=== PATIENT | female | born 1950 | race Caucasian/White ===

== ENCOUNTER 2019-07-02 07:34 | Outpatient (RCR) | payer MEDICARE, SELFPAY | END 2019-09-30 23:59 | disposition home or self-care (01) | LOC: ANHDMC 07:34 | PROVIDERS: PCP Internal Medicine; Visit Provider Internal Medicine Endocrinology, Diabetes & Metabolism | DX: E11.65 Type 2 diabetes mellitus with hyperglycemia (principal); E66.9 Obesity, unspecified | CPT/HCPCS: 99199 ==

== ENCOUNTER 2019-12-16 19:07 | Outpatient (CLI) | payer MEDICARE, SELFPAY ==
[2019-12-16 19:51] LABS: Basophils Absolute Auto 0.04 K/mm3 (0.00-0.10); Basophils Percent Auto 0.5 % (0.0-1.0); Eosinophils Percent Auto 2.5 % (1.0-6.0); Hematocrit 40.9 % (35.0-42.0); Hemoglobin 14.2 g/dL (11.7-13.8); Immature Granulocyte Absolute 0.03 K/mm3 (0.00-0.00); Immature Granulocyte Percent A 0.4 % (0.0-0.0); Lymphocytes Absolute Auto 1.55 K/mm3 (1.10-4.50); Lymphocytes Percent Auto 19.5 % (18.0-42.0); Mean Corpuscular HGB Conc 34.7 g/dL (32.0-36.0); Mean Corpuscular Hemoglobin 31.5 pg (27.0-31.0); Mean Corpuscular Volume 90.7 fL (78.0-102.0); Mean Platelet Volume 10.9 fl (9.2-11.8); Monocytes Absolute Auto 0.48 K/mm3 (0.10-0.90); Neutrophils Absolute Auto 5.6 K/mm3 (1.7-7.2); Neutrophils Percent Auto 71.1 % (50.0-70.0); Platelet Count Result 186 K/mm3 (150-420); Red Blood Count 4.51 M/mm3 (4.20-5.40); Red Cell Distribution Width 13.3 % (11.6-14.4); White Blood Count 7.9 K/mm3 (4.8-10.8)
[2019-12-16 20:15] LABS: Alanine Aminotransferase 22 U/L (14-59); Albumin Level 3.3 g/dL (3.4-5.0); Alkaline Phosphatase 176 U/L (46-116); Anion Gap 10.3 mmol/L (7-16); Aspartate Amino Transferase 15 U/L (15-37); Bilirubin,Total 0.6 mg/dL (0.00-1.00); Blood Urea Nitrogen 20 mg/dL (7-18); Calcium 8.5 mg/dL (8.5-10.1); Carbon Dioxide 30 mmol/L (21-32); Chloride 101 mmol/L (98-108); Estimated Glomerular Filt Rate 49; Glucose 202 mg/dL (70-99); Osmolality Calculated 294 mOsm/kg (285-295); Potassium 3.3 mmol/L (3.5-5.1); Sodium 138 mmol/L (136-145); Total Protein 6.4 g/dL (6.4-8.2)
== END 2019-12-16 19:08 | disposition home or self-care (01) ==
LOC: CHSLAB 19:09
PROVIDERS: PCP Internal Medicine; Visit Provider Internal Medicine
DX: M79.605 Pain in left leg (principal); M79.604 Pain in right leg; E11.9 Type 2 diabetes mellitus without complications
CPT/HCPCS: 36415; 80053; 85025

== ENCOUNTER 2019-12-17 13:00 | Outpatient (RCR) | payer MEDICARE, OTHER, SELFPAY ==
[2019-10-03 09:30] VITALS: BMI 61.9
[2019-12-17 13:14] VITALS: BMI 60.0
[2019-12-17 13:16] VITALS: BMI 60.0
== END 2020-01-01 23:59 | disposition home or self-care (01) ==
LOC: ANHDMC 13:00
PROVIDERS: PCP Internal Medicine; Visit Provider Internal Medicine Endocrinology, Diabetes & Metabolism
DX: E11.65 Type 2 diabetes mellitus with hyperglycemia (principal); Z71.3 Dietary counseling and surveillance; Z79.4 Long term (current) use of insulin
CPT/HCPCS: 97802; 97803

== ENCOUNTER → 2020-05-07 08:12 | Outpatient (CLI) | payer MEDICARE, OTHER, SELFPAY ==
--- NOTE | ~2020-05-07 | MR_ITS ---
. EXAMINATION: MR lumbar spine wo con DATE: 05/07/2020 09:14 INDICATION: Lumbago. TECHNIQUE: Magnetic resonance imaging (MRI) of the lumbar spine was performed without intravenous con trast. Sequences included sagittal T2-weighted FSE, sagittal T2-weighted FS FSE, sagittal T1-weighted FSE, and axial T2-weighted FSE. COMPARISON: Lumbar spine MRI 12/07/2017 FINDINGS: There is 5 degrees levocurvature of lumbar spine. There is 3 mm anterolisthesis of L4 on L5 . There are Schmorl's nodes at most levels. There is mild chronic anterior wedging of T11 and T12 chrissie tebral bodies. There is moderately decreased disc height at L2-L3 and L3-L4, mildly decreased disc he ight at L4-L5, and severely decreased disc height at L5-S1 with endplate remodeling. There is degener ative edema-like marrow signal intensity of L3 inferior endplate. The distal spinal cord signal inten sity is normal. The conus medullaris is at L2. The following disc levels are specifically discussed: L1-L2: The disc does not extend beyond the endplate margin. There is mild bilateral facet joint osteo arthritis. There is no neural foraminal stenosis. There is no central canal stenosis. L2-L3: The disc is bulging and has an annular fissure. There is mild bilateral facet joint osteoarthr itis. There is moderate bilateral neural foraminal stenosis. There is mild central canal stenosis. L3-L4: The disc is bulging and has an annular fissure. There is moderate bilateral facet joint osteoa rthritis. There is hypertrophy of the ligamentum flavum. There is moderate bilateral neural foraminal stenosis. There is mild central canal stenosis. L4-L5: The disc is bulging and has an annular fissure. There is severe bilateral facet joint osteoart hritis. There is hypertrophy of the ligamentum flavum. There is moderate bilateral neural foraminal s tenosis. There is moderate central canal stenosis. L5-S1: The disc is bulging and has an annular fissure. There is severe bilateral facet joint osteoart hritis. There is severe right and moderate left neural foraminal stenosis. There is mild central farida l stenosis. IMPRESSION: 1. Severe lumbar spondylosis, worsened from 12/07/2017. Reviewed, dictated and finalized at location A. ONNEL GENERALIST MANAGER
== END ==
PROVIDERS: Visit Provider Nurse Practitioner Family
DX: M47.896 Other spondylosis, lumbar region (principal)
CPT/HCPCS: 72148

== ENCOUNTER 2020-10-26 22:31 | Emergency (ER) | payer MEDICARE, SELFPAY ==
--- NOTE | ~2020-10-26 | CT_ITS ---
EXAMINATION: CT abdomen pelvis w con EXAM DATE: 10/27/2020 00:44 INDICATION: Abdominal pain all over abd pain with N/V/D/C. TECHNIQUE: Spiral CT of the abdomen and pelvis was performed following intravenous injection of 100 m L Omnipaque 350. Axial, coronal and sagittal images of the abdomen and pelvis were reviewed. The do se-length product (DLP) for this examination was 1469.98 mGy-cm. The exposure was tailored according to patient size (auto mA exposure control), and iterative reconstruction (ASIR) was used as addition al dose reduction technique. Comparison is made to prior examination from 11/16/2015. FINDINGS: There is a left ureteropelvic junction 15 mm stone. There is mild left hydronephrosis and m oderate perinephric fat stranding. Mildly delayed left nephrogram compared to right. There is a simil ar sized nonobstructing right renal pelvic stone. There are 2 left calyceal stones measuring about 2 mm. There is a 10 mm left renal midpole angiomyolipoma. The liver, spleen, adrenal glands and pancreas are unremarkable. Gallbladder is unremarkable. No bi liary obstruction. The uterus is anteverted and morphologically normal. The bladder is unremarka ble. There is no retroperitoneal or pelvic lymphadenopathy. There is mild scattered arteriosclerot ic disease. Small to moderate-sized umbilical fat-containing hernia. The appendix is not positively visualized. There is no pericecal inflammatory change to suggest appe ndicitis. There is moderate descending and sigmoid colonic diverticulosis. There is no adjacent infl ammatory change to suggest diverticulitis. The stomach and small bowel are unremarkable. There is ex pected amount of colonic stool. No free intraperitoneal gas. Basilar subsegmental atelectasis. Th ere are no osteoblastic or osteolytic lesions identified. IMPRESSION: 1. Bilateral renal pelvic 1.5 cm stones, obstructing on the left. 2. Left nephrolithiasis. 3. Left angiomyolipoma. 4. Umbilical fat-containing hernia. 5. Colonic diverticulosis. Reviewed, dictated and finalized at location A.
[2020-10-26 22:35] VITALS: BP 168/92; PULSE 81; RESP 20; TEMP 36.8; O2SAT 98
--- NOTE | 2020-10-26 22:51 | ECG_ITS ---
Measurements Intervals [place] Rate: 73 P: 70 UT: 189 QRS: -4 QRSD: 88 T: 31 QT: 387 QTc: 428 Interpretive Statements SINUS RHYTHM WITH MARKED SINUS ARRHYTHMIA BASELINE ARTIFACT- I, II, III, AVR, AVL, AVF, V1, V4-V6 NORMAL ECG Electronically Signed On 10-27-2020 7:13:06 CDT by Christian Zimmerman D.O.
[2020-10-26] MEDS: SODIUM CHLORIDE 0.9% IV 1,000 ML 999 ML IV CONT (23:12)
[2020-10-26] MEDS: ONDANSETRON INJ 4 MG/2 ML VIAL IV PUSH (23:12)
[2020-10-26 23:44] LABS: Basophils Absolute Auto 0.05 K/mm3 (0.00-0.10); Basophils Percent Auto 0.4 % (0.0-1.0); Eosinophils Absolute Auto 0.12 K/mm3 (0.02-0.50); Eosinophils Percent Auto 1.1 % (1.0-6.0); Hemoglobin 13.5 g/dL (11.7-13.8); Immature Granulocyte Absolute 0.03 K/mm3 (0.00-0.00); Immature Granulocyte Percent A 0.3 % (0.0-0.0); Lymphocytes Absolute Auto 0.91 K/mm3 (1.10-4.50); Lymphocytes Percent Auto 8.1 % (18.0-42.0); Mean Corpuscular HGB Conc 33.8 g/dL (32.0-36.0); Mean Corpuscular Hemoglobin 30.4 pg (27.0-31.0); Mean Corpuscular Volume 90.1 fL (78.0-102.0); Mean Platelet Volume 10.1 fl (9.2-11.8); Monocytes Absolute Auto 0.51 K/mm3 (0.10-0.90); Monocytes Percent Auto 4.5 % (2.0-11.0); Neutrophils Absolute Auto 9.6 K/mm3 (1.7-7.2); Neutrophils Percent Auto 85.6 % (50.0-70.0); Platelet Count Result 182 K/mm3 (150-420); Red Blood Count 4.44 M/mm3 (4.20-5.40); Red Cell Distribution Width 13.3 % (11.6-14.4); White Blood Count 11.3 K/mm3 (4.8-10.8)
[2020-10-27] LABS: Alanine Aminotransferase 26 U/L (14-59); Albumin Level 3.4 g/dL (3.4-5.0); Alkaline Phosphatase 116 U/L (46-116); Anion Gap 11 mmol/L (8-16); Aspartate Amino Transferase 12 U/L (15-37); Bilirubin,Total 0.6 mg/dL (0.00-1.00); Blood Urea Nitrogen 12 mg/dL (7-18); Calcium 8.8 mg/dL (8.5-10.1); Carbon Dioxide 27 mmol/L (21-32); Chloride 99 mmol/L (98-108); Estimated Glomerular Filt Rate 52; Glucose 296 mg/dL (70-99); Lipase 39 U/L (73-393); Osmolality Calculated 294 mOsm/kg (285-295); Potassium 3.7 mmol/L (3.5-5.1); Sodium 137 mmol/L (136-145); Total Protein 6.7 g/dL (6.4-8.2)
[2020-10-27 00:04] LABS: Lactic Acid Reflex 1.6 mmol/L (0.4-2.0)
--- NOTE | 2020-10-27 00:57 | PC.NURSE ---
pt hernan grande, erp notified.
[2020-10-27] MEDS: KETOROLAC 30 MG/ML VIAL (*BKC) IV PUSH (01:56)
--- NOTE | 2020-10-27 02:07 | PC.NURSE ---
0200 call to con[facility] mel[facility] wheel[facility], [facility] for bed availability to transfer pt for urology services. awaiting call back
[2020-10-27 02:09] LABS: Appearance Urine Clear (Clear); Bilirubin Urine 1+ (Negative); Blood Urine 3+ (Negative); Glucose Urine UA 3+ (Negative); Ketones Urine Negative (Negative); Leukocyte Esterase Ur Negative (Negative); Nitrate Urine Negative (Negative); Protein Urine 2+ (Negative); Specific Grav Ur >= 1.030 (1.010-1.020)
--- NOTE | 2020-10-27 02:15 | ED.ABDPAIN ---
HPI - Abdominal Pain General Chief Complaint: Abdominal Pain Stated Complaint: gas pains, dry heaving Source: patient Mode of arrival: ambulatory Limitations: no limitations History of Present Illness HPI narrative: This is a 70-year-old female with a history of kidney stones has seen urology at [facility] in the past, presents this morning with some abdominal pain with nausea and episode of vomiting abdominal fullness gassy feeling that started earlier this this afternoon, has been having some abdominal discomfort for the last few weeks and started earlier this afternoon with left lower quadrant pain and flank pain, currently no fever chills does have some nausea with episodes of vomiting with no chest pain no shortness of breath no dysuria no hematuria. MD elicited complaint: abdominal pain Pertinent past history: constipation and diverticulitis Onset (ago): hour(s) Pain Consistency: intermittent Location: LLQ and L flank Severity: moderate Pain scale (0-10): 6 Quality: aching and fullness Radiation: LLQ Migration to: L flank Exacerbating factors: eating Relieving factors: nothing Related Data Home Medications Medication Instructions Recorded Confirmed acetaminophen 500 mg tablet 500 mg PO Q4H PRN 04/22/19 10/26/20 aspirin 81 mg tablet,delayed 81 mg PO DAILY 04/22/19 10/26/20 release atorvastatin 40 mg tablet 40 mg PO DAILY 04/22/19 10/26/20 bupropion HCl 150 mg 24 hr tablet, 150 mg PO QAM 04/22/19 10/26/20 extended release duloxetine 60 mg capsule,delayed 60 mg PO BID 04/22/19 10/26/20 release furosemide 40 mg tablet 80 mg PO QAM 04/22/19 10/26/20 glipizide 10 mg tablet 10 mg PO BID 04/22/19 10/26/20 levothyroxine 125 mcg tablet 150 mcg PO DAILY tablet 04/22/19 10/26/20 metformin 1,000 mg tablet 1,000 mg PO BID 04/22/19 10/26/20 potassium chloride 20 mEq oral 20 meq PO DAILY 04/22/19 10/26/20 packet propranolol 40 mg tablet 40 mg PO .QD tablet 04/22/19 10/26/20 zonisamide 100 mg capsule 400 mg PO DAILY 04/22/19 10/26/20 Allergies Allergy/AdvReac Type Severity Reaction Status Date / Time cephalexin [From Keflex] Allergy Unknown Rash Verified 04/22/19 08:14 Review of Systems Review of Systems: All systems reviewed & are unremarkable except as noted in HPI and below PMFSH Past Medical History Medical History (Updated 10/27/20 @ 02:31 by Aidan Faulkner MD) Anemia Anxiety Arthritis Asthma Back pain Blood disorder Chest pain Depression Diabetes H/O thyroid disease Migraines Obesity Shortness of breath Tear, knee, medial meniscus Surgical History Surgical History Hx of dilation and curettage Hx of tonsillectomy Family History Family History Other ADD (attention deficit disorder) Alzheimer's dementia Anemia Anxiety Arthritis Asthma Atrial fibrillation Back pain CAD (coronary artery disease) Cataracts, bilateral Chest pain Depression Diabetes mellitus Glaucoma H/O thyroid disease Hearing loss Heart disease Hypertension Migraines Obesity Osteoporosis Ovarian cancer Renal disease Shortness of breath Visual loss Social History Social History Smoking status: Never smoker Alcohol intake: never Spiritual care concerns: No Exam Const: General: no acute distress and alert Orientation/consciousness: patient oriented x3 HENMT: Head: normal to inspection Eyes: Conjunctivae: conjunctivae normal Pupils: Equal, round and reactive pupils present EOM: EOMs intact bilaterally Direct Ophthalmoscopy: no photophobia Neck: Neck: normal visual inspection, no lymphadenopathy and no meningeal signs Chest: Chest palpation & inspection: normal inspection of the chest Resp: Effort & Inspection: normal respiratory effort Auscultation: clear to auscultation bilaterally Cardio:
[2020-10-27 02:16] LABS: Add Urine Microscopic? YES; Amorphous Sediment Urine Heavy; Bacteria Urine None seen /hpf; Color Urine Dark Yellow (Yellow); RBC Urine 51-75 /hpf (0-2); Squamous Epithelial Cell Urine Moderate /hpf (Few); WBC Urine None seen /hpf (0-3)
--- NOTE | 2020-10-27 02:24 | PC.NURSE ---
dr browne spoke with dr campuzano, urology. call to [facility] to speak with hospitalist for admission. awaiting call back from dr charles
[2020-10-27 02:29] VITALS: TEMP 37.1
[2020-10-27] MEDS: MORPHINE SULFATE (*CRX) 2 MG/ML INJ IV PUSH ×2 (02:30→06:23)
--- NOTE | 2020-10-27 03:15 | PC.NURSE ---
call from [facility] at [place], stated dr tomas reviewed chart and accepted transfer of pt. awaiting bed assignment and report to nurse.
[2020-10-27 03:16] VITALS: TEMP 36.9
[2020-10-27 05:17] VITALS: BP 133/58; PULSE 81; RESP 20; O2SAT 95
--- NOTE | 2020-10-27 05:46 | PC.NURSE ---
call to belia for report
[2020-10-27 05:54] VITALS: BP 158/87; PULSE 58; RESP 20; TEMP 36.9; O2SAT 95
--- NOTE | 2020-10-27 06:26 | PC.NURSE ---
pt loaded to [facility] ems cot. alert and stable.
== END 2020-10-27 06:27 | disposition short-term general hospital (02) ==
PROVIDERS: Emergency Provider Emergency Medicine; PCP Internal Medicine
DX: N20.1 Calculus of ureter (principal)
CPT/HCPCS: 36415; 74177; 80053; 81001; 83605; 83690; 85025; 93005; 96361; 96374; 96375; 96376; 99285; J1885; J2270; J2405; J7030; Q9967

== ENCOUNTER 2020-10-27 07:02 | Inpatient (IN) | payer MEDICARE, SELFPAY ==
[2020-10-27] VITALS (10 sets, daily range): BP systolic 122–152; BP diastolic 70–96; PULSE 70–87; RESP 14–22; TEMP 36.1–37; O2SAT 95–100; BMI 60.5
--- NOTE | ~2020-10-27 | XR_ITS ---
XR abdomen/kub 1V 10/27/2020 14:14 Indication: Kidney stone Procedure: KUB Comparison: CT dated 10/27/2020 Findings: There are right renal stones, largest in the right renal pelvis measuring 1.5 x 1.5 cm. The re is contrast with delayed nephrogram of the left kidney. There is a standing column of contrast in the left renal collecting system, consistent with high-grade obstruction in the proximal aspect of th e ureter. There is a small amount of contrast in the bladder, partially visualized. Bowel gas pattern is nonobstructive. Lung bases unremarkable. Impression: 1: Delayed left nephrogram with standing column of contrast in the left renal collecting system, comp atible with high-grade obstruction. 2: Right nephrolithiasis. Reviewed, dictated and finalized at location B. Impression: 1: Delayed left nephrogram with standing column of contrast in the left renal c ollecting system, compatible with high-grade obstruction. 2: Right nephrolithiasis.
--- NOTE | ~2020-10-27 | XR_ITS ---
EXAMINATION: XR retrograde pyelo w/stent BI DATE: 10/27/2020 17:09 INDICATION: Nephrolithiasis for bilateral internal ureteral stent placement. TECHNIQUE: 4 fluoroscopic images of the abdomen and pelvis were obtained during procedure performed khushi Almonte. Radiologist was not present for the imaging or procedure. The amount of fluoroscopy t radha used during this procedure was 0.6 minutes. COMPARISON: CT dated 10/27/2020 FINDINGS: [employer] Head image demonstrates residual excreted contrast in the bladder from the earlier contrast-enhanced CT . Subsequent images demonstrate retrograde contrast injection into the left ureter and renal nawaf ecting system demonstrating mild left hydronephrosis. Obstructing stone seen at the left ureteropelvi c junction is not definitively identified and may be obscured by surrounding contrast. 10 mm right re nal pelvis stone is clearly visible which does not appear obstructing with no right-sided hydronephro sis on the subsequent right retrograde pyelogram. A left internal ureteral stent is visible on this i mage with proximal tip extending into the collecting system at the upper pole of the left kidney. Fin al images demonstrates the distal loop of bilateral internal ureteral stents projecting over the blad cristino. IMPRESSION: 1. Fluoroscopy utilized during bilateral retrograde Polygram the bilateral internal ureteral stent pl acements which are in expected position. See procedure note for further detail. 2. 10 mm stone at the right renal pelvis. The 15 mm left ureteropelvic junction stone is not definiti vely identified but may be obscured by the injected contrast. Reviewed, dictated and finalized at location A. IMPRESSION: 1. Fluoroscopy utilized during bilateral retrograde Polygram the bilateral inte rnal ureteral stent placements which are in expected position. See procedure no te for further detail. 2. 10 mm stone at the right renal pelvis. The 15 mm left ureteropelvic junction stone is not definitively identified but may be obscured by the injected contr ast.
--- NOTE | ~2020-10-27 | XR_ITS ---
XR abdomen/kub 1V 10/28/2020 08:33 Indication: Renal stones. Post ureteral stent placement. Procedure: KUB Comparison: 10/27/2020 Findings: There is a stone in the right renal pelvis. Interval placement of bilateral internal ureter al stents in expected position. Left ureteral stone has been repositioned into the lower pole of the left kidney measuringr 1.9 x 1.1 cm. There are pelvic phleboliths. Bowel gas pattern is nonobstructiv e. Impression: 1: Bilateral nephrolithiasis. Bilateral internal ureteral stents in expected position. Reviewed, dictated and finalized at location B. Impression: 1: Bilateral nephrolithiasis. Bilateral internal ureteral stents in expected po sition.
--- NOTE | 2020-10-27 07:02 | ADMGEN ---
This patient, Patience Doll, was admitted to [facility] Surg Room 312-01. Patient/family oriented to hospital policies and general routines including ID bracelet, bed and alarms, visiting hours, pain management, procedures, bathroom and other care routines, personal items, smoking policy, room service/diet, and visiting hours. Information on how to activate the Rapid Response Team has been discussed. Patient/Family are encouraged to report perceived risks to care and to ask questions if they do not understand what they are told or what they should do.
[2020-10-27 08:29] LABS: Hematocrit 39.7 % (37.0-47.0); Hemoglobin 13.5 g/dL (12.0-15.0); Mean Corpuscular Hemoglobin 30.7 pg (26-34); Mean Corpuscular Volume 90.2 fl (80-100); Mean Platelet Volume 9.9 fl (7.4-10.4); Platelet Count Result 182 k/mm3 (150-375); Red Cell Distribution Width 13.5 % (11.5-14.5); White Blood Count 10.8 K/mm3 (4.5-10.0)
[2020-10-27 08:42] LABS: Anion Gap 7 mmol/L (8-16); Blood Urea Nitrogen 14 mg/dL (7-17); Calcium 9.1 mg/dL (8.4-10.2); Carbon Dioxide 29 mmol/L (22-30); Chloride 101 mmol/L (98-107); Estimated Glomerular Filt Rate 45; Glucose 271 mg/dL (65-105); Potassium 4.3 mmol/L (3.4-5.0); Sodium 137 mmol/L (137-145)
--- NOTE | 2020-10-27 10:47 | WPDURCON ---
Assessment and Plan Assessment and plan (1) Urolithiasis: Qualifiers: Urinary calculus location: ureter Qualified Code(s): N20.1 - Calculus of ureter Code(s): N20.9 - Urinary calculus, unspecified Status: Acute Assessment and Plan: Given that she has bilateral 1.5 cm UPJ stones we will proceed with cysto bilateral retrogrades bilateral ureteral stent placements. Her left system shows hydronephrosis. It may simply be a matter of time be to for the right side develops an issue. We will plan on proceeding with cysto , bilateral retrograde, bilateral ureteral stent placement later this afternoon. If the stones are visible and KUB will see if she is a candidate for lithotripsy given her size. Urology Consult Note HPI Date Seen: 10/27/20 Requesting Physician: Candace Hurst DO Primary Care Provider: Aidan Faulkner MD Consult Narrative Narrative: Patience Doll is a 70 year old female who was transferred from [facility] with a 1.5 mm left UPJ stone with mild hydro. Patient actually presented to the emergency room there was some abdominal discomfort which she thought was gas pains. She denied any real flank pain. Denied any fevers. Evaluation in the emergency room revealed a 1.5 cm left UPJ stone with mild hydro. In addition she has a similar 1.5 cm stone in the right UPJ without hydro at this time. Patient denies any fevers. Her pain is pretty well controlled however she still has this abdominal discomfort. Review of Systems Review of Systems: All systems reviewed & are unremarkable except as noted in HPI and below PMFSH Past Medical History Medical History Anemia Anxiety Arthritis Asthma Back pain Blood disorder Chest pain Depression Diabetes H/O thyroid disease Migraines Obesity Shortness of breath Tear, knee, medial meniscus Surgical History Surgical History Hx of dilation and curettage Hx of tonsillectomy Family History Family History Other ADD (attention deficit disorder) Alzheimer's dementia Anemia Anxiety Arthritis Asthma Atrial fibrillation Back pain CAD (coronary artery disease) Cataracts, bilateral Chest pain Depression Diabetes mellitus Glaucoma H/O thyroid disease Hearing loss Heart disease Hypertension Migraines Obesity Osteoporosis Ovarian cancer Renal disease Shortness of breath Visual loss Social History Social History Smoking packs per day: 1.5 Smoking cigarettes per day: 30.0 Years smoked: 49 Smoking pack-years: 73.50 Smoking status: Former smoker Tobacco type: cigarettes Alcohol intake: never Substance use type: does not use Spiritual care concerns: No Meds Home Medications and Allergies Home Medications Medication Instructions Recorded Confirmed Type acetaminophen 500 mg tablet 500 mg PO Q4H PRN 04/22/19 10/27/20 History aspirin 81 mg tablet,delayed 81 mg PO DAILY 04/22/19 10/27/20 History release atorvastatin 40 mg tablet 40 mg PO DAILY 04/22/19 10/27/20 History blood-glucose meter #1 each 04/22/19 10/27/20 Rx bupropion HCl 150 mg 24 hr tablet, 150 mg PO QAM 04/22/19 10/27/20 History extended release duloxetine 60 mg capsule,delayed 60 mg PO BID 04/22/19 10/27/20 History release furosemide 40 mg tablet 80 mg PO QAM 04/22/19 10/27/20 History glipizide 10 mg tablet 10 mg PO BID 04/22/19 10/27/20 History lancets 33 gauge #100 each 04/22/19 10/27/20 Rx levothyroxine 125 mcg tablet 150 mcg PO DAILY tablet 04/22/19 10/27/20 History metformin 1,000 mg tablet 1,000 mg PO BID 04/22/19 10/27/20 History pen needle, diabetic 32 gauge x #100 each 04/22/19 10/27/20 Rx potassium chloride 20 mEq oral 20 meq PO DAILY 04/22/19 10/27/20
--- NOTE | 2020-10-27 10:51 | WPDHPUPDATE1 ---
History and Physical Update Update Date/Time: 10/27/20 10:51 History and Physical has been reviewed, including an updated exam of the patient. There are NO changes in the patient's condition. Risks, benefits, and alternatives have been discussed and questions answered. Patient agrees to proceed with procedure. Proceed with cystoscopy, bilateral retrograde pyelograms, bilateral ureteral stent placement
[2020-10-27 11:43] LABS: Glucose Point of Care 248 mg/dl (65-105)
--- NOTE | 2020-10-27 12:38 | WPDGICN ---
Assessment and Plan Assessment and plan (1) Urolithiasis: Qualifiers: Urinary calculus location: ureter Qualified Code(s): N20.1 - Calculus of ureter Code(s): N20.9 - Urinary calculus, unspecified Status: Acute (2) Abdominal pain: Code(s): R10.9 - Unspecified abdominal pain Status: Acute Assessment and Plan: Patient with several weeks worth of abdominal pain now intensifies in causing her to be admitted the hospital. I suspect this may be related to constipation. However she does have kidney stones which may be contributing. She is to have cysto today. Will plan colonoscopy in a day or 2. In the interim will begin stool softeners and laxatives. (3) Constipation: Code(s): K59.00 - Constipation, unspecified Status: Acute Assessment and Plan: Patient with 1 bowel movement weekly. She has painful cramps associated with bowel movements. Because of this this may be the etiology of ear current pain stool softeners laxatives will be started. (4) History of colon polyps: Code(s): Z86.010 - Personal history of colonic polyps Status: Acute Assessment and Plan: Patient last had colonoscopy with history of colon polyps 5 years ago while in [place]. Because of her new complaints of significant abdominal pain prompting her to be admitted to the hospital will anticipate proceeding with colonoscopy. She is to have cystoscopy today so will defer colonoscopy till later this week. (5) Obesity: Code(s): E66.9 - Obesity, unspecified Status: Acute Assessment and Plan: Weight loss diet and increase activity strongly encourage because of her morbid obesity. GI Consult Note Consult date/time: 10/27/20 12:38 HPI: Patience Doll is a 70 year old female Is admitted the hospital from the emergency room. I am asked to see patient at the request of the hospitalist service. Patient reports over the last several weeks has had increasing abdominal pain with gas belching bloating and decreased frequency of bowel movements. She will have a bowel movement approximately once a week very painful with cramps prior to a bowel. She states bloating typically is improved with Gas- X. Because of intense pain last evening she went to the emergency room and was admitted to the hospital. CT scan in the emergency room ring reveals bilateral kidney stones with obstruction on the left. Patient reports having had colonoscopy 5 years ago in [place] that revealed colon polyps. She states she is due for follow-up colonoscopy. She has had no bleeding. She is quite obese and denies any evidence for weight loss recently her family history is noncontributory. Review of Systems Review of Systems: All systems reviewed & are unremarkable except as noted in HPI and below PMFSH Past Medical History Medical History (Updated 10/27/20 @ 12:50 by Cm Arana MD) Anemia Anxiety Arthritis Asthma Back pain Blood disorder Chest pain Depression Diabetes H/O thyroid disease Migraines Obesity Shortness of breath Tear, knee, medial meniscus Surgical History Surgical History Hx of dilation and curettage Hx of tonsillectomy Family History Family History Other ADD (attention deficit disorder) Alzheimer's dementia Anemia Anxiety Arthritis Asthma Atrial fibrillation Back pain CAD (coronary artery disease) Cataracts, bilateral Chest pain Depression Diabetes mellitus Glaucoma H/O thyroid disease Hearing loss Heart disease Hypertension Migraines Obesity Osteoporosis Ovarian cancer Renal disease Shortness of breath Visual loss Social History Social History Smoking packs per day: 1.5 Smoking cigarettes per day: 30.0 Years smoked: 49 Smoking
--- NOTE | 2020-10-27 14:01 | PM.IMHP ---
H&P: HPI History of Present Illness Date/Time: 10/27/20 14:01 Patient is 70-year-old female morbidly obese with history of diabetes as well as kidney stone presented emergency department at [facility] and patient was transferred to [facility] to consult Urology, currently patient is her main concern is abdominal bloating and constipation which is going on for quite some time,, patient had seen GI 5 years ago and had a colonoscopy and patient has history of polyps, will consult GI for further recommendation, to further evaluate patient left flank pain patient had a CT scan of the abdomen which showed bilateral renal pelvic 1.5 cm stones, obstructing on the left. Patient be seen by urologist and further recommendation to follow. Chief Complaint: Left flank pain Review of Systems Review of Systems: All systems reviewed & are unremarkable except as noted in HPI and below PMFSH Past Medical History Medical History (Updated 10/27/20 @ 14:06 by Ary Duarte MD) Anemia Anxiety Arthritis Asthma Back pain Blood disorder Chest pain Depression Diabetes H/O thyroid disease Migraines Obesity Shortness of breath Tear, knee, medial meniscus Surgical History Surgical History Hx of dilation and curettage Hx of tonsillectomy Family History Family History Other ADD (attention deficit disorder) Alzheimer's dementia Anemia Anxiety Arthritis Asthma Atrial fibrillation Back pain CAD (coronary artery disease) Cataracts, bilateral Chest pain Depression Diabetes mellitus Glaucoma H/O thyroid disease Hearing loss Heart disease Hypertension Migraines Obesity Osteoporosis Ovarian cancer Renal disease Shortness of breath Visual loss Social History Social History Smoking packs per day: 1.5 Smoking cigarettes per day: 30.0 Years smoked: 49 Smoking pack-years: 73.50 Smoking status: Former smoker Tobacco type: cigarettes Alcohol intake: never Substance use type: does not use Spiritual care concerns: No Meds Home Medications and Allergies Home Medications Medication Instructions Recorded Confirmed Type acetaminophen 500 mg tablet 500 mg PO Q4H PRN 04/22/19 10/27/20 History aspirin 81 mg tablet,delayed 81 mg PO DAILY 04/22/19 10/27/20 History release atorvastatin 40 mg tablet 40 mg PO DAILY 04/22/19 10/27/20 History blood-glucose meter #1 each 04/22/19 10/27/20 Rx bupropion HCl 150 mg 24 hr tablet, 150 mg PO QAM 04/22/19 10/27/20 History extended release duloxetine 60 mg capsule,delayed 60 mg PO BID 04/22/19 10/27/20 History release furosemide 40 mg tablet 80 mg PO QAM 04/22/19 10/27/20 History glipizide 10 mg tablet 10 mg PO BID 04/22/19 10/27/20 History lancets 33 gauge #100 each 04/22/19 10/27/20 Rx levothyroxine 125 mcg tablet 150 mcg PO DAILY tablet 04/22/19 10/27/20 History metformin 1,000 mg tablet 1,000 mg PO BID 04/22/19 10/27/20 History pen needle, diabetic 32 gauge x #100 each 04/22/19 10/27/20 Rx / potassium chloride 20 mEq oral 20 meq PO DAILY 04/22/19 10/27/20 History packet propranolol 40 mg tablet 40 mg PO .QD tablet 04/22/19 10/27/20 History zonisamide 100 mg capsule 400 mg PO DAILY 04/22/19 10/27/20 History pen needle, diabetic 32 gauge x #100 each 04/23/19 10/27/20 Rx /32 blood sugar diagnostic #200 ea 06/03/20 10/27/20 Rx Allergies Allergy/AdvReac Type Severity Reaction Status Date / Time cephalexin [From Keflex] Allergy Unknown Rash Verified 10/27/20 07:59 Vital Signs Vital Signs - 24 hr 10/27/20 07:30 Temperature 98.6 F Pulse Rate 87 Respiratory Rate 20 Blood Pressure 132/86 Pulse Oximetry 97 Exam Narrative: Exam Narrative: Morbidly obese Patient is comfortable, NAD HEENT: eyes are clear and none ic
[2020-10-27 15:18] LABS: Glucose Point of Care 188 mg/dl (65-105)
--- NOTE | 2020-10-27 15:45 | PC.NURSE ---
To OR per [facility]. Report given to RN.
[2020-10-27] MEDS: LACTATED RINGERS 1,000 ML 30 ML IV CONT (15:50)
--- NOTE | 2020-10-27 15:55 | WPDANESEPPF ---
Anes - Initial Pre Proc Eval Procedure: Operation Date: 10/27/20 16:45 Proposed Procedures p Cystoscopy,Bilateral Retrograde Pyelogram,Bilateral Stent Placement - Doroteo Almonte MD Date/Time: 10/27/20 15:55 Surgeon: Candace Hurst DO Pre Op Diagnosis: Nephrolithiasis Patient Data Age: 70 Gender: F Height: Weight: Last Vital Signs Temp 36.9 C 10/27/20 14:00 Pulse 86 10/27/20 14:00 Resp 20 10/27/20 14:00 BP 149/90 H 10/27/20 14:00 Pulse Ox 95 10/27/20 14:00 Allergies Allergy/AdvReac Type Severity Reaction Status Date / Time cephalexin [From Keflex] Allergy Unknown Rash Verified 10/27/20 07:59 Home Medications Medication Instructions Recorded Confirmed Type acetaminophen 500 mg tablet 500 mg PO Q4H PRN 04/22/19 10/27/20 History aspirin 81 mg tablet,delayed 81 mg PO DAILY 04/22/19 10/27/20 History release atorvastatin 40 mg tablet 40 mg PO DAILY 04/22/19 10/27/20 History blood-glucose meter #1 each 04/22/19 10/27/20 Rx bupropion HCl 150 mg 24 hr tablet, 150 mg PO QAM 04/22/19 10/27/20 History extended release duloxetine 60 mg capsule,delayed 60 mg PO BID 04/22/19 10/27/20 History release furosemide 40 mg tablet 80 mg PO QAM 04/22/19 10/27/20 History glipizide 10 mg tablet 10 mg PO BID 04/22/19 10/27/20 History lancets 33 gauge #100 each 04/22/19 10/27/20 Rx levothyroxine 125 mcg tablet 150 mcg PO DAILY tablet 04/22/19 10/27/20 History metformin 1,000 mg tablet 1,000 mg PO BID 04/22/19 10/27/20 History pen needle, diabetic 32 gauge x #100 each 04/22/19 10/27/20 Rx /32 potassium chloride 20 mEq oral 20 meq PO DAILY 04/22/19 10/27/20 History packet propranolol 40 mg tablet 40 mg PO .QD tablet 04/22/19 10/27/20 History zonisamide 100 mg capsule 400 mg PO DAILY 04/22/19 10/27/20 History pen needle, diabetic 32 gauge x #100 each 04/23/19 10/27/20 Rx blood sugar diagnostic #200 ea 06/03/20 10/27/20 Rx Laboratory Tests 10/27/20 10/27/20 10/27/20 08:21 08:21 11:41 WBC 10.8 K/mm3 H K/mm3 (4.5-10.0) RBC 4.40 M/mm3 M/mm3 (4.2-5.4) Hgb 13.5 g/dL g/dL (12.0-15.0) Hct 39.7 % % (37.0-47.0) MCV 90.2 fl fl (80-100) MCH 30.7 pg pg (26-34) MCHC 34.0 g/dl g/dl (32-36) RDW 13.5 % % (11.5-14.5) Plt Count 182 k/mm3 k/mm3 (150-375) MPV 9.9 fl fl (7.4-10.4) Sodium 137 mmol/L mmol/L (137-145) Potassium 4.3 mmol/L mmol/L (3.4-5.0) Chloride 101 mmol/L mmol/L (98-107) Carbon Dioxide 29 mmol/L mmol/L (22-30) Anion Gap 7 mmol/L L mmol/L (8-16) BUN 14 mg/dL D mg/dL (7-17) Creatinine 1.20 mg/dL H mg/dL (0.7-1.0) Estim Creat Clear Calc Not Reportable Estimated GFR 45 L (59 - ) Glucose 271 mg/dL H mg/dL (65-105) POC Capillary Glucose 248 mg/dl H mg/dl (65-105) Calcium 9.1 mg/dL mg/dL (8.4-10.2) 10/27/20 15:07 WBC RBC Hgb Hct MCV MCH MCHC RDW Plt Count MPV Sodium Potassium Chloride Carbon Dioxide Anion Gap BUN Creatinine Estim Creat Clear Calc Estimated GFR Glucose POC Capillary Glucose 188 mg/dl H mg/dl (65-105) Calcium Patient hx anesthesia problems: none Family hx anesthesia problems: none PMFSH Past Medical History Medical History Anemia Anxiety Arthritis Asthma Back pain Blood disorder Chest pain Depression Diabetes H/O thyroid disease Migraines Obesity Shortness of breath Tear, knee, medial meniscus Surgical History Surgical History Hx of dilation and curettage Hx of tonsillectomy Family History Family History (Reviewed
[2020-10-27] MEDS: levoFLOXacin 500 MG/D5W 100 ML 500 MG/100 ML BAG 100 MG IVPB (16:38)
--- NOTE | 2020-10-27 17:07 | W.PM.PROC2 ---
Procedure Note - Detailed Date of Procedure 10/27/20 Pre-op Diagnosis Bilateral Nephrolithiasis Post-op Diagnosis same Procedure Performed Cystoscopy, bilateral retrograde pyelograms, bilateral stent placement. Six [place] contour in left collecting system, 4.8 [place] in right collecting system Surgeon Doroteo Almonte MD Anesthesia general Description of Procedure Patient is taken the operative suite and correctly identified. Once anesthesia was obtained she was placed in dorsal lithotomy position and prepped draped usual sterile fashion. Twenty-two [place] scope is inserted in the bladder. There are no tumors noted. Ureteral catheter was placed in left ureteral orifice. Pyelogram was performed. Contrast had been already up in the renal pelvis from prior study. We were then able to manipulate a guidewire past the stone. Six [place] contour stent was then placed with the proximal end coiled in the upper pole the distal in the bladder. Similar procedure was performed on the right side. 4.8 [place] contour stent was then placed with the proximal end in the renal pelvis distal in the bladder. Bladder was drained. 2% viscous lidocaine was inserted urethra patient is taken recovery stable condition. She will be discharged home for standpoint. Follow up in about 1 week with her nurse practitioner will need to obtain a KUB to see if the stones are visible for lithotripsy. Drains Yes Packing No Pathology none sent Complications No immediate complications Condition stable Disposition PACU
[2020-10-27] MEDS: fentaNYL CITRATE INJ (*CRX) 100 MCG/2 ML VIAL 25 MCG IV PUSH ×2 (17:55→17:59)
[2020-10-27 18:16] LABS: Glucose Point of Care 217 mg/dl (65-105)
[2020-10-27] MEDS: ONDANSETRON INJ 4 MG/2 ML VIAL IV PUSH (18:30)
[2020-10-27] MEDS: metFORMIN HCL 500 MG TABLET 1000 MG PO (18:33)
[2020-10-27] MEDS: DULoxetine HCL 60 MG CAPSULE.DR PO (18:33)
[2020-10-27] MEDS: glipiZIDE 5 MG TABLET 10 MG PO (18:33)
[2020-10-27] MEDS: ACETAMINOPHEN 500 MG TABLET PO (18:34)
[2020-10-27 18:55] LABS: Hemoglobin A1C 9.4 % (<5.7)
[2020-10-27] MEDS: HEPARIN SODIUM 5,000 UNITS/ML VIAL 5000 UNITS SUB-Q (21:42)
[2020-10-27 22:18] LABS: Glucose Point of Care 321 mg/dl (65-105)
[2020-10-27] MEDS: INSULIN ASPART (*BKC) 100 UNITS/ML 6 UNITS SUB-Q (23:05)
[2020-10-28] MEDS: ACETAMINOPHEN 500 MG TABLET PO ×3 (00:34→21:17)
[2020-10-28 06:00] LABS: Hematocrit 38.2 % (37.0-47.0); Hemoglobin 12.7 g/dL (12.0-15.0); Mean Corpuscular HGB Conc 33.2 g/dl (32-36); Mean Corpuscular Hemoglobin 30.7 pg (26-34); Mean Corpuscular Volume 92.3 fl (80-100); Mean Platelet Volume 9.8 fl (7.4-10.4); Platelet Count Result 159 k/mm3 (150-375); Red Blood Count 4.14 M/mm3 (4.2-5.4); Red Cell Distribution Width 13.5 % (11.5-14.5); White Blood Count 10.2 K/mm3 (4.5-10.0)
[2020-10-28] MEDS: LEVOTHYROXINE SODIUM 150 MCG TABLET PO (06:07)
[2020-10-28 06:12] LABS: Anion Gap 7 mmol/L (8-16); Blood Urea Nitrogen 18 mg/dL (7-17); Calcium 8.6 mg/dL (8.4-10.2); Carbon Dioxide 27 mmol/L (22-30); Chloride 100 mmol/L (98-107); Estimated CRCL calculation 52 ml/min; Estimated Glomerular Filt Rate 45; Glucose 273 mg/dL (65-105); Potassium 4.7 mmol/L (3.4-5.0); Sodium 134 mmol/L (137-145)
--- NOTE | 2020-10-28 07:42 | WPDANESPN ---
Anes - Prog Note Post-Op Date/Time: 10/28/20 07:42 Cardiovascular status: normal Respiratory status: normal Airway patency: baseline Mental status: baseline Post-Op hydration status: normal Vital Signs: Last Vital Signs Temp 98.1 F 10/27/20 18:45 Pulse 70 10/27/20 18:45 Resp 22 H 10/27/20 18:45 BP 152/70 H 10/27/20 18:45 Pulse Ox 97 10/27/20 18:45 Pain Score (VAS): 5 same pain I/O: Intake & Output 10/27/20 10/27/20 10/28/20 15:59 23:59 07:59 Intake Total 300 1200 Balance 300 1200 Laboratory Tests 10/28/20 05:46 10/28/20 05:46 10/27/20 10/27/20 10/27/20 08:21 08:21 08:21 WBC 10.8 H RBC 4.40 Hgb 13.5 Hct 39.7 MCV 90.2 MCH 30.7 MCHC 34.0 RDW 13.5 Plt Count 182 MPV 9.9 Sodium 137 Potassium 4.3 Chloride 101 Carbon Dioxide 29 Anion Gap 7 L BUN 14 D Creatinine 1.20 H Estim Creat Clear Calc Not Reportable Estimated GFR 45 L Glucose 271 H POC Capillary Glucose Hemoglobin A1c 9.4 H Calcium 9.1 10/27/20 10/27/20 10/27/20 11:41 15:07 17:28 WBC RBC Hgb Hct MCV MCH MCHC RDW Plt Count MPV Sodium Potassium Chloride Carbon Dioxide Anion Gap BUN Creatinine Estim Creat Clear Calc Estimated GFR Glucose POC Capillary Glucose 248 H 188 H 217 H Hemoglobin A1c Calcium 10/27/20 10/28/20 10/28/20 22:14 05:46 05:46 WBC 10.2 H RBC 4.14 L Hgb 12.7 Hct 38.2 MCV 92.3 MCH 30.7 MCHC 33.2 RDW 13.5 Plt Count 159 MPV 9.8 Sodium 134 L Potassium 4.7 Chloride 100 Carbon Dioxide 27 Anion Gap 7 L BUN 18 H Creatinine 1.20 H Estim Creat Clear Calc 52 Estimated GFR 45 L Glucose 273 H POC Capillary Glucose 321 H Hemoglobin A1c Calcium 8.6 Post-procedural complaints: none Patient Feedback: Patient satisfied with anesthetic care.
--- NOTE | 2020-10-28 07:54 | WPDUROPN2 ---
Progress Note: A&P Assessment and Plan (1) Renal calculus, bilateral: Code(s): N20.0 - Calculus of kidney Status: Acute Additional Plan Postop day 1. From cystoscopy bilateral retrogrades and bilateral stent placements. Will obtain KUB to make sure Contrast has drain from left collecting system. Have discussed management of her stones. Somewhat complicated by her weight. Will attempt a lithotripsy of the left renal calculus if it is visible. Will have office schedule. From urologic standpoint can be discharged home when medically stable. Subjective Subjective Date/Time Seen: 10/28/20 07:54 who still complains of the abdominal gas pains. May be unrelated to her UPJ calculi. Will be addressed by primary care. Post Op day: 1 (Post cysto bilateral retrogrades and bilateral stent placement) Principal diagnosis: bilateral renal UPJ calculi Review of Systems Review of Systems: All systems reviewed & are unremarkable except as noted in HPI and below Objective Data Vital Signs Vital Signs: Vital Signs - 24 hr 10/27/20 14:00 10/27/20 15:50 10/27/20 17:14 Temperature 36.9 C 36.1 C L 36.3 C L Pulse Rate 86 78 87 Respiratory Rate 20 20 14 Blood Pressure 149/90 H 149/71 H 145/81 H Pulse Oximetry 95 100 100 10/27/20 17:25 10/27/20 17:40 10/27/20 17:55 Temperature Pulse Rate 79 81 72 Respiratory Rate 17 15 14 Blood Pressure 138/96 H 151/84 H 139/76 Pulse Oximetry 100 97 95 10/27/20 18:10 10/27/20 18:30 10/27/20 18:45 Temperature 36.5 C 36.7 C Pulse Rate 76 72 70 Respiratory Rate 14 20 22 H Blood Pressure 139/90 122/83 152/70 H Pulse Oximetry 97 97 97 Intake/Output Intake/Output: Intake & Output 10/25/20 10/26/20 10/27/20 10/28/20 23:59 23:59 23:59 23:59 Intake Total 300 1200 Balance 300 1200 Meds/Results Medications: Active Medications Generic Name Dose Route Start Last Admin Trade Name Freq PRN Reason Stop Dose Admin Acetaminophen 500 mg 10/27/20 17:01 10/28/20 00:34 Acetaminophen 500 Mg Tablet PO 500 mg Q4H PRN Administration PAIN RATED 1-3 Atorvastatin Calcium 40 mg 10/28/20 09:00 Atorvastatin 40 Mg Tablet PO DAILY AMAURY Bupropion HCl 150 mg 10/28/20 09:00 Bupropion Hcl Xl (24 Hr) 150 Mg Tabcr PO QAM AMAURY Dextrose 12.5 gm 10/27/20 17:04 Dextrose 50% 25 Gm/50 Ml Syringe IV PUSH PRN PRN Hypoglycemia Protocol Duloxetine HCl 60 mg 10/27/20 17:15 10/27/20 18:33 Duloxetine Hcl 60 Mg Capsule.Dr PO 60 mg BID AMAURY Administration Fentanyl Citrate 25 mcg 10/27/20 15:54 10/27/20 17:59 Fentanyl Citrate Inj (*Crx) 100 Mcg/2 Ml Vial IV PUSH 25 mcg Q2M PRN Administration Pain Furosemide 80 mg 10/28/20 09:00 Furosemide 40 Mg Tablet PO QAM AMAURY Glipizide 10 mg 10/27/20 17:15 10/27/20 18:33 Glipizide 5 Mg Tablet PO 10 mg BID AMAURY Administration Glucagon 1 mg 10/27/20 17:04 Glucagon For Inj 1 Mg Vial IM PRN PRN Hypoglycemia Protocol Glucose 15 gm 10/27/20 17:04 Glucose Oral Gel 15 Gm Of Glucse In 37.5 Gm Tube PO PRN PRN Hypoglycemia Protocol Heparin Sodium (Porcine) 5,000 units 10/27/20 21:00 10/27/20 21:42 Heparin Sodium 5,000 Units/Ml Vial SUB-Q 5,000 units Q12HR AMAURY Administration Lactated Ringer's 1,000 mls @ 30 mls/hr 10/27/20 15:55 10/27/20 18:11 Lr - Lactated Ringers Iv IV CONT Infused .Q24H AMAURY Infusion Lactated Ringer's 1,000 mls @ 30 mls/hr 10/27/20 15:55 Lr - Lactated Ringers Iv IV CONT .Q24H AMAURY Dextrose 1,000 mls @ 100 mls/hr 10/27/20 17:04 Dextrose 5% 1,000 Ml IVPB PRN PRN Hypoglycemia Protocol Insulin Aspart 2 - 5 units 10/28/20 08:00 Insulin Aspart (*Bkc) 100 Units/Ml SUB-Q TIDWM AMAURY Protocol Levothyroxine Sodium 150 mcg 10/28/20 06:30 10/28/20 06:07 Levothyroxine Sodium 150 Mcg Tablet PO 150 mcg DAILY@0630 [facility] Administration Met
--- NOTE | 2020-10-28 07:57 | WPDGIPROGNO ---
Progress Note: A&P Assessment and Plan (1) Abdominal pain: Code(s): R10.9 - Unspecified abdominal pain Status: Acute Assessment and Plan: Abdominal pain persists. Suspect this is related to constipation. Plan to give laxatives today proceed with colonoscopy tomorrow. Continue monitor closely for signs of an acute abdomen. (2) Constipation: Code(s): K59.00 - Constipation, unspecified Status: Acute Assessment and Plan: Patient with no recent bowel movement appears to correlate with her abdominal pain and cramping. Plan is for laxatives today. Colonoscopy tomorrow after preparation today. (3) History of colon polyps: Code(s): Z86.010 - Personal history of colonic polyps Status: Acute Assessment and Plan: Patient has a history of colon polyps . Last colonoscopy was 5 years ago. Surveillance colonoscopy every 5 years is advised will proceed with colonoscopy tomorrow. (4) Obesity: Code(s): E66.9 - Obesity, unspecified Status: Acute Assessment and Plan: Patient with morbid obesity. Suggest diet and weight loss. Patient to start monitoring diet intake. (5) Renal calculus, bilateral: Code(s): N20.0 - Calculus of kidney Status: Acute Assessment and Plan: Patient with bilateral nephrolithiasis. Status post stent placement by cysto yesterday. Subjective Date/time seen: 10/28/20 07:57 Patient continues to complain of abdominal pain. No recent bowel movement. No improvement after cystoscopy and stent placement yesterday. Review of Systems Review of Systems: All systems reviewed & are unremarkable except as noted in HPI and below Exam Narrative: Exam Narrative: Physical exam reveals patient be alert. Vital signs stable. HEENT exam is unremarkable. Patient is anicteric. Lungs are clear. Heart without murmur. Abdomen is obese. Bowel sounds are present soft abdominal pain in lower abdomen no specific tender spots. Objective Data Vital Signs Vital Signs: Vital Signs - 24 hr 10/27/20 14:00 10/27/20 15:50 10/27/20 17:14 Temperature 98.4 F 97.0 F L 97.4 F L Pulse Rate 86 78 87 Respiratory Rate 20 20 14 Blood Pressure 149/90 H 149/71 H 145/81 H Pulse Oximetry 95 100 100 10/27/20 17:25 10/27/20 17:40 06/08/21 17:55 Temperature Pulse Rate 79 81 72 Respiratory Rate 17 15 14 Blood Pressure 138/96 H 151/84 H 139/76 Pulse Oximetry 100 97 95 10/27/20 18:10 10/27/20 18:30 10/27/20 18:45 Temperature 97.7 F 98.1 F Pulse Rate 76 72 70 Respiratory Rate 14 20 22 H Blood Pressure 139/90 122/83 152/70 H Pulse Oximetry 97 97 97 Intake/Output Intake/Output: Intake & Output 10/25/20 10/26/20 10/27/20 10/28/20 23:59 23:59 23:59 23:59 Intake Total 300 1200 Balance 300 1200 Meds/Results Medications: Active Medications Generic Name Dose Route Start Last Admin Trade Name Freq PRN Reason Stop Dose Admin Acetaminophen 500 mg 10/27/20 17:01 10/28/20 00:34 Acetaminophen 500 Mg Tablet PO 500 mg Q4H PRN Administration PAIN RATED 1-3 Atorvastatin Calcium 40 mg 10/28/20 09:00 Atorvastatin 40 Mg Tablet PO DAILY AMAURY Bupropion HCl 150 mg 10/28/20 09:00 Bupropion Hcl Xl (24 Hr) 150 Mg Tabcr PO QAM AMAURY Dextrose 12.5 gm 10/27/20 17:04 Dextrose 50% 25 Gm/50 Ml Syringe IV PUSH PRN PRN Hypoglycemia Protocol Duloxetine HCl 60 mg 10/27/20 17:15 10/27/20 18:33 Duloxetine Hcl 60 Mg Capsule.Dr PO 60 mg BID AMAURY Administration Fentanyl Citrate 25 mcg 10/27/20 15:54 10/27/20 17:59 Fentanyl Citrate Inj (*Crx) 100 Mcg/2 Ml Vial IV PUSH 25 mcg Q2M PRN Administration Pain Furosemide 80 mg 10/28/20 09:00 Furosemide 40 Mg Tablet PO QAM AMAURY Glipizide 10 mg 10/27/20 17:15 10/27/20 18:33 Glipizide 5 Mg Tablet PO 10 mg BID AMAURY Administration Glucagon 1 mg 10/27/20 17:04 Glucagon For Inj 1 Mg Vial IM
[2020-10-28] MEDS: INSULIN ASPART (*BKC) 100 UNITS/ML SUB-Q (08:46)
[2020-10-28] MEDS: ZONISAMIDE 100 MG CAPSULE 400 MG PO (08:48)
[2020-10-28] MEDS: glipiZIDE 5 MG TABLET 10 MG PO ×2 (08:49→17:48)
[2020-10-28] MEDS: POTASSIUM CHLORIDE 20 MEQ PACKET (FOR LIQUID) PO (08:49)
[2020-10-28 08:50] LABS: Glucose Point of Care 261 mg/dl (65-105)
[2020-10-28] MEDS: HEPARIN SODIUM 5,000 UNITS/ML VIAL 5000 UNITS SUB-Q ×2 (08:51→21:14)
[2020-10-28] MEDS: buPROPion HCL XL (24 HR) 150 MG TABCR PO (08:51)
[2020-10-28] MEDS: metFORMIN HCL 500 MG TABLET 1000 MG PO ×2 (08:51→17:48)
[2020-10-28] MEDS: ATORVASTATIN 40 MG TABLET PO (08:51)
[2020-10-28] MEDS: DULoxetine HCL 60 MG CAPSULE.DR PO ×2 (08:51→17:48)
[2020-10-28 08:53] VITALS: PULSE 63
[2020-10-28] MEDS: PROPRANOLOL HCL 40 MG TABLET PO (08:53)
[2020-10-28] MEDS: FUROSEMIDE 40 MG TABLET 80 MG PO (08:53)
[2020-10-28] MEDS: PEG (High)/E-LYTE SOLN 4,000 ML BTL 4000 ML PO (10:32)
[2020-10-28 11:38] LABS: Glucose Point of Care 218 mg/dl (65-105)
[2020-10-28 13:55] LABS: Glucose Point of Care 201 mg/dl (65-105)
--- NOTE | 2020-10-28 14:47 | PM.IMPN ---
Progress Note: A&P Assessment and Plan (1) Urolithiasis: Qualifiers: Urinary calculus location: ureter Qualified Code(s): N20.1 - Calculus of ureter Code(s): N20.9 - Urinary calculus, unspecified Status: Inactive Assessment and Plan: 10/28/20 14:47 10/27 Patient is 70-year-old female morbidly obese with history of diabetes as well as kidney stone presented emergency department at [facility] and patient was transferred to [facility] to consult Urology, currently patient is her main concern is abdominal bloating and constipation which is going on for quite some time,, patient had seen GI 5 years ago and had a colonoscopy and patient has history of polyps, will consult GI for further recommendation, to further evaluate patient left flank pain patient had a CT scan of the abdomen which showed bilateral renal pelvic 1.5 cm stones, obstructing on the left. Patient be seen by urologist and further recommendation to follow. 10/27 patient was seen by urologist yesterday and had a cystoscopy and placed bilateral ureteral stent however due to patient's morbid obesity there was some concern on the left side stone and patient may need lithotripsy once clinically stable, patient was seen by GI due to persistent abdominal pain and bloating with history of partial patient is scheduled colonoscopy tomorrow, over all patient feeling better today denies any fever or chills. (2) History of colon polyps: Code(s): Z86.010 - Personal history of colonic polyps Status: Acute Assessment and Plan: Will consult GI for further recommended (3) Obesity: Code(s): E66.9 - Obesity, unspecified Status: Acute Assessment and Plan: Consult dietitian for further recommended (4) Diabetes: Code(s): E11.9 - Type 2 diabetes mellitus without complications Status: Acute Assessment and Plan: Will continue home regimen and monitor with sliding scale Subjective Date/time seen: 10/28/20 14:47 10/27 Patient is 70-year-old female morbidly obese with history of diabetes as well as kidney stone presented emergency department at [facility] and patient was transferred to [facility] to consult Urology, currently patient is her main concern is abdominal bloating and constipation which is going on for quite some time,, patient had seen GI 5 years ago and had a colonoscopy and patient has history of polyps, will consult GI for further recommendation, to further evaluate patient left flank pain patient had a CT scan of the abdomen which showed bilateral renal pelvic 1.5 cm stones, obstructing on the left. Patient be seen by urologist and further recommendation to follow. 10/27 patient was seen by urologist yesterday and had a cystoscopy and placed bilateral ureteral stent however due to patient's morbid obesity there was some concern on the left side stone and patient may need lithotripsy once clinically stable, patient was seen by GI due to persistent abdominal pain and bloating with history of partial patient is scheduled colonoscopy tomorrow, over all patient feeling better today denies any fever or chills. Review of Systems Review of Systems: All systems reviewed & are unremarkable except as noted in HPI and below Exam Narrative: Exam Narrative: Morbidly obese Patient is comfortable, NAD HEENT: eyes are clear and none icteric LUNGS:CTA HEART: RR S1S2 ABD: Morbidly obese and distended Lower extremities: no edema SKIN: nonjaundiced Neuro: grossly intact. Objective Data Vital Signs Vital Signs: Vital Signs - 24 hr 10/27/20 15:50 10/27/20 17:14 10/27/20 17:25 Temperature 97.0 F L 97.4 F L Pulse Rate 78 87 79 Respiratory Rate 20 14 17 Blood Pressure 149/71 H 145/81 H 138/96 H Pulse Oximetry 100 100 100 10/27/20 17:40 10/27/20 17:55 10/27/20 18:10 Temperature Pulse Rate 81 72 76 Respiratory Rate 15 14 14 Blood Pressure 151/84 H 139/
[2020-10-28] MEDS: ONDANSETRON INJ 4 MG/2 ML VIAL IV PUSH (17:48)
[2020-10-28 18:05] LABS: Glucose Point of Care 219 mg/dl (65-105)
[2020-10-28 19:32] VITALS: BP 159/84; PULSE 60; RESP 20; TEMP 36.4; O2SAT 98
[2020-10-28 21:36] LABS: Glucose Point of Care 203 mg/dl (65-105)
[2020-10-28 22:15] VITALS: TEMP 36.7
[2020-10-29] VITALS (9 sets, daily range): BP systolic 97–135; BP diastolic 45–75; PULSE 51–110; RESP 16–25; TEMP 36–36.7; O2SAT 97–100
[2020-10-29 06:05] LABS: Hematocrit 37.7 % (37.0-47.0); Hemoglobin 12.7 g/dL (12.0-15.0); Mean Corpuscular HGB Conc 33.7 g/dl (32-36); Mean Corpuscular Hemoglobin 30.3 pg (26-34); Mean Platelet Volume 10.1 fl (7.4-10.4); Platelet Count Result 191 k/mm3 (150-375); Red Blood Count 4.19 M/mm3 (4.2-5.4); Red Cell Distribution Width 13.3 % (11.5-14.5); White Blood Count 10.4 K/mm3 (4.5-10.0)
[2020-10-29 06:11] LABS: Anion Gap 8 mmol/L (8-16); Blood Urea Nitrogen 17 mg/dL (7-17); Carbon Dioxide 31 mmol/L (22-30); Chloride 96 mmol/L (98-107); Estimated CRCL calculation 62 ml/min; Estimated Glomerular Filt Rate 55; Glucose 171 mg/dL (65-105); Potassium 3.3 mmol/L (3.4-5.0); Sodium 135 mmol/L (137-145)
--- NOTE | 2020-10-29 07:36 | WPDGIPROGNO ---
Progress Note: A&P Assessment and Plan (1) History of colon polyps: Code(s): Z86.010 - Personal history of colonic polyps Status: Acute Assessment and Plan: Patient has a history of colon polyps. It has been 5 years since last colonoscopy. Plan to proceed with colonoscopy during this hospital stay because of recent abdominal pain. (2) Constipation: Code(s): K59.00 - Constipation, unspecified Status: Acute Assessment and Plan: Patient feels much better after bowel movement. GoLYTELY prep for colonoscopy has alleviated much her pain and prompted a good bowel movement. Plan is for long-term use of MiraLax or similar laxative to prevent recurrence of constipation. (3) Abdominal pain: Code(s): R10.9 - Unspecified abdominal pain Status: Acute Assessment and Plan: Had abdominal pain now resolved. Likely secondary to constipation. Patient also has known to have kidney stones. Status post stent placement. (4) Renal calculus, bilateral: Code(s): N20.0 - Calculus of kidney Status: Acute Subjective Date/time seen: 10/29/20 07:36 Patient feels much better today. It had good results with laxative preparation. Abdominal pain is improved with good bowel habits noted. No bleeding evident. Review of Systems Review of Systems: All systems reviewed & are unremarkable except as noted in HPI and below Exam Narrative: Exam Narrative: Physical exam reveals abdomen to be obese. Bowel sounds are present soft no localized tenderness. No organomegaly evident. Digital external rectal exam normal. Objective Data Vital Signs Vital Signs: Vital Signs - 24 hr 10/28/20 08:53 10/28/20 19:32 10/29/20 04:40 Temperature 97.6 F 98.1 F Pulse Rate 63 60 65 Respiratory Rate 20 17 Blood Pressure 159/84 H 128/70 Pulse Oximetry 98 97 Intake/Output Intake/Output: Intake & Output 10/26/20 10/27/20 10/28/20 10/29/20 23:59 23:59 23:59 23:59 Intake Total 300 2180 350 Balance 300 2180 350 Meds/Results Medications: Active Medications Generic Name Dose Route Start Last Admin Trade Name Freq PRN Reason Stop Dose Admin Acetaminophen 500 mg 10/27/20 17:01 10/28/20 21:17 Acetaminophen 500 Mg Tablet PO 500 mg Q4H PRN Administration PAIN RATED 1-3 Atorvastatin Calcium 40 mg 10/28/20 09:00 10/28/20 08:51 Atorvastatin 40 Mg Tablet PO 40 mg DAILY AMAURY Administration Bupropion HCl 150 mg 10/28/20 09:00 10/28/20 08:51 Bupropion Hcl Xl (24 Hr) 150 Mg Tabcr PO 150 mg QAM AMAURY Administration Dextrose 12.5 gm 10/27/20 17:04 Dextrose 50% 25 Gm/50 Ml Syringe IV PUSH PRN PRN Hypoglycemia Protocol Duloxetine HCl 60 mg 10/27/20 17:15 10/28/20 17:48 Duloxetine Hcl 60 Mg Capsule.Dr PO 60 mg BID AMAURY Administration Fentanyl Citrate 25 mcg 10/27/20 15:54 10/27/20 17:59 Fentanyl Citrate Inj (*Crx) 100 Mcg/2 Ml Vial IV PUSH 25 mcg Q2M PRN Administration Pain Furosemide 80 mg 10/28/20 09:00 10/28/20 08:53 Furosemide 40 Mg Tablet PO 80 mg QAM AMAURY Administration Glipizide 10 mg 10/27/20 17:15 10/28/20 17:48 Glipizide 5 Mg Tablet PO 10 mg BID AMAURY Administration Glucagon 1 mg 10/27/20 17:04 Glucagon For Inj 1 Mg Vial IM PRN PRN Hypoglycemia Protocol Glucose 15 gm 10/27/20 17:04 Glucose Oral Gel 15 Gm Of Glucse In 37.5 Gm Tube PO PRN PRN Hypoglycemia Protocol Heparin Sodium (Porcine) 5,000 units 10/27/20 21:00 10/28/20 21:14 Heparin Sodium 5,000 Units/Ml Vial SUB-Q 5,000 units Q12HR AMAURY Administration Dextrose 1,000 mls @ 100 mls/hr 10/27/20 17:04 Dextrose 5% 1,000 Ml IVPB PRN PRN Hypoglycemia Protocol Insulin Aspart 2 - 5 units 10/28/20 08:00 10/28/20 18:38 Insulin Aspart (*Bkc) 100 Units/Ml SUB-Q Not Given TIDWM AMAURY Protocol Levothyroxine Sodium 150 mcg 10/28/20 06:30
[2020-10-29] MEDS: PROPRANOLOL HCL 40 MG TABLET PO (08:08)
--- NOTE | 2020-10-29 08:29 | WPDANESEPP ---
Anes - Eval Pre Procedure Procedure: Operation Date: 10/27/20 16:45 Proposed Procedures p Cystoscopy,Bilateral Retrograde Pyelogram,Bilateral Stent Placement - Doroteo Almonte MD Operation Date: 10/29/20 10:30 Proposed Procedures p Colonoscopy - Cm Arana MD Date/Time: 10/29/20 08:29 Pre Op Diagnosis: Nephrolithiasis, Constipation, Abd pain Patient Data Age: 70 Gender: F Height: 5 ft Weight: 140.6 kg Last Vital Signs Temp 98.1 F 10/29/20 04:40 Pulse 110 H 10/29/20 08:08 Resp 17 10/29/20 04:40 BP 128/70 10/29/20 04:40 Pulse Ox 97 10/29/20 04:40 Allergies Allergy/AdvReac Type Severity Reaction Status Date / Time cephalexin [From Keflex] Allergy Unknown Rash Verified 10/27/20 07:59 Home Medications Medication Instructions Recorded Confirmed Type acetaminophen 500 mg tablet 500 mg PO Q4H PRN 04/22/19 10/27/20 History aspirin 81 mg tablet,delayed 81 mg PO DAILY 04/22/19 10/27/20 History release atorvastatin 40 mg tablet 40 mg PO DAILY 04/22/19 10/27/20 History blood-glucose meter #1 each 04/22/19 10/27/20 Rx bupropion HCl 150 mg 24 hr tablet, 150 mg PO QAM 04/22/19 10/27/20 History extended release duloxetine 60 mg capsule,delayed 60 mg PO BID 04/22/19 10/27/20 History release furosemide 40 mg tablet 80 mg PO QAM 04/22/19 10/27/20 History glipizide 10 mg tablet 10 mg PO BID 04/22/19 10/27/20 History lancets 33 gauge #100 each 04/22/19 10/27/20 Rx levothyroxine 125 mcg tablet 150 mcg PO DAILY tablet 04/22/19 10/27/20 History metformin 1,000 mg tablet 1,000 mg PO BID 04/22/19 10/27/20 History pen needle, diabetic 32 gauge x #100 each 04/22/19 10/27/20 Rx /32 potassium chloride 20 mEq oral 20 meq PO DAILY 04/22/19 10/27/20 History packet propranolol 40 mg tablet 40 mg PO .QD tablet 04/22/19 10/27/20 History zonisamide 100 mg capsule 400 mg PO DAILY 04/22/19 10/27/20 History pen needle, diabetic 32 gauge x #100 each 04/23/19 10/27/20 Rx blood sugar diagnostic #200 ea 06/03/20 10/27/20 Rx allopurinol 100 mg PO DAILY 10/28/20 10/28/20 History ezetimibe 10 mg PO DAILY 10/28/20 10/28/20 History Laboratory Tests 10/28/20 10/28/20 10/28/20 08:44 11:31 13:49 WBC RBC Hgb Hct MCV MCH MCHC RDW Plt Count MPV Sodium Potassium Chloride Carbon Dioxide Anion Gap BUN Creatinine Estim Creat Clear Calc Estimated GFR Glucose POC Capillary Glucose 261 mg/dl H mg/dl 218 mg/dl H mg/dl 201 mg/dl H mg/dl (65-105) (65-105) (65-105) Calcium 10/28/20 10/28/20 10/29/20 18:01 21:13 05:40 WBC 10.4 K/mm3 H K/mm3 (4.5-10.0) RBC 4.19 M/mm3 L M/mm3 (4.2-5.4) Hgb 12.7 g/dL g/dL (12.0-15.0) Hct 37.7 % % (37.0-47.0) MCV 90.0 fl fl (80-100) MCH 30.3 pg pg (26-34) MCHC 33.7 g/dl g/dl (32-36) RDW 13.3 % % (11.5-14.5) Plt Count 191 k/mm3 k/mm3 (150-375) MPV 10.1 fl fl (7.4-10.4) Sodium Potassium Chloride Carbon Dioxide Anion Gap BUN Creatinine Estim Creat Clear Calc Estimated GFR Glucose POC Capillary Glucose 219 mg/dl H mg/dl 203 mg/dl H mg/dl (65-105) (65-105) Calcium 10/29/20 05:40 WBC RBC Hgb Hct MCV MCH MCHC RDW Plt Count MPV Sodium 135 mmol/L L mmol/L (137-145) Potassium 3.3 mmol/L L mmol/L (3.4-5.0) Chloride 96 mmol/L L mmol/L (98-107) Carbon Dioxide 31 mmol/L H mmol/L (22-30) Anion Gap 8 mmol/L mmol/L (8-16) BUN 17 mg/dL mg/dL
[2020-10-29 09:34] LABS: Glucose Point of Care 167 mg/dl (65-105)
[2020-10-29] MEDS: LACTATED RINGERS 1,000 ML 150 ML IV CONT (09:46)
--- NOTE | 2020-10-29 09:50 | WPDANESEPPF ---
Anes - Initial Pre Proc Eval Procedure: Operation Date: 10/27/20 16:45 Proposed Procedures p Cystoscopy,Bilateral Retrograde Pyelogram,Bilateral Stent Placement - Doroteo Almonte MD Operation Date: 10/29/20 10:30 Proposed Procedures p Colonoscopy - Cm Arana MD Date/Time: 10/29/20 09:50 Surgeon: Candace Hurst DO Pre Op Diagnosis: Nephrolithiasis, Constipation, Abd pain Patient Data Age: 70 Gender: F Height: 5 ft Weight: 140.6 kg Last Vital Signs Temp 96.8 F L 10/29/20 09:34 Pulse 62 10/29/20 09:34 Resp 16 10/29/20 09:34 BP 120/50 L 10/29/20 09:34 Pulse Ox 98 10/29/20 09:34 Allergies Allergy/AdvReac Type Severity Reaction Status Date / Time cephalexin [From Keflex] Allergy Unknown Rash Verified 10/29/20 09:27 Home Medications Medication Instructions Recorded Confirmed Type acetaminophen 500 mg tablet 500 mg PO Q4H PRN 04/22/19 10/27/20 History aspirin 81 mg tablet,delayed 81 mg PO DAILY 04/22/19 10/27/20 History release atorvastatin 40 mg tablet 40 mg PO DAILY 04/22/19 10/27/20 History blood-glucose meter #1 each 04/22/19 10/27/20 Rx bupropion HCl 150 mg 24 hr tablet, 150 mg PO QAM 04/22/19 10/27/20 History extended release duloxetine 60 mg capsule,delayed 60 mg PO BID 04/22/19 10/27/20 History release furosemide 40 mg tablet 80 mg PO QAM 04/22/19 10/27/20 History glipizide 10 mg tablet 10 mg PO BID 04/22/19 10/27/20 History lancets 33 gauge #100 each 04/22/19 10/27/20 Rx levothyroxine 125 mcg tablet 150 mcg PO DAILY tablet 04/22/19 10/27/20 History metformin 1,000 mg tablet 1,000 mg PO BID 04/22/19 10/27/20 History pen needle, diabetic 32 gauge x #100 each 04/22/19 10/27/20 Rx potassium chloride 20 mEq oral 20 meq PO DAILY 04/22/19 10/27/20 History packet propranolol 40 mg tablet 40 mg PO .QD tablet 04/22/19 10/27/20 History zonisamide 100 mg capsule 400 mg PO DAILY 04/22/19 10/27/20 History pen needle, diabetic 32 gauge x #100 each 04/23/19 10/27/20 Rx blood sugar diagnostic #200 ea 06/03/20 10/27/20 Rx allopurinol 100 mg PO DAILY 10/28/20 10/28/20 History ezetimibe 10 mg PO DAILY 10/28/20 10/28/20 History Laboratory Tests 10/28/20 10/28/20 10/28/20 11:31 13:49 18:01 WBC RBC Hgb Hct MCV MCH MCHC RDW Plt Count MPV Sodium Potassium Chloride Carbon Dioxide Anion Gap BUN Creatinine Estim Creat Clear Calc Estimated GFR Glucose POC Capillary Glucose 218 mg/dl H mg/dl 201 mg/dl H mg/dl 219 mg/dl H mg/dl (65-105) (65-105) (65-105) Calcium 10/28/20 10/29/20 10/29/20 21:13 05:40 05:40 WBC 10.4 K/mm3 H K/mm3 (4.5-10.0) RBC 4.19 M/mm3 L M/mm3 (4.2-5.4) Hgb 12.7 g/dL g/dL (12.0-15.0) Hct 37.7 % % (37.0-47.0) MCV 90.0 fl fl (80-100) MCH 30.3 pg pg (26-34) MCHC 33.7 g/dl g/dl (32-36) RDW 13.3 % % (11.5-14.5) Plt Count 191 k/mm3 k/mm3 (150-375) MPV 10.1 fl fl (7.4-10.4) Sodium 135 mmol/L L mmol/L (137-145) Potassium 3.3 mmol/L L mmol/L (3.4-5.0) Chloride 96 mmol/L L mmol/L (98-107) Carbon Dioxide 31 mmol/L H mmol/L (22-30) Anion Gap 8 mmol/L mmol/L (8-16) BUN 17 mg/dL mg/dL (7-17) Creatinine 1.00 mg/dL mg/dL (0.7-1.0) Estim Creat Clear Calc 62 ml/min ml/min Estimated GFR 55 L (59 - ) Glucose 171 mg/dL H mg/dL (65-105) POC Capillary Glucose 203 mg/dl H mg/dl (65-105) Calcium 9.0 mg/dL mg/dL (8.4-10.2) 10/29/20 09:32 WBC RBC Hgb Hct MCV MCH MCHC RDW
--- NOTE | 2020-10-29 10:04 | WPDHPUPDATE1 ---
History and Physical Update Update Date/Time: 10/29/20 10:04 History and Physical has been reviewed, including an updated exam of the patient. There are NO changes in the patient's condition. Risks, benefits, and alternatives have been discussed and questions answered. Patient agrees to proceed with procedure.
[2020-10-29 10:47] LABS: Glucose Point of Care 153 mg/dl (65-105)
[2020-10-29 11:29] LABS: Glucose Point of Care 149 mg/dl (65-105)
[2020-10-29] MEDS: ATORVASTATIN 40 MG TABLET PO (11:33)
[2020-10-29] MEDS: buPROPion HCL XL (24 HR) 150 MG TABCR PO (11:33)
[2020-10-29] MEDS: DULoxetine HCL 60 MG CAPSULE.DR PO ×2 (11:34→16:46)
[2020-10-29] MEDS: POTASSIUM CHLORIDE 20 MEQ PACKET (FOR LIQUID) PO (11:34)
[2020-10-29] MEDS: metFORMIN HCL 500 MG TABLET 1000 MG PO ×2 (11:34→16:47)
[2020-10-29] MEDS: glipiZIDE 5 MG TABLET 10 MG PO ×2 (11:34→16:46)
[2020-10-29] MEDS: HEPARIN SODIUM 5,000 UNITS/ML VIAL 5000 UNITS SUB-Q ×2 (11:34→21:19)
[2020-10-29] MEDS: ZONISAMIDE 100 MG CAPSULE 400 MG PO (11:35)
--- NOTE | 2020-10-29 15:27 | PM.IMPN ---
Progress Note: A&P Assessment and Plan (1) Urolithiasis: Qualifiers: Urinary calculus location: ureter Qualified Code(s): N20.1 - Calculus of ureter Code(s): N20.9 - Urinary calculus, unspecified Status: Inactive Assessment and Plan: 10/28/20 14:47 10/27 Patient is 70-year-old female morbidly obese with history of diabetes as well as kidney stone presented emergency department at [facility] and patient was transferred to [facility] to consult Urology, currently patient is her main concern is abdominal bloating and constipation which is going on for quite some time,, patient had seen GI 5 years ago and had a colonoscopy and patient has history of polyps, will consult GI for further recommendation, to further evaluate patient left flank pain patient had a CT scan of the abdomen which showed bilateral renal pelvic 1.5 cm stones, obstructing on the left. Patient be seen by urologist and further recommendation to follow. 10/27 patient was seen by urologist yesterday and had a cystoscopy and placed bilateral ureteral stent however due to patient's morbid obesity there was some concern on the left side stone and patient may need lithotripsy once clinically stable, patient was seen by GI due to persistent abdominal pain and bloating with history of partial patient is scheduled colonoscopy tomorrow, over all patient feeling better today denies any fever or chills. (2) History of colon polyps: Code(s): Z86.010 - Personal history of colonic polyps Status: Acute Assessment and Plan: Will consult GI for further recommended (3) Obesity: Code(s): E66.9 - Obesity, unspecified Status: Acute Assessment and Plan: Consult dietitian for further recommended (4) Diabetes: Code(s): E11.9 - Type 2 diabetes mellitus without complications Status: Acute Assessment and Plan: Will continue home regimen and monitor with sliding scale Subjective Date/time seen: 10/29/20 15:27 10/27 Patient is 70-year-old female morbidly obese with history of diabetes as well as kidney stone presented emergency department at [facility] and patient was transferred to [facility] to consult Urology, currently patient is her main concern is abdominal bloating and constipation which is going on for quite some time,, patient had seen GI 5 years ago and had a colonoscopy and patient has history of polyps, will consult GI for further recommendation, to further evaluate patient left flank pain patient had a CT scan of the abdomen which showed bilateral renal pelvic 1.5 cm stones, obstructing on the left. Patient be seen by urologist and further recommendation to follow. 10/28 patient was seen by urologist yesterday and had a cystoscopy and placed bilateral ureteral stent however due to patient's morbid obesity there was some concern on the left side stone and patient may need lithotripsy once clinically stable, patient was seen by GI due to persistent abdominal pain and bloating with history of partial patient is scheduled colonoscopy tomorrow, over all patient feeling better today denies any fever or chills. Review of Systems Review of Systems: All systems reviewed & are unremarkable except as noted in HPI and below Exam Narrative: Exam Narrative: Morbidly obese Patient is comfortable, NAD HEENT: eyes are clear and none icteric LUNGS:CTA HEART: RR S1S2 ABD: Morbidly obese and distended Lower extremities: no edema SKIN: nonjaundiced Neuro: grossly intact. Objective Data Vital Signs Vital Signs: Vital Signs - 24 hr 10/28/20 19:32 10/28/20 22:15 10/29/20 04:40 Temperature 97.6 F 98.1 F 98.1 F Pulse Rate 60 65 Respiratory Rate 20 17 Blood Pressure 159/84 H 128/70 Pulse Oximetry 98 97 10/29/20 08:08 10/29/20 09:34 10/29/20 10:33 Temperature 96.8 F L Pulse Rate 110 H 62 51 L Respiratory Rate 16 23 H Blood Pressure 120/50 L 97/75 L
--- NOTE | 2020-10-29 15:40 | PM.DS ---
DS: Summary Time Spent with Patient Time attestation: Total time spent providing and/or coordinating discharge services: DS: Data Data Completed and Pending Pending studies at discharge: Pending at discharge 10/29/20 10:20 Surgical [PTH] Routine Surgical [PTH] Routine Labs on day of discharge: Labs from last 24 hours 10/29/20 10/29/20 10/29/20 11:23 10:44 09:32 WBC RBC Hgb Hct MCV MCH MCHC RDW Plt Count MPV Sodium Potassium Chloride Carbon Dioxide Anion Gap BUN Creatinine Estim Creat Clear Calc Estimated GFR Glucose POC Capillary Glucose 149 H 153 H 167 H Calcium 10/29/20 10/29/20 10/28/20 05:40 05:40 21:13 WBC 10.4 H RBC 4.19 L Hgb 12.7 Hct 37.7 MCV 90.0 MCH 30.3 MCHC 33.7 RDW 13.3 Plt Count 191 MPV 10.1 Sodium 135 L Potassium 3.3 L Chloride 96 L Carbon Dioxide 31 H Anion Gap 8 BUN 17 Creatinine 1.00 Estim Creat Clear Calc 62 Estimated GFR 55 L Glucose 171 H POC Capillary Glucose 203 H Calcium 9.0 10/28/20 18:01 WBC RBC Hgb Hct MCV MCH MCHC RDW Plt Count MPV Sodium Potassium Chloride Carbon Dioxide Anion Gap BUN Creatinine Estim Creat Clear Calc Estimated GFR Glucose POC Capillary Glucose 219 H Calcium Discharge Plan Discharge Attending physician on discharge: Ary Duarte Consulting providers: Doroteo Almonte ; Cm Arana Discharging Clinician: Ary Duarte Patient Disposition: Home, Self-Care Activity: as tolerated Diet: diabetic and high fiber Discharge Instructions: Per Care Coordination Patient to call Department of Aging after discharge to see if she would qualify for any in home services. [phone] patient to follow up with with urologist and GI as scheduled, patient to follow up with her primary care provider as soon as possible, patient is instructed if any symptoms redevelop to go to nearest ER. Patient Instructions: Antibiotic Form, Kidney Stones (DC) Stand Alone Forms: General Discharge Information Follow-up/Referrals: Cm Arana MD [Physician] - Doroteo Almonte MD [Physician] - Yoshi Bear MD [Primary Care Provider] - Discharge Medications: Continued furosemide 40 mg tablet 80 mg PO QAM RF: 0 metformin 1,000 mg tablet 1,000 mg PO BID RF: 0 glipizide 10 mg tablet 10 mg PO BID RF: 0 zonisamide 100 mg capsule 400 mg PO DAILY RF: 0 duloxetine [Cymbalta] 60 mg capsule,delayed release(DR/EC) 60 mg PO BID RF: 0 bupropion HCl [Wellbutrin XL] 150 mg tablet extended release 24 hr 150 mg PO QAM RF: 0 levothyroxine 125 mcg tablet 150 mcg PO DAILY RF: 0 propranolol 40 mg tablet 40 mg PO .QD RF: 0 potassium chloride 20 mEq packet 20 meq PO DAILY RF: 0 atorvastatin 40 mg tablet 40 mg PO DAILY RF: 0 aspirin 81 mg tablet,delayed release (DR/EC) 81 mg PO DAILY RF: 0 acetaminophen [Tylenol Extra Strength] 500 mg tablet 500 mg PO Q4H PRN (Reason: Pain) RF: 0 (DME) blood-glucose meter Kit See Rx Instructions .ROUTE .MEDSUPPLY Qty: 1 RF: 0 (DME) lancets 33 gauge misc See Rx Instructions .ROUTE .MEDSUPPLY Qty: 100 RF: 2 (DME) pen needle, diabetic [BD Ultra-Fine Kayley Pen Needle] 32 gauge x 5/32 needle See Rx Instructions .ROUTE .MEDSUPPLY Qty: 100 RF: 2 (DME) pen needle, diabetic [BD Ultra-Fine Kayley Pen Needle] 32 gauge x 5/32 needle See Rx Instructions .ROUTE .MEDSUPPLY Qty: 100 RF: 1 allopurinol 100 mg tablet 100 mg PO DAILY RF: 0 ezetimibe 10 mg tablet 10 mg PO DAILY RF: 0 (DME) FreeStyle Lite Strips Strip See Rx Instructions .ROUTE .MEDSUPPLY Qty: 200 RF: 1 Date of admission: 10/28/20 13:51 Primary Care Provider: Yoshi Bear Admitting Provider: Candace Hurst Attending physician on admission: Moncho Hurst
--- NOTE | 2020-10-29 15:50 | PM.IMPN ---
Progress Note: A&P Assessment and Plan (1) Urolithiasis: Qualifiers: Urinary calculus location: ureter Qualified Code(s): N20.1 - Calculus of ureter Code(s): N20.9 - Urinary calculus, unspecified Status: Inactive Assessment and Plan: 10/29/20 15:50 10/27 Patient is 70-year-old female morbidly obese with history of diabetes as well as kidney stone presented emergency department at [facility] and patient was transferred to [facility] to consult Urology, currently patient is her main concern is abdominal bloating and constipation which is going on for quite some time,, patient had seen GI 5 years ago and had a colonoscopy and patient has history of polyps, will consult GI for further recommendation, to further evaluate patient left flank pain patient had a CT scan of the abdomen which showed bilateral renal pelvic 1.5 cm stones, obstructing on the left. Patient be seen by urologist and further recommendation to follow. 10/28 patient was seen by urologist yesterday and had a cystoscopy and placed bilateral ureteral stent however due to patient's morbid obesity there was some concern on the left side stone and patient may need lithotripsy once clinically stable, patient was seen by GI due to persistent abdominal pain and bloating with history of partial patient is scheduled colonoscopy tomorrow, over all patient feeling better today denies any fever or chills. 10/29 today patient is scheduled for colonoscopy, states feeling better denies any abdominal pain nausea or vomiting, denies any dysuria or frequency of urination of fever or chills, will follow-up after colonoscopy and further recommendation to follow. (2) History of colon polyps: Code(s): Z86.010 - Personal history of colonic polyps Status: Acute Assessment and Plan: Will consult GI for further recommended (3) Obesity: Code(s): E66.9 - Obesity, unspecified Status: Acute Assessment and Plan: Consult dietitian for further recommended (4) Diabetes: Code(s): E11.9 - Type 2 diabetes mellitus without complications Status: Acute Assessment and Plan: Will continue home regimen and monitor with sliding scale Subjective Date/time seen: 10/29/20 15:50 10/27 Patient is 70-year-old female morbidly obese with history of diabetes as well as kidney stone presented emergency department at [facility] and patient was transferred to [facility] to consult Urology, currently patient is her main concern is abdominal bloating and constipation which is going on for quite some time,, patient had seen GI 5 years ago and had a colonoscopy and patient has history of polyps, will consult GI for further recommendation, to further evaluate patient left flank pain patient had a CT scan of the abdomen which showed bilateral renal pelvic 1.5 cm stones, obstructing on the left. Patient be seen by urologist and further recommendation to follow. 10/28 patient was seen by urologist yesterday and had a cystoscopy and placed bilateral ureteral stent however due to patient's morbid obesity there was some concern on the left side stone and patient may need lithotripsy once clinically stable, patient was seen by GI due to persistent abdominal pain and bloating with history of partial patient is scheduled colonoscopy tomorrow, over all patient feeling better today denies any fever or chills. 10/29 today patient is scheduled for colonoscopy, states feeling better denies any abdominal pain nausea or vomiting, denies any dysuria or frequency of urination of fever or chills, will follow-up after colonoscopy and further recommendation to follow. Review of Systems Review of Systems: All systems reviewed & are unremarkable except as noted in HPI and below Exam Narrative: Exam Narrative: Morbidly obese Patient is comfortable, NAD HEENT: eyes are clear and none icteric LUNGS:CTA HEART: RR S1S2 ABD: B
[2020-10-29 16:51] LABS: Glucose Point of Care 206 mg/dl (65-105)
[2020-10-29] MEDS: ACETAMINOPHEN 500 MG TABLET PO (21:28)
[2020-10-29] MEDS: ONDANSETRON INJ 4 MG/2 ML VIAL IV PUSH (21:29)
[2020-10-30 01:55] LABS: Glucose Point of Care 148 mg/dl (65-105)
[2020-10-30] MEDS: LEVOTHYROXINE SODIUM 150 MCG TABLET PO ×2 (05:16→05:17)
[2020-10-30 06:00] VITALS: BP 109/66; PULSE 65; RESP 20; TEMP 35.9; O2SAT 99
[2020-10-30 06:48] LABS: Hematocrit 36.4 % (37.0-47.0); Hemoglobin 12.1 g/dL (12.0-15.0); Mean Corpuscular HGB Conc 33.2 g/dl (32-36); Mean Corpuscular Hemoglobin 30.3 pg (26-34); Mean Corpuscular Volume 91.2 fl (80-100); Mean Platelet Volume 10.4 fl (7.4-10.4); Platelet Count Result 171 k/mm3 (150-375); Red Blood Count 3.99 M/mm3 (4.2-5.4); Red Cell Distribution Width 13.3 % (11.5-14.5); White Blood Count 8.3 K/mm3 (4.5-10.0)
[2020-10-30 07:03] LABS: Anion Gap 7 mmol/L (8-16); Blood Urea Nitrogen 15 mg/dL (7-17); Calcium 8.7 mg/dL (8.4-10.2); Carbon Dioxide 27 mmol/L (22-30); Chloride 102 mmol/L (98-107); Estimated CRCL calculation 68 ml/min; Estimated Glomerular Filt Rate > 60; Glucose 123 mg/dL (65-105); Potassium 3.5 mmol/L (3.4-5.0); Sodium 136 mmol/L (137-145)
[2020-10-30 07:57] LABS: Glucose Point of Care 125 mg/dl (65-105)
--- NOTE | 2020-10-30 09:10 | WPDGIPROGNO ---
Progress Note: A&P Assessment and Plan (1) Abdominal pain: Code(s): R10.9 - Unspecified abdominal pain Status: Acute Assessment and Plan: Patient with ongoing abdominal pain. Most likely related to her constipation. Plan is for an EGD today to exclude ulcer disease or gastritis. (2) Constipation: Code(s): K59.00 - Constipation, unspecified Status: Acute Assessment and Plan: Constipation resolved. Plan is to use MiraLax or milk of magnesia on a regular basis after discharge. (3) Obesity: Code(s): E66.9 - Obesity, unspecified Status: Acute Assessment and Plan: Patient has obesity is quite significant. Long-term weight loss advise calorie restriction encouraged increased activity also encouraged (4) Renal calculus, bilateral: Code(s): N20.0 - Calculus of kidney Status: Acute Assessment and Plan: patient is status post cysto and stent placement for obstructing kidney stones. Urology follow-up anticipated. (5) History of colon polyps: Code(s): Z86.010 - Personal history of colonic polyps Status: Acute Assessment and Plan: Patient status post colonoscopy several days ago. No significant polyps at this time. Follow-up colonoscopy at 5 year intervals advised. Subjective Date/time seen: 10/30/20 09:10 Patient continues to complain of abdominal pain. Now states it is in the upper abdomen. She appears somewhat anxious. Discharge yesterday was delayed so than EGD could be performed today. No vomiting described. No significant bowel movement since colonoscopy. Exam Narrative: Exam Narrative: Physical exam reveals patient be obese. Vital signs stable. Lungs are clear. Heart without murmur. Abdomen obese. Bowel sounds present soft no localized tenderness. Objective Data Vital Signs Vital Signs: Vital Signs - 24 hr 10/29/20 09:34 10/29/20 10:33 10/29/20 10:43 Temperature 96.8 F L Pulse Rate 62 51 L 53 L Respiratory Rate 16 23 H 18 Blood Pressure 120/50 L 97/75 L 112/46 L Pulse Oximetry 98 97 99 10/29/20 10:53 10/29/20 11:18 10/29/20 14:00 Temperature 97.4 F L 97.3 F L Pulse Rate 62 60 62 Respiratory Rate 25 H 18 18 Blood Pressure 113/66 125/61 135/55 L Pulse Oximetry 100 100 98 10/29/20 22:00 10/30/20 06:00 Temperature 97.2 F L 96.7 F L Pulse Rate 61 65 Respiratory Rate 18 20 Blood Pressure 108/45 L 109/66 Pulse Oximetry 100 99 Intake/Output Intake/Output: Intake & Output 10/27/20 10/28/20 10/29/20 10/30/20 23:59 23:59 23:59 23:59 Intake Total 300 2180 1830 Output Total 500 1500 Balance 300 2180 1330 -1500 Meds/Results Medications: Active Medications Generic Name Dose Route Start Last Admin Trade Name Freq PRN Reason Stop Dose Admin Acetaminophen 500 mg 10/27/20 17:01 10/29/20 21:28 Acetaminophen 500 Mg Tablet PO 500 mg Q4H PRN Administration PAIN RATED 1-3 Atorvastatin Calcium 40 mg 10/28/20 09:00 10/29/20 11:33 Atorvastatin 40 Mg Tablet PO 40 mg DAILY AMAURY Administration Bupropion HCl 150 mg 10/28/20 09:00 10/29/20 11:33 Bupropion Hcl Xl (24 Hr) 150 Mg Tabcr PO 150 mg QAM AMAURY Administration Dextrose 12.5 gm 10/27/20 17:04 Dextrose 50% 25 Gm/50 Ml Syringe IV PUSH PRN PRN Hypoglycemia Protocol Duloxetine HCl 60 mg 10/27/20 17:15 10/29/20 16:46 Duloxetine Hcl 60 Mg Capsule.Dr PO 60 mg BID AMAURY Administration Fentanyl Citrate 25 mcg 10/27/20 15:54 10/27/20 17:59 Fentanyl Citrate Inj (*Crx) 100 Mcg/2 Ml Vial IV PUSH 25 mcg Q2M PRN Administration Pain Furosemide 80 mg 10/28/20 09:00 10/29/20 16:45 Furosemide 40 Mg Tablet PO Not Given QAM AMAURY Glipizide 10 mg 10/27/20 17:15 10/29/20 16:46 Glipizide 5 Mg Tablet PO 10 mg BID AMAURY Administration Glucagon 1 mg 10/27/20 17:04 Glucagon For Inj 1 Mg Vial IM PRN PRN Hypoglycemia Protocol Glucose 1
[2020-10-30] MEDS: HEPARIN SODIUM 5,000 UNITS/ML VIAL 5000 UNITS SUB-Q (09:18)
[2020-10-30] MEDS: POTASSIUM CHLORIDE 20 MEQ TABLET 40 MEQ PO (09:19)
[2020-10-30] MEDS: metFORMIN HCL 500 MG TABLET 1000 MG PO (09:19)
[2020-10-30] MEDS: ATORVASTATIN 40 MG TABLET PO (09:19)
[2020-10-30] MEDS: DULoxetine HCL 60 MG CAPSULE.DR PO (09:19)
[2020-10-30] MEDS: buPROPion HCL XL (24 HR) 150 MG TABCR PO (09:19)
[2020-10-30 09:20] VITALS: PULSE 66
[2020-10-30] MEDS: POTASSIUM CHLORIDE 20 MEQ PACKET (FOR LIQUID) PO (09:20)
[2020-10-30] MEDS: glipiZIDE 5 MG TABLET 10 MG PO (09:20)
[2020-10-30] MEDS: PROPRANOLOL HCL 40 MG TABLET PO (09:20)
[2020-10-30] MEDS: ZONISAMIDE 100 MG CAPSULE 400 MG PO (09:21)
[2020-10-30 10:16] LABS: Glucose Point of Care 116 mg/dl (65-105)
[2020-10-30] MEDS: LACTATED RINGERS 1,000 ML 150 ML IV CONT (10:25)
--- NOTE | 2020-10-30 10:39 | WPDANESEPPF ---
Anes - Initial Pre Proc Eval Procedure: Operation Date: 10/27/20 16:45 Proposed Procedures p Cystoscopy,Bilateral Retrograde Pyelogram,Bilateral Stent Placement - Doroteo Almonte MD Operation Date: 10/29/20 10:30 Proposed Procedures p Colonoscopy - Cm Arana MD Operation Date: 10/30/20 11:00 Proposed Procedures p Esophagogastroduodenoscopy - Cm Arana MD Date/Time: 10/30/20 10:39 Surgeon: Candace Hurst DO Pre Op Diagnosis: Nephrolithiasis, Constipation, Abd pain Patient Data Age: 70 Gender: F Height: 5 ft Weight: 140.6 kg Last Vital Signs Temp 96.7 F L 10/30/20 06:00 Pulse 66 10/30/20 09:20 Resp 20 10/30/20 06:00 BP 109/66 10/30/20 06:00 Pulse Ox 99 10/30/20 06:00 Allergies Allergy/AdvReac Type Severity Reaction Status Date / Time cephalexin [From Keflex] Allergy Unknown Rash Verified 10/29/20 09:27 Home Medications Medication Instructions Recorded Confirmed Type acetaminophen 500 mg tablet 500 mg PO Q4H PRN 04/22/19 10/27/20 History aspirin 81 mg tablet,delayed 81 mg PO DAILY 04/22/19 10/27/20 History release atorvastatin 40 mg tablet 40 mg PO DAILY 04/22/19 10/27/20 History blood-glucose meter #1 each 04/22/19 10/27/20 Rx bupropion HCl 150 mg 24 hr tablet, 150 mg PO QAM 04/22/19 10/27/20 History extended release duloxetine 60 mg capsule,delayed 60 mg PO BID 04/22/19 10/27/20 History release furosemide 40 mg tablet 80 mg PO QAM 04/22/19 10/27/20 History glipizide 10 mg tablet 10 mg PO BID 04/22/19 10/27/20 History lancets 33 gauge #100 each 04/22/19 10/27/20 Rx levothyroxine 125 mcg tablet 150 mcg PO DAILY tablet 04/22/19 10/27/20 History metformin 1,000 mg tablet 1,000 mg PO BID 04/22/19 10/27/20 History pen needle, diabetic 32 gauge x #100 each 04/22/19 10/27/20 Rx potassium chloride 20 mEq oral 20 meq PO DAILY 04/22/19 10/27/20 History packet propranolol 40 mg tablet 40 mg PO .QD tablet 04/22/19 10/27/20 History zonisamide 100 mg capsule 400 mg PO DAILY 04/22/19 10/27/20 History pen needle, diabetic 32 gauge x #100 each 04/23/19 10/27/20 Rx blood sugar diagnostic #200 ea 06/03/20 10/27/20 Rx allopurinol 100 mg PO DAILY 10/28/20 10/28/20 History ezetimibe 10 mg PO DAILY 10/28/20 10/28/20 History Laboratory Tests 10/29/20 10/29/20 10/29/20 10:44 11:23 16:46 WBC RBC Hgb Hct MCV MCH MCHC RDW Plt Count MPV Sodium Potassium Chloride Carbon Dioxide Anion Gap BUN Creatinine Estim Creat Clear Calc Estimated GFR Glucose POC Capillary Glucose 153 mg/dl H mg/dl 149 mg/dl H mg/dl 206 mg/dl H mg/dl (65-105) (65-105) (65-105) Calcium 10/29/20 10/30/20 10/30/20 21:18 06:06 06:06 WBC 8.3 K/mm3 K/mm3 (4.5-10.0) RBC 3.99 M/mm3 L M/mm3 (4.2-5.4) Hgb 12.1 g/dL g/dL (12.0-15.0) Hct 36.4 % L % (37.0-47.0) MCV 91.2 fl fl (80-100) MCH 30.3 pg pg (26-34) MCHC 33.2 g/dl g/dl (32-36) RDW 13.3 % % (11.5-14.5) Plt Count 171 k/mm3 k/mm3 (150-375) MPV 10.4 fl fl (7.4-10.4) Sodium 136 mmol/L L mmol/L (137-145) Potassium 3.5 mmol/L mmol/L (3.4-5.0) Chloride 102 mmol/L mmol/L (98-107) Carbon Dioxide 27 mmol/L mmol/L (22-30) Anion Gap 7 mmol/L L mmol/L (8-16) BUN 15 mg/dL mg/dL (7-17) Creatinine 0.90 mg/dL mg/dL (0.7-1.0) Estim Creat Clear Calc 68 ml/min ml/min Estimated GFR > 60 (59 - ) Glucose 123 mg/dL H mg/dL (65-105) POC Capillary Glucose 148 mg/dl H mg/dl (65-105) Calcium 8.7 mg/dL mg/dL (8.4-10.2) 10/30
[2020-10-30 11:22] VITALS: BP 94/38; PULSE 62; RESP 19; O2SAT 100
[2020-10-30 11:32] VITALS: BP 114/58; PULSE 64; RESP 15; O2SAT 100
[2020-10-30 11:42] VITALS: BP 120/48; PULSE 60; RESP 15; O2SAT 100
[2020-10-30 11:45] VITALS: BP 134/70; PULSE 60; RESP 18; TEMP 36.5; O2SAT 99
[2020-10-30 12:08] LABS: Glucose Point of Care 117 mg/dl (65-105)
--- NOTE | 2020-10-30 12:13 | PM.DS ---
DS: Admitting Diagnosis Admitting Diagnosis Admitting Diagnosis: Chief Complaint: Left flank pain DS: Discharge Diagnosis Discharge Diagnosis (1) Urolithiasis: Qualifiers: Urinary calculus location: ureter Qualified Code(s): N20.1 - Calculus of ureter Code(s): N20.9 - Urinary calculus, unspecified Status: Inactive Assessment and Plan: 10/29/20 15:50 10/27 Patient is 70-year-old female morbidly obese with history of diabetes as well as kidney stone presented emergency department at [facility] and patient was transferred to [facility] to consult Urology, currently patient is her main concern is abdominal bloating and constipation which is going on for quite some time,, patient had seen GI 5 years ago and had a colonoscopy and patient has history of polyps, will consult GI for further recommendation, to further evaluate patient left flank pain patient had a CT scan of the abdomen which showed bilateral renal pelvic 1.5 cm stones, obstructing on the left. Patient be seen by urologist and further recommendation to follow. 10/28 patient was seen by urologist yesterday and had a cystoscopy and placed bilateral ureteral stent however due to patient's morbid obesity there was some concern on the left side stone and patient may need lithotripsy once clinically stable, patient was seen by GI due to persistent abdominal pain and bloating with history of partial patient is scheduled colonoscopy tomorrow, over all patient feeling better today denies any fever or chills. 10/29 today patient is scheduled for colonoscopy, states feeling better denies any abdominal pain nausea or vomiting, denies any dysuria or frequency of urination of fever or chills, will follow-up after colonoscopy and further recommendation to follow. (2) History of colon polyps: Code(s): Z86.010 - Personal history of colonic polyps Status: Acute Assessment and Plan: Will consult GI for further recommended (3) Obesity: Code(s): E66.9 - Obesity, unspecified Status: Acute Assessment and Plan: Consult dietitian for further recommended (4) Diabetes: Code(s): E11.9 - Type 2 diabetes mellitus without complications Status: Acute Assessment and Plan: Will continue home regimen and monitor with sliding scale DS: Summary Hospital Course Reason for hospitalization: Patient is 70-year-old female morbidly obese with history of diabetes as well as kidney stone presented emergency department at [facility] and patient was transferred to [facility] to consult Urology, currently patient is her main concern is abdominal bloating and constipation which is going on for quite some time,, patient had seen GI 5 years ago and had a colonoscopy and patient has history of polyps, will consult GI for further recommendation, to further evaluate patient left flank pain patient had a CT scan of the abdomen which showed bilateral renal pelvic 1.5 cm stones, obstructing on the left. Patient be seen by urologist and further recommendation to follow. Chief Complaint: Left flank pain Hospital Course: 10/27 Patient is 70-year-old female morbidly obese with history of diabetes as well as kidney stone presented emergency department at [facility] and patient was transferred to [facility] to consult Urology, currently patient is her main concern is abdominal bloating and constipation which is going on for quite some time,, patient had seen GI 5 years ago and had a colonoscopy and patient has history of polyps, will consult GI for further recommendation, to further evaluate patient left flank pain patient had a CT scan of the abdomen which showed bilateral renal pelvic 1.5 cm stones, obstructing on the left. Patient be seen by urologist and further recommendation to follow. 10/28 patient was seen by urologist yesterday and had a cystoscopy and placed bilateral ureteral stent ho
== END 2020-10-30 15:45 | disposition home or self-care (01) | DRG 660 ==
PROVIDERS: Internal Medicine; Internal Medicine Gastroenterology; Urology; Admitting Provider Family Medicine; PCP Internal Medicine; Visit Provider Family Medicine
PROC: 0T748DZ Dilation of Left Kidney Pelvis with Intraluminal Device, Via Natural or Artificial Opening Endoscopic (ICD-10-PCS; CPT 52352; principal; 2020-10-27 16:45)
PROC: 0DJD8ZZ Inspection of Lower Intestinal Tract, Via Natural or Artificial Opening Endoscopic (ICD-10-PCS; CPT 45378; principal; 2020-10-29 10:30)
PROC: 0DJ08ZZ Inspection of Upper Intestinal Tract, Via Natural or Artificial Opening Endoscopic (ICD-10-PCS; CPT 43235; principal; 2020-10-30 11:00)
DX: N20.0 Calculus of kidney (principal); Z68.44 Body mass index [BMI] 60.0-69.9, adult; K59.00 Constipation, unspecified; K57.30 Diverticulosis of large intestine without perforation or abscess without bleeding; D12.2 Benign neoplasm of ascending colon; D12.5 Benign neoplasm of sigmoid colon; D64.9 Anemia, unspecified; M19.90 Unspecified osteoarthritis, unspecified site; F41.9 Anxiety disorder, unspecified; F32.9 Major depressive disorder, single episode, unspecified; E11.9 Type 2 diabetes mellitus without complications; E03.9 Hypothyroidism, unspecified; J45.909 Unspecified asthma, uncomplicated; E66.01 Morbid (severe) obesity due to excess calories; Z87.891 Personal history of nicotine dependence
CPT/HCPCS: 36415; 74018; 74420; 80048; 82948; 83036; 85027; 87081; 88305; 96361; 96374; A9270; C1758; C1769; C2617; G0378; G0379; J1100; J1644; J1815; J1885; J1956; J2405; J2704; J3010; J3480; J7120; Q9966

== ENCOUNTER 2020-12-10 12:38 | Outpatient (CLI) | payer MEDICARE, SELFPAY ==
--- NOTE | 2020-12-10 13:45 | ECHO_ITS ---
Patient Info Name: Patience Doll Age: 70 years : 1950 Gender: Female Ht: 62 in Wt: 302 lbs BSA: 2.54 m2 HR: 115 bpm BP: 137 / 79 mmHg Technical Quality: Poor Exam Date: 12/10/2020 12:38 PM Exam Location: [facility] Patient Status: Outpatient Admit Date: 12/10/2020 Staff Ordering Physician: Jak Morrow MD Supervisor Marble: Daron Stinson, MAGALI, RT Attending Provider: Jak Morrow MD Exam Type: CA echo doppler color flow Study Info Indications I42.8 - Other cardiomyopathies Complete two-dimensional, color flow and Doppler transthoracic echocardiogram is performed. Summary 1. Complete two-dimensional, color flow and Doppler transthoracic echocardiogram is performed. 2. Technically suboptimal study due to poor sonographic images. 3. Left ventricular chamber dimension is normal. 4. Left ventricular systolic function is normal, estimated at 55-60%. 5. There is mildly increased left ventricular wall thickness. 6. The left ventricular diastolic function is grade I diastolic dysfunction. 7. E/e' 7 is not elevated. Left Ventricle E/e' 7 is not elevated. Technically suboptimal study due to poor sonographic images. Left ventricular chamber dimension is normal. Left ventricular systolic function is normal, estimated at 55-60%. There is mildly increased left ventricular wall thickness. The left ventricular diastolic function is grade I diastolic dysfunction. Right Ventricle Right ventricular systolic function is normal and with normal TAPSE 2.7 cm. Right ventricular chamber dimension is normal. Left Atria Left atrial chamber dimension is normal. Right Atria Right atrial chamber dimension is normal. Aortic Valve The aortic valve is probable trileaflet. There is no aortic valve stenosis. There is no aortic valve regurgitation. Pulmonic Valve There is no pulmonic regurgitation. Mitral Valve There is no mitral valve stenosis. There is no mitral valve regurgitation. Tricuspid Valve There is no tricuspid valve regurgitation. Pericardium/Pleural There is no pericardial effusion. Inferior Vena Cava Normal inferior vena cava with >50% collapse upon inspiration consistent with normal right atrial pressure, 5 mmHg. Aorta The aortic root size at the sinus of Valsalva is normal. Left Ventricular Outflow Tract Name Value Normal LVOT 2D LVOT Diameter 1.9 cm LVOT Doppler LVOT Peak Velocity 80 cm/s LVOT Peak Gradient 3 mmHg LVOT Mean Gradient 1 mmHg LVOT VTI 17 cm LVOT VTI/AV VTI Ratio 0.7 LVOT Stroke Volume 48 ml Mitral Valve Name Value Normal MV Doppler MV Decel [place] 270 cm/s2 MV PHT 59 ms
== END 2020-12-10 12:39 | disposition home or self-care (01) ==
PROVIDERS: PCP Internal Medicine
DX: I10 Essential (primary) hypertension (principal); I42.9 Cardiomyopathy, unspecified
CPT/HCPCS: 93306

== ENCOUNTER 2021-01-01 17:28 | Outpatient (CLI) | payer MEDICARE, SELFPAY ==
[2021-01-01 18:01] LABS: Partial Thromboplastin Time 25.9 SEC (23.90-30.70); Prothrombin Time 10.7 Seconds (9.50-12.10)
== END 2021-01-01 17:29 | disposition home or self-care (01) ==
PROVIDERS: PCP Internal Medicine; Visit Provider Urology
DX: N20.0 Calculus of kidney (principal); N39.0 Urinary tract infection, site not specified; R31.0 Gross hematuria; E11.9 Type 2 diabetes mellitus without complications; Z79.899 Other long term (current) drug therapy; I10 Essential (primary) hypertension; D64.9 Anemia, unspecified
CPT/HCPCS: 36415; 85610; 85730; 87086; 87088

== ENCOUNTER 2021-01-06 17:51 | Outpatient (CLI) | payer MEDICARE, SELFPAY ==
[2021-01-06 19:11] LABS: Anion Gap 12 mmol/L (8-16); Blood Urea Nitrogen 32 mg/dL (7-18); Calcium 8.5 mg/dL (8.5-10.1); Carbon Dioxide 27 mmol/L (21-32); Chloride 102 mmol/L (98-108); Estimated Glomerular Filt Rate 55; Glucose 366 mg/dL (70-99); Osmolality Calculated 313 mOsm/kg (285-295); Potassium 3.4 mmol/L (3.5-5.1); Sodium 141 mmol/L (136-145)
== END 2021-01-06 17:52 | disposition home or self-care (01) ==
LOC: CHSLAB 17:54
PROVIDERS: PCP Internal Medicine; Visit Provider Anesthesiology
DX: E11.9 Type 2 diabetes mellitus without complications (principal)
CPT/HCPCS: 36415; 80048

== ENCOUNTER 2021-01-08 04:39 | Day surgery (SDC) | payer MEDICARE, SELFPAY ==
[2020-12-16 12:49] VITALS: BMI 56.2
[2021-01-08] VITALS (9 sets, daily range): BP systolic 136–167; BP diastolic 54–86; PULSE 72–88; RESP 12–22; TEMP 36.2–36.6; O2SAT 95–100
--- NOTE | ~2021-01-08 | XR_ITS ---
XR abdomen/kub 1V 01/08/2021 06:17 Indication: Renal stones. Lithotripsy. Procedure: KUB Comparison: 10/28/2020 Findings: Stable bilateral renal stones. Stable position to bilateral internal ureteral stents. There are pelvic phleboliths. Bowel gas pattern is nonobstructive. Lung bases unremarkable. Moderate lumba r spondylosis. Impression: 1: Stable bilateral nephrolithiasis. Reviewed, dictated and finalized at location A. Impression: 1: Stable bilateral nephrolithiasis.
[2021-01-08] MEDS: LACTATED RINGERS 1,000 ML 30 ML IV CONT ×2 (06:58→08:46)
--- NOTE | 2021-01-08 06:58 | WPDANESEPPF ---
Anes - Initial Pre Proc Eval Procedure: Operation Date: 01/08/21 07:30 Proposed Procedures p Right Renal Extracorporeal Shock Wave Lithotripsy, - Doroteo Almonte MD s Possible Right Ureteroscopy, Possible Right Stone Extraction, Possible Right Stent Exchange - Doroteo Almonte MD Date/Time: 01/08/21 06:58 Surgeon: Doroteo Almonte MD Pre Op Diagnosis: right renal stone Patient Data Age: 70 Gender: F Height: 1.56 m Weight: 140 kg Last Vital Signs Temp 36.6 C 01/08/21 06:35 Pulse 87 01/08/21 06:35 Resp 20 01/08/21 06:35 BP 142/80 H 01/08/21 06:35 Pulse Ox 100 01/08/21 06:35 Allergies Allergy/AdvReac Type Severity Reaction Status Date / Time cephalexin [From Keflex] Allergy Unknown Rash Verified 01/08/21 06:43 Home Medications Medication Instructions Recorded Confirmed Type acetaminophen 500 mg tablet 500 mg PO Q4H PRN 04/22/19 01/08/21 History aspirin 81 mg tablet,delayed 81 mg PO DAILY 04/22/19 01/08/21 History release atorvastatin 40 mg tablet 40 mg PO DAILY 04/22/19 01/08/21 History blood-glucose meter #1 each 04/22/19 10/27/20 Rx bupropion HCl 150 mg 24 hr tablet, 150 mg PO QAM 04/22/19 01/08/21 History extended release duloxetine 60 mg capsule,delayed 60 mg PO BID 04/22/19 01/08/21 History release furosemide 40 mg tablet 80 mg PO QAM 04/22/19 01/08/21 History glipizide 10 mg tablet 10 mg PO BID 04/22/19 01/08/21 History lancets 33 gauge #100 each 04/22/19 10/27/20 Rx metformin 1,000 mg tablet 1,000 mg PO BID 04/22/19 01/08/21 History pen needle, diabetic 32 gauge x #100 each 04/22/19 10/27/20 Rx potassium chloride 20 mEq oral 20 meq PO BID 04/22/19 01/08/21 History packet propranolol 40 mg tablet 40 mg PO .QD tablet 04/22/19 01/08/21 History zonisamide 100 mg capsule 400 mg PO DAILY 04/22/19 01/08/21 History pen needle, diabetic 32 gauge x #100 each 04/23/19 10/27/20 Rx blood sugar diagnostic #200 ea 06/03/20 10/27/20 Rx allopurinol 100 mg PO DAILY 10/28/20 01/08/21 History ezetimibe 10 mg PO DAILY 10/28/20 01/08/21 History levothyroxine 300 mcg PO BID 12/16/20 01/08/21 History Patient hx anesthesia problems: none Family hx anesthesia problems: none PMFSH Past Medical History Medical History Abdominal pain Anemia Anxiety Arthritis Asthma Back pain Blood disorder Chest pain Constipation Depression Diabetes H/O thyroid disease Hypothyroidism Migraines Obesity Renal calculus, bilateral Shortness of breath Tear, knee, medial meniscus Surgical History Surgical History (Updated 01/08/21 @ 06:59 by Alfredo Monson MD) History of esophagogastroduodenoscopy (EGD) Hx of cystoscopy Hx of dilation and curettage Hx of tonsillectomy Family History Family History Other ADD (attention deficit disorder) Alzheimer's dementia Anemia Anxiety Arthritis Asthma Atrial fibrillation Back pain CAD (coronary artery disease) Cataracts, bilateral Chest pain Depression Diabetes mellitus Glaucoma H/O thyroid disease Hearing loss Heart disease Hypertension Migraines Obesity Osteoporosis Ovarian cancer Renal disease Shortness of breath Visual loss Social History Social History Smoking packs per day: 1.5 Smoking cigarettes per day: 30.0 Years smoked: 49 Smoking pack-years: 73.50 Smoking status: Former smoker Tobacco type: cigarettes Second hand tobacco smoke exposure: No Additional smoking assessment comments: QUIT 2002 Alcohol intake: never Substance use: current Substance use type: does not use Other substance usage details: STATES JUST RECEIVED MEDICAL CARD Living arrangements: alone Spiritual care concerns: No Anes - Eval Final PreProcedure Day of Procedure 01/08/21 06:58 Patient weight: supe
[2021-01-08 07:02] LABS: Glucose Point of Care 233 mg/dl (65-105)
--- NOTE | 2021-01-08 07:25 | WPDHPUPDATE1 ---
History and Physical Update Update Date/Time: 01/08/21 07:25 History and Physical has been reviewed, including an updated exam of the patient. There are NO changes in the patient's condition. Risks, benefits, and alternatives have been discussed and questions answered. Patient agrees to proceed with procedure.
[2021-01-08] MEDS: levoFLOXacin 500 MG/D5W 100 ML 500 MG/100 ML BAG 100 MG IVPB (07:32)
--- NOTE | 2021-01-08 08:34 | P.OP_ITS ---
Procedure Note - Detailed Date of Procedure 01/08/21 Pre-op Diagnosis right renal stone Post-op Diagnosis same Procedure Performed Lithotripsy of right renal calculus Surgeon Doroteo Almonte MD Anesthesia general Description of Procedure Patient is taken to the operative suite and correctly identified. Once anesthesia was obtained the stone was localized in both planes. Her body habitus makes it very difficult to get it in the correct planes but we were able to get the stone in the cross hairs. We went ahead and did the lithotripsy with 2500 shocks. Patient tolerated procedure well without complications it is taken recovery stable condition. Will see what a follow-up KUB shows but she may be b est into bilateral ureteroscopy with holmium laser of these fairly large stones. Drains Yes Packing No Pathology none sent Complications No immediate complications Condition stable Disposition PACU
[2021-01-08 08:44] LABS: Glucose Point of Care 232 mg/dl (65-105)
[2021-01-08] MEDS: fentaNYL CITRATE INJ (*CRX) 100 MCG/2 ML VIAL 25 MCG IV PUSH ×4 (09:14→09:48)
[2021-01-08] MEDS: oxyCODONE HCL (*CRX) 5 MG TAB IR PO (10:10)
== END 2021-01-08 11:05 | disposition home or self-care (01) ==
PROVIDERS: PCP Internal Medicine; Visit Provider Urology
PROC: (CPT 50590; principal; 2021-01-08 07:30)
DX: N20.0 Calculus of kidney (principal); Z79.82 Long term (current) use of aspirin; Z79.84 Long term (current) use of oral hypoglycemic drugs; F41.8 Other specified anxiety disorders; D64.9 Anemia, unspecified; M19.90 Unspecified osteoarthritis, unspecified site; E11.9 Type 2 diabetes mellitus without complications; E03.9 Hypothyroidism, unspecified; Z87.891 Personal history of nicotine dependence; E66.01 Morbid (severe) obesity due to excess calories; Z68.43 Body mass index [BMI] 50.0-59.9, adult
CPT/HCPCS: 50590; 74018; 82948; A9270; J1956; J2405; J2704; J3010; J7120

== ENCOUNTER 2021-02-10 10:34 | Outpatient (CLI) | payer MEDICARE, SELFPAY ==
--- NOTE | ~2021-02-10 | XR_ITS ---
XR abdomen/kub 1V 02/10/2021 11:23 Indication: Renal stones Procedure: KUB Comparison: Comparison to multiple prior studies sequentially, with oldest reviewed study dated 02/15. Findings: There are bilateral internal ureteral stents, positions unchanged. There are bilateral francy l stones without significant change. Bowel gas pattern is nonobstructive. There is moderate degenerat zeynep change of the lumbar spine and hips. No acute osseous abnormality. Impression: 1: Unchanged bilateral nephrolithiasis with stable position to bilateral internal ureteral stents. Reviewed, dictated and finalized at location A. Impression: 1: Unchanged bilateral nephrolithiasis with stable position to bilateral international account representative al ureteral stents.
== END 2021-02-10 10:35 | disposition home or self-care (01) ==
LOC: ANHIMG 10:41
PROVIDERS: PCP Internal Medicine; Visit Provider Urology
DX: N20.0 Calculus of kidney (principal)
CPT/HCPCS: 74018

== ENCOUNTER 2021-02-13 09:54 | Outpatient (CLI) | payer MEDICARE, SELFPAY ==
[2021-02-13 11:08] LABS: Anion Gap 11 mmol/L (8-16); Blood Urea Nitrogen 30 mg/dL (7-18); Calcium 8.7 mg/dL (8.5-10.1); Carbon Dioxide 29 mmol/L (21-32); Chloride 101 mmol/L (98-108); Estimated Glomerular Filt Rate 43; Glucose 207 mg/dL (70-99); Osmolality Calculated 304 mOsm/kg (285-295); Potassium 3.7 mmol/L (3.5-5.1); Sodium 141 mmol/L (136-145)
== END 2021-02-13 09:55 | disposition home or self-care (01) ==
PROVIDERS: PCP Internal Medicine; Visit Provider Anesthesiology
DX: E11.9 Type 2 diabetes mellitus without complications (principal); N20.0 Calculus of kidney
CPT/HCPCS: 36415; 80048; 87086; 87088

== ENCOUNTER 2021-02-16 02:49 | Day surgery (SDC) | payer MEDICARE, SELFPAY ==
[2021-02-12 14:02] VITALS: BMI 56.5
[2021-02-16] VITALS (12 sets, daily range): BP systolic 140–169; BP diastolic 62–97; PULSE 72–84; RESP 12–20; TEMP 36.3–36.6; O2SAT 92–100
--- NOTE | ~2021-02-16 | XR_ITS ---
EXAMINATION: XR retrograde pyelo w/stent BI EXAM DATE: 02/16/2021 09:21 INDICATION: Bilateral retrograde, stent exchange. TECHNIQUE: Fluoroscopy used during XR retrograde pyelo w/stent BI performed by Dr. Doroteo chu MD, urologist. The radiologist lD Brewster M.D. dictating this report of the image(s) availabl e was not present for the procedure. Total fluoroscopic time of 108 seconds. The DAP for this proce dure was 3346 radcm2. A total of 7 images sent to PACS from the exam. Comparison is made to prior e xamination from 10/27/2020. FINDINGS: [employer] image demonstrates bilateral double-J ureteral stents in position. Sizable bilateral nephrolithiasis suspected. Right ureter was injected 1st and reportedly had stent exchange. Left ure ter was then injected and reportedly had stent exchange. Correlate with procedure note. IMPRESSION: Bilateral nephrolithiasis, stents exchanged. Reviewed, dictated and finalized at location A.
--- NOTE | 2021-02-16 06:55 | WPDANESEPPF ---
Anes - Initial Pre Proc Eval Procedure: Operation Date: 02/16/21 07:30 Proposed Procedures p Cystoscopy, Bilateral Ureteroscopy, Bilateral Retrograde Pyelogram, Bilateral Stone Extraction, Bilateral Stent Exchange, - Doroteo Almonte MD s Holmium Laser Procedure - Doroteo Almonte MD Date/Time: 02/16/21 06:55 Surgeon: Dortoeo Almonte MD Pre Op Diagnosis: kidney stones Patient Data Age: 71 Gender: F Height: 1.56 m Weight: 137.9 kg Allergies Allergy/AdvReac Type Severity Reaction Status Date / Time cephalexin [From Keflex] Allergy Unknown Rash Verified 02/12/21 13:41 Home Medications Medication Instructions Recorded Confirmed Type acetaminophen 500 mg tablet 500 mg PO Q4H PRN 04/22/19 02/12/21 History aspirin 81 mg tablet,delayed 81 mg PO DAILY 04/22/19 02/12/21 History release atorvastatin 40 mg tablet 40 mg PO DAILY 04/22/19 02/12/21 History blood-glucose meter #1 each 04/22/19 10/27/20 Rx bupropion HCl 150 mg 24 hr tablet, 150 mg PO QAM 04/22/19 02/12/21 History extended release duloxetine 60 mg capsule,delayed 60 mg PO BID 04/22/19 02/12/21 History release furosemide 40 mg tablet 80 mg PO QAM 04/22/19 02/12/21 History glipizide 10 mg tablet 10 mg PO BID 04/22/19 02/12/21 History lancets 33 gauge #100 each 04/22/19 10/27/20 Rx metformin 1,000 mg tablet 1,000 mg PO BID 04/22/19 02/12/21 History pen needle, diabetic 32 gauge x #100 each 04/22/19 10/27/20 Rx /32 potassium chloride 20 mEq oral 20 meq PO BID 04/22/19 02/12/21 History packet propranolol 40 mg tablet 40 mg PO QAM tablet 04/22/19 02/12/21 History zonisamide 100 mg capsule 400 mg PO DAILY 04/22/19 02/12/21 History pen needle, diabetic 32 gauge x #100 each 04/23/19 10/27/20 Rx 5/32 blood sugar diagnostic #200 ea 06/03/20 10/27/20 Rx allopurinol 100 mg PO DAILY 10/28/20 02/12/21 History ezetimibe 10 mg PO DAILY 10/28/20 02/12/21 History levothyroxine 300 mcg PO BID 12/16/20 02/12/21 History Patient hx anesthesia problems: none Family hx anesthesia problems: none Results Review: All pre-operative results and documents have been reviewed as part of the pre-operative evaluation. [facility] Past Medical History Medical History Abdominal pain Anemia Anxiety Arthritis Asthma Back pain Blood disorder Chest pain Constipation Depression Diabetes H/O thyroid disease Hypothyroidism Migraines Obesity Renal calculus, bilateral Shortness of breath Tear, knee, medial meniscus Surgical History Surgical History History of esophagogastroduodenoscopy (EGD) Hx of cystoscopy Hx of dilation and curettage Hx of tonsillectomy Family History Family History Other ADD (attention deficit disorder) Alzheimer's dementia Anemia Anxiety Arthritis Asthma Atrial fibrillation Back pain CAD (coronary artery disease) Cataracts, bilateral Chest pain Depression Diabetes mellitus Glaucoma H/O thyroid disease Hearing loss Heart disease Hypertension Migraines Obesity Osteoporosis Ovarian cancer Renal disease Shortness of breath Visual loss Social History Social History Smoking packs per day: 1.5 Smoking cigarettes per day: 30.0 Years smoked: 49 Smoking pack-years: 73.50 Smoking status: Former smoker Tobacco type: cigarettes Second hand tobacco smoke exposure: No Smoking end date: 05/22/02 Additional smoking assessment comments: QUIT 2002 Alcohol intake: never Substance use: current Substance use type: does not use Other substance usage details: EVERYDAY - EVERY OTHER DAY Last use: 02/11/21 Living arrangements: alone Spiritual care concerns: No Anes - Eval Final PreProcedure Day of Procedure 02/16/21 06:55 Patient weight: super morbi
--- NOTE | 2021-02-16 06:57 | PM.IMHP ---
H&P: HPI History of Present Illness Date/Time: 02/16/21 06:[id number] yr old female with bilateral renal calculi. Presents for definitive treatment. Chief Complaint: bilateral renal calculi Review of Systems Review of Systems: All systems reviewed & are unremarkable except as noted in HPI and below PMFSH Past Medical History Medical History Abdominal pain Anemia Anxiety Arthritis Asthma Back pain Blood disorder Chest pain Constipation Depression Diabetes H/O thyroid disease Hypothyroidism Migraines Obesity Renal calculus, bilateral Shortness of breath Tear, knee, medial meniscus Surgical History Surgical History History of esophagogastroduodenoscopy (EGD) Hx of cystoscopy Hx of dilation and curettage Hx of tonsillectomy Family History Family History Other ADD (attention deficit disorder) Alzheimer's dementia Anemia Anxiety Arthritis Asthma Atrial fibrillation Back pain CAD (coronary artery disease) Cataracts, bilateral Chest pain Depression Diabetes mellitus Glaucoma H/O thyroid disease Hearing loss Heart disease Hypertension Migraines Obesity Osteoporosis Ovarian cancer Renal disease Shortness of breath Visual loss Social History Social History Smoking packs per day: 1.5 Smoking cigarettes per day: 30.0 Years smoked: 49 Smoking pack-years: 73.50 Smoking status: Former smoker Tobacco type: cigarettes Second hand tobacco smoke exposure: No Smoking end date: 05/22/02 Additional smoking assessment comments: QUIT 2002 Alcohol intake: never Substance use: current Substance use type: does not use Other substance usage details: EVERYDAY - EVERY OTHER DAY Last use: 02/11/21 Living arrangements: alone Spiritual care concerns: No Meds Home Medications and Allergies Home Medications Medication Instructions Recorded Confirmed Type acetaminophen 500 mg tablet 500 mg PO Q4H PRN 04/22/19 02/12/21 History aspirin 81 mg tablet,delayed 81 mg PO DAILY 04/22/19 02/12/21 History release atorvastatin 40 mg tablet 40 mg PO DAILY 04/22/19 02/12/21 History blood-glucose meter #1 each 04/22/19 10/27/20 Rx bupropion HCl 150 mg 24 hr tablet, 150 mg PO QAM 04/22/19 02/12/21 History extended release duloxetine 60 mg capsule,delayed 60 mg PO BID 04/22/19 02/12/21 History release furosemide 40 mg tablet 80 mg PO QAM 04/22/19 02/12/21 History glipizide 10 mg tablet 10 mg PO BID 04/22/19 02/12/21 History lancets 33 gauge #100 each 04/22/19 10/27/20 Rx metformin 1,000 mg tablet 1,000 mg PO BID 04/22/19 02/12/21 History pen needle, diabetic 32 gauge x #100 each 04/22/19 10/27/20 Rx 5/32 potassium chloride 20 mEq oral 20 meq PO BID 04/22/19 02/12/21 History packet propranolol 40 mg tablet 40 mg PO QAM tablet 04/22/19 02/12/21 History zonisamide 100 mg capsule 400 mg PO DAILY 04/22/19 02/12/21 History pen needle, diabetic 32 gauge x #100 each 04/23/19 10/27/20 Rx / blood sugar diagnostic #200 ea 06/03/20 10/27/20 Rx allopurinol 100 mg PO DAILY 10/28/20 02/12/21 History ezetimibe 10 mg PO DAILY 10/28/20 02/12/21 History levothyroxine 300 mcg PO BID 12/16/20 02/12/21 History Allergies Allergy/AdvReac Type Severity Reaction Status Date / Time cephalexin [From Keflex] Allergy Unknown Rash Verified 02/12/21 13:41 Exam Const: General: cooperative Eyes: General: appearance normal, both eyes and all related structures Chest: Chest palpation & inspection: normal inspection of the chest Resp: Effort & Inspection: normal respiratory effort Cardio: Rate: regular rate GI: Inspection: normal to inspection Assessment and Plan Assessment and plan (1) Renal calculus, bilateral: Code(
--- NOTE | 2021-02-16 07:00 | WPDHPUPDATE1 ---
History and Physical Update Update Date/Time: 02/16/21 07:00 History and Physical has been reviewed, including an updated exam of the patient. There are NO changes in the patient's condition. Risks, benefits, and alternatives have been discussed and questions answered. Patient agrees to proceed with procedure.
--- NOTE | 2021-02-16 07:01 | WPDHPUPDATE1 ---
History and Physical Update Update Date/Time: 02/16/21 07:01 History and Physical has been reviewed, including an updated exam of the patient. There are NO changes in the patient's condition. Risks, benefits, and alternatives have been discussed and questions answered. Patient agrees to proceed with procedure.
[2021-02-16] MEDS: LACTATED RINGERS 1,000 ML 30 ML IV CONT ×3 (07:10→10:45)
[2021-02-16 07:24] LABS: Glucose Point of Care 292 mg/dl (65-105)
[2021-02-16] MEDS: levoFLOXacin 500 MG/D5W 100 ML 500 MG/100 ML BAG 100 MG IVPB (07:28)
--- NOTE | 2021-02-16 08:55 | SUR.PREOP ---
DR. PICKENS AWARE OF PREOP BLOOD GLUCOSE OF 292MG/DL. NO NEW/ADDITIONAL ORDERS PREOP
--- NOTE | 2021-02-16 09:22 | P.OP_ITS ---
Procedure Note - Detailed Date of Procedure 02/16/21 Pre-op Diagnosis kidney stones Post-op Diagnosis same Procedure Performed Cystoscopy, bilateral retrograde pyelograms, bilateral ureteroscopy with holmium laser, stone extraction, bilateral stent exchange Surgeon Doroteo Almonte MD Anesthesia general Description of Procedure Patient is taken to the operative suite correctly identified. Once anesthesia was obtained she was placed in dorsal lithotomy position and prepped and draped usual sterile fashion. Twenty-two [place] scope was inserted into the bladder. The right ureteral stent was grasped. A guidewire was placed through the stent. Ureteral access sheath was placed. Mini flexible scope was inserted up into the kidney. The stone was located. Using a 273 micron holmium laser fiber we fragmented the stone retrieved pieces. Pyelogram was then performed to confirm placement the stent. 4.8 [place] contour stent was then placed with the proximal end coiled in the renal pelvis and the distal in bladder. Similar procedure was then performed on the left side. The stone was lasered into some such small pieces that some of these were unable to be grasped. It was a little more bloody and the left side thus we terminated the procedure. The majority of the stones should be passable. A 4.8 x 24 [place] stent was then placed with the proximal end coiled in the renal pelvis and the distal end in the bladder after a pyelogram was performed. Bladder was drained 2% viscous lidocaine was inserted into the urethra patient is taken recovery room stable condition. She will follow up in about 1-2 weeks for stent removal in the office. Will also obtain a KUB. Drains Yes Packing No Pathology yes Complications No immediate complications Condition stable Disposition PACU
[2021-02-16] MEDS: fentaNYL CITRATE INJ (*CRX) 100 MCG/2 ML VIAL 25 MCG IV PUSH ×3 (09:40→10:05)
[2021-02-16 09:47] LABS: Glucose Point of Care 262 mg/dl (65-105)
[2021-02-16] MEDS: diphenhydrAMINE HCl INJ 50 MG/ML VIAL 25 MG IV PUSH (10:04)
[2021-02-16] MEDS: LIDOCAINE HCL 2% GEL UROJET 10 ML PKG 20 ML MUCOUS MEM (10:08)
== END 2021-02-16 12:35 | disposition home or self-care (01) ==
PROVIDERS: PCP Internal Medicine; Visit Provider Urology
PROC: (CPT 52352; principal; 2021-02-16 07:30)
PROC: (CPT 52356; 2021-02-16 07:30)
DX: N20.0 Calculus of kidney (principal); D64.9 Anemia, unspecified; J45.909 Unspecified asthma, uncomplicated; K59.00 Constipation, unspecified; F41.8 Other specified anxiety disorders; E11.9 Type 2 diabetes mellitus without complications; E03.9 Hypothyroidism, unspecified; Z87.891 Personal history of nicotine dependence; E66.01 Morbid (severe) obesity due to excess calories; Z68.43 Body mass index [BMI] 50.0-59.9, adult; Z79.82 Long term (current) use of aspirin; Z79.84 Long term (current) use of oral hypoglycemic drugs
CPT/HCPCS: 52356; 74420; 82365; 82948; 88300; A9270; C1769; C1894; C2617; J1100; J1200; J1956; J2405; J2704; J3010; J7120; Q9966

== ENCOUNTER 2021-03-04 10:46 | Outpatient (CLI) | payer MEDICARE, SELFPAY ==
--- NOTE | ~2021-03-04 | XR_ITS ---
EXAMINATION: XR abdomen/kub 1V DATE: 03/04/2021 11:15 INDICATION: Calcium kidney stone. TECHNIQUE: A supine view of the abdomen on 2 radiographs was obtained. COMPARISON: Abdomen radiographs 02/10/2021, CT abdomen and pelvis 10/27/2020 FINDINGS: There are bilateral internal ureteral stents in expected positions. There are no dilated lo ops of bowel. There are phleboliths in the pelvis. IMPRESSION: 1. Bilateral internal ureteral stents in expected positions. No visible urolithiasis, but obesity and bowel gas decrease sensitivity. Reviewed, dictated and finalized at location A. IMPRESSION: 1. Bilateral internal ureteral stents in expected positions. No visible urolith iasis, but obesity and bowel gas decrease sensitivity.
== END 2021-03-04 10:47 | disposition home or self-care (01) ==
LOC: ANHIMG 10:56
PROVIDERS: PCP Internal Medicine; Visit Provider Urology
DX: N20.0 Calculus of kidney (principal)
CPT/HCPCS: 74018

== ENCOUNTER 2021-05-19 12:27 | Outpatient (CLI) | payer MEDICARE, SELFPAY ==
--- NOTE | ~2021-05-19 | US_ITS ---
EXAMINATION: US retroperitoneal comp DATE: 05/19/2021 12:54 INDICATION: Left flank pain. Nephrolithiasis. TECHNIQUE: Multiple ultrasound grayscale images of the kidneys were obtained. COMPARISON: Radiographs 03/04/2021, CT abdomen and pelvis 10/27/2020 FINDINGS: The right kidney measures 10.3 x 4.4 x 5.1 cm. The left kidney measures 10.6 x 5.8 x 5.9 cm. The kidn eys demonstrate normal parenchymal echogenicity. There is no hydronephrosis. The bladder is normal. IMPRESSION: 1. Normal kidney sizes. No hydronephrosis. Reviewed, dictated and finalized at location D. 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
== END 2021-05-19 12:28 | disposition home or self-care (01) ==
LOC: CHSIMG 12:30
PROVIDERS: PCP Internal Medicine; Visit Provider Internal Medicine
DX: R10.9 Unspecified abdominal pain (principal); N20.0 Calculus of kidney
CPT/HCPCS: 76770

== ENCOUNTER 2022-02-18 16:57 | Outpatient (CLI) | payer MEDICARE, SELFPAY ==
[2022-02-18 17:27] LABS: Basophils Absolute Auto 0.06 K/mm3 (0.00-0.10); Basophils Percent Auto 0.7 % (0.0-1.0); Eosinophils Percent Auto 2.3 % (1.0-6.0); Hemoglobin 13.8 g/dL (11.7-13.8); Immature Granulocyte Absolute 0.04 K/mm3 (0.00-0.00); Immature Granulocyte Percent A 0.5 % (0.0-0.0); Lymphocytes Absolute Auto 1.89 K/mm3 (1.10-4.50); Lymphocytes Percent Auto 21.3 % (18.0-42.0); Mean Corpuscular HGB Conc 33.7 g/dL (32.0-36.0); Mean Corpuscular Hemoglobin 29.9 pg (27.0-31.0); Mean Corpuscular Volume 88.7 fL (78.0-102.0); Monocytes Absolute Auto 0.58 K/mm3 (0.10-0.90); Monocytes Percent Auto 6.5 % (2.0-11.0); Neutrophils Absolute Auto 6.1 K/mm3 (1.7-7.2); Neutrophils Percent Auto 68.7 % (50.0-70.0); Platelet Count Result 179 K/mm3 (150-420); Red Blood Count 4.62 M/mm3 (4.20-5.40); Red Cell Distribution Width 13.2 % (11.6-14.4); White Blood Count 8.9 K/mm3 (4.8-10.8)
[2022-02-18 17:44] LABS: Alanine Aminotransferase 32 U/L (14-59); Albumin Level 3.3 g/dL (3.4-5.0); Alkaline Phosphatase 123 U/L (46-116); Anion Gap 6 mmol/L (8-16); Aspartate Amino Transferase 19 U/L (15-37); Bilirubin,Total 0.6 mg/dL (0.00-1.00); Blood Urea Nitrogen 25 mg/dL (7-18); Carbon Dioxide 29 mmol/L (21-32); Chloride 104 mmol/L (98-108); Cholesterol 170 mg/dL (0-200); Estimated Glomerular Filt Rate > 60; Glucose 253 mg/dL (70-99); HDL Direct 50 mg/dL (40-60); LDL Cholesterol Calculated 90 mg/dL (<130); Osmolality Calculated 301 mOsm/kg (285-295); Potassium 3.8 mmol/L (3.5-5.1); Sodium 139 mmol/L (136-145); Total Protein 6.6 g/dL (6.4-8.2); Triglycerides 149 mg/dL (0-150)
[2022-02-18 17:51] LABS: Hemoglobin A1C 9.9 % (<5.7)
== END 2022-02-18 16:58 | disposition home or self-care (01) ==
LOC: CHSLAB 17:01
PROVIDERS: PCP Internal Medicine; Visit Provider Internal Medicine
DX: E78.5 Hyperlipidemia, unspecified (principal); E11.65 Type 2 diabetes mellitus with hyperglycemia
CPT/HCPCS: 36415; 80053; 80061; 83036; 85025

== ENCOUNTER 2023-02-26 12:58 | Emergency (ER) | payer MEDICARE, SELFPAY ==
--- NOTE | ~2023-02-26 | CT_ITS ---
EXAMINATION: CT abdomen pelvis wo con DATE: 02/26/2023 14:40 INDICATION: Right abdominal pain, kidney stone TECHNIQUE: Computed tomography (CT) of the abdomen and pelvis was performed without intravenous contr ast. Automated exposure control and iterative reconstruction technique were employed. The dose-length product was 1418.04 mGy-cm. COMPARISON: 10/27/2020; CT thorax 09/11/2017. FINDINGS: Lower thorax: Bibasilar scar. Multiple sub-6 mm pulmonary nodules, new nodule in the anterior right l ower lobe, slightly larger nodule in the left lower lobe. Coronary artery calcification. Liver: Normal. Biliary/Gallbladder: Gallbladder is normal. No bile duct dilation. Pancreas: Fatty atrophy. Spleen: Normal. Adrenals:No mass. Kidneys: Left midpole AML. Bilateral nonobstructing renal calculi. Simple right upper pole cyst. No s uspicious mass, obstructing stone, or hydronephrosis. GI tract: No small or large bowel dilation. Appendix not confidently visualized. Diverticulosis witho ut diverticulitis. Mesentery/Peritoneum: No ascites, mass, or free air. Retroperitoneum: No mass. Atherosclerotic abdominal aortic and/or arterial calcifications. Pelvis: Pelvic organs are within normal limits. Soft Tissues: Uncomplicated appearing fat-containing anterior abdominal wall hernia slightly to the l eft of midline. Bones: No acute osseous finding. IMPRESSION: No acute abdominopelvic process detected. Multiple sub-6 cm pulmonary nodules, new in the right lower lobe and possible slow interval growth in a left lower lobe nodule. Recommend nonemergent outpatient low-dose noncontrast CT of the chest for further evaluation. Reviewed, dictated and finalized at location K. IMPRESSION: No acute abdominopelvic process detected. Multiple sub-6 cm pulmonary nodules, new in the right lower lobe and possible s low interval growth in a left lower lobe nodule. Recommend nonemergent outpatie nt low-dose noncontrast CT of the chest for further evaluation.
--- NOTE | ~2023-02-26 | US_ITS ---
EXAMINATION: US venous doppler [facility] DATE: 02/26/2023 17:21 INDICATION: LEFT LEG PAIN . TECHNIQUE: Grayscale images without and with compression and Doppler images of the left lower extremi ty veins were obtained. COMPARISON: None FINDINGS: The left common femoral vein, profunda (deep) femoral vein, femoral vein, popliteal vein, peroneal v ein, posterior tibial veins, gastrocnemius vein, and greater saphenous vein are patent. IMPRESSION: Patent left lower extremity veins. No evidence of deep venous thrombosis. Reviewed, dictated and finalized at location K.
[2023-02-26 12:56] VITALS: BP 188/77; PULSE 79; RESP 16; TEMP 36.6; O2SAT 100
--- NOTE | 2023-02-26 13:26 | ED.EXTPRO ---
HPI - Extremity Problem General Chief complaint: Extremity Problem,Nontraumatic Stated complaint: L leg pain Time Seen by Provider: 02/26/23 13:22 Source: patient, family and EMS Mode of arrival: EMS History of Present Illness HPI Narrative: 73 years old white female, morbidly obese presents with discomfort at the lateral side of the left lower leg below the knee, sharp, irritation, denies any aggravating factors sometimes gets better with different position, started 4 days ago. Patient also complaining of right flank discomfort and right abdominal pain been going for the last 3 to 4 months. History of spinal stenosis, with right lower extremity pain similar to what she have today, usually gets better on epidural injection. History of diabetes, hyperlipidemia, hypothyroidism, diabetic neuropathy and spinal stenosis. Related Data Home Medications Medication Instructions Recorded Confirmed acetaminophen 500 mg tablet 500 mg PO Q4H PRN Pain 04/22/19 02/16/21 (Tylenol Extra Strength) aspirin 81 mg tablet,delayed 81 mg PO DAILY 04/22/19 02/16/21 release atorvastatin 40 mg tablet 40 mg PO DAILY 04/22/19 02/16/21 bupropion HCl 150 mg 24 hr tablet, 150 mg PO QAM 04/22/19 02/16/21 extended release (Wellbutrin XL) duloxetine 60 mg capsule,delayed 60 mg PO BID 04/22/19 02/16/21 release (Cymbalta) furosemide 40 mg tablet 80 mg PO QAM 04/22/19 02/16/21 glipizide 10 mg tablet 10 mg PO BID 04/22/19 02/16/21 metformin 1,000 mg tablet 1,000 mg PO BID 04/22/19 02/16/21 potassium chloride 20 mEq oral 20 meq PO BID 04/22/19 02/16/21 packet propranolol 40 mg tablet 40 mg PO QAM 04/22/19 02/16/21 zonisamide 100 mg capsule 400 mg PO DAILY 04/22/19 02/16/21 allopurinol 100 mg tablet 100 mg PO DAILY 10/28/20 02/16/21 ezetimibe 10 mg tablet 10 mg PO DAILY 10/28/20 02/16/21 levothyroxine 150 mcg tablet 300 mcg PO BID 12/16/20 02/16/21 Allergies Allergy/AdvReac Type Severity Reaction Status Date / Time cephalexin [From Keflex] Allergy Unknown Rash Verified 02/26/23 13:04 Review of Systems Review of Systems: All systems reviewed & are unremarkable except as noted in HPI and below PMFSH Past Medical History Medical History Abdominal pain Anemia Anxiety Arthritis Asthma Back pain Blood disorder Chest pain Constipation Depression Diabetes H/O thyroid disease Hypothyroidism Migraines Obesity Renal calculus, bilateral Shortness of breath Tear, knee, medial meniscus Surgical History Surgical History History of esophagogastroduodenoscopy (EGD) Hx of cystoscopy Hx of dilation and curettage Hx of tonsillectomy Family History Family History Other ADD (attention deficit disorder) Alzheimer's dementia Anemia Anxiety Arthritis Asthma Atrial fibrillation Back pain CAD (coronary artery disease) Cataracts, bilateral Chest pain Depression Diabetes mellitus Glaucoma H/O thyroid disease Hearing loss Heart disease Hypertension Migraines Obesity Osteoporosis Ovarian cancer Renal disease Shortness of breath Visual loss Social History Social History Smoking packs per day: 1.5 Smoking cigarettes per day: 30.0 Years smoked: 40 Smoking pack-years: 60.00 Smoking status: Former smoker Tobacco type: cigarettes Second hand tobacco smoke exposure: No Smoking end date: 05/22/02 Additional smoking assessment comments: QUIT 2002 Alcohol intake: never Substance use: current Substance use type: marijuana Other substance usage details: EVERYDAY - EVERY OTHER DAY Last use: 02/11/21 Living arrangements: alone Occupation/Education: retired Spiritual care concerns: No Exam Narrative: General appearance: Well-developed, well-nourished Skin: Normal color Head: Nor
[2023-02-26 14:16] VITALS: BP 125/86
[2023-02-26] MEDS: ONDANSETRON INJ 4 MG/2 ML VIAL IV PUSH (14:24)
[2023-02-26] MEDS: SODIUM CHLORIDE 0.9% IV 1,000 ML 999 ML IV CONT (14:28)
[2023-02-26] MEDS: HYDROmorphone HCL INJ (*CRX) 1 MG/ML SYR 0.5 MG IV PUSH (14:28)
[2023-02-26 14:29] LABS: Basophils Percent Auto 0.5 % (0.2-1.2); Eosinophils Absolute Auto 0.1 K/mm3 (0-0.3); Eosinophils Percent Auto 0.6 % (0-4.4); Hematocrit 38.8 % (37.0-47.0); Hemoglobin 12.9 g/dL (12.0-15.0); Immature Granulocyte Absolute 0.03 K/mm3 (0.00-0.031); Immature Granulocyte Percent A 0.4 % (0-0.5); Lymphocytes Absolute Auto 1.14 K/mm3 (0.9-3.2); Lymphocytes Percent Auto 14.2 % (18.3-44.2); Mean Corpuscular HGB Conc 33.2 g/dl (32-36); Mean Corpuscular Hemoglobin 30.7 pg (26-34); Mean Corpuscular Volume 92.4 fl (80-100); Mean Platelet Volume 10.9 fl (7.4-10.4); Monocytes Absolute Auto 0.4 K/mm3 (0.1-0.6); Monocytes Percent Auto 4.4 % (2.6-8.5); Neutrophils Absolute Auto 6.4 K/mm3 (1.3-6.7); Neutrophils Percent Auto 79.9 % (45.5-73.1); Platelet Count Result 177 k/mm3 (150-375); Red Cell Distribution Width 13.4 % (11.5-14.5)
[2023-02-26 15:14] LABS: Alanine Aminotransferase 16 U/L (6-35); Albumin Level 3.8 g/dL (3.5-5.1); Alkaline Phosphatase 152 U/L (38-126); Anion Gap 5 mmol/L (8-16); Aspartate Amino Transferase 21 U/L (14-36); Bilirubin,Total 0.9 mg/dL (0.2-1.3); Blood Urea Nitrogen 13 mg/dL (7-17); Calcium 8.7 mg/dL (8.4-10.2); Carbon Dioxide 27 mmol/L (22-30); Chloride 103 mmol/L (98-107); Estimated CRCL calculation 79 ml/min; Estimated Glomerular Filt Rate > 60; Glucose 163 mg/dL (65-110); Lipase 25 U/L (23-300); Potassium 3.3 mmol/L (3.4-5.0); Sodium 135 mmol/L (137-145)
[2023-02-26 15:34] LABS: INR 1.1
[2023-02-26 15:35] LABS: Partial Thromboplastin Time 29.9 SECONDS (22.3-36.8)
[2023-02-26 15:39] LABS: D Dimer 0.88 ug/mL (<0.48)
--- NOTE | 2023-02-26 16:47 | PC.NURSE ---
Pt refuses straight cath for urine.
--- NOTE | 2023-02-26 16:49 | PC.NURSE ---
Pt unable to provide urine sample and declines straight cath.
[2023-02-26] MEDS: POTASSIUM CHLORIDE 20 MEQ PACKET (FOR LIQUID) 40 MEQ PO (17:09)
== END 2023-02-26 19:00 | disposition home or self-care (01) ==
PROVIDERS: Emergency Provider Emergency Medicine; PCP Internal Medicine
DX: M79.605 Pain in left leg (principal); R91.1 Solitary pulmonary nodule; R79.1 Abnormal coagulation profile; M54.50 Low back pain, unspecified; E66.01 Morbid (severe) obesity due to excess calories; Z68.43 Body mass index [BMI] 50.0-59.9, adult; E78.5 Hyperlipidemia, unspecified; E03.9 Hypothyroidism, unspecified; E11.40 Type 2 diabetes mellitus with diabetic neuropathy, unspecified; M19.90 Unspecified osteoarthritis, unspecified site; F41.9 Anxiety disorder, unspecified; F32.A Depression, unspecified; Z86.2 Personal history of diseases of the blood and blood-forming organs and certain disorders involving the immune mechanism; Z87.891 Personal history of nicotine dependence; Z87.442 Personal history of urinary calculi; Z79.82 Long term (current) use of aspirin; Z79.84 Long term (current) use of oral hypoglycemic drugs
CPT/HCPCS: 36415; 74176; 80053; 83690; 85025; 85380; 85610; 85730; 93971; 96361; 96374; 96375; 99284; A9270; J1170; J2405; J7030

== ENCOUNTER → 2023-03-24 12:39 | Outpatient (CLI) | payer MEDICARE, SELFPAY ==
--- NOTE | ~2023-03-24 | CT_ITS ---
EXAMINATION: CT diagnostic chest wo con DATE: 03/24/2023 14:04 INDICATION: Follow-up pulmonary nodules TECHNIQUE: Computed tomography (CT) of the chest was performed without intravenous contrast. The dose -length product was 363.40 mGy-cm. Automated exposure control and iterative reconstruction technique were employed. COMPARISON: CT dated 11/24/2015 FINDINGS: There is atherosclerosis of the aorta and coronary arteries. No evidence for aneurysm. Hear t size normal. No significant pleural or pericardial effusion. The upper abdomen is unremarkable. No thoracic lymphadenopathy. No endobronchial lesions. There is a 4 mm right lower lobe nodule, image 88 , decreased in size compared with prior examination. Interval resolution of additional right lower lo be nodules since prior examination. There are a few scattered groundglass opacities in the right lowe r lobe. Interval resolution of left lower lobe nodule since prior examination, most likely postinfect ious/inflammatory. There is lower lobe and lingular atelectasis/scarring. Moderate thoracic spondylos is. No acute osseous abnormality. IMPRESSION: 1. Probable benign right lower lobe nodule, decreased in size compared with prior study. Consider fol low-up CT in 12 months. Reviewed, dictated and finalized at location A. IMPRESSION: 1. Probable benign right lower lobe nodule, decreased in size compared with edson or study. Consider follow-up CT in 12 months.
--- NOTE | ~2023-03-24 | MR_ITS ---
EXAMINATION: MR lumbar spine wo con DATE: 03/24/2023 13:38 INDICATION: Low back pain. TECHNIQUE: Magnetic resonance imaging (MRI) of the lumbar spine was performed without intravenous con trast. Sequences included sagittal T2-weighted FSE, sagittal T2-weighted FS FSE, sagittal T1-weighted FSE, and axial T2-weighted FSE. COMPARISON: Lumbar spine MRI 05/07/2020 FINDINGS: There is 3 mm retrolisthesis of L2 on L3 and L3 on L4 and 3 mm anterolisthesis of L4 on L5. There is mild chronic anterior wedging of T11-L1 vertebral bodies. There are Schmorl's nodes at most levels. There is moderately decreased disc height at L2-L3, severely decreased disc height at L3-L4, mildly decreased disc height at L4-L5, and severely decreased disc height at L5-S1. The distal spina l cord signal intensity is normal. The conus medullaris is at L1-L2. There is clumping and peripheral displacement of the cauda equina at L5 and S1, consistent with arachnoiditis. The following disc lev els are specifically discussed: L1-L2: The disc is bulging. There is mild bilateral facet joint osteoarthritis. There is no neural fo raminal stenosis. There is mild central canal stenosis. L2-L3: The disc is bulging. There is severe bilateral facet joint osteoarthritis. There is moderate b ilateral neural foraminal stenosis. There is mild central canal stenosis. L3-L4: The disc is bulging and has an annular fissure. There is severe bilateral facet joint osteoart hritis. There is moderate bilateral neural foraminal stenosis. There is mild central canal stenosis. L4-L5: The disc is bulging and has an annular fissure. There is severe bilateral facet joint osteoart hritis. There is moderate bilateral neural foraminal stenosis. There is moderate central canal stenos is. L5-S1: The disc is bulging. There is severe bilateral facet joint osteoarthritis. There is severe rig ht and moderate left neural foraminal stenosis. There is mild central canal stenosis. IMPRESSION: 1. Severe lumbar spondylosis, stable from 05/07/2020. 2. Chronic findings of arachnoiditis. Reviewed, dictated and finalized at location E.
== END ==
PROVIDERS: PCP Internal Medicine; Visit Provider Nurse Practitioner Family
DX: R91.1 Solitary pulmonary nodule (principal); M48.061 Spinal stenosis, lumbar region without neurogenic claudication; M54.50 Low back pain, unspecified; M43.06 Spondylolysis, lumbar region
CPT/HCPCS: 71250; 72148

== ENCOUNTER → 2023-05-08 07:04 | Outpatient (CLI) | payer MEDICARE, SELFPAY ==
--- NOTE | ~2023-05-08 | MR_ITS ---
MRI of the left knee Clinical history: Pain Technique: Coronal proton density and proton density-weighted images, sagittal proton-density and T2 fat-sat images, and axial proton-density fat-saturated images were acquired. Findings: Anterior and posterior cruciate ligaments are intact. Medial collateral ligament and the la teral collateral complex are intact. Popliteus tendon is intact. There is complex tearing throughout the medial meniscus, with the posterior horn and body especially macerated and essentially completely absent. No definite lateral meniscal tear seen. There is extensive high-grade chondral malacia throughout the medial compartment with medial compartm ent narrowing and patchy reactive subchondral marrow edema. There is mild chondral thinning of the la teral compartment. There is extensive high-grade chondromalacia of the patellofemoral compartment, wi th joint space narrowing. There is prominent tricompartmental osteophyte formation. Extensor mechanism is intact. There is small joint effusion. No Gage's cyst. Impression: Extensive complex tearing throughout the medial meniscus, especially the posterior horn and body whic h are essentially completely macerated and absent. Severe tricompartmental osteoarthritis, especially of the medial and patellofemoral compartment. Small joint effusion. Reviewed, dictated and finalized at location . 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 Severe tricompartmental osteoarthritis, especially of the medial and patellofem oral compartment. Small joint effusion.
== END ==
PROVIDERS: PCP Internal Medicine; Visit Provider Internal Medicine
DX: S83.232A Complex tear of medial meniscus, current injury, left knee, initial encounter (principal); M17.12 Unilateral primary osteoarthritis, left knee; M25.462 Effusion, left knee; W19.XXXA Unspecified fall, initial encounter
CPT/HCPCS: 73721

== ENCOUNTER 2024-04-21 17:25 | Emergency (ER) | payer MEDICARE, SELFPAY ==
[2024-04-21] VITALS (13 sets, daily range): BP systolic 122–183; BP diastolic 72–114; PULSE 81–91; RESP 16–20; TEMP 36.5–36.7; O2SAT 97–100
--- NOTE | ~2024-04-21 | CT_ITS ---
EXAMINATION: CT abdomen pelvis w con DATE: 04/21/2024 19:10 INDICATION: LLQ abdominal pain/ diarrhea/ nausea/ vomiting x6 days TECHNIQUE: Computed tomography (CT) of the abdomen and pelvis was performed with 100 mL Omnipaque-350 intravenous contrast. Automated exposure control and iterative reconstruction technique were employe d. The dose-length product was 1299.48 mGy-cm. COMPARISON: 02/26/2023; CT chest 03/24/2023. FINDINGS: Lower thorax: Coronary artery calcifications. Stable left lower lobe nodule, likely granuloma. Liver: Normal. Biliary/Gallbladder: Dependent sludge or stones. No inflammatory change. No bile duct dilation. Pancreas: Moderate fatty atrophy. Spleen: Normal. Adrenals:No mass. Kidneys: No suspicious mass, obstructing stone, or hydronephrosis. Multiple bilateral renal cysts and subcentimeter hypodensities that are too small to characterize. Multiple bilateral nonobstructing ca lculi. Left midpole AML. GI tract: No small or large bowel dilation. Appendix not confidently identified. Moderate diverticulo sis. Very mild short segment pericolonic inflammatory changes in the left lower quadrant. Mesentery/Peritoneum: No ascites, mass, or free air. Retroperitoneum: No mass. Atherosclerotic abdominal aortic and/or arterial calcifications. Pelvis: Nearly empty urinary bladder. Normal uterus and bilateral ovaries.. Soft Tissues: Moderate fat-containing uncomplicated appearing umbilical hernia Bones: No acute osseous finding. IMPRESSION: Mild pericolonic inflammatory change surrounding the proximal sigmoid in the left lower quadrant, may represent colitis or early diverticulitis. Reviewed, dictated and finalized at location K. T MANAGER IMPRESSION: Mild pericolonic inflammatory change surrounding the proximal sigmoid in the le ft lower quadrant, may represent colitis or early diverticulitis.
--- NOTE | 2024-04-21 17:30 | ED.ABDPAIN ---
HPI - Abdominal Pain General Chief Complaint: Nausea/Vomiting/Diarrhea Stated Complaint: abdominal pain Time Seen by Provider: 04/21/24 17:30 Source: patient Mode of arrival: ambulatory Limitations: no limitations History of Present Illness HPI narrative: Patient is a 74-year-old female with abdominal pain and diarrhea for the past week. Her abdominal pain is diffuse around the abdomen per her complaints but specifically in the left lower quadrant. A history of diverticulitis. No nausea vomiting. No chest pain or shortness of breath. Patient came by EMS. MD elicited complaint: abdominal pain Pertinent past history: diverticulitis Onset (ago): week(s) (1) Pain Consistency: constant Location: diffuse and LLQ Severity: moderate Pain scale (0-10): 5 Quality: sharp Radiation: LLQ Migration to: no migration Exacerbating factors: nothing Relieving factors: nothing Context: confirms possible food poisoning Associated symptoms: diarrhea Related Data Home Medications Medication Instructions Recorded Confirmed aspirin 81 mg tablet,delayed 81 mg PO DAILY 04/22/19 04/21/24 release atorvastatin 40 mg tablet 40 mg PO DAILY 04/22/19 04/21/24 bupropion HCl 150 mg 24 hr tablet, 150 mg PO QAM 04/22/19 04/21/24 extended release (Wellbutrin XL) duloxetine 60 mg capsule,delayed 120 mg PO BID 04/22/19 04/21/24 release (Cymbalta) furosemide 40 mg tablet 80 mg PO QAM 04/22/19 04/21/24 glipizide 10 mg tablet 10 mg PO BID 04/22/19 04/21/24 metformin 1,000 mg tablet 1,000 mg PO BID 04/22/19 04/21/24 potassium chloride 20 mEq oral 20 meq PO BID 04/22/19 04/21/24 packet propranolol 40 mg tablet 80 mg PO QAM 04/22/19 04/21/24 zonisamide 100 mg capsule 400 mg PO DAILY 04/22/19 04/21/24 allopurinol 100 mg tablet 100 mg PO DAILY 10/28/20 04/21/24 ezetimibe 10 mg tablet 10 mg PO DAILY 10/28/20 04/21/24 levothyroxine 150 mcg tablet 300 mcg PO BID 12/16/20 04/21/24 Allergies Allergy/AdvReac Type Severity Reaction Status Date / Time cephalexin [From Keflex] Allergy Unknown Rash Verified 04/21/24 17:37 [facility] Past Medical History Medical History Abdominal pain Anemia Anxiety Arthritis Asthma Back pain Blood disorder Chest pain Constipation Depression Diabetes H/O thyroid disease Hypothyroidism Migraines Obesity Renal calculus, bilateral Shortness of breath Tear, knee, medial meniscus Surgical History Surgical History History of esophagogastroduodenoscopy (EGD) Hx of cystoscopy Hx of dilation and curettage Hx of tonsillectomy Family History Family History Other ADD (attention deficit disorder) Alzheimer's dementia Anemia Anxiety Arthritis Asthma Atrial fibrillation Back pain CAD (coronary artery disease) Cataracts, bilateral Chest pain Depression Diabetes mellitus Glaucoma H/O thyroid disease Hearing loss Heart disease Hypertension Migraines Obesity Osteoporosis Ovarian cancer Renal disease Shortness of breath Visual loss Social History Social History Smoking packs per day: 1.5 Smoking cigarettes per day: 30.0 Years smoked: 40 Smoking pack-years: 60.00 Smoking status: Former smoker Tobacco type: cigarettes Second hand tobacco smoke exposure: No Smoking end date: 05/22/02 Additional smoking assessment comments: QUIT 2002 Alcohol intake: never Substance use: current Substance use type: marijuana Other substance usage details: EVERYDAY - EVERY OTHER DAY Last use: 02/11/21 Living arrangements: alone Occupation/Education: retired Spiritual care concerns: No Exam Const: General: healthy appearing Nutritional Appearance: well nourished Orientation/consciousness: patient oriented x3 HENMT: Head: normal to inspection Ears: external ears normal Face/Nose/Sinus: Normal external nose present Eyes: Conjunctivae: conjunctivae normal Pupils: Equal, round and reactive pupils present EOM: EOMs intact bilaterally Neck: Neck: normal visual inspection Chest: Chest palpation & inspection: normal inspection of the chest Resp: Effort & Inspection: normal respiratory effort and not labored Auscultation: clear to auscultation bilaterally and no crackles Cardio: Rate: regular rate Rhythm: regular rhythm Heart sounds: no murmurs GI: Inspection: non-distended GI Palp: Yes Soft to palpation, Yes Tenderness to palpation present (GI) ( Diffuse but specifically left lower quadrant), No Guarding due to palpation present (GI), No Rigid due to palpation, No Hernia present, No Palpable mass present and No Rebound tenderness present Auscultation: normal bowel sounds : General: Yes bladder normal to palpation Back/Spine/Pelvis: Back: no CVA tenderness Skin: General skin exam: normal color Rashes: no rashes Wounds: no wounds Neuro: General: patient oriented x3 Cranial nerves: Yes Nystagmus not present Speech: normal speech Extrem: General: normal to inspection Psych: Mental Status: mental status grossly normal Affect: normal affect Attitude: cooperative Course Vital Signs Vital signs: Vital Signs Temperature 36.5 C 04/21/24 17:27 Pulse Rate 81 04/21/24 17:27 Respiratory Rate 18 04/21/24 17:27 Blood Pressure 144/85 H 04/21/24 17:27 Pulse Oximetry 100 04/21/24 17:27 Oxygen Delivery Room Air 04/21/24 17:27 Temperature 36.7 C 04/21/24 19:26 Pulse Rate 91 04/21/24 19:26 Respiratory Rate 16 04/21/24 19:26 Blood Pressure 183/74 H 04/21/24 19:26 Pulse Oximetry 98 04/21/24 19:26 Oxygen Delivery Room Air 04/21/24 19:26 MDM - Abdominal Pain MDM Narrative Medical decision making narrative: patient is a 74-year-old female with abdominal pain and diarrhea for the past week. We will do an abdominal pain workup at this time. Lab Data Attestation: I reviewed the patient's lab results. 04/21/24 18:30 04/21/24 18:30 Labs: Lab Results 04/21/24 Range/Units 18:30 WBC 9.3 (4.8-10.8) K/mm3 RBC 4.33 (4.20-5.40) M/mm3 Hgb 13.2 (11.7-13.8) g/dL Hct 37.9 (35.0-42.0) % MCV 87.5 (78.0-102.0) fL MCH 30.5 (27.0-31.0) pg MCHC 34.8 (32-36) g/dL RDW 13.5 (11.6-14.4) % Plt Count 187 (150-420) K/mm3 MPV 9.6 (9.2-11.8) fl Immature Gran % (Auto) 0.4 H (0.0-0.0) % Neut % (Auto) 83.7 H (50.0-70.0) % Lymph % (Auto) 9.3 L (18.0-42.0) % [place] % (Auto) 5.1 (2.0-11.0) % Eos % (Auto) 1.2 (1.0-6.0) % Baso % (Auto) 0.3 (0.0-1.0) % Lymph # (Auto) 0.86 L (1.10-4.50) K/mm3 [place] # (Auto) 0.47 (0.10-0.90) K/mm3 Eos # (Auto) 0.11 (0.02-0.50) K/mm3 Baso # (Auto) 0.03 (0.00-0.10) K/mm3 Abs Immat Gran (auto) 0.04 H (0.00-0.00) K/mm3 Absolute Neuts (auto) 7.74 H (1.70-7.20) K/mm3 Absolute Nucleated RBC 0.00 (0.00-0.00) K/mm3 Nucleated RBC % 0.0 (0-0.0) % Sodium 140 (136-145) mmol/L Potassium 3.0 L (3.5-5.1) mmol/L Chloride 101 (98-108) mmol/L Carbon Dioxide 28 (21-32) mmol/L Anion Gap 11 (4-12) mmol/L BUN 12 (7-18) mg/dL Creatinine 1.29 H (0.55-1.02) mg/dL Estim Creat Clear Calc 34 ml/min Estimated GFR 41 L (59 - ) Glucose 235 H (70-99) mg/dL Calculated Osmolality 297 H (285-295) mOsm/kg Lactic Acid 2.1 H (0.4-2.0) mmol/L Calcium 9.1 (8.5-10.1) mg/dL Total Bilirubin 1.2 H (0.00-1.00) mg/dL AST 14 L (15-37) U/L ALT 21 (14-59) U/L Alkaline Phosphatase 108 (46-116) U/L Total Protein 6.7 (6.4-8.2) g/dL Albumin 3.2 L (3.4-5.0) g/dL Lipase 11 L (16-77) U/L Urine Color Dark yellow (Yellow) Urine Appearance Cloudy A (Clear) Urine pH 5.5 (5.0-8.0) Ur Specific [place] 1.025 H (1.010-1.020) Urine Protein 1+ H (Negative) Urine Glucose (UA) Negative (Negative) Urine Ketones 2+ H (Negative) Ur Blood (Man) Negative (Negative) Urine Nitrate Negative (Negative) Urine Bilirubin 2+ H (Negative) Urine Urobilinogen 0.2 (0.2-1.0) mg/dL Leukocyte Esterase Rfl Negative (Negative) RAMSES/UL Urine WBC 10-15 H (0-3) /hpf Ur Squamous Epith Cells Many H (Few) /hpf Amorphous Sediment Heavy H (None) Urine Bacteria 3+ H (None) /hpf Cellular Casts Present H (None) /lpf Hyaline Casts 50+ H (None) /lpf Granular Casts 10-14 H (None) /lpf Urine Mucus Heavy H /lpf Imaging Data Attestation: I personally reviewed and interpreted this imaging study as follows: Radiologist's impression: ITS Impressions Abdomen/Pelvis CT 04/21/24 19:22 IMPRESSION: Mild pericolonic inflammatory change surrounding the proximal sigmoid in the left lower quadrant, may represent colitis or early diverticulitis. Discharge Plan Discharge Clinical Impression: Diverticulitis, Acute dehydration Patient Disposition: Home, Self-Care Condition: Stable Instructions: Antibiotic Form, Diverticulitis (DC) Prescriptions: New ciprofloxacin HCl [Cipro] 500 mg tablet 500 mg PO BID 10 Days Qty: 20 0RF metronidazole 500 mg tablet 500 mg PO TID 10 Days Qty: 30 0RF No Action furosemide 40 mg tablet 80 mg PO QAM metformin 1,000 mg tablet 1,000 mg PO BID glipizide 10 mg tablet 10 mg PO BID zonisamide 100 mg capsule 400 mg PO DAILY duloxetine [Cymbalta] 60 mg capsule,delayed release(DR/EC) 120 mg PO BID bupropion HCl [Wellbutrin XL] 150 mg tablet extended release 24 hr 150 mg PO QAM propranolol 40 mg tablet 80 mg PO QAM potassium chloride 20 mEq packet 20 meq PO BID atorvastatin 40 mg tablet 40 mg PO DAILY aspirin 81 mg tablet,delayed release (DR/EC) 81 mg PO DAILY (DME) blood-glucose meter Kit See Rx Instructions .ROUTE .MEDSUPPLY Qty: 1 0RF Rx Instructions: use to check BS BID (DME) lancets 33 gauge misc See Rx Instructions .ROUTE .MEDSUPPLY Qty: 100 2RF Rx Instructions: USE 1 LANCET EACH TIME TO CHECK BS BID (DME) pen needle, diabetic [BD Ultra-Fine Kayley Pen Needle] 32 gauge x 5/32 needle See Rx Instructions .ROUTE .MEDSUPPLY Qty: 100 2RF Rx Instructions: use one each time you inject insulin BID (DME) pen needle, diabetic [BD Ultra-Fine Kayley Pen Needle] 32 gauge x 5/32 needle See Rx Instructions .ROUTE .MEDSUPPLY Qty: 100 1RF Rx Instructions: use one daily allopurinol 100 mg tablet 100 mg PO DAILY ezetimibe 10 mg tablet 10 mg PO DAILY levothyroxine 150 mcg Tablet 300 mcg PO BID (DME) FreeStyle Lite Strips Strip See Rx Instructions .ROUTE .MEDSUPPLY Qty: 200 1RF Rx Instructions: use one strip to check BS BID Follow-up/Referrals: UNKNOWN,DOCTOR [Non-Staff] - Time of Disposition: 19:50
[2024-04-21 18:33] LABS: Basophils Absolute Auto 0.03 K/mm3 (0.00-0.10); Basophils Percent Auto 0.3 % (0.0-1.0); Eosinophils Absolute Auto 0.11 K/mm3 (0.02-0.50); Eosinophils Percent Auto 1.2 % (1.0-6.0); Hematocrit 37.9 % (35.0-42.0); Hemoglobin 13.2 g/dL (11.7-13.8); Immature Granulocyte Absolute 0.04 K/mm3 (0.00-0.00); Immature Granulocyte Percent A 0.4 % (0.0-0.0); Lymphocytes Absolute Auto 0.86 K/mm3 (1.10-4.50); Lymphocytes Percent Auto 9.3 % (18.0-42.0); Mean Corpuscular HGB Conc 34.8 g/dL (32-36); Mean Corpuscular Hemoglobin 30.5 pg (27.0-31.0); Mean Corpuscular Volume 87.5 fL (78.0-102.0); Mean Platelet Volume 9.6 fl (9.2-11.8); Monocytes Absolute Auto 0.47 K/mm3 (0.10-0.90); Monocytes Percent Auto 5.1 % (2.0-11.0); Neutrophils Absolute Auto 7.74 K/mm3 (1.70-7.20); Neutrophils Percent Auto 83.7 % (50.0-70.0); Platelet Count Result 187 K/mm3 (150-420); Red Blood Count 4.33 M/mm3 (4.20-5.40); Red Cell Distribution Width 13.5 % (11.6-14.4); White Blood Count 9.3 K/mm3 (4.8-10.8)
[2024-04-21 18:45] LABS: Alanine Aminotransferase 21 U/L (14-59); Albumin Level 3.2 g/dL (3.4-5.0); Alkaline Phosphatase 108 U/L (46-116); Anion Gap 11 mmol/L (4-12); Aspartate Amino Transferase 14 U/L (15-37); Bilirubin,Total 1.2 mg/dL (0.00-1.00); Blood Urea Nitrogen 12 mg/dL (7-18); Calcium 9.1 mg/dL (8.5-10.1); Carbon Dioxide 28 mmol/L (21-32); Chloride 101 mmol/L (98-108); Estimated CRCL calculation 34 ml/min; Estimated Glomerular Filt Rate 41; Glucose 235 mg/dL (70-99); Lipase 11 U/L (16-77); Osmolality Calculated 297 mOsm/kg (285-295); Sodium 140 mmol/L (136-145); Total Protein 6.7 g/dL (6.4-8.2)
[2024-04-21 18:48] LABS: Lactic Acid Reflex 2.1 mmol/L (0.4-2.0)
[2024-04-21] MEDS: POTASSIUM CHLORIDE 20 MEQ ER TABLET 40 MEQ PO (19:16)
[2024-04-21] MEDS: SODIUM CHLORIDE 0.9% IV 1,000 ML 999 ML IV CONT (19:16)
--- NOTE | 2024-04-21 19:23 | PC.NURSE ---
PATIENT REQUESTED TO SIT IN CHAIR. BEDSIDE COMMODE PLACED IN ROOM FOR PATIENT NEXT TO CHAIR. IV INFUSING TO LEFT AC. CALL LIGHT IN REACH. DENIES ANY NEEDS
--- NOTE | 2024-04-21 19:25 | PC.NURSE ---
URINE TAKEN TO LAB BY SEBAS ALLISON
[2024-04-21 19:44] LABS: Add Urine Microscopic? YES; Appearance Urine Cloudy (Clear); Bilirubin Urine 2+ (Negative); Blood Urine Negative (Negative); Color Urine Dark Yellow (Yellow); Glucose Urine UA Negative (Negative); Ketones Urine 2+ (Negative); Leukocyte Esterase Ur Negative LEU/UL (Negative); Nitrate Urine Negative (Negative); Protein Urine 1+ (Negative); Specific Grav Ur 1.025 (1.010-1.020); Squamous Epithelial Cell Urine Many /hpf (Few); Urobilinogen Urine 0.2 mg/dL (0.2-1.0); pH Urine 5.5 (5.0-8.0)
[2024-04-21 19:45] LABS: Amorphous Sediment Urine Heavy; Bacteria Urine 3+ /hpf; Cellular Casts Urine Present /lpf; Hyaline Casts Urine 50+ /lpf; Mucus Urine Heavy /lpf
[2024-04-21] MEDS: CIPROFLOXACIN 500 MG TAB PO (19:59)
[2024-04-21] MEDS: metroNIDAZOLE 250 MG TABLET 500 MG PO (19:59)
--- NOTE | 2024-04-21 20:30 | PC.NURSE ---
PATIENT SITTING UP IN CHAIR. IV FLUIDS PLACED ON IV PUMP FOR ASSIST INFUSION. FREQUENT REMINDERS TO KEEP LEFT ARM STRAIGHT FOR INFUSION. PLAN IS TO DISCHARGE AFTER IV FLUIDS HAVE COMPLETED. PATIENT HAS CALL LIGHT IN REACH.
--- NOTE | 2024-04-21 20:59 | PC.NURSE ---
PATIENT CALLING NEIGHBOR TO COME PICK HER UP. APPROX ETA 20 MINUTES.
[2024-04-21 21:31] LABS: Reflex Lactic Acid Yes or No Add Lactic
--- NOTE | 2024-04-24 12:44 | PC.NURSE ---
FINAL URINE CULTURE RESULTS: GREATER THAN 100,000 CFU/ML OF NON-UROPATHOGENIC GRAM POSITIVE ORGANISM. NO CHANGE IN TX PER DR TELLEZ
== END 2024-04-21 21:43 | disposition home or self-care (01) ==
PROVIDERS: Emergency Provider Emergency Medicine; PCP Internal Medicine
DX: K57.92 Diverticulitis of intestine, part unspecified, without perforation or abscess without bleeding (principal); E86.0 Dehydration; E03.9 Hypothyroidism, unspecified; Z79.899 Other long term (current) drug therapy; Z79.82 Long term (current) use of aspirin; Z79.84 Long term (current) use of oral hypoglycemic drugs; E11.9 Type 2 diabetes mellitus without complications; Z87.891 Personal history of nicotine dependence
CPT/HCPCS: 36415; 74177; 80053; 81001; 83605; 83690; 85025; 87086; 87088; 96360; 96361; 99284; A9270; J7030; Q9967

== ENCOUNTER 2024-04-22 12:18 | Observation (INO) | payer MEDICARE, SELFPAY ==
[2024-04-22] VITALS (20 sets, daily range): BP systolic 151–183; BP diastolic 74–103; PULSE 72–91; RESP 17–20; TEMP 36.4–36.6; O2SAT 98–100; BMI 52.0
--- NOTE | ~2024-04-22 | XR_ITS ---
EXAMINATION: XR shoulder LT min 2V DATE: 04/22/2024 13:34 INDICATION: Left shoulder injury. Fall. TECHNIQUE: 4 views of left shoulder were obtained. COMPARISON: None. FINDINGS: Alignment is normal. No fracture. There is mild osteoarthritis of glenohumeral joint and mo derate osteoarthritis of the acromioclavicular joint. IMPRESSION: 1. Polyarticular osteoarthritis. Reviewed, dictated and finalized at location A. TRUCK CATERER
--- NOTE | 2024-04-22 12:24 | ED_ITS ---
HPI - General Adult General Chief complaint: Weakness Stated complaint: fall Time Seen by Provider: 04/22/24 12:24 Source: patient and EMS Mode of arrival: EMS Limitations: no limitations History of Present Illness HPI narrative: 74 years old white female came to the ED from home by ambulance complaining of general weakness, unable to take care of herself. Got up this morning, stood up, both knees give out, with down slowly on the left arm. Denies any head injury or neck pain or back pain or hips pain. Was seen in our emergency room yesterday and discharge on Cipro and metronidazole for urinary tract infection and diverticulitis. Patient denies any fever, chills, nausea, vomiting, chest pain, shortness of breath or back pain or headache or respiratory symptoms. Patient would like to go to rehab because of inability to take care of herself, lives alone. Related Data Home Medications Medication Instructions Recorded Confirmed aspirin 81 mg tablet,delayed 81 mg PO DAILY 04/22/19 04/21/24 release atorvastatin 40 mg tablet 40 mg PO DAILY 04/22/19 04/21/24 bupropion HCl 150 mg 24 hr tablet, 150 mg PO QAM 04/22/19 04/21/24 extended release (Wellbutrin XL) duloxetine 60 mg capsule,delayed 120 mg PO BID 04/22/19 04/21/24 release (Cymbalta) furosemide 40 mg tablet 80 mg PO QAM 04/22/19 04/21/24 glipizide 10 mg tablet 10 mg PO BID 04/22/19 04/21/24 metformin 1,000 mg tablet 1,000 mg PO BID 04/22/19 04/21/24 potassium chloride 20 mEq oral 20 meq PO BID 04/22/19 04/21/24 packet propranolol 40 mg tablet 80 mg PO QAM 04/22/19 04/21/24 zonisamide 100 mg capsule 400 mg PO DAILY 04/22/19 04/21/24 allopurinol 100 mg tablet 100 mg PO DAILY 10/28/20 04/21/24 ezetimibe 10 mg tablet 10 mg PO DAILY 10/28/20 04/21/24 levothyroxine 150 mcg tablet 300 mcg PO BID 12/16/20 04/21/24 Allergies Allergy/AdvReac Type Severity Reaction Status Date / Time cephalexin [From Keflex] Allergy Unknown Rash Verified 04/22/24 12:34 Review of Systems Review of Systems: All systems reviewed & are unremarkable except as noted in HPI and below PMFSH Past Medical History Medical History Abdominal pain Anemia Anxiety Arthritis Asthma Back pain Blood disorder Chest pain Constipation Depression Diabetes H/O thyroid disease Hypothyroidism Migraines Obesity Renal calculus, bilateral Shortness of breath Tear, knee, medial meniscus Surgical History Surgical History History of esophagogastroduodenoscopy (EGD) Hx of cystoscopy Hx of dilation and curettage Hx of tonsillectomy Family History Family History Other ADD (attention deficit disorder) Alzheimer's dementia Anemia Anxiety Arthritis Asthma Atrial fibrillation Back pain CAD (coronary artery disease) Cataracts, bilateral Chest pain Depression Diabetes mellitus Glaucoma H/O thyroid disease Hearing loss Heart disease Hypertension Migraines Obesity Osteoporosis Ovarian cancer Renal disease Shortness of breath Visual loss Social History Social History Smoking packs per day: 1.5 Smoking cigarettes per day: 30.0 Years smoked: 40 Smoking pack-years: 60.00 Smoking status: Former smoker Tobacco type: cigarettes Second hand tobacco smoke exposure: No Smoking end date: 05/22/02 Additional smoking assessment comments: QUIT 2002 Alcohol intake: never Substance use: current Substance use type: marijuana Other substance usage details: EVERYDAY - EVERY OTHER DAY Last use: 02/11/21 Living arrangements: alone Occupation/Education: retired Spiritual care concerns: No Exam Narrative: General appearance: Well-developed, well-nourished, looks ill Skin: Normal color Head: Normocephalic, nontraumatic Eyes: Clear conjunctiva ENT: Oropharynx normal, ears normal, nose normal Neck: Supple, nontender Chest and respiratory: Airway patent, no respiratory distress, no accessory muscle use Heart: Regular rate/rhythm Abdomen: Soft, nontender, no organomegaly, quiet bowel sounds Vascular: Normal peripheral pulses, normal capillary refill. Musculoskeletal: Normal range of motion, nontender back , mild tenderness of left arm, no bruises, no swelling, no rash, no deformity Neurologic: Alert and oriented ?3, SHOEMAKING CUTTER is normal as tested, no gross motor deficit Course Vital Signs Vital signs: Vital Signs Temperature 36.6 C 04/22/24 12:34 Pulse Rate 81 04/22/24 12:34 Respiratory Rate 18 04/22/24 12:34 Blood Pressure 153/79 H 04/22/24 12:34 Pulse Oximetry 100 04/22/24 12:34 Oxygen Delivery Room Air 04/22/24 12:34 Temperature 36.6 C 04/22/24 12:34 Pulse Rate 81 04/22/24 12:34 Respiratory Rate 18 04/22/24 12:34 Blood Pressure 153/79 H 04/22/24 12:34 Pulse Oximetry 100 04/22/24 12:34 Oxygen Delivery Room Air 04/22/24 12:34 Medical Decision Making MDM Narrative Medical decision making narrative: patient came to the ED with general weakness and inability to take care of herself at home, lives alone. Vital signs are stable Physical examination showing morbidly obese patient, difficult to move upper or lower extremities, tenderness left arm. Differential diagnosis include urinary tract infection, diverticulitis, electrolyte imbalance, dehydration, depression, general weakness because of the infection. Blood workup today showed hypokalemia, dehydration Admit to hospitalist for IV Levaquin, metronidazole, rehab, penitentiary placement. Differential Diagnosis Differential Diagnosis: As above Vital Signs Vital Signs: Vital Signs Temperature 36.6 C 04/22/24 12:34 Pulse Rate 81 04/22/24 12:34 Respiratory Rate 18 04/22/24 12:34 Blood Pressure 153/79 H 04/22/24 12:34 Pulse Oximetry 100 04/22/24 12:34 Oxygen Delivery Room Air 04/22/24 12:34 Temperature 36.6 C 04/22/24 12:34 Pulse Rate 81 04/22/24 12:34 Respiratory Rate 18 04/22/24 12:34 Blood Pressure 153/79 H 04/22/24 12:34 Pulse Oximetry 100 04/22/24 12:34 Oxygen Delivery Room Air 04/22/24 12:34 Lab Data 04/22/24 13:08 04/22/24 13:08 Labs: Lab Results 04/22/24 Range/Units 13:08 WBC 8.9 (4.8-10.8) K/mm3 RBC 4.20 (4.20-5.40) M/mm3 Hgb 12.8 (11.7-13.8) g/dL Hct 37.1 (35.0-42.0) % MCV 88.3 (78.0-102.0) fL MCH 30.5 (27.0-31.0) pg MCHC 34.5 (32-36) g/dL RDW 13.7 (11.6-14.4) % Plt Count 170 (150-420) K/mm3 MPV 9.7 (9.2-11.8) fl Immature Gran % (Auto) 0.5 H (0.0-0.0) % Neut % (Auto) 78.1 H (50.0-70.0) % Lymph % (Auto) 11.3 L (18.0-42.0) % [place] % (Auto) 6.8 (2.0-11.0) % Eos % (Auto) 2.7 (1.0-6.0) % Baso % (Auto) 0.6 (0.0-1.0) % Lymph # (Auto) 1.00 L (1.10-4.50) K/mm3 [place] # (Auto) 0.60 (0.10-0.90) K/mm3 Eos # (Auto) 0.24 (0.02-0.50) K/mm3 Baso # (Auto) 0.05 (0.00-0.10) K/mm3 Abs Immat Gran (auto) 0.04 H (0.00-0.00) K/mm3 Absolute Neuts (auto) 6.93 (1.70-7.20) K/mm3 Absolute Nucleated RBC 0.00 (0.00-0.00) K/mm3 Nucleated RBC % 0.0 (0-0.0) % Sodium 139 (136-145) mmol/L Potassium 3.2 L (3.5-5.1) mmol/L Chloride 101 (98-108) mmol/L Carbon Dioxide 29 (21-32) mmol/L Anion Gap 9 (4-12) mmol/L BUN 13 (7-18) mg/dL Creatinine 1.22 H (0.55-1.02) mg/dL Estim Creat Clear Calc 47 ml/min Estimated GFR 43 L (59 - ) Glucose 222 H (70-99) mg/dL Calculated Osmolality 295 (285-295) mOsm/kg Calcium 9.0 (8.5-10.1) mg/dL Total Bilirubin 1.0 (0.00-1.00) mg/dL AST 19 (15-37) U/L ALT 22 (14-59) U/L Alkaline Phosphatase 103 (46-116) U/L Total Protein 6.5 (6.4-8.2) g/dL Albumin 3.2 L (3.4-5.0) g/dL Imaging Data Radiologist's impression: Impressions Shoulder X-Ray 04/22/24 13:43 IMPRESSION: 1. Polyarticular osteoarthritis. Critical Care Time Critical Care Time Critical Care Time: No Discharge Plan Discharge Clinical Impression: Urinary tract infection, Diverticulitis, Acute hypokalemia, Unable to ambulate, FARSHAD (acute kidney injury) Patient Disposition: Still a Patient Condition: Stable Prescriptions: No Action ciprofloxacin HCl [Cipro] 500 mg tablet 500 mg PO BID 10 Days Qty: 20 0RF metronidazole 500 mg tablet 500 mg PO TID 10 Days Qty: 30 0RF furosemide 40 mg tablet 80 mg PO QAM metformin 1,000 mg tablet 1,000 mg PO BID glipizide 10 mg tablet 10 mg PO BID zonisamide 100 mg capsule 400 mg PO DAILY duloxetine [Cymbalta] 60 mg capsule,delayed release(DR/EC) 120 mg PO BID bupropion HCl [Wellbutrin XL] 150 mg tablet extended release 24 hr 150 mg PO QAM propranolol 40 mg tablet 80 mg PO QAM potassium chloride 20 mEq packet 20 meq PO BID atorvastatin 40 mg tablet 40 mg PO DAILY aspirin 81 mg tablet,delayed release (DR/EC) 81 mg PO DAILY (DME) blood-glucose meter Kit See Rx Instructions .ROUTE .MEDSUPPLY Qty: 1 0RF Rx Instructions: use to check BS BID (DME) lancets 33 gauge misc See Rx Instructions .ROUTE .MEDSUPPLY Qty: 100 2RF Rx Instructions: USE 1 LANCET EACH TIME TO CHECK BS BID (DME) pen needle, diabetic [BD Ultra-Fine Kayley Pen Needle] 32 gauge x 5/32 needle See Rx Instructions .ROUTE .MEDSUPPLY Qty: 100 2RF Rx Instructions: use one each time you inject insulin BID (DME) pen needle, diabetic [BD Ultra-Fine Kayley Pen Needle] 32 gauge x 5/32 needle See Rx Instructions .ROUTE .MEDSUPPLY Qty: 100 1RF Rx Instructions: use one daily allopurinol 100 mg tablet 100 mg PO DAILY ezetimibe 10 mg tablet 10 mg PO DAILY levothyroxine 150 mcg Tablet 300 mcg PO BID (DME) FreeStyle Lite Strips Strip See Rx Instructions .ROUTE .MEDSUPPLY Qty: 200 1RF Rx Instructions: use one strip to check BS BID
[2024-04-22 13:19] LABS: Basophils Absolute Auto 0.05 K/mm3 (0.00-0.10); Basophils Percent Auto 0.6 % (0.0-1.0); Eosinophils Absolute Auto 0.24 K/mm3 (0.02-0.50); Eosinophils Percent Auto 2.7 % (1.0-6.0); Hematocrit 37.1 % (35.0-42.0); Hemoglobin 12.8 g/dL (11.7-13.8); Immature Granulocyte Absolute 0.04 K/mm3 (0.00-0.00); Immature Granulocyte Percent A 0.5 % (0.0-0.0); Lymphocytes Percent Auto 11.3 % (18.0-42.0); Mean Corpuscular HGB Conc 34.5 g/dL (32-36); Mean Corpuscular Hemoglobin 30.5 pg (27.0-31.0); Mean Corpuscular Volume 88.3 fL (78.0-102.0); Mean Platelet Volume 9.7 fl (9.2-11.8); Monocytes Percent Auto 6.8 % (2.0-11.0); Neutrophils Absolute Auto 6.93 K/mm3 (1.70-7.20); Neutrophils Percent Auto 78.1 % (50.0-70.0); Platelet Count Result 170 K/mm3 (150-420); Red Cell Distribution Width 13.7 % (11.6-14.4); White Blood Count 8.9 K/mm3 (4.8-10.8)
[2024-04-22 13:28] LABS: Alanine Aminotransferase 22 U/L (14-59); Albumin Level 3.2 g/dL (3.4-5.0); Alkaline Phosphatase 103 U/L (46-116); Anion Gap 9 mmol/L (4-12); Aspartate Amino Transferase 19 U/L (15-37); Blood Urea Nitrogen 13 mg/dL (7-18); Carbon Dioxide 29 mmol/L (21-32); Chloride 101 mmol/L (98-108); Estimated CRCL calculation 47 ml/min; Estimated Glomerular Filt Rate 43; Glucose 222 mg/dL (70-99); Osmolality Calculated 295 mOsm/kg (285-295); Potassium 3.2 mmol/L (3.5-5.1); Sodium 139 mmol/L (136-145); Total Protein 6.5 g/dL (6.4-8.2)
[2024-04-22] MEDS: POTASSIUM CHLORIDE 20 MEQ PACKET (FOR LIQUID) 40 MEQ PO (14:43)
[2024-04-22] MEDS: SODIUM CHLORIDE 0.9% IV 1,000 ML 150 ML IV CONT (14:43)
--- NOTE | 2024-04-22 15:44 | ADMGEN ---
This patient, Patience Doll, was admitted to 2nd Floor Room 204-1. Patient/family oriented to hospital policies and general routines including ID bracelet, bed and alarms, visiting hours, pain management, procedures, bathroom and other care routines, personal items, smoking policy, room service/diet, and visiting hours. Information on how to activate the Rapid Response Team has been discussed. Patient/Family are encouraged to report perceived risks to care and to ask questions if they do not understand what they are told or what they should do.
[2024-04-22 17:11] LABS: Glucose Point of Care 214 mg/dl (65-105)
[2024-04-22] MEDS: CEFEPIME 1 GM/NS 50 ML 1 GM/50 ML BAG IVPB (17:21)
[2024-04-22] MEDS: INSULIN HUMAN LISPRO (*BKC) 1,000 UNITS/10 ML VIAL SUB-Q (17:22)
[2024-04-22] MEDS: metroNIDAZOLE 500 MG/ISO 100ML 500 MG/100 ML BAG 100 MG IVPB ×2 (18:29→23:11)
[2024-04-22] MEDS: ONDANSETRON INJ 4 MG/2 ML VIAL IV PUSH (20:59)
[2024-04-22] MEDS: ACETAMINOPHEN 325 MG TABLET 650 MG PO (20:59)
[2024-04-22 21:11] LABS: Glucose Point of Care 185 mg/dl (65-105)
[2024-04-23] VITALS: BP 135/70; PULSE 83; RESP 16; TEMP 36.8; O2SAT 99
--- NOTE | 2024-04-23 | PC.NURSE ---
Patient c/o continued left shoulder pain, she is requesting to have MRI done in case Xray missed something, will discuss with REALTIME REPORTER in AM d/t non-urgent nature of request.
[2024-04-23] MEDS: HYDROcodone/acetaminophen (*CRX) 5-325 MG TABLET 1 TAB PO ×4 (00:09→20:43)
[2024-04-23] MEDS: CEFEPIME 1 GM/NS 50 ML 1 GM/50 ML BAG IVPB ×2 (03:56→16:11)
[2024-04-23 05:31] LABS: Basophils Absolute Auto 0.04 K/mm3 (0.00-0.10); Basophils Percent Auto 0.5 % (0.0-1.0); Eosinophils Absolute Auto 0.23 K/mm3 (0.02-0.50); Hematocrit 32.9 % (35.0-42.0); Hemoglobin 11.2 g/dL (11.7-13.8); Immature Granulocyte Absolute 0.03 K/mm3 (0.00-0.00); Immature Granulocyte Percent A 0.4 % (0.0-0.0); Lymphocytes Absolute Auto 1.16 K/mm3 (1.10-4.50); Lymphocytes Percent Auto 15.2 % (18.0-42.0); Mean Corpuscular Hemoglobin 30.2 pg (27.0-31.0); Mean Corpuscular Volume 88.7 fL (78.0-102.0); Mean Platelet Volume 9.6 fl (9.2-11.8); Monocytes Absolute Auto 0.58 K/mm3 (0.10-0.90); Monocytes Percent Auto 7.6 % (2.0-11.0); Neutrophils Absolute Auto 5.61 K/mm3 (1.70-7.20); Neutrophils Percent Auto 73.3 % (50.0-70.0); Platelet Count Result 148 K/mm3 (150-420); Red Blood Count 3.71 M/mm3 (4.20-5.40); Red Cell Distribution Width 13.6 % (11.6-14.4); White Blood Count 7.7 K/mm3 (4.8-10.8)
[2024-04-23 05:37] LABS: Hemoglobin A1C 8.7 % (<5.7)
[2024-04-23 05:52] LABS: Alanine Aminotransferase 15 U/L (14-59); Albumin Level 2.6 g/dL (3.4-5.0); Alkaline Phosphatase 89 U/L (46-116); Anion Gap 8 mmol/L (4-12); Aspartate Amino Transferase 15 U/L (15-37); Bilirubin,Total 0.7 mg/dL (0.00-1.00); Blood Urea Nitrogen 10 mg/dL (7-18); Calcium 8.4 mg/dL (8.5-10.1); Carbon Dioxide 26 mmol/L (21-32); Chloride 105 mmol/L (98-108); Estimated CRCL calculation 55 ml/min; Estimated Glomerular Filt Rate 53; Glucose 181 mg/dL (70-99); Magnesium 1.6 mg/dL (1.8-2.4); Osmolality Calculated 292 mOsm/kg (285-295); Potassium 3.3 mmol/L (3.5-5.1); Sodium 139 mmol/L (136-145); Thyroid Stimulating Hormone 10.22 uIU/mL (0.36-3.74); Total Protein 5.5 g/dL (6.4-8.2)
[2024-04-23 08:00] VITALS: BP 114/48; PULSE 90; RESP 20; TEMP 37.1; O2SAT 96
[2024-04-23 08:20] LABS: Glucose Point of Care 167 mg/dl (65-105)
[2024-04-23] MEDS: DULoxetine HCL 30 MG CAPSULE.DR 120 MG PO (08:59)
[2024-04-23] MEDS: ASPIRIN 81 MG ENTERIC TABLET PO (09:00)
[2024-04-23] MEDS: FUROSEMIDE 40 MG TABLET 80 MG PO (09:00)
[2024-04-23] MEDS: EZETIMIBE 10 MG TABLET PO (09:00)
[2024-04-23] MEDS: buPROPion HCL XL (24 HR) 150 MG TABCR PO (09:00)
[2024-04-23] MEDS: ATORVASTATIN 40 MG TABLET PO (09:01)
[2024-04-23] MEDS: ENOXAPARIN 40 MG/0.4 ML SYRINGE SUB-Q (09:01)
[2024-04-23] MEDS: allopurinoL 100 MG TABLET PO (09:01)
[2024-04-23] MEDS: ZONISAMIDE 100 MG CAPSULE 400 MG PO (09:01)
[2024-04-23] MEDS: metroNIDAZOLE 500 MG/ISO 100ML 500 MG/100 ML BAG 100 MG IVPB (09:03)
[2024-04-23] MEDS: LEVOTHYROXINE SODIUM 100 MCG TABLET 300 MCG PO (10:41)
--- NOTE | 2024-04-23 10:42 | P.HP_ITS ---
H&P: HPI History of Present Illness Date/Time: 04/23/24 10:42 Chief Complaint: Weakness, urinary tract infection, diverticulitis Narrative: This is a 74-year-old female with a significant past medical history of anemia, anxiety, asthma, depression, diabetes, hypothyroidism, migraines, obesity, hyperlipidemia, former smoker who presented to the hospital with weakness status post fall and recently diagnosed urinary tract infection and diverticulitis. Patient states that her symptoms started 3 weeks ago with some nausea vomiting and dry heaves. Then about 1 week ago she started having diarrhea and decreased appetite. That is when she decided to come to the ED to 1st time. Patient was seen in the ED on 04/21/2024 and had a UA that showed cloudy appearance, 1.025 urine specific gravity, 1+ urine protein, 2+ urine ketone, 2+ urine bilirubin, 10-15 urine wbc's, heavy amorphous sediment, 3+ urine bacteria, cellular, hyaline, granular casts present, heavy urine mucus. Urine culture was obtained and is still pending. Patient was discharged with a prescription of Cipro and Flagyl on 04/21/2024 from the ED. she also had an abdomen / pelvis CT which shown mild pericolonic inflammatory change surrounding the proximal sigmoid in the left lower quadrant representing colitis or early diverticulitis. When she was at home patient stated that she started feeling weak and could not hold herself up any longer with a walker causing her to fall on to her left shoulder. She reported shoulder pain and had a shoulder x-ray done this admission which shown polyarticular osteoarthritis, no malalignment or fracture seen. When examining her shoulder she was tender over the AC joint as well as the anterior shoulder. Her range of motion is definitely decreased and when doing passive range of motion she was only able to get to a 35-45 degree before pain started laterally. She rates her pain at least 8/10 in that left shoulder. Initial labs showed a normal white blood cell count of 8.9, potassium 3.2, creatinine 1.22, EGFR 43, blood sugars ranging 214-222, TSH 10.22. Patient was given 1 L of normal saline, 40 mEq of potassium, Levaquin while in the ED. she was then transitioned to cefepime and Flagyl. Review of Systems Review of Systems: All systems reviewed & are unremarkable except as noted in HPI and below Constitutional: Constitutional: Reports as per HPI and Reports no additional constitutional complaints Eyes: Eyes: Reports as per HPI and Reports no additional eye complaints ENT: Reports system reviewed and no additional complaints, except as documented and Reports as per HPI Cardiovascular: Cardiovascular: Reports as per HPI and Reports no additional cardiovascular complaints Respiratory: Respiratory: Reports as per HPI and Reports no additional respiratory complaints Gastrointestinal: Gastrointestinal: Reports as per HPI and Reports no additional gastrointestinal complaints Genitourinary: Genitourinary: Reports no additional female genitourinary complaints and Reports as per HPI Musculoskeletal: Musculoskeletal: Reports no additional musculoskeletal complaints and Reports as per HPI Integumentary/Breasts: Skin/Breast: Reports system reviewed and no additional complaints, except as docu and Reports as per HPI Neurologic: Reports system reviewed and no additional complaints, except as documented and Reports as per HPI Psychiatric: Psychiatric: Reports no additional psychiatric complaints and Reports as per HPI [facility] Past Medical History Medical History Abdominal pain Anemia Anxiety Arthritis Asthma Back pain Blood disorder Chest pain Constipation Depression Diabetes H/O thyroid disease Hypothyroidism Migraines Obesity Renal calculus, bilateral Shortness of breath Tear, knee, medial meniscus Surgical History Surgical History History of esophagogastroduodenoscopy (EGD) Hx of cystoscopy Hx of dilation and curettage Hx of tonsillectomy Family History Family History Sibling Obesity Other ADD (attention deficit disorder) Alzheimer's dementia Anemia Anxiety Arthritis Asthma Atrial fibrillation Back pain CAD (coronary artery disease) Cataracts, bilateral Chest pain Depression Diabetes mellitus Glaucoma H/O thyroid disease Hearing loss Heart disease Hypertension Migraines Osteoporosis Ovarian cancer Renal disease Shortness of breath Visual loss Social History Social History Smoking packs per day: 1 Smoking cigarettes per day: 20.0 Years smoked: 35 Smoking pack-years: 35.00 Smoking status: Former smoker Tobacco type: cigarettes and e-cigarettes/vaping Second hand tobacco smoke exposure: No Smoking end date: 05/22/02 Additional smoking assessment comments: QUIT 2002 Alcohol intake: never Substance use: current Substance use type: marijuana Other substance usage details: EVERYDAY - EVERY OTHER DAY Last use: 02/11/21 Do You Feel Safe in your Home?: Yes Lack of Transportation: No Lack of Food: Never True Current Housing: I Have Housing Concerned About Future Housing: No Difficulty Paying Gas/Electric Bills: No Difficulty Paying for Meds: No Currently Unemployed: No Education: High School Diploma/GED Difficulty w/ Childcare or Family Care: No Living arrangements: alone Occupation/Education: retired Spiritual care concerns: No Meds Home Medications and Allergies Home Medications Medication Instructions Recorded Confirmed Type aspirin 81 mg tablet,delayed 81 mg PO DAILY 04/22/19 04/22/24 History release atorvastatin 40 mg tablet 40 mg PO DAILY 04/22/19 04/22/24 History blood-glucose meter #1 ea 04/22/19 04/22/24 Rx bupropion HCl 150 mg 24 hr tablet, 150 mg PO QAM 04/22/19 04/22/24 History extended release (Wellbutrin XL) duloxetine 60 mg capsule,delayed 120 mg PO DAILY 04/22/19 04/22/24 History release (Cymbalta) furosemide 40 mg tablet 80 mg PO QAM 04/22/19 04/22/24 History glipizide 10 mg tablet 10 mg PO BID 04/22/19 04/22/24 History lancets 33 gauge #100 ea 04/22/19 04/22/24 Rx metformin 1,000 mg tablet 1,000 mg PO BID 04/22/19 04/22/24 History pen needle, diabetic 32 gauge x #100 ea 04/22/19 04/22/24 Rx 5/32 (BD Ultra-Fine K[place] Pen Needle) propranolol 40 mg tablet 80 mg PO QAM 04/22/19 04/22/24 History zonisamide 100 mg capsule 400 mg PO DAILY 04/22/19 04/22/24 History pen needle, diabetic 32 gauge x #100 ea 04/23/19 04/22/24 Rx 5/32 (BD Ultra-Fine [place]ley Pen Needle) blood sugar diagnostic (FreeStyle #200 ea 06/03/20 04/22/24 Rx Lite Strips) allopurinol 100 mg tablet 100 mg PO DAILY 10/28/20 04/22/24 History ezetimibe 10 mg tablet 10 mg PO DAILY 10/28/20 04/22/24 History levothyroxine 150 mcg tablet 300 mcg PO BID 12/16/20 04/22/24 History ciprofloxacin HCl 500 mg tablet 500 mg PO BID 10 days #20 tabs 04/21/24 04/22/24 Rx (Cipro) metronidazole 500 mg tablet 500 mg PO TID 10 days #30 tabs 04/21/24 04/22/24 Rx potassium chloride 20 mEq 20 meq PO BID 04/22/24 04/22/24 History tablet,extended release Allergies Allergy/AdvReac Type Severity Reaction Status Date / Time cephalexin [From Keflex] Allergy Unknown Rash Verified 04/22/24 12:34 Vital Signs Vital Signs - 24 hr 04/22/24 12:34 04/22/24 15:30 04/22/24 12:34 Temperature 97.9 F Pulse Rate 81 86 91 Respiratory Rate 18 17 18 Blood Pressure 153/79 H 183/89 H Pulse Oximetry 100 98 100 Oxygen Delivery Room Air Room Air 04/22/24 13:00 04/22/24 13:15 04/22/24 13:37 Temperature Pulse Rate 81 79 77 Respiratory Rate 17 17 Blood Pressure Pulse Oximetry 99 100 Oxygen Delivery 04/22/24 13:46 04/22/24 14:00 04/22/24 14:03 Temperature Pulse Rate 78 82 72 Respiratory Rate Blood Pressure 174/103 H Pulse Oximetry 99 100 Oxygen Delivery 04/22/24 14:15 04/22/24 14:30 04/22/24 14:44 Temperature Pulse Rate 78 86 84 Respiratory Rate Blood Pressure 164/74 H Pulse Oximetry 100 100 100 Oxygen Delivery 04/22/24 14:45 04/22/24 14:46 04/22/24 15:00 Temperature Pulse Rate 84 85 83 Respiratory Rate Blood Pressure 158/92 H Pulse Oximetry 99 100 98 Oxygen Delivery 04/22/24 15:01 04/22/24 15:15 04/22/24 15:16 Temperature Pulse Rate 88 88 86 Respiratory Rate Blood Pressure 167/90 H 183/89 H Pulse Oximetry 100 100 98 Oxygen Delivery 04/22/24 16:00 04/22/24 15:52 04/22/24 20:00 Temperature 97.5 F L Pulse Rate 83 83 83 Respiratory Rate 20 20 Blood Pressure 151/98 H Pulse Oximetry 100 100 100 Oxygen Delivery Room Air Room Air Room Air 04/23/24 00:00 Temperature 98.3 F Pulse Rate 83 Respiratory Rate 16 Blood Pressure 135/70 Pulse Oximetry 99 Oxygen Delivery Room Air Exam Narrative: General: In no acute distress, well nourished Head: atraumatic, no encephalopathy Eyes: PERRLA, sclera clear ENT: moist mucous membranes, nasal passages clear Neck: supple, no JVD, no adenopathy, trachea midline Cardiac: Normal S1 and S2. No murmur, gallops or friction rubs, peripheral pulses intact. Respiratory: Lungs clear to auscultation, diminished in the bases, no adventitious lung sounds, currently on room air Gastrointestinal: soft, non-distended, non-tender, normoactive bowel sounds. : voiding without difficulty. Extremities:tenderness over the AC joint as well as rotator cuff pain anterior left shoulder, she has decreased range of motion even with passive range of motion she can only get to about 35-45 degree angle before pain. She denied any numbness or tingling down the arm. Skin: clean, dry, intact. No wounds or lesions. Neuro: Alert and oriented x4, cranial nerves intact, no neuro deficits. Psych: normal mood, normal affect, interactive H&P: Results Labs Labs: Short CBC 04/22/24 04/23/24 Range/Units 13:08 05:13 WBC 8.9 7.7 (4.8-10.8) K/mm3 Hgb 12.8 11.2 L (11.7-13.8) g/dL Hct 37.1 32.9 L (35.0-42.0) % Plt Count 170 148 L (150-420) K/mm3 [facility] 04/22/24 04/23/24 13:08 05:13 Sodium 139 139 Potassium 3.2 L 3.3 L Chloride 101 105 Carbon Dioxide 29 26 BUN 13 10 Creatinine 1.22 H 1.03 H Glucose 222 H 181 H Calcium 9.0 8.4 L Liver Function 04/22/24 04/23/24 Range/Units 13:08 05:13 Total Bilirubin 1.0 0.7 (0.00-1.00) mg/dL AST 19 15 (15-37) U/L ALT 22 15 (14-59) U/L Alkaline Phosphatase 103 89 (46-116) U/L Albumin 3.2 L 2.6 L (3.4-5.0) g/dL Imaging left shoulder x-ray: Radiologist's impression: EXAMINATION: XR shoulder LT min 2V DATE: 04/22/2024 13:34 INDICATION: Left shoulder injury. Fall. TECHNIQUE: 4 views of left shoulder were obtained. COMPARISON: None. FINDINGS: Alignment is normal. No fracture. There is mild osteoarthritis of glenohumeral joint and moderate osteoarthritis of the acromioclavicular joint. IMPRESSION: 1. Polyarticular osteoarthritis. Reviewed, dictated and finalized at location [facility] Assessment and Plan Assessment and plan (1) Urinary tract infection: Code(s): N39.0 - Urinary tract infection, site not specified Status: Acute Assessment and Plan: * UA from well 124 showing cloudy urine appearance, urine specific gravity of 1.025, 1+ urine protein, 2+ urine ketone, 2+ urine bilirubin, 10-15 urine WBC, heavy amorphous sediment, 3+ bacteria, heavy urine mucus, granular casts, hyaline casts, cellular casts all noted. * Urine culture was obtained and is still pending * was initially on Cipro now transitioned to cefepime (2) Diverticulitis: Code(s): K57.92 - Diverticulitis of intestine, part unspecified, without perforation or abscess without bleeding Status: Acute Assessment and Plan: * CTA of the abdomen and pelvis from 04/21/2024 showed mild pericolonic inflammatory changes surrounding the proximal sigmoid in the left lower quadrant representing colitis or early diverticulitis * continue cefepime and Flagyl (3) Left shoulder pain: Code(s): M25.512 - Pain in left shoulder Status: Acute Assessment and Plan: * left shoulder x-ray showed polyarticular osteoarthritis, no malalignment or fracture seen. * Continue pain control * On examination she had tenderness over the AC joint as well as rotator cuff pain anterior shoulder, she has decreased range of motion even with passive range of motion she can only get to about 35-45 degree angle before pain. She denied any numbness or tingling down the arm. * PT and OT to evaluate * Will get MRI on * Consider steroid if pain is not well controlled however she is diabetic and we would have to watch her blood sugars * Can use ice or warm compresses for comfort (4) Weakness: Code(s): R53.1 - Weakness Status: Acute Assessment and Plan: * PT and OT ordered * Will likely require SNF placement (5) Fall: Code(s): W19.XXXA - Unspecified fall, initial encounter Status: Acute Assessment and Plan: * ground level fall (6) Hypothyroidism: Qualifiers: Hypothyroidism type: acquired Qualified Code(s): E03.9 - Hypothy roidism, unspecified Code(s): E03.9 - Hypothyroidism, unspecified Status: Acute Assessment and Plan: * TSH 10.22 * Will check T3 and T4 * continue Synthroid 300 mcg daily (7) Diabetes: Code(s): E11.9 - Type 2 diabetes mellitus without complications Status: Acute Assessment and Plan: * Blood sugars ranging 167-214 * Hgb A1C 8.7 * Accu checks AC/HS * high-doseSSI ordered * hypoglycemic protocol in place * Diabetic diet ordered (8) Depression: Code(s): F32.9 - Major depressive disorder, single episode, unspecified Status: Acute Assessment and Plan: * continue Cymbalta and Wellbutrin Quality VTE Prophylaxis VTE prophylaxis: pharmacologic ordered Hospitalist [facility] Advance Care Plan I have confirmed that the patient's Advanced Care Plan is present, code status is documented, or surrogate decision maker is listed in patient medical record.: Yes Medication Reconciliation I have utilized all available resources to obtain, update and review the patients current medications (includes all prescriptions, OTC, herbals, cannabis, and nutritional supplements).: Yes
[2024-04-23] MEDS: [UNRECOGNIZED DRUG - OTHER] PO (10:48)
[2024-04-23] MEDS: PROPRANOLOL 80 MG PO (10:48)
[2024-04-23 12:18] LABS: Glucose Point of Care 200 mg/dl (65-105)
[2024-04-23 16:00] VITALS: BP 132/104; PULSE 71; RESP 18; TEMP 36.2; O2SAT 96
[2024-04-23] MEDS: metroNIDAZOLE 250 MG TABLET 500 MG PO ×2 (16:12→20:43)
[2024-04-23 16:33] LABS: Glucose Point of Care 250 mg/dl (65-105)
[2024-04-23] MEDS: INSULIN HUMAN LISPRO (*BKC) 1,000 UNITS/10 ML VIAL SUB-Q (16:52)
[2024-04-23 20:00] VITALS: PULSE 71; RESP 18; O2SAT 96
[2024-04-23 20:45] LABS: Glucose Point of Care 149 mg/dl (65-105)
[2024-04-23] MEDS: ONDANSETRON INJ 4 MG/2 ML VIAL IV PUSH (20:52)
[2024-04-24] VITALS: BP 116/48; PULSE 63; RESP 16; TEMP 36.6; O2SAT 99
[2024-04-24] MEDS: HYDROcodone/acetaminophen (*CRX) 5-325 MG TABLET 1 TAB PO ×3 (00:34→13:05)
[2024-04-24] MEDS: CEFEPIME 1 GM/NS 50 ML 1 GM/50 ML BAG IVPB (03:44)
[2024-04-24 05:38] LABS: Basophils Absolute Auto 0.04 K/mm3 (0.00-0.10); Basophils Percent Auto 0.6 % (0.0-1.0); Eosinophils Absolute Auto 0.36 K/mm3 (0.02-0.50); Eosinophils Percent Auto 5.1 % (1.0-6.0); Hematocrit 33.1 % (35.0-42.0); Hemoglobin 11.3 g/dL (11.7-13.8); Immature Granulocyte Absolute 0.03 K/mm3 (0.00-0.00); Immature Granulocyte Percent A 0.4 % (0.0-0.0); Lymphocytes Absolute Auto 0.67 K/mm3 (1.10-4.50); Lymphocytes Percent Auto 9.5 % (18.0-42.0); Mean Corpuscular HGB Conc 34.1 g/dL (32-36); Mean Corpuscular Hemoglobin 30.5 pg (27.0-31.0); Mean Corpuscular Volume 89.2 fL (78.0-102.0); Mean Platelet Volume 9.4 fl (9.2-11.8); Monocytes Absolute Auto 0.58 K/mm3 (0.10-0.90); Monocytes Percent Auto 8.2 % (2.0-11.0); Neutrophils Percent Auto 76.2 % (50.0-70.0); Platelet Count Result 135 K/mm3 (150-420); Red Blood Count 3.71 M/mm3 (4.20-5.40); Red Cell Distribution Width 13.6 % (11.6-14.4); White Blood Count 7.1 K/mm3 (4.8-10.8)
[2024-04-24 05:54] LABS: Alanine Aminotransferase 16 U/L (14-59); Albumin Level 2.7 g/dL (3.4-5.0); Alkaline Phosphatase 91 U/L (46-116); Anion Gap 8 mmol/L (4-12); Aspartate Amino Transferase 16 U/L (15-37); Bilirubin,Total 0.8 mg/dL (0.00-1.00); Blood Urea Nitrogen 9 mg/dL (7-18); Calcium 8.3 mg/dL (8.5-10.1); Carbon Dioxide 27 mmol/L (21-32); Chloride 102 mmol/L (98-108); Estimated CRCL calculation 50 ml/min; Estimated Glomerular Filt Rate 46; Glucose 166 mg/dL (70-99); Osmolality Calculated 286 mOsm/kg (285-295); Potassium 3.3 mmol/L (3.5-5.1); Sodium 137 mmol/L (136-145); Total Protein 5.6 g/dL (6.4-8.2)
[2024-04-24] MEDS: metroNIDAZOLE 250 MG TABLET 500 MG PO (06:00)
[2024-04-24] MEDS: LEVOTHYROXINE SODIUM 100 MCG TABLET 300 MCG PO (06:03)
[2024-04-24 06:44] LABS: Free T3 1.75 pg/mL (2.18-3.98)
[2024-04-24 08:00] VITALS: BP 142/73; PULSE 78; RESP 18; TEMP 36.4; O2SAT 95
[2024-04-24 08:16] LABS: Glucose Point of Care 178 mg/dl (65-105)
--- NOTE | 2024-04-24 08:28 | P.PNIM_ITS ---
Progress Note: A&P Assessment and Plan (1) Diverticulitis: Code(s): K57.92 - Diverticulitis of intestine, part unspecified, without perforation or abscess without bleeding Status: Acute Assessment and Plan: * CTA of the abdomen and pelvis from 04/21/2024 showed mild pericolonic inflammatory changes surrounding the proximal sigmoid in the left lower quadrant representing colitis or early diverticulitis * continue cefepime and Flagyl 04/24/2024: * Transitioned to PO Augmentin * advance diet to diabetic (2) Left shoulder pain: Code(s): M25.512 - Pain in left shoulder Status: Acute Assessment and Plan: * left shoulder x-ray showed polyarticular osteoarthritis, no malalignment or fracture seen. * Continue pain control * On examination she had tenderness over the AC joint as well as rotator cuff pain anterior shoulder, she has decreased range of motion even with passive range of motion she can only get to about 35-45 degree angle before pain. She denied any numbness or tingling down the arm. * PT and OT to evaluate * Will get MRI on 04/26/24 * Consider steroid if pain is not well controlled however she is diabetic and we would have to watch her blood sugars * Can use ice or warm compresses for comfort (3) Weakness: Code(s): R53.1 - Weakness Status: Acute Assessment and Plan: * PT and OT ordered * Will likely require SNF placement * [facility] [place] Auth (4) Fall: Code(s): W19.XXXA - Unspecified fall, initial encounter Status: Acute Assessment and Plan: * PT/OT * Discharge to swing (5) Hypothyroidism: Qualifiers: Hypothyroidism type: acquired Qualified Code(s): E03.9 - Hypothyroidism, unspecified Code(s): E03.9 - Hypothyroidism, unspecified Status: Acute Assessment and Plan: * TSH 10.22 * Will check T3 and T4 * continue Synthroid 300 mcg daily (6) Diabetes: Code(s): E11.9 - Type 2 diabetes mellitus without complications Status: Acute Assessment and Plan: * Blood sugars ranging 167-214 * Hgb A1C 8.7 * Accu checks AC/HS * high-doseSSI ordered * hypoglycemic protocol in place * Diabetic diet ordered (7) Depression: Code(s): F32.9 - Major depressive disorder, single episode, unspecified Status: Acute Assessment and Plan: * continue Cymbalta and Wellbutrin (8) Urinary tract infection: Code(s): N39.0 - Urinary tract infection, site not specified Status: Acute Assessment and Plan: * UA from well 124 showing cloudy urine appearance, urine specific gravity of 1.025, 1+ urine protein, 2+ urine ketone, 2+ urine bilirubin, 10-15 urine WBC, heavy amorphous sediment, 3+ bacteria, heavy urine mucus, granular casts, hyaline casts, cellular casts all noted. * Urine culture was obtained and is still pending * was initially on Cipro now transitioned to cefepime RULED OUT Plan Code status: Full code per patient DVT prophylaxis: Lovenox Stress ulcer prophylaxis: NA PT/OT notes: Swing bed Disposition: patient continues admission to the medical unit diverticulitis improving transition to oral antibiotics plan for discharge to. Swing bed pending insurance authorization Time Spent With Patient Time with patient: 15 - 25 minutes Subjective Date/time seen: 04/24/24 08:28 Interval history: Patient is a 74-year-old female who was admitted to the medical unit for further evaluation and treatment of diverticulitis and generalized weakness 04/24/2024: assumed care patient reports she is still having some mild abdominal pain but feels more like gas pain has been tolerating oral intake with no further nausea or vomiting however she is having some bouts of diarrhea will check for C diff and start probiotic. patient denied any chest pain, shortness of breath, fever, chills has remained afebrile and normal white count. still has some moderate pain and limited mobility to left shoulder MRI planned tomorrow. Review of Systems Review of Systems: All systems reviewed & are unremarkable except as noted in HPI and below Exam Narrative: Physical Exam: * GENERAL: Alert and oriented x 3. No acute distress. obese pleasant female * EYES: EOMI. No scleral icterus. PERRLA. * HEENT: Moist mucous membranes. * LUNGS: Clear to auscultation bilaterally. No accessory muscle use. * CARDIOVASCULAR: Regular rate and rhythm. No murmur. No JVD. S1-S2 * ABDOMEN: Soft, non tenderness and non-distended. No palpable masses. * EXTREMITIES: No edema. Non-tender LUE with limited Range of motion and pain with abduction * SKIN: No rashes or lesions. Skin warm, dry. * NEUROLOGIC: No focal neurological deficits. CN II-XII grossly intact * PSYCHIATRIC: Appropriate mood and affect. Good judgement and insight. No visual or auditory hallucinations. No suicidal or homicidal ideation. Objective Data Vital Signs Vital Signs: Vital Signs - 24 hr 04/23/24 16:00 04/23/24 20:00 04/24/24 00:00 Temperature 97.2 F L 97.8 F Pulse Rate 71 71 63 Respiratory Rate 18 18 16 Blood Pressure 132/104 H 116/48 L Pulse Oximetry 96 96 99 Oxygen Delivery Room Air Room Air Room Air Intake/Output Intake/Output: Intake & Output 04/21/24 04/22/24 04/23/24 04/24/24 23:59 23:59 23:59 23:59 Intake Total 1510 2730 650 Output Total 1400 Balance 1510 1330 650 Meds/Results Medications: Active Medications Generic Name Dose Route Start Last Admin Trade Name Freq PRN Reason Stop Dose Admin Acetaminophen 650 mg 04/22/24 15:51 04/22/24 20:59 Acetaminophen 325 Mg Tablet PO 650 mg Q4H PRN Administration Mild Pain (1-3) or Fever Hydrocodone Bitart/Acetaminophen 1 tab 04/22/24 23:23 04/24/24 06:03 Hydrocodone/Acetaminophen (*Crx) 5-325 Mg Tablet PO 1 tab Q4H PRN Administration Pain Rated 4-6 Allopurinol 100 mg 04/23/24 09:00 04/23/24 09:01 Allopurinol 100 Mg Tablet PO 100 mg DAILY AMAURY Administration Aspirin 81 mg 04/23/24 09:00 04/23/24 09:00 Aspirin 81 Mg Enteric Tablet PO 81 mg DAILY AMAURY Administration Atorvastatin Calcium 40 mg 04/23/24 09:00 04/23/24 09:01 Atorvastatin 40 Mg Tablet PO 40 mg DAILY AMAURY Administration Bupropion HCl 150 mg 04/23/24 09:00 04/23/24 09:00 Bupropion Hcl Xl (24 Hr) 150 Mg Tabcr PO 150 mg QAM AMAURY Administration Dextrose 12.5 gm 04/22/24 15:55 Dextrose 50% 25 Gm/50 Ml Syringe IV PUSH PRN PRN Hypoglycemia Protocol Duloxetine HCl 120 mg 04/23/24 09:00 04/23/24 08:59 Duloxetine Hcl 30 Mg Capsule.Dr PO 120 mg DAILY AMAURY Administration Ezetimibe 10 mg 04/23/24 09:00 04/23/24 09:00 Ezetimibe 10 Mg Tablet PO 10 mg DAILY AMAURY Administration Enoxaparin Sodium 40 mg 04/23/24 09:00 04/23/24 09:01 Enoxaparin 40 Mg/0.4 Ml Syringe SUB-Q 40 mg DAILY AMAURY Administration Furosemide 80 mg 04/23/24 09:00 04/23/24 09:00 Furosemide 40 Mg Tablet PO 80 mg QAM AMAURY Administration Glucagon 1 mg 04/22/24 15:55 Glucagon For Inj 1 Mg Vial IM PRN PRN Hypoglycemia Protocol Glucose 15 gm 04/22/24 15:55 Glucose Oral Gel 15 Gm Of Glucse In 37.5 Gm Tube PO PRN PRN Hypoglycemia Protocol Dextrose 1,000 mls @ 100 mls/hr 04/22/24 15:55 Dextrose 5% 1,000 Ml IVPB PRN PRN Hypoglycemia Protocol Cefepime HCl 1 gm in 50 mls @ 100 mls/hr 04/22/24 16:00 04/24/24 04:30 Maxipime 1 Gm/Ns 50 Ml IVPB Infused Q12H AMAURY Infusion Insulin Human Lispro 4 - 8 units 04/22/24 17:00 04/24/24 08:25 Insulin Human Lispro (*[facility]) 1,000 Units/10 Ml Vial SUB-Q Not Given [facility] Protocol Levothyroxine Sodium 300 mcg 04/23/24 10:30 04/24/24 06:03 Levothyroxine Sodium 100 Mcg Tablet PO 300 mcg DAILY@0630 AMAURY Administration Metronidazole 500 mg 04/23/24 15:30 04/24/24 06:00 Metronidazole 250 Mg Tablet PO 500 mg Q8HR AMAURY Administration Nonformulary Drug ( 1 each 04/23/24 10:30 04/23/24 10:48 Propranolol 80mg Er PO 05/23/24 10:29 1 each Cap) DAILY AMAURY Administration Ondansetron HCl 4 mg 04/22/24 15:51 04/23/24 20:52 Ondansetron Inj 4 Mg/2 Ml Vial IV PUSH 4 mg Q6H PRN Administration Nausea And Vomiting Zonisamide 400 mg 04/23/24 09:00 04/23/24 09:01 Zonisamide 100 Mg Capsule PO 400 mg DAILY AMAURY Administration Radiology Results: ITS Impressions Shoulder X-Ray 04/22/24 13:43 IMPRESSION: 1. Polyarticular osteoarthritis. Labs Labs: Laboratory Results - last 24 hr 04/23/24 04/23/24 04/23/24 12:16 16:27 20:40 WBC RBC Hgb Hct MCV MCH MCHC RDW Plt Count MPV Immature Gran % (Auto) Neut % (Auto) Lymph % (Auto) [place] % (Auto) Eos % (Auto) Baso % (Auto) Lymph # (Auto) [place] # (Auto) Eos # (Auto) Baso # (Auto) Abs Immat Gran (auto) Absolute Neuts (auto) Absolute Nucleated RBC Nucleated RBC % Sodium Potassium Chloride Carbon Dioxide Anion Gap BUN Creatinine Estim Creat Clear Calc Estimated GFR Glucose POC Capillary Glucose 200 H 250 H 149 H Calculated Osmolality Calcium Total Bilirubin AST ALT Alkaline Phosphatase Total Protein Albumin Free T3 pg/mL 04/24/24 04/24/24 04/24/24 05:11 05:12 08:12 WBC 7.1 RBC 3.71 L Hgb 11.3 L Hct 33.1 L MCV 89.2 MCH 30.5 MCHC 34.1 RDW 13.6 Plt Count 135 L MPV 9.4 Immature Gran % (Auto) 0.4 H Neut % (Auto) 76.2 H Lymph % (Auto) 9.5 L [place] % (Auto) 8.2 Eos % (Auto) 5.1 Baso % (Auto) 0.6 Lymph # (Auto) 0.67 L [place] # (Auto) 0.58 Eos # (Auto) 0.36 Baso # (Auto) 0.04 Abs Immat Gran (auto) 0.03 H Absolute Neuts (auto) 5.40 Absolute Nucleated RBC 0.00 Nucleated RBC % 0.0 Sodium 137 Potassium 3.3 L Chloride 102 Carbon Dioxide 27 Anion Gap 8 BUN 9 Creatinine 1.16 H Estim Creat Clear Calc 50 Estimated GFR 46 L Glucose 166 H POC Capillary Glucose 178 H Calculated Osmolality 286 Calcium 8.3 L Total Bilirubin 0.8 AST 16 ALT 16 Alkaline Phosphatase 91 Total Protein 5.6 L Albumin 2.7 L Free T3 pg/mL 1.75 L Cancelled Quality VTE Prophylaxis VTE prophylaxis: pharmacologic ordered -Patient's previous records reviewed on admission -ER notes reviewed in detail on admission -discussed all findings and current treatment plan with patient/Family/POA -Consultations reviewed for recommendations -Patient's disposition for safe discharge discussed with case picker Dictation performed by [employer] direct speech recognition software, therefore geological e logger variants and typographical errors may occur. Hospitalist [facility] Advance Care Plan I have confirmed that the patient's Advanced Care Plan is present, code status is documented, or surrogate decision maker is listed in patient medical record.: Yes Medication Reconciliation I have utilized all available resources to obtain, update and review the patients current medications (includes all prescriptions, OTC, herbals, cannabis, and nutritional supplements).: Yes The patient is not eligible for med reconciliation; the patient is in a emergent medical situation where delaying treatment would jeopardize the patients health.: No
[2024-04-24] MEDS: POTASSIUM CHLORIDE 20 MEQ ER TABLET 40 MEQ PO (09:40)
[2024-04-24] MEDS: allopurinoL 100 MG TABLET PO (09:41)
[2024-04-24] MEDS: [UNRECOGNIZED DRUG - OTHER] PO (09:41)
[2024-04-24] MEDS: AMOXICILLIN/CLAVULANATE K 875-125 MG TAB 1 TABLET PO ×2 (09:41→20:25)
[2024-04-24] MEDS: ASPIRIN 81 MG ENTERIC TABLET PO (09:41)
[2024-04-24] MEDS: FUROSEMIDE 40 MG TABLET 80 MG PO (09:41)
[2024-04-24] MEDS: buPROPion HCL XL (24 HR) 150 MG TABCR PO (09:41)
[2024-04-24] MEDS: PROPRANOLOL 80 MG PO (09:41)
[2024-04-24] MEDS: ATORVASTATIN 40 MG TABLET PO (09:41)
[2024-04-24] MEDS: DULoxetine HCL 30 MG CAPSULE.DR 120 MG PO (09:41)
[2024-04-24] MEDS: EZETIMIBE 10 MG TABLET PO (09:41)
[2024-04-24] MEDS: ZONISAMIDE 100 MG CAPSULE 400 MG PO (09:42)
[2024-04-24] MEDS: ENOXAPARIN 40 MG/0.4 ML SYRINGE SUB-Q (09:42)
[2024-04-24 11:42] LABS: Glucose Point of Care 214 mg/dl (65-105)
[2024-04-24] MEDS: INSULIN HUMAN LISPRO (*BKC) 1,000 UNITS/10 ML VIAL SUB-Q (12:11)
[2024-04-24] MEDS: ACIDOPHILUS/BULGARICUS CHEWABLE TABLET 1 TABLET PO ×3 (13:05→20:25)
[2024-04-24 15:29] LABS: Toxigenic C. Diff NEGATIVE (NEGATIVE)
[2024-04-24 16:00] VITALS: BP 130/63; PULSE 83; RESP 20; TEMP 36.2; O2SAT 98
[2024-04-24 16:59] LABS: Glucose Point of Care 137 mg/dl (65-105)
[2024-04-24 20:23] LABS: Glucose Point of Care 252 mg/dl (65-105)
--- NOTE | 2024-04-24 20:34 | PC.NURSE ---
Toñito Hillman NP, notified that patient's stool for C diff was negative. New order received for Imodium.
[2024-04-24] MEDS: LOPERAMIDE HCL 2 MG CAPSULE PO (22:50)
[2024-04-25] VITALS: BP 123/51; PULSE 60; RESP 16; TEMP 36.9; O2SAT 98
[2024-04-25 05:28] LABS: Basophils Absolute Auto 0.03 K/mm3 (0.00-0.10); Basophils Percent Auto 0.4 % (0.0-1.0); Eosinophils Absolute Auto 0.34 K/mm3 (0.02-0.50); Eosinophils Percent Auto 5.1 % (1.0-6.0); Hematocrit 32.2 % (35.0-42.0); Immature Granulocyte Absolute 0.04 K/mm3 (0.00-0.00); Immature Granulocyte Percent A 0.6 % (0.0-0.0); Immature Platelet Fraction Pct 2.2 % (1.0-7.0); Lymphocytes Absolute Auto 0.67 K/mm3 (1.10-4.50); Mean Corpuscular HGB Conc 34.2 g/dL (32-36); Mean Corpuscular Hemoglobin 30.5 pg (27.0-31.0); Mean Corpuscular Volume 89.2 fL (78.0-102.0); Mean Platelet Volume 9.9 fl (9.2-11.8); Monocytes Absolute Auto 0.67 K/mm3 (0.10-0.90); Neutrophils Absolute Auto 4.93 K/mm3 (1.70-7.20); Neutrophils Percent Auto 73.9 % (50.0-70.0); Platelet Count Result 142 K/mm3 (150-420); Red Blood Count 3.61 M/mm3 (4.20-5.40); Red Cell Distribution Width 13.6 % (11.6-14.4); White Blood Count 6.7 K/mm3 (4.8-10.8)
[2024-04-25 05:47] LABS: Alanine Aminotransferase 20 U/L (14-59); Albumin Level 2.7 g/dL (3.4-5.0); Alkaline Phosphatase 88 U/L (46-116); Anion Gap 9 mmol/L (4-12); Aspartate Amino Transferase 16 U/L (15-37); Bilirubin,Total 0.5 mg/dL (0.00-1.00); Blood Urea Nitrogen 10 mg/dL (7-18); Calcium 8.4 mg/dL (8.5-10.1); Carbon Dioxide 28 mmol/L (21-32); Chloride 101 mmol/L (98-108); Estimated CRCL calculation 48 ml/min; Estimated Glomerular Filt Rate 44; Glucose 183 mg/dL (70-99); Osmolality Calculated 290 mOsm/kg (285-295); Potassium 3.5 mmol/L (3.5-5.1); Sodium 138 mmol/L (136-145); Total Protein 5.5 g/dL (6.4-8.2)
[2024-04-25] MEDS: LEVOTHYROXINE SODIUM 100 MCG TABLET 300 MCG PO (06:37)
[2024-04-25] MEDS: LOPERAMIDE HCL 2 MG CAPSULE PO ×2 (06:39→09:53)
[2024-04-25 07:40] VITALS: BP 109/56; PULSE 72; RESP 16; TEMP 36.6; O2SAT 97
[2024-04-25] MEDS: ENOXAPARIN 40 MG/0.4 ML SYRINGE SUB-Q (09:47)
[2024-04-25] MEDS: ZONISAMIDE 100 MG CAPSULE 400 MG PO (09:49)
[2024-04-25] MEDS: AMOXICILLIN/CLAVULANATE K 875-125 MG TAB 1 TABLET PO (09:50)
[2024-04-25] MEDS: DULoxetine HCL 30 MG CAPSULE.DR 120 MG PO (09:50)
[2024-04-25] MEDS: EZETIMIBE 10 MG TABLET PO (09:50)
[2024-04-25] MEDS: buPROPion HCL XL (24 HR) 150 MG TABCR PO (09:51)
[2024-04-25] MEDS: ACIDOPHILUS/BULGARICUS CHEWABLE TABLET 1 TABLET PO ×2 (09:51→13:29)
[2024-04-25] MEDS: ATORVASTATIN 40 MG TABLET PO (09:51)
[2024-04-25] MEDS: ASPIRIN 81 MG ENTERIC TABLET PO (09:51)
[2024-04-25] MEDS: allopurinoL 100 MG TABLET PO (09:51)
[2024-04-25] MEDS: [UNRECOGNIZED DRUG - OTHER] PO (09:52)
[2024-04-25] MEDS: PROPRANOLOL 80 MG PO (09:52)
--- NOTE | 2024-04-25 11:04 | P.PNIM_ITS ---
Progress Note: A&P Assessment and Plan (1) Diverticulitis: Code(s): K57.92 - Diverticulitis of intestine, part unspecified, without perforation or abscess without bleeding Status: Acute Assessment and Plan: * CTA of the abdomen and pelvis from 04/21/2024 showed mild pericolonic inflammatory changes surrounding the proximal sigmoid in the left lower quadrant representing colitis or early diverticulitis * continue cefepime and Flagyl 04/24/2024: * Transitioned to PO Augmentin * advance diet to diabetic (2) Left shoulder pain: Code(s): M25.512 - Pain in left shoulder Status: Acute Assessment and Plan: * left shoulder x-ray showed polyarticular osteoarthritis, no malalignment or fracture seen. * Continue pain control * On examination she had tenderness over the AC joint as well as rotator cuff pain anterior shoulder, she has decreased range of motion even with passive range of motion she can only get to about 35-45 degree angle before pain. She denied any numbness or tingling down the arm. * PT and OT to evaluate * Will get MRI on 04/26/24 * Consider steroid if pain is not well controlled however she is diabetic and we would have to watch her blood sugars * Can use ice or warm compresses for comfort 04/25/24: * Unable to perform MRI due to weight/size * Will set-up referral to ortho * Rehab inpatient with swing bed/Possible MRI outpatient if needed (3) Weakness: Code(s): R53.1 - Weakness Status: Acute Assessment and Plan: * PT and OT ordered * Will likely require SNF placement * Swing at [place] pending Auth (4) Fall: Code(s): W19.XXXA - Unspecified fall, initial encounter Status: Acute Assessment and Plan: * PT/OT * Discharge to swing (5) Hypothyroidism: Qualifiers: Hypothyroidism type: acquired Qualified Code(s): E03.9 - Hypothyroidism, unspecified Code(s): E03.9 - Hypothyroidism, unspecified Status: Acute Assessment and Plan: * TSH 10.22 * Will check T3 and T4 * continue Synthroid 300 mcg daily (6) Diabetes: Code(s): E11.9 - Type 2 diabetes mellitus without complications Status: Acute Assessment and Plan: * Blood sugars ranging 167-214 * Hgb A1C 8.7 * Accu checks AC/HS * high-doseSSI ordered * hypoglycemic protocol in place * Diabetic diet ordered (7) Depression: Code(s): F32.9 - Major depressive disorder, single episode, unspecified Status: Acute Assessment and Plan: * continue Cymbalta and Wellbutrin (8) Urinary tract infection: Code(s): N39.0 - Urinary tract infection, site not specified Status: Acute Assessment and Plan: * UA from well 124 showing cloudy urine appearance, urine specific gravity of 1.025, 1+ urine protein, 2+ urine ketone, 2+ urine bilirubin, 10-15 urine WBC, heavy amorphous sediment, 3+ bacteria, heavy urine mucus, granular casts, hyaline casts, cellular casts all noted. * Urine culture was obtained and is still pending * was initially on Cipro now transitioned to cefepime RULED OUT Plan Code status: Full code per patient DVT prophylaxis: Lovenox Stress ulcer prophylaxis: NA PT/OT notes: Swing bed Disposition: patient continues admission to the medical unit diverticulitis improving transition to oral antibiotics plan for discharge to. Swing bed pending insurance authorization Time Spent With Patient Time with patient: 15 - 25 minutes Subjective Date/time seen: 04/25/24 11:04 Interval history: Patient is a 74-year-old female who was admitted to the medical unit for further evaluation and treatment of diverticulitis and generalized weakness 04/25/2024: assumed care Patient sitting on the side of the bed eating breakfast no N/V and minimal ABD pain. Regular BM reported no CP, SOB. Patient unable get MRI of shoulder will plan on referral to ortho outpatient at discharge, still reporting mild pain and minimal ROM. Review of Systems Review of Systems: All systems reviewed & are unremarkable except as noted in HPI and below Exam Narrative: Physical Exam: * GENERAL: Alert and oriented x 3. No acute distress. obese pleasant female * EYES: EOMI. No scleral icterus. PERRLA. * HEENT: Moist mucous membranes. * LUNGS: Clear to auscultation bilaterally. No accessory muscle use. * CARDIOVASCULAR: Regular rate and rhythm. No murmur. No JVD. S1-S2 * ABDOMEN: Soft, non tenderness and non-distended. No palpable masses. * EXTREMITIES: No edema. Non-tender LUE with limited Range of motion and pain with abduction * SKIN: No rashes or lesions. Skin warm, dry. * NEUROLOGIC: No focal neurological deficits. CN II-XII grossly intact * PSYCHIATRIC: Appropriate mood and affect. Good judgement and insight. No visual or auditory hallucinations. No suicidal or homicidal ideation. Objective Data Vital Signs Vital Signs: Vital Signs - 24 hr 04/24/24 16:00 04/25/24 00:00 04/25/24 07:40 Temperature 97.1 F L 98.5 F 97.8 F Pulse Rate 83 60 72 Respiratory Rate 20 16 16 Blood Pressure 130/63 123/51 L 109/56 L Pulse Oximetry 98 98 97 Oxygen Delivery Room Air Room Air Room Air Intake/Output Intake/Output: Intake & Output 04/22/24 04/23/24 04/24/24 04/25/24 23:59 23:59 23:59 23:59 Intake Total 1510 2730 1480 980 Output Total 1400 Balance 1510 1330 1480 980 Meds/Results Medications: Active Medications Generic Name Dose Route Start Last Admin Trade Name Freq PRN Reason Stop Dose Admin Acetaminophen 650 mg 04/22/24 15:51 04/22/24 20:59 Acetaminophen 325 Mg Tablet PO 650 mg Q4H PRN Administration Mild Pain (1-3) or Fever Hydrocodone Bitart/Acetaminophen 1 tab 04/22/24 23:23 04/24/24 13:05 Hydrocodone/Acetaminophen (*Crx) 5-325 Mg Tablet PO 1 tab Q4H PRN Administration Pain Rated 4-6 Allopurinol 100 mg 04/23/24 09:00 04/25/24 09:51 Allopurinol 100 Mg Tablet PO 100 mg DAILY AMAURY Administration Amoxicillin/Clavulanate Potassium 1 tablet 04/24/24 09:00 04/25/24 09:50 Amoxicillin/Clavulanate K 875-125 Mg Tab PO 04/28/24 22:00 1 tablet Q12HR AMAURY Administration Aspirin 81 mg 04/23/24 09:00 04/25/24 09:51 Aspirin 81 Mg Enteric Tablet PO 81 mg DAILY AMAURY Administration Atorvastatin Calcium 40 mg 04/23/24 09:00 12/05/24 09:51 Atorvastatin 40 Mg Tablet PO 40 mg DAILY AMAURY Administration Bupropion HCl 150 mg 04/23/24 09:00 04/25/24 09:51 Bupropion Hcl Xl (24 Hr) 150 Mg Tabcr PO 150 mg QAM AMAURY Administration Dextrose 12.5 gm 04/22/24 15:55 Dextrose 50% 25 Gm/50 Ml Syringe IV PUSH PRN PRN Hypoglycemia Protocol Duloxetine HCl 120 mg 04/23/24 09:00 04/25/24 09:50 Duloxetine Hcl 30 Mg Capsule.Dr PO 120 mg DAILY AMAURY Administration Ezetimibe 10 mg 04/23/24 09:00 04/25/24 09:50 Ezetimibe 10 Mg Tablet PO 10 mg DAILY AMAURY Administration Enoxaparin Sodium 40 mg 04/23/24 09:00 04/25/24 09:47 Enoxaparin 40 Mg/0.4 Ml Syringe SUB-Q 40 mg DAILY AMAURY Administration Furosemide 80 mg 04/23/24 09:00 04/24/24 09:41 Furosemide 40 Mg Tablet PO 80 mg QAM AMAURY Administration Glucagon 1 mg 04/22/24 15:55 Glucagon For Inj 1 Mg Vial IM PRN PRN Hypoglycemia Protocol Glucose 15 gm 04/22/24 15:55 Glucose Oral Gel 15 Gm Of Glucse In 37.5 Gm Tube PO PRN PRN Hypoglycemia Protocol Dextrose 1,000 mls @ 100 mls/hr 04/22/24 15:55 Dextrose 5% 1,000 Ml IVPB PRN PRN Hypoglycemia Protocol Insulin Human Lispro 4 - 8 units 04/22/24 17:00 04/25/24 08:00 Insulin Human Lispro (*[facility]) 1,000 Units/10 Ml Vial SUB-Q Not Given TIDWM AMAURY Protocol Lactobacillus Acidophilus 1 tablet 04/24/24 13:00 04/25/24 09:51 Acidophilus/Bulgaricus Chewable Tablet PO 1 tablet QID AMAURY Administration Levothyroxine Sodium 300 mcg 04/23/24 10:30 04/25/24 06:37 Levothyroxine Sodium 100 Mcg Tablet PO 300 mcg DAILY@0630 AMAURY Administration Loperamide HCl 2 mg 04/24/24 20:36 04/25/24 09:53 Loperamide Hcl 2 Mg Capsule PO 2 mg Q6H PRN Administration Diarrhea Nonformulary Drug ( 1 each 04/23/24 10:30 04/25/24 09:52 Propranolol 80mg Er PO 05/23/24 10:29 1 each Cap) DAILY AMAURY Administration Ondansetron HCl 4 mg 04/22/24 15:51 04/23/24 20:52 Ondansetron Inj 4 Mg/2 Ml Vial IV PUSH 4 mg Q6H PRN Administration Nausea And Vomiting Zonisamide 400 mg 04/23/24 09:00 04/25/24 09:49 Zonisamide 100 Mg Capsule PO 400 mg DAILY AMAURY Administration Radiology Results: ITS Impressions Shoulder X-Ray 04/22/24 13:43 IMPRESSION: 1. Polyarticular osteoarthritis. Labs Labs: Laboratory Results - last 24 hr 04/24/24 04/24/24 04/24/24 11:40 14:38 16:58 WBC RBC Hgb Hct MCV MCH MCHC RDW Plt Count MPV Immature Gran % (Auto) Neut % (Auto) Lymph % (Auto) [place] % (Auto) Eos % (Auto) Baso % (Auto) Lymph # (Auto) [place] # (Auto) Eos # (Auto) Baso # (Auto) Abs Immat Gran (auto) Absolute Neuts (auto) Absolute Nucleated RBC Nucleated RBC % % Immature Plt Fraction Sodium Potassium Chloride Carbon Dioxide Anion Gap BUN Creatinine Estim Creat Clear Calc Estimated GFR Glucose POC Capillary Glucose 214 H 137 H Calculated Osmolality Calcium Total Bilirubin AST ALT Alkaline Phosphatase Total Protein Albumin C. difficile (PCR) Negative 04/24/24 04/25/24 20:22 04:58 WBC 6.7 RBC 3.61 L Hgb 11.0 L Hct 32.2 L MCV 89.2 MCH 30.5 MCHC 34.2 RDW 13.6 Plt Count 142 L MPV 9.9 Immature Gran % (Auto) 0.6 H Neut % (Auto) 73.9 H Lymph % (Auto) 10.0 L [place] % (Auto) 10.0 Eos % (Auto) 5.1 Baso % (Auto) 0.4 Lymph # (Auto) 0.67 L [place] # (Auto) 0.67 Eos # (Auto) 0.34 Baso # (Auto) 0.03 Abs Immat Gran (auto) 0.04 H Absolute Neuts (auto) 4.93 Absolute Nucleated RBC 0.00 Nucleated RBC % 0.0 % Immature Plt Fraction 2.2 Sodium 138 Potassium 3.5 Chloride 101 Carbon Dioxide 28 Anion Gap 9 BUN 10 Creatinine 1.21 H Estim Creat Clear Calc 48 Estimated GFR 44 L Glucose 183 H POC Capillary Glucose 252 H Calculated Osmolality 290 Calcium 8.4 L Total Bilirubin 0.5 AST 16 ALT 20 Alkaline Phosphatase 88 Total Protein 5.5 L Albumin 2.7 L C. difficile (PCR) Quality VTE Prophylaxis VTE prophylaxis: pharmacologic ordered -Patient's previous records reviewed on admission -ER notes reviewed in detail on admission -discussed all findings and current treatment plan with patient/Family/POA -Consultations reviewed for recommendations -Patient's disposition for safe discharge discussed with geriatric case manager Dictation performed by [employer] direct speech recognition software, therefore wood boatbuilder apprentice variants and typographical errors may occur. Hospitalist [facility] Advance Care Plan I have confirmed that the patient's Advanced Care Plan is present, code status is documented, or surrogate decision maker is listed in patient medical record.: Yes Medication Reconciliation I have utilized all available resources to obtain, update and review the patients current medications (includes all prescriptions, OTC, herbals, cannabis, and nutritional supplements).: Yes The patient is not eligible for med reconciliation; the patient is in a emergent medical situation where delaying treatment would jeopardize the patients health.: No
[2024-04-25] MEDS: FUROSEMIDE 40 MG TABLET 80 MG PO (11:55)
[2024-04-25] MEDS: INSULIN HUMAN LISPRO (*BKC) 1,000 UNITS/10 ML VIAL SUB-Q (12:13)
--- NOTE | 2024-04-25 14:07 | P.DS_ITS ---
DS: Admitting Diagnosis Discharge Date 04/25/2024 Admitting Diagnosis acute diverticulitis/ fall/ generalized weakness/ left shoulder pain DS: Discharge Diagnosis Discharge Diagnosis (1) Diverticulitis: Code(s): K57.92 - Diverticulitis of intestine, part unspecified, without perforation or abscess without bleeding Status: Acute (2) Left shoulder pain: Code(s): M25.512 - Pain in left shoulder Status: Acute (3) Weakness: Code(s): R53.1 - Weakness Status: Acute (4) Fall: Code(s): W19.XXXA - Unspecified fall, initial encounter Status: Acute (5) Hypothyroidism: Qualifiers: Hypothyroidism type: acquired Qualified Code(s): E03.9 - Hypothyroidism, unspecified Code(s): E03.9 - Hypothyroidism, unspecified Status: Acute (6) Diabetes: Code(s): E11.9 - Type 2 diabetes mellitus without complications Status: Acute (7) Depression: Code(s): F32.9 - Major depressive disorder, single episode, unspecified Status: Acute Plan Discharged to [facility] bed DS: Summary Hospital Course Reason for hospitalization: acute diverticulitis/ fall/ generalized weakness/ left shoulder pain Hospital Course: This patient was a 74-year-old female with a significant past medical history of anemia, anxiety, asthma, depression, diabetes, hypothyroidism, migraines, obesity, hyperlipidemia, former smoker who presented to the hospital with we akness status post fall and recently diagnosed urinary tract infection and diverticulitis. Then about 1 week ago she started having diarrhea and decreased appetite. Patient had been seen and discharged from the ED on 04/21/2024 with a prescription of Cipro and Flagyl after abdomen / pelvis CT which shown mild pericolonic inflammatory change surrounding the proximal sigmoid in the left lower quadrant representing colitis or early diverticulitis. Patient reported symptoms continued to worsen and ended up falling on the way to the bathroom she then returned to the ED for evaluation and was admitted for acute diverticulitis and left shoulder pain she had a shoulder x-ray done this admission which shown polyarticular osteoarthritis, no malalignment or fracture seen. There was noted ROM decreased and when doing passive range of motion she was only able to get to a 35-45 degree before pain started laterally. We attempted to do a MRI however patient was to large for the portable MRI located here at [facility]. Patient had been given 1 L of normal saline, 40 mEq of potassium, Levaquin while in the ED and admitted for treatment of diverticulitis. Once admitted she was then transitioned to cefepime and Flagyl we continued to advance her diet as tolerated and transitioned her to oral Augmentin. She remained afebrile with normal white count during admission and was able to tolerate oral intake and having BM's with resolution of ABD pain. The previous UA that was completed showed no growth and UTI was ruled out. She continued to have some left shoulder pain and generalized weakness. PT/OT was ordered that recommended continued inpatient rehab she was then discharged to [facility] bed for rehabilitation. Patient understood and agreed with discharge plan. Plan will be follow-up outpatient with orthopedics for further evaluation of left shoulder after discharge. Status at Discharge Functional status at discharge: uses cane/walker Overall status at discharge: patient is progressing back to baseline Time Spent with Patient Time attestation: Total time spent providing and/or coordinating discharge services: Exam Narrative: Physical Exam: * GENERAL: Alert and oriented x 3. No acute distress. obese pleasant female * EYES: EOMI. No scleral icterus. PERRLA. * HEENT: Moist mucous membranes. * LUNGS: Clear to auscultation bilaterally. No accessory muscle use. * CARDIOVASCULAR: Regular rate and rhythm. No murmur. No JVD. S1-S2 * ABDOMEN: Soft, non tenderness and non-distended. No palpable masses. * EXTREMITIES: No edema. Non-tender LUE with limited Range of motion and pain with abduction * SKIN: No rashes or lesions. Skin warm, dry. * NEUROLOGIC: No focal neurological deficits. CN II-XII grossly intact * PSYCHIATRIC: Appropriate mood and affect. Good judgement and insight. No visual or auditory hallucinations. No suicidal or homicidal ideation. DS: Data Data Completed and Pending Labs on day of discharge: Labs from last 24 hours 04/25/24 04/24/24 04/24/24 04:58 20:22 16:58 WBC 6.7 RBC 3.61 L Hgb 11.0 L Hct 32.2 L MCV 89.2 MCH 30.5 MCHC 34.2 RDW 13.6 Plt Count 142 L MPV 9.9 Immature Gran % (Auto) 0.6 H Neut % (Auto) 73.9 H Lymph % (Auto) 10.0 L [place] % (Auto) 10.0 Eos % (Auto) 5.1 Baso % (Auto) 0.4 Lymph # (Auto) 0.67 L [place] # (Auto) 0.67 Eos # (Auto) 0.34 Baso # (Auto) 0.03 Abs Immat Gran (auto) 0.04 H Absolute Neuts (auto) 4.93 Absolute Nucleated RBC 0.00 Nucleated RBC % 0.0 % Immature Plt Fraction 2.2 Sodium 138 Potassium 3.5 Chloride 101 Carbon Dioxide 28 Anion Gap 9 BUN 10 Creatinine 1.21 H Estim Creat Clear Calc 48 Estimated GFR 44 L Glucose 183 H POC Capillary Glucose 252 H 137 H Calculated Osmolality 290 Calcium 8.4 L Total Bilirubin 0.5 AST 16 ALT 20 Alkaline Phosphatase 88 Total Protein 5.5 L Albumin 2.7 L C. difficile (PCR) 04/24/24 14:38 WBC RBC Hgb Hct MCV MCH MCHC RDW Plt Count MPV Immature Gran % (Auto) Neut % (Auto) Lymph % (Auto) [place] % (Auto) Eos % (Auto) Baso % (Auto) Lymph # (Auto) [place] # (Auto) Eos # (Auto) Baso # (Auto) Abs Immat Gran (auto) Absolute Neuts (auto) Absolute Nucleated RBC Nucleated RBC % % Immature Plt Fraction Sodium Potassium Chloride Carbon Dioxide Anion Gap BUN Creatinine Estim Creat Clear Calc Estimated GFR Glucose POC Capillary Glucose Calculated Osmolality Calcium Total Bilirubin AST ALT Alkaline Phosphatase Total Protein Albumin C. difficile (PCR) Negative Imaging Radiologist's impression: Radiology Results: ITS Impressions Shoulder X-Ray 04/22/24 13:43 IMPRESSION: 1. Polyarticular osteoarthritis. Discharge Plan Discharge Attending physician on discharge: Jake Gonzalez Discharging Clinician: Elena Hillman Anticipated Discharge Date/Time: 04/25/24 14:20 Patient Disposition: Hospital Swing Bed Activity: may shower and as tolerated Diet: diabetic Discharge Instructions: You were discharged after treatment for acute Diverticulitis you will continue on oral antibiotics will admitted to a swing bed for continued rehab. You may continue on a diabetic diet and eat as tolerated. We were unable to perform a left shoulder MRI during admission but X-ray did show polyarticular osteoarthritis we will set-up for referral to orthopedics after discharge from swing bed. May continue with NSAIDS and OT as tolerated. Patient Instructions: Antibiotic Form, Diverticulitis (DC), Osteoarthritis (DC), Shoulder Pain (ED), Exercises for Shoulder Flexion and Extension (GEN), Exercises for Internal and External Shoulder Rotation (GEN), Exercises for Shoulder Abduction and Adduction (GEN) Patient Language: Tanzanian Stand Alone Forms: General Discharge Information Follow-up/Referrals: Yoshi Bear MD [Primary Care Provider] - 3 Weeks (Will need referral to orthopedics ) Discharge Medications: New loperamide 2 mg Capsule 2 mg PO Q6H PRN (Reason: Diarrhea) Qty: 1 0RF amoxicillin-pot clavulanate 875-125 mg tablet 1 tablet PO Q12H Qty: 11 0RF acetaminophen 325 mg Tablet 650 mg PO Q4H PRN (Reason: Mild Pain (1-3) Or Fever) Qty: 1 0RF Continued potassium chloride 20 mEq Tablet Extended Release 20 meq PO BID furosemide 40 mg tablet 80 mg PO QAM metformin 1,000 mg tablet 1,000 mg PO BID glipizide 10 mg tablet 10 mg PO BID zonisamide 100 mg capsule 400 mg PO DAILY duloxetine [Cymbalta] 60 mg capsule,delayed release(DR/EC) 120 mg PO DAILY bupropion HCl [Wellbutrin XL] 150 mg tablet extended release 24 hr 150 mg PO QAM propranolol 40 mg tablet 80 mg PO QAM atorvastatin 40 mg tablet 40 mg PO DAILY aspirin 81 mg tablet,delayed release (DR/EC) 81 mg PO DAILY (DME) blood-glucose meter Kit See Rx Instructions .ROUTE .MEDSUPPLY Qty: 1 0RF Rx Instructions: use to check BS BID (DME) lancets 33 gauge misc See Rx Instructions .ROUTE .MEDSUPPLY Qty: 100 2RF Rx Instructions: USE 1 LANCET EACH TIME TO CHECK BS BID (DME) pen needle, diabetic [BD Ultra-Fine Kayley Pen Needle] 32 gauge x 5/32 needle See Rx Instructions .ROUTE .MEDSUPPLY Qty: 100 2RF Rx Instructions: use one each time you inject insulin BID (DME) pen needle, diabetic [BD Ultra-Fine Kayley Pen Needle] 32 gauge x 5/32 needle See Rx Instructions .ROUTE .MEDSUPPLY Qty: 100 1RF Rx Instructions: use one daily allopurinol 100 mg tablet 100 mg PO DAILY ezetimibe 10 mg tablet 10 mg PO DAILY levothyroxine 150 mcg Tablet 300 mcg PO BID (DME) FreeStyle Lite Strips Strip See Rx Instructions .ROUTE .MEDSUPPLY Qty: 200 1RF Rx Instructions: use one strip to check BS BID Discontinued ciprofloxacin HCl [Cipro] 500 mg tablet 500 mg PO BID 10 Days Qty: 20 0RF metronidazole 500 mg tablet 500 mg PO TID 10 Days Qty: 30 0RF Date of admission: 04/22/24 15:21 Primary Care Provider: Yoshi Bear Admitting Provider: Jake Gonzalez Attending physician on admission: Elena Hillman Condition: Stable Quality VTE Prophylaxis VTE prophylaxis: pharmacologic ordered -Patient's previous records reviewed on admission -ER notes reviewed in detail on admission -discussed all findings and current treatment plan with patient/Family/POA -Consultations reviewed for recommendations -Patient's disposition for safe discharge discussed with family caseworker Dictation performed by [employer] direct speech recognition software, therefore thai masseur variants and typographical errors may occur. Hospitalist MIPS Heart Failure (Exclusion) Patient has history of Heart Transplant or Left Ventricular Assistive Device?: No IF YES, STOP HERE Heart Failure (Qualifier) Patient has current or prior documentation of LVEF less than or equal to 40%, or mod/servere depressed LVSF?: No IF NO, STOP HERE
[2024-04-25 17:01] LABS: Glucose Point of Care 214 mg/dl (65-105)
[2024-04-29 11:17] LABS: Glucose Point of Care 203 mg/dl (65-105)
== END 2024-04-25 14:05 | disposition swing bed (61) ==
LOC: CHSED 13:09 → CHS2ND 15:25
PROVIDERS: Nurse Practitioner Acute Care; Admitting Provider Internal Medicine; Emergency Provider Emergency Medicine; PCP Internal Medicine; Visit Provider Nurse Practitioner Family
DX: K57.32 Diverticulitis of large intestine without perforation or abscess without bleeding (principal); N17.9 Acute kidney failure, unspecified; E87.6 Hypokalemia; M25.512 Pain in left shoulder; R53.1 Weakness; R26.81 Unsteadiness on feet; W18.39XA Other fall on same level, initial encounter; J45.909 Unspecified asthma, uncomplicated; D64.9 Anemia, unspecified; E11.9 Type 2 diabetes mellitus without complications; E03.9 Hypothyroidism, unspecified; F41.9 Anxiety disorder, unspecified; F32.A Depression, unspecified; F12.90 Cannabis use, unspecified, uncomplicated; Z87.891 Personal history of nicotine dependence; Z79.84 Long term (current) use of oral hypoglycemic drugs; E66.01 Morbid (severe) obesity due to excess calories; Z68.43 Body mass index [BMI] 50.0-59.9, adult
CPT/HCPCS: 36415; 73030; 80053; 82948; 83036; 83735; 84436; 84443; 84480; 84481; 85025; 85055; 87493; 96361; 96365; 96366; 96372; 96375; 97110; 97161; 97165; 97530; 97535; 99285; A9270; G0378; J0692; J1650; J1815; J1836; J2405; J7030

== ENCOUNTER 2024-04-25 14:39 | Inpatient (IN) | payer MEDICARE, SELFPAY ==
--- NOTE | ~2024-04-25 | XR_ITS ---
EXAMINATION: XR lumbar spine 2-3V DATE: 05/07/2024 09:09 INDICATION: Numbness in the bilateral lower extremities. Recent fall. TECHNIQUE: Anteroposterior and lateral views of the lumbar spine, and cone-down lateral view of the l umbosacral junction were obtained. COMPARISON: CT abdomen and pelvis dated 04/21/2024 FINDINGS: 2 mm anterolisthesis L4 on L5. Minimal chronic likely physiologic anterior wedging at T11-L1. Severe disc height loss at L5-S1, moderate to severe disc height loss at L3-L4, moderate disc height loss at L2-L3 and T11-T12 and mild disc height loss at the remaining levels from T9-T10 through L4-L5. Multi level lumbar and lower thoracic facet osteoarthritis, severe at L4-L5 and L5-S1 and mild to moderate and more cephalad lumbar and lower thoracic spine. Moderate to severe bilateral sacroiliac osteoarthr itis. A couple renal stones measuring up to 4 mm at the lower pole of the left kidney. Phlebolith in the left hemipelvis. IMPRESSION: 1. 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 2. Left nephrolithiasis. Reviewed, dictated and finalized at location A. OPERATIVE MANAGER IMPRESSION: 1. Severe lumbar spondylosis and moderate to severe bilateral sacroiliac osteoa rthritis. 2. Left nephrolithiasis.
[2024-04-25 14:55] VITALS: O2SAT 97
--- NOTE | 2024-04-25 14:55 | ADMGEN ---
This patient, Patience Doll, was admitted to 2nd Floor Room 204-1 as a skilled swing bed. Patient/family oriented to hospital policies and general routines including ID bracelet, bed and alarms, visiting hours, pain management, procedures, bathroom and other care routines, personal items, smoking policy, room service/diet, and visiting hours. Information on how to activate the Rapid Response Team has been discussed. Patient/Family are encouraged to report perceived risks to care and to ask questions if they do not understand what they are told or what they should do.
[2024-04-25 14:58] VITALS: BMI 52.0
[2024-04-25 16:35] VITALS: BP 104/50; PULSE 75; RESP 16; TEMP 36.4; O2SAT 96
[2024-04-25] MEDS: INSULIN HUMAN LISPRO (*BKC) 1,000 UNITS/10 ML VIAL SUB-Q (17:41)
[2024-04-25] MEDS: glipiZIDE 5 MG TABLET 10 MG PO (17:42)
[2024-04-25] MEDS: ACIDOPHILUS/BULGARICUS CHEWABLE TABLET 1 TABLET PO ×2 (17:42→20:46)
[2024-04-25] MEDS: POTASSIUM CHLORIDE 20 MEQ ER TABLET PO (17:42)
[2024-04-25] MEDS: metFORMIN HCL 500 MG TABLET 1000 MG PO (17:42)
[2024-04-25] MEDS: LOPERAMIDE HCL 2 MG CAPSULE PO (17:44)
[2024-04-25] MEDS: ACETAMINOPHEN 325 MG TABLET 650 MG PO (20:46)
[2024-04-25 20:47] LABS: Glucose Point of Care 185 mg/dl (65-105)
[2024-04-25] MEDS: AMOXICILLIN/CLAVULANATE K 875-125 MG TAB 1 TABLET PO (21:30)
[2024-04-26] VITALS: BP 142/56; PULSE 66; RESP 16; TEMP 36.6; O2SAT 99
[2024-04-26] MEDS: LEVOTHYROXINE SODIUM 100 MCG TABLET 300 MCG PO (06:04)
[2024-04-26 07:45] VITALS: BP 123/45; PULSE 64; RESP 16; TEMP 36.1; O2SAT 100
[2024-04-26 08:11] LABS: Glucose Point of Care 127 mg/dl (65-105)
[2024-04-26] MEDS: POTASSIUM CHLORIDE 20 MEQ ER TABLET PO ×2 (09:06→17:02)
[2024-04-26] MEDS: LOPERAMIDE HCL 2 MG CAPSULE PO ×3 (09:06→20:24)
[2024-04-26] MEDS: PROPRANOLOL 80 MG PO (09:06)
[2024-04-26] MEDS: glipiZIDE 5 MG TABLET 10 MG PO ×2 (09:06→17:02)
[2024-04-26] MEDS: [UNRECOGNIZED DRUG - OTHER] PO (09:06)
[2024-04-26] MEDS: AMOXICILLIN/CLAVULANATE K 875-125 MG TAB 1 TABLET PO ×2 (09:07→20:22)
[2024-04-26] MEDS: DULoxetine HCL 30 MG CAPSULE.DR 120 MG PO (09:07)
[2024-04-26] MEDS: FUROSEMIDE 40 MG TABLET 80 MG PO (09:07)
[2024-04-26] MEDS: ZONISAMIDE 100 MG CAPSULE 400 MG PO (09:07)
[2024-04-26] MEDS: ATORVASTATIN 40 MG TABLET PO (09:07)
[2024-04-26] MEDS: EZETIMIBE 10 MG TABLET PO (09:07)
[2024-04-26] MEDS: metFORMIN HCL 500 MG TABLET 1000 MG PO ×2 (09:07→17:02)
[2024-04-26] MEDS: allopurinoL 100 MG TABLET PO (09:08)
[2024-04-26] MEDS: ASPIRIN 81 MG ENTERIC TABLET PO (09:08)
[2024-04-26] MEDS: buPROPion HCL XL (24 HR) 150 MG TABCR PO (09:08)
[2024-04-26] MEDS: ACIDOPHILUS/BULGARICUS CHEWABLE TABLET 1 TABLET PO ×4 (09:08→20:22)
--- NOTE | 2024-04-26 09:49 | P.HP_ITS ---
H&P: HPI History of Present Illness Date/Time: 04/26/24 09:49 Chief Complaint: Generalized weakness/Rehab/Unsteady Gait Narrative: Patient is a 74-year-old female who admitted to [facility] for continue d rehabilitation. Patient recently hospitalized due to acute diverticulitis and generalized weakness as well left shoulder pain. patient with a significant past medical history of anemia, anxiety, asthma, depression, diabetes, hypothyroidism, migraines, obesity, hyperlipidemia, and former smoker. patient was discharged and cleared from medical standpoint for her acute diverticulitis was tolerating oral intake in minimal abdominal pain continued on oral antibiotics. to did continue to have left shoulder pain and x-ray showed osteoarthritis initially a MRI was ordered however due to patient's habitus it was unable to be performed with the mobile MRI unit at [facility]. will continue with PT and OT and plan for referral to Orthopedics after discharge from [facility]. patient reports she does live at home alone and had concerns returning due to her overall unsteady gait and weakness. patient was admitted and will continue with rehabilitation. Review of Systems Review of Systems: All systems reviewed & are unremarkable except as noted in HPI and below PMFSH Past Medical History Medical History Abdominal pain Anemia Anxiety Arthritis Asthma Back pain Blood disorder Chest pain Constipation Depression Diabetes H/O thyroid disease Hypothyroidism Migraines Obesity Renal calculus, bilateral Shortness of breath Tear, knee, medial meniscus Surgical History Surgical History History of esophagogastroduodenoscopy (EGD) Hx of cystoscopy Hx of dilation and curettage Hx of tonsillectomy Family History Family History (Updated 04/25/24 @ 19:01 by Dejah Gunter RN) Sibling Obesity Other ADD (attention deficit disorder) Alzheimer's dementia Anemia Anxiety Arthritis Asthma Atrial fibrillation Back pain CAD (coronary artery disease) Cataracts, bilateral Chest pain Depression Diabetes mellitus Glaucoma H/O thyroid disease Hearing loss Heart disease Hypertension Migraines Osteoporosis Ovarian cancer Renal disease Shortness of breath Visual loss Social History Social History Smoking packs per day: 1 Smoking cigarettes per day: 20.0 Years smoked: 35 Smoking pack-years: 35.00 Smoking status: Former smoker Tobacco type: cigarettes and e-cigarettes/vaping Second hand tobacco smoke exposure: No Smoking end date: 05/22/02 Additional smoking assessment comments: QUIT 2002 Alcohol intake: never Substance use: current Substance use type: marijuana Other substance usage details: EVERYDAY - EVERY OTHER DAY Last use: 02/11/21 Do You Feel Safe in your Home?: Yes Lack of Transportation: No Lack of Food: Never True Current Housing: I Have Housing Concerned About Future Housing: No Difficulty Paying Gas/Electric Bills: No Difficulty Paying for Meds: No Currently Unemployed: No Education: High School Diploma/GED Difficulty w/ Childcare or Family Care: No Living arrangements: alone Occupation/Education: retired Spiritual care concerns: No Meds Home Medications and Allergies Home Medications Medication Instructions Recorded Confirmed Type aspirin 81 mg tablet,delayed 81 mg PO DAILY 04/22/19 04/25/24 History release atorvastatin 40 mg tablet 40 mg PO DAILY 04/22/19 04/25/24 History blood-glucose meter #1 ea 04/22/19 04/25/24 Rx bupropion HCl 150 mg 24 hr tablet, 150 mg PO QAM 04/22/19 04/25/24 History extended release (Wellbutrin XL) duloxetine 60 mg capsule,delayed 120 mg PO DAILY 04/22/19 04/25/24 History release (Cymbalta) furosemide 40 mg tablet 80 mg PO QAM 04/22/19 04/25/24 History glipizide 10 mg tablet 10 mg PO BID 04/22/19 04/25/24 History lancets 33 gauge #100 ea 04/22/19 04/25/24 Rx metformin 1,000 mg tablet 1,000 mg PO BID 04/22/19 04/25/24 History pen needle, diabetic 32 gauge x #100 ea 04/22/19 04/25/24 Rx 5/32 (BD Ultra-Fine Kayley Pen Needle) propranolol 40 mg tablet 80 mg PO QAM 04/22/19 04/25/24 History zonisamide 100 mg capsule 400 mg PO DAILY 04/22/19 04/25/24 History pen needle, diabetic 32 gauge x #100 ea 04/23/19 04/25/24 Rx 5/32 (BD Ultra-Fine Kayley Pen Needle) blood sugar diagnostic (FreeStyle #200 ea 06/03/20 04/25/24 Rx Lite Strips) allopurinol 100 mg tablet 100 mg PO DAILY 10/28/20 04/25/24 History ezetimibe 10 mg tablet 10 mg PO DAILY 10/28/20 04/25/24 History levothyroxine 150 mcg tablet 300 mcg PO DAILY 12/16/20 04/25/24 History potassium chloride 20 mEq 20 meq PO BID 04/22/24 04/25/24 History tablet,extended release acetaminophen 325 mg tablet 650 mg PO Q4H PRN Mild Pain (1-3) 04/25/24 04/25/24 Rx Or Fever #1 tablet amoxicillin 875 mg-potassium 1 tablet PO Q12H #11 tabs 04/25/24 04/25/24 Rx clavulanate 125 mg tablet loperamide 2 mg capsule 2 mg PO Q6H PRN Diarrhea #1 cap 04/25/24 04/25/24 Rx Allergies Allergy/AdvReac Type Severity Reaction Status Date / Time cephalexin [From Keflex] Allergy Unknown Rash Verified 04/22/24 12:34 Vital Signs Vital Signs - 24 hr 04/25/24 14:55 04/25/24 16:35 04/26/24 00:00 Temperature 97.5 F L 97.8 F Pulse Rate 75 66 Respiratory Rate 16 16 Blood Pressure 104/50 L 142/56 H Pulse Oximetry 97 96 99 Oxygen Delivery Room Air Room Air Room Air Exam Narrative: * GENERAL: Alert and oriented x 3. No acute distress. obese pleasant female * EYES: EOMI. No scleral icterus. PERRLA. * HEENT: Moist mucous membranes. * LUNGS: Clear to auscultation bilaterally. No accessory muscle use. * CARDIOVASCULAR: Regular rate and rhythm. No murmur. No JVD. S1-S2 * ABDOMEN: Soft, non tenderness and non-distended. No palpable masses. * EXTREMITIES: No edema. Non-tender LUE with limited Range of motion and pain with abduction * SKIN: No rashes or lesions. Skin warm, dry. * NEUROLOGIC: No focal neurological deficits. CN II-XII grossly intact * PSYCHIATRIC: Appropriate mood and affect. Good judgement and insight. No visual or auditory hallucinations. No suicidal or homicidal ideation. Assessment and Plan Assessment and plan (1) Weakness: Code(s): R53.1 - Weakness Status: Acute Assessment and Plan: * Recent acute diverticulitis * PT/OT for strength training (2) Unsteady gait: Code(s): R26.81 - Unsteadiness on feet Status: Acute Assessment and Plan: SEE ABOVE (3) Anxiety: Code(s): F41.9 - Anxiety disorder, unspecified Status: Acute Assessment and Plan: * continue patient's Cymbalta and Wellbutrin (4) Depression: Code(s): F32.9 - Major depressive disorder, single episode, unspecified Status: Acute Assessment and Plan: * continued patient's Wellbutrin Cymbalta (5) Left shoulder pain: Code(s): M25.512 - Pain in left shoulder Status: Acute Assessment and Plan: * left shoulder x-ray showed polyarticular osteoarthritis, no malalignment or fracture seen. * Continue pain control * On examination she had tenderness over the AC joint as well as rotator cuff pain anterior shoulder, she has decreased range of motion even with passive range of motion she can only get to about 35-45 degree angle before pain. She denied any numbness or tingling down the arm. * PT and OT to evaluate * Will get MRI on 04/26/24 * Can use ice or warm compresses for comfort * Unable to perform MRI due to weight/size * Will set-up referral to ortho * Rehab inpatient with swing bed/Possible MRI outpatient if needed * plan referral for orthopedics at discharge (6) Diverticulitis: Code(s): K57.92 - Diverticulitis of intestine, part unspecified, without perforation or abscess without bleeding Status: Acute Assessment and Plan: * diet as tolerated * on oral Augmentin * resolving Plan Code status: Full code per patient PT/OT notes: Swing bed Disposition: patient was admitted to swing bed for continued rehabilitation plan is to return home when stable from physical therapy standpoint if unable to do so may need further rehabilitation at a [place] [facility] facility. Quality If No VTE Prophylaxis Answer both mechanical and pharmacologic: Reason no mechanical VTE proph: low risk/not indicated -Patient's previous records reviewed on admission -ER notes reviewed in detail on admission -discussed all findings and current treatment plan with patient/Family/POA -Consultations reviewed for recommendations -Patient's disposition for safe discharge discussed with director of casework services Dictation performed by [employer] direct speech recognition software, therefore culinary internship variants and typographical errors may occur. Hospitalist [facility] Advance Care Plan I have confirmed that the patient's Advanced Care Plan is present, code status is documented, or surrogate decision maker is listed in patient medical record.: Yes Medication Reconciliation I have utilized all available resources to obtain, update and review the patients current medications (includes all prescriptions, OTC, herbals, cannabis, and nutritional supplements).: Yes The patient is not eligible for med reconciliation; the patient is in a emergent medical situation where delaying treatment would jeopardize the patients health.: No
[2024-04-26 12:10] LABS: Glucose Point of Care 229 mg/dl (65-105)
[2024-04-26] MEDS: INSULIN HUMAN LISPRO (*BKC) 1,000 UNITS/10 ML VIAL SUB-Q ×2 (12:15→17:03)
[2024-04-26 16:30] VITALS: BP 114/47; PULSE 71; RESP 16; TEMP 36.1; O2SAT 99
[2024-04-26 17:06] LABS: Glucose Point of Care 232 mg/dl (65-105)
[2024-04-26] MEDS: ACETAMINOPHEN 325 MG TABLET 650 MG PO (20:22)
[2024-04-26 20:29] LABS: Glucose Point of Care 151 mg/dl (65-105)
[2024-04-26 23:58] VITALS: BP 142/74; PULSE 60; RESP 20; TEMP 36.1; O2SAT 99
[2024-04-27] MEDS: LEVOTHYROXINE SODIUM 100 MCG TABLET 300 MCG PO (05:54)
[2024-04-27 07:42] LABS: Glucose Point of Care 129 mg/dl (65-105)
[2024-04-27 08:00] VITALS: BP 114/45; PULSE 54; RESP 16; TEMP 36.6; O2SAT 97
[2024-04-27] MEDS: ACETAMINOPHEN 325 MG TABLET 650 MG PO ×2 (08:38→20:19)
[2024-04-27] MEDS: DULoxetine HCL 30 MG CAPSULE.DR 120 MG PO (08:39)
[2024-04-27] MEDS: allopurinoL 100 MG TABLET PO (08:40)
[2024-04-27] MEDS: ZONISAMIDE 100 MG CAPSULE 400 MG PO (08:40)
[2024-04-27] MEDS: AMOXICILLIN/CLAVULANATE K 875-125 MG TAB 1 TABLET PO ×2 (08:41→20:18)
[2024-04-27] MEDS: POTASSIUM CHLORIDE 20 MEQ ER TABLET PO ×2 (08:41→16:51)
[2024-04-27] MEDS: ASPIRIN 81 MG ENTERIC TABLET PO (08:42)
[2024-04-27] MEDS: metFORMIN HCL 500 MG TABLET 1000 MG PO ×2 (08:42→16:51)
[2024-04-27] MEDS: ATORVASTATIN 40 MG TABLET PO (08:42)
[2024-04-27] MEDS: ACIDOPHILUS/BULGARICUS CHEWABLE TABLET 1 TABLET PO ×4 (08:42→20:18)
[2024-04-27] MEDS: glipiZIDE 5 MG TABLET 10 MG PO ×2 (08:43→16:52)
[2024-04-27] MEDS: EZETIMIBE 10 MG TABLET PO (08:44)
[2024-04-27] MEDS: buPROPion HCL XL (24 HR) 150 MG TABCR PO (08:44)
[2024-04-27] MEDS: LOPERAMIDE HCL 2 MG CAPSULE PO ×3 (08:49→20:18)
[2024-04-27] MEDS: FUROSEMIDE 40 MG TABLET 80 MG PO (08:52)
[2024-04-27 11:40] LABS: Glucose Point of Care 225 mg/dl (65-105)
[2024-04-27] MEDS: INSULIN HUMAN LISPRO (*BKC) 1,000 UNITS/10 ML VIAL SUB-Q (11:43)
[2024-04-27 16:00] VITALS: BP 127/72; PULSE 73; RESP 16; TEMP 36.1; O2SAT 98
[2024-04-27 16:39] LABS: Glucose Point of Care 107 mg/dl (65-105)
[2024-04-27 20:00] VITALS: PULSE 73; RESP 16; O2SAT 98
[2024-04-27 20:30] LABS: Glucose Point of Care 162 mg/dl (65-105)
[2024-04-28] VITALS: BP 122/77; PULSE 77; RESP 16; TEMP 36.4; O2SAT 97
[2024-04-28] MEDS: LEVOTHYROXINE SODIUM 100 MCG TABLET 300 MCG PO (06:57)
[2024-04-28 07:58] LABS: Glucose Point of Care 118 mg/dl (65-105)
[2024-04-28 08:00] VITALS: BP 126/59; PULSE 78; RESP 20; TEMP 36; O2SAT 98
[2024-04-28] MEDS: DULoxetine HCL 30 MG CAPSULE.DR 120 MG PO (09:38)
[2024-04-28] MEDS: glipiZIDE 5 MG TABLET 10 MG PO ×2 (09:38→17:03)
[2024-04-28] MEDS: ACIDOPHILUS/BULGARICUS CHEWABLE TABLET 1 TABLET PO ×4 (09:38→21:18)
[2024-04-28] MEDS: metFORMIN HCL 500 MG TABLET 1000 MG PO ×2 (09:38→17:04)
[2024-04-28] MEDS: EZETIMIBE 10 MG TABLET PO (09:38)
[2024-04-28] MEDS: PROPRANOLOL 80 MG PO (09:38)
[2024-04-28] MEDS: ZONISAMIDE 100 MG CAPSULE 400 MG PO (09:38)
[2024-04-28] MEDS: FUROSEMIDE 40 MG TABLET 80 MG PO (09:38)
[2024-04-28] MEDS: allopurinoL 100 MG TABLET PO (09:38)
[2024-04-28] MEDS: ATORVASTATIN 40 MG TABLET PO (09:38)
[2024-04-28] MEDS: POTASSIUM CHLORIDE 20 MEQ ER TABLET PO ×2 (09:38→17:04)
[2024-04-28] MEDS: AMOXICILLIN/CLAVULANATE K 875-125 MG TAB 1 TABLET PO ×2 (09:38→21:18)
[2024-04-28] MEDS: [UNRECOGNIZED DRUG - OTHER] PO (09:38)
[2024-04-28] MEDS: buPROPion HCL XL (24 HR) 150 MG TABCR PO (09:39)
[2024-04-28] MEDS: ASPIRIN 81 MG ENTERIC TABLET PO (09:39)
[2024-04-28 12:13] LABS: Glucose Point of Care 209 mg/dl (65-105)
[2024-04-28] MEDS: INSULIN HUMAN LISPRO (*BKC) 1,000 UNITS/10 ML VIAL SUB-Q (12:18)
[2024-04-28] MEDS: LOPERAMIDE HCL 2 MG CAPSULE PO (12:23)
[2024-04-28 16:00] VITALS: BP 135/59; PULSE 76; RESP 18; TEMP 36.3; O2SAT 99
[2024-04-28] MEDS: ACETAMINOPHEN 325 MG TABLET 650 MG PO ×2 (17:04→21:18)
[2024-04-28 17:08] LABS: Glucose Point of Care 99 mg/dl (65-105)
[2024-04-28 20:00] VITALS: PULSE 76; RESP 18; O2SAT 99
[2024-04-28] MEDS: MAG HYDROX/AL HYDROX/SIMETH 30 ML UDC PO (21:21)
[2024-04-28 21:23] LABS: Glucose Point of Care 143 mg/dl (65-105)
[2024-04-29] VITALS: BP 133/60; PULSE 78; RESP 17; TEMP 36.2; O2SAT 96
[2024-04-29] MEDS: LEVOTHYROXINE SODIUM 100 MCG TABLET 300 MCG PO (04:53)
[2024-04-29] MEDS: MAG HYDROX/AL HYDROX/SIMETH 30 ML UDC PO (04:57)
--- NOTE | 2024-04-29 07:49 | P.PNCROSS_ITS ---
Event Note Event Note Event Note: [id number] reports severe abdominal bloating with diarrhea Hx of diverticulitis p reviously diagnosed without abscess or bleed. complaint of arm pain according to xray severe polyarthritis. Mri could not be performed due to obesity no fracture noted on other imaging Abdominal symptom Initiated oral protonix and carafate for five days to address bloating and gastrointestinal symptoms arm pain: Added Flexeril and tramadol for pain management. Patient has Tylenol as well. continue supportive care and reassess response to treatment
[2024-04-29 08:00] VITALS: BP 129/55; PULSE 74; RESP 16; TEMP 36.3; O2SAT 96
[2024-04-29 08:10] LABS: Glucose Point of Care 122 mg/dl (65-105)
[2024-04-29] MEDS: PANTOPRAZOLE SOD SESQUIHYDRATE 20 MG TAB PO (08:10)
[2024-04-29] MEDS: SUCRALFATE 1 GM TABLET PO ×4 (08:10→20:35)
[2024-04-29] MEDS: metFORMIN HCL 500 MG TABLET 1000 MG PO ×2 (09:28→16:45)
[2024-04-29] MEDS: glipiZIDE 5 MG TABLET 10 MG PO ×2 (09:28→16:46)
[2024-04-29] MEDS: DULoxetine HCL 30 MG CAPSULE.DR 120 MG PO (09:28)
[2024-04-29] MEDS: ZONISAMIDE 100 MG CAPSULE 400 MG PO (09:28)
[2024-04-29] MEDS: [UNRECOGNIZED DRUG - OTHER] PO (09:28)
[2024-04-29] MEDS: CYCLOBENZAPRINE HCL 5 MG TABLET PO ×2 (09:28→20:35)
[2024-04-29] MEDS: PROPRANOLOL 80 MG PO (09:28)
[2024-04-29] MEDS: ACIDOPHILUS/BULGARICUS CHEWABLE TABLET 1 TABLET PO ×4 (09:29→20:36)
[2024-04-29] MEDS: AMOXICILLIN/CLAVULANATE K 875-125 MG TAB 1 TABLET PO ×2 (09:29→20:35)
[2024-04-29] MEDS: allopurinoL 100 MG TABLET PO (09:29)
[2024-04-29] MEDS: traMADol HCL (*CRX) 25 MG TABLET PO ×2 (09:29→20:36)
[2024-04-29] MEDS: POTASSIUM CHLORIDE 20 MEQ ER TABLET PO ×2 (09:29→16:46)
[2024-04-29] MEDS: ASPIRIN 81 MG ENTERIC TABLET PO (09:29)
[2024-04-29] MEDS: ATORVASTATIN 40 MG TABLET PO (09:29)
[2024-04-29] MEDS: FUROSEMIDE 40 MG TABLET 80 MG PO (09:29)
[2024-04-29] MEDS: buPROPion HCL XL (24 HR) 150 MG TABCR PO (09:30)
[2024-04-29] MEDS: EZETIMIBE 10 MG TABLET PO (09:30)
[2024-04-29] MEDS: INSULIN HUMAN LISPRO (*BKC) 1,000 UNITS/10 ML VIAL SUB-Q (11:28)
[2024-04-29 11:31] LABS: Glucose Point of Care 249 mg/dl (65-105)
[2024-04-29 16:00] VITALS: BP 121/64; PULSE 78; RESP 16; TEMP 36.1; O2SAT 98
[2024-04-29 16:59] LABS: Glucose Point of Care 109 mg/dl (65-105)
[2024-04-29] MEDS: ACETAMINOPHEN 325 MG TABLET 650 MG PO (17:47)
[2024-04-29 20:00] VITALS: PULSE 78; RESP 16; O2SAT 98
[2024-04-30] VITALS: BP 111/52; PULSE 69; RESP 17; TEMP 36.6; O2SAT 96
[2024-04-30 00:40] LABS: Glucose Point of Care 153 mg/dl (65-105)
[2024-04-30] MEDS: ACETAMINOPHEN 325 MG TABLET 650 MG PO (00:58)
--- NOTE | 2024-04-30 07:08 | PC.NURSE ---
Carafate 1gm PO and Levothyroxine 300mcg given during downtime, see paper JUL.
[2024-04-30 08:00] VITALS: BP 137/66; PULSE 88; RESP 14; TEMP 36.6; O2SAT 98
[2024-04-30 09:22] LABS: Glucose Point of Care 119 mg/dl (65-105)
[2024-04-30] MEDS: AMOXICILLIN/CLAVULANATE K 875-125 MG TAB 1 TABLET PO ×2 (09:32→20:57)
[2024-04-30] MEDS: POTASSIUM CHLORIDE 20 MEQ ER TABLET PO ×2 (09:33→18:05)
[2024-04-30] MEDS: metFORMIN HCL 500 MG TABLET 1000 MG PO ×2 (09:33→18:05)
[2024-04-30] MEDS: glipiZIDE 5 MG TABLET 10 MG PO ×2 (09:33→18:05)
[2024-04-30] MEDS: DULoxetine HCL 30 MG CAPSULE.DR 120 MG PO (09:34)
[2024-04-30] MEDS: FUROSEMIDE 40 MG TABLET 80 MG PO (09:34)
[2024-04-30] MEDS: EZETIMIBE 10 MG TABLET PO (09:34)
[2024-04-30] MEDS: CYCLOBENZAPRINE HCL 5 MG TABLET PO ×2 (09:34→20:55)
[2024-04-30] MEDS: ACIDOPHILUS/BULGARICUS CHEWABLE TABLET 1 TABLET PO ×4 (09:35→20:56)
[2024-04-30] MEDS: ZONISAMIDE 100 MG CAPSULE 400 MG PO (09:35)
[2024-04-30] MEDS: PANTOPRAZOLE SOD SESQUIHYDRATE 20 MG TAB PO (09:35)
[2024-04-30] MEDS: ATORVASTATIN 40 MG TABLET PO (09:35)
[2024-04-30] MEDS: PROPRANOLOL 80 MG PO (09:36)
[2024-04-30] MEDS: ASPIRIN 81 MG ENTERIC TABLET PO (09:36)
[2024-04-30] MEDS: buPROPion HCL XL (24 HR) 150 MG TABCR PO (09:36)
[2024-04-30] MEDS: [UNRECOGNIZED DRUG - OTHER] PO (09:36)
[2024-04-30] MEDS: allopurinoL 100 MG TABLET PO (09:36)
--- NOTE | 2024-04-30 09:42 | PM.EVENT ---
Event Note Event Note Event Note: Patient reporting she is severely tired even after sleeping all through the night stated she does wear CPAP at night at home but order in for CPAP per home settings she reports she does not have anybody available to bring present from home
--- NOTE | 2024-04-30 10:28 | PC.NURSE ---
Spoke with Geovanna at Dr. Gagnon office today. Request for C-Pap settings. Geovanna informs last settings charted per last download is 12 minimum to 20 maximum.
[2024-04-30] MEDS: SUCRALFATE 1 GM TABLET PO ×3 (11:30→20:56)
[2024-04-30 11:46] LABS: Glucose Point of Care 189 mg/dl (65-105)
[2024-04-30 16:30] VITALS: BP 127/67; PULSE 65; RESP 16; TEMP 36.1; O2SAT 95
[2024-04-30 17:08] LABS: Glucose Point of Care 114 mg/dl (65-105)
[2024-04-30 21:07] LABS: Glucose Point of Care 171 mg/dl (65-105)
[2024-04-30 23:00] VITALS: RESP 20; O2SAT 97
[2024-05-01] VITALS: BP 147/90; PULSE 62; RESP 20; TEMP 36.6; O2SAT 97
--- NOTE | 2024-05-01 02:17 | PC.NURSE ---
Pt up and on bedside commode per self during round checks. Pt not wanting to comply w/ use of bed alarm. Pt using her walker per self to move from bed to commode. Pt assisted back to bed and CPAP reapplied. Pts call pérez at side and she states she will call if needed.
[2024-05-01] MEDS: LEVOTHYROXINE SODIUM 100 MCG TABLET 300 MCG PO (06:42)
[2024-05-01] MEDS: SUCRALFATE 1 GM TABLET PO ×4 (06:42→20:34)
[2024-05-01 07:47] LABS: Glucose Point of Care 97 mg/dl (65-105)
[2024-05-01 08:00] VITALS: BP 112/86; PULSE 76; RESP 14; TEMP 36.2; O2SAT 99
[2024-05-01] MEDS: FUROSEMIDE 40 MG TABLET 80 MG PO (09:30)
[2024-05-01] MEDS: AMOXICILLIN/CLAVULANATE K 875-125 MG TAB 1 TABLET PO (09:46)
[2024-05-01] MEDS: CYCLOBENZAPRINE HCL 5 MG TABLET PO ×2 (09:47→20:34)
[2024-05-01] MEDS: POTASSIUM CHLORIDE 20 MEQ ER TABLET PO ×2 (09:47→16:54)
[2024-05-01] MEDS: metFORMIN HCL 500 MG TABLET 1000 MG PO ×2 (09:47→16:54)
[2024-05-01] MEDS: glipiZIDE 5 MG TABLET 10 MG PO ×2 (09:47→16:54)
[2024-05-01] MEDS: ATORVASTATIN 40 MG TABLET PO (09:48)
[2024-05-01] MEDS: EZETIMIBE 10 MG TABLET PO (09:48)
[2024-05-01] MEDS: DULoxetine HCL 30 MG CAPSULE.DR 120 MG PO (09:48)
[2024-05-01] MEDS: ACIDOPHILUS/BULGARICUS CHEWABLE TABLET 1 TABLET PO ×4 (09:48→20:34)
[2024-05-01] MEDS: ZONISAMIDE 100 MG CAPSULE 400 MG PO (09:48)
[2024-05-01] MEDS: PANTOPRAZOLE SOD SESQUIHYDRATE 20 MG TAB PO (09:49)
[2024-05-01] MEDS: [UNRECOGNIZED DRUG - OTHER] PO (09:49)
[2024-05-01] MEDS: PROPRANOLOL 80 MG PO (09:49)
[2024-05-01] MEDS: buPROPion HCL XL (24 HR) 150 MG TABCR PO (09:49)
[2024-05-01] MEDS: ASPIRIN 81 MG ENTERIC TABLET PO (09:49)
[2024-05-01] MEDS: allopurinoL 100 MG TABLET PO (09:49)
[2024-05-01 11:58] LABS: Glucose Point of Care 263 mg/dl (65-105)
[2024-05-01] MEDS: INSULIN HUMAN LISPRO (*BKC) 1,000 UNITS/10 ML VIAL SUB-Q (12:00)
[2024-05-01 16:00] VITALS: BP 120/68; PULSE 68; RESP 16; TEMP 36.1; O2SAT 98
[2024-05-01 16:36] LABS: Glucose Point of Care 85 mg/dl (65-105)
[2024-05-01 20:00] VITALS: PULSE 68; RESP 20; O2SAT 98
--- NOTE | 2024-05-01 20:45 | PC.NURSE ---
Addendum entered by Nohelia Gonzalez RN 05/01/24 21:03: Will reassess in 15 min after pt drinks juice and is finished eating per protocol Original Note: Pts HS BS at 60, she doesn't c/o any sxs, director of food and nutrition Meeta informed, hypoglycemia protocol initiated. Pt given OJ, peanut butter etelvina crackers and regular pudding to eat. Will recheck sugar level in 1 hr.
[2024-05-01 20:56] LABS: Glucose Point of Care 60 mg/dl (65-105)
[2024-05-01 21:12] LABS: Glucose Point of Care 77 mg/dl (65-105)
--- NOTE | 2024-05-01 21:14 | PC.NURSE ---
Pt BS rechecked after eating and drinking juice, BS at 77. Pt sitting bedside on her phone. Pt given another apple juice to drink, will reassess again in 15 min after done drinking juice.
--- NOTE | 2024-05-01 21:23 | PC.NURSE ---
2039 Carlos Pierre, PATENT LEGAL ASSISTANT/Hospitalist, notified that patient's blood sugar was 60. Juice, gram crackers and peanut butter given. Blood sugar up to 75.
[2024-05-01 21:41] LABS: Glucose Point of Care 101 mg/dl (65-105)
--- NOTE | 2024-05-01 21:46 | PC.NURSE ---
BS now 101, pt assisted to position of comfort and cpap placed on pt for bed. call pérez at pt side.
[2024-05-01 21:51] VITALS: O2SAT 97
[2024-05-01 23:49] VITALS: BP 120/52; PULSE 68; RESP 20; TEMP 36.4; O2SAT 97
[2024-05-02] MEDS: traMADol HCL (*CRX) 25 MG TABLET PO ×2 (03:03→20:28)
[2024-05-02 05:18] LABS: Hematocrit 33.9 % (35.0-42.0); Hemoglobin 11.5 g/dL (11.7-13.8); Mean Corpuscular HGB Conc 33.9 g/dL (32-36); Mean Corpuscular Hemoglobin 30.4 pg (27.0-31.0); Mean Corpuscular Volume 89.7 fL (78.0-102.0); Mean Platelet Volume 9.7 fl (9.2-11.8); Platelet Count Result 156 K/mm3 (150-420); Red Blood Count 3.78 M/mm3 (4.20-5.40); Red Cell Distribution Width 13.6 % (11.6-14.4); White Blood Count 8.4 K/mm3 (4.8-10.8)
[2024-05-02 05:33] LABS: Alanine Aminotransferase 24 U/L (14-59); Albumin Level 2.8 g/dL (3.4-5.0); Alkaline Phosphatase 78 U/L (46-116); Anion Gap 10 mmol/L (4-12); Aspartate Amino Transferase 13 U/L (15-37); Bilirubin,Total 0.4 mg/dL (0.00-1.00); Blood Urea Nitrogen 30 mg/dL (7-18); Calcium 8.9 mg/dL (8.5-10.1); Carbon Dioxide 29 mmol/L (21-32); Chloride 101 mmol/L (98-108); Estimated CRCL calculation 41 ml/min; Estimated Glomerular Filt Rate 37; Glucose 118 mg/dL (70-99); Osmolality Calculated 297 mOsm/kg (285-295); Potassium 3.6 mmol/L (3.5-5.1); Sodium 140 mmol/L (136-145); Total Protein 5.7 g/dL (6.4-8.2)
[2024-05-02] MEDS: LEVOTHYROXINE SODIUM 100 MCG TABLET 300 MCG PO (06:20)
[2024-05-02] MEDS: SUCRALFATE 1 GM TABLET PO ×4 (06:21→20:28)
[2024-05-02 08:00] VITALS: BP 124/74; PULSE 92; RESP 20; TEMP 36.8; O2SAT 97
--- NOTE | 2024-05-02 08:39 | P.PNIM_ITS ---
Progress Note: A&P Assessment and Plan (1) Weakness: Code(s): R53.1 - Weakness Status: Acute Assessment and Plan: * continue PT and OT * care conference today at 11 a.m. * will check vitamin B12 and folic acid, vitamin-D, vitamin-E considering she is feeling very fatigued and has had noted vitamin E deficiency recently (2) Unsteady gait: Code(s): R26.81 - Unsteadiness on feet Status: Acute Assessment and Plan: * continue PT and OT (3) Depression: Code(s): F32.9 - Major depressive disorder, single episode, unspecified Status: Acute Assessment and Plan: * continue Cymbalta and Wellbutrin (4) Left shoulder pain: Code(s): M25.512 - Pain in left shoulder Status: Acute Assessment and Plan: * left shoulder x-ray showed polyarticular osteoarthritis, no malalignment or fracture seen. * Continue pain control * On examination she had tenderness over the AC joint as well as rotator cuff pain anterior shoulder, she has decreased range of motion even with passive range of motion she can only get to about 35-45 degree angle before pain. She denied any numbness or tingling down the arm. * continue PT and OT * will require outpatient MRI due to body habitus * Can use ice or warm compresses for comfort (5) Diverticulitis: Code(s): K57.92 - Diverticulitis of intestine, part unspecified, without perforation or abscess without bleeding Status: Acute Assessment and Plan: * CTA of the abdomen and pelvis from 04/21/2024 showed mild pericolonic inflammatory changes surrounding the proximal sigmoid in the left lower quadrant representing colitis or early diverticulitis * patient finished course of antibiotics * will start MiraLax today * continues on a probiotic Time Spent With Patient Time with patient: Greater than 35 minutes Subjective Date/time seen: 05/02/24 08:39 Interval history: Interval history: This is a 74-year-old female with a significant past medical history of anemia, anxiety, asthma, depression, diabetes, hypothyroidism, migraines, obesity, hyperlipidemia, former smoker who presented to the hospital with weakness status post fall and recently diagnosed urinary tract infection and diverticulitis. Patient states that her symptoms started 3 weeks ago with some nausea vomiting and dry heaves. Then about 1 week ago she started having diarrhea and decreased appetite. That is when she decided to come to the ED to 1st time. Patient was seen in the ED on 04/21/2024 and had a UA that showed cloudy appearance, 1.025 urine specific gravity, 1+ urine protein, 2+ urine ketone, 2+ urine bilirubin, 10-15 urine wbc's, heavy amorphous sediment, 3+ urine bacteria, cellular, hyaline, granular casts present, heavy urine mucus. Urine culture was obtained and is still pending. Patient was discharged with a prescription of Cipro and Flagyl on 04/21/2024 from the ED. she also had an abdomen / pelvis CT which shown mild pericolonic inflammatory change surrounding the proximal sigmoid in the left lower quadrant representing colitis or early diverticulitis. When she was at home patient stated that she started feeling weak and could not hold her self up any longer with a walker causing her to fall on to her left shoulder. She reported shoulder pain and had a shoulder x-ray done this admission which shown polyarticular osteoarthritis, no malalignment or fracture seen. When examining her shoulder she was tender over the AC joint as well as the anterior shoulder. Her range of motion is definitely decreased and when doing passive range of motion she was only able to get to a 35-45 degree before pain started laterally. She rates her pain at least 8/10 in that left shoulder. Initial labs showed a normal white blood cell count of 8.9, potassium 3.2, creatinine 1.22, EGFR 43, blood sugars ranging 214-222, TSH 10.22. Patient was given 1 L of normal saline, 40 mEq of potassium, Levaquin while in the ED. she was then transitioned to cefepime and Flagyl. She was transferred into a rehab bed here at [facility] for continued rehab needs on 04/26/2024. She was unable to get an MRI of her left shoulder due to body habitus and will require that on outpatient basis. She finished antibiotics for her diverticulitis and UTI was ruled out with urine culture. Subjective: Patient reports extreme fatigue even after sleeping all night. She states that before coming in here she was taking vitamin-E and still had 2 doses to take which she has missed both doses. She denies any fever, chills, nausea, vomiting, diarrhea, abdominal pain, chest pain, shortness breath. She also reports a feeling of fullness and has had a bowel movement about 3 days ago. She states that she normally goes about once a week for bowel movement. She is still reporting pain in her left shoulder and weakness in her legs. She has been working with therapy here and has been able to ambulate to the door and back in her room but that is as far she has made it. Review of Systems Review of Systems: All systems reviewed & are unremarkable except as noted in HPI and below Constitutional: Constitutional: Reports as per HPI and Reports no additional constitutional complaints Eyes: Eyes: Reports as per HPI and Reports no additional eye complaints ENT: Reports system reviewed and no additional complaints, except as documented and Reports as per HPI Cardiovascular: Cardiovascular: Reports as per HPI and Reports no additional cardiovascular complaints Respiratory: Respiratory: Reports as per HPI and Reports no additional respiratory complaints Gastrointestinal: Gastrointestinal: Reports as per HPI and Reports no additional gastrointestinal complaints Genitourinary: Genitourinary: Reports no additional female genitourinary complaints and Reports as per HPI Musculoskeletal: Musculoskeletal: Reports no additional musculoskeletal complaints and Reports as per HPI Integumentary/Breasts: Skin/Breast: Reports system reviewed and no additional complaints, except as docu and Reports as per HPI Neurologic: Reports system reviewed and no additional complaints, except as documented and Reports as per HPI Psychiatric: Psychiatric: Reports no additional psychiatric complaints and Reports as per HPI Exam Narrative: General: In no acute distress, well nourished Head: atraumatic, no encephalopathy Eyes: PERRLA, sclera clear ENT: moist mucous membranes, nasal passages clear Neck: supple, no JVD, no adenopathy, trachea midline Cardiac: Normal S1 and S2. mild murmur. No gallops or friction rubs, peripheral pulses intact. Respiratory: Lungs clear and diminished in the bases, no adventitious lung sounds, currently on room air Gastrointestinal: soft, non-distended, non-tender, hypoactive bowel sounds. : voiding without difficulty. Extremities: moves all extremities well, no edema Skin: clean, dry, intact. No wounds or lesions. Neuro: Alert and oriented x4, cranial nerves intact, no neuro deficits. Psych: normal mood, normal affect, interactive Objective Data Vital Signs Vital Signs: Vital Signs - 24 hr 05/01/24 16:00 05/01/24 20:00 05/01/24 21:48 Temperature 96.9 F L Pulse Rate 68 68 Respiratory Rate 16 20 Blood Pressure 120/68 Pulse Oximetry 98 98 Oxygen Delivery Room Air Room Air Autopap 05/01/24 21:51 05/01/24 23:49 Temperature 97.6 F Pulse Rate 68 Respiratory Rate 20 Blood Pressure 120/52 L Pulse Oximetry 97 97 Oxygen Delivery CPAP CPAP Intake/Output Intake/Output: Intake & Output 04/29/24 04/30/24 05/01/24 05/02/24 23:59 23:59 23:59 23:59 Intake Total 1310 1700 1085 300 Output Total 800 Balance 510 1700 1085 300 Meds/Results Medications: Active Medications Generic Name Dose Route Start Last Admin Trade Name Freq PRN Reason Stop Dose Admin Acetaminophen 650 mg 04/25/24 15:55 04/30/24 00:58 Acetaminophen 325 Mg Tablet PO 650 mg Q4H PRN Administration Mild Pain (1-3) Or Fever Al Hydrox/Mg Hydrox/Simethicone 30 ml 04/26/24 09:48 04/29/24 04:57 Mag Hydrox/Al Hydrox/Simeth 30 Ml Udc PO 30 ml Q6H PRN Administration Indigestion Allopurinol 100 mg 04/26/24 09:00 05/01/24 09:49 Allopurinol 100 Mg Tablet PO 100 mg DAILY AMAURY Administration Aspirin 81 mg 04/26/24 09:00 05/01/24 09:49 Aspirin 81 Mg Enteric Tablet PO 81 mg DAILY AMAURY Administration Atorvastatin Calcium 40 mg 04/26/24 09:00 05/01/24 09:48 Atorvastatin 40 Mg Tablet PO 40 mg DAILY AMAURY Administration Bupropion HCl 150 mg 04/26/24 09:00 05/01/24 09:49 Bupropion Hcl Xl (24 Hr) 150 Mg Tabcr PO 150 mg QAM AMAURY Administration Cyclobenzaprine HCl 5 mg 04/29/24 09:00 05/01/24 20:34 Cyclobenzaprine Hcl 5 Mg Tablet PO 5 mg Q12HR AMAURY Administration Dextrose 12.5 gm 04/25/24 14:54 Dextrose 50% 25 Gm/50 Ml Syringe IV PUSH PRN PRN Hypoglycemia Protocol Duloxetine HCl 120 mg 04/26/24 09:00 05/01/24 09:48 Duloxetine Hcl 30 Mg Capsule.Dr PO 120 mg QAM AMAURY Administration Ezetimibe 10 mg 04/26/24 09:00 05/01/24 09:48 Ezetimibe 10 Mg Tablet PO 10 mg DAILY AMAURY Administration Furosemide 80 mg 04/26/24 09:00 05/01/24 09:30 Furosemide 40 Mg Tablet PO 80 mg QAM AMAURY Administration Glipizide 10 mg 04/25/24 17:00 05/01/24 16:54 Glipizide 5 Mg Tablet PO 10 mg BID AMAURY Administration Glucagon 1 mg 04/25/24 14:54 Glucagon For Inj 1 Mg Vial IM PRN PRN Hypoglycemia Protocol Glucose 15 gm 04/25/24 14:54 Glucose Oral Gel 15 Gm Of Glucse In 37.5 Gm Tube PO PRN PRN Hypoglycemia Protocol Dextrose 1,000 mls @ 100 mls/hr 04/25/24 14:54 Dextrose 5% 1,000 Ml IVPB PRN PRN Hypoglycemia Protocol Insulin Human Lispro 2 - 5 units 04/25/24 17:00 05/01/24 16:58 Insulin Human Lispro (*Bkc) 1,000 Units/10 Ml Vial SUB-Q Not Given TIDWM AMAURY Protocol Lactobacillus Acidophilus 1 tablet 04/25/24 17:00 05/01/24 20:34 Acidophilus/Bulgaricus Chewable Tablet PO 1 tablet QID AMAURY Administration Levothyroxine Sodium 300 mcg 04/26/24 06:30 05/02/24 06:20 Levothyroxine Sodium 100 Mcg Tablet PO 300 mcg DAILY@0630 AMAURY Administration Loperamide HCl 2 mg 04/25/24 15:55 04/28/24 12:23 Loperamide Hcl 2 Mg Capsule PO 2 mg Q6H PRN Administration Diarrhea Metformin HCl 1,000 mg 04/25/24 17:00 05/01/24 16:54 Metformin Hcl 500 Mg Tablet PO 1,000 mg BID AMAURY Administration Nonformulary Drug ( 1 each 04/26/24 09:00 05/01/24 09:49 Propranolol 80mg Er PO 05/26/24 08:59 1 each Capsule) DAILY AMAURY Administration Ondansetron HCl 4 mg 04/25/24 14:54 Ondansetron Hcl Odt 4 Mg Tablet PO Q6H PRN Nausea And Vomiting Pantoprazole Sodium 20 mg 04/29/24 09:00 05/01/24 09:49 Pantoprazole Sod Sesquihydrate 20 Mg Tab PO 20 mg QAM AMAURY Administration Potassium Chloride 20 meq 04/25/24 17:00 05/01/24 16:54 Potassium Chloride 20 Meq Er Tablet PO 20 meq BID AMAURY Administration Sucralfate 1 gm 04/29/24 08:00 05/02/24 06:21 Sucralfate 1 Gm Tablet PO 1 gm ACHS AMAURY Administration Tramadol HCl 25 mg 04/29/24 20:04 05/02/24 03:03 Tramadol Hcl (*Crx) 25 Mg Tablet PO 25 mg Q8H PRN Administration Pain Rated 4-6 Zonisamide 400 mg 04/26/24 09:00 05/01/24 09:48 Zonisamide 100 Mg Capsule PO 400 mg DAILY AMAURY Administration Labs Labs: Laboratory Results - last 24 hr 05/01/24 05/01/24 05/01/24 11:53 16:31 20:39 WBC RBC Hgb Hct MCV MCH MCHC RDW Plt Count MPV Sodium Potassium Chloride Carbon Dioxide Anion Gap BUN Creatinine Estim Creat Clear Calc Estimated GFR Glucose POC Capillary Glucose 263 H 85 60 L Calculated Osmolality Calcium Total Bilirubin AST ALT Alkaline Phosphatase Total Protein Albumin 05/01/24 05/01/24 05/02/24 21:10 21:39 05:12 WBC 8.4 RBC 3.78 L Hgb 11.5 L Hct 33.9 L MCV 89.7 MCH 30.4 MCHC 33.9 RDW 13.6 Plt Count 156 MPV 9.7 Sodium 140 Potassium 3.6 Chloride 101 Carbon Dioxide 29 Anion Gap 10 BUN 30 H Creatinine 1.41 H Estim Creat Clear Calc 41 Estimated GFR 37 L Glucose 118 H POC Capillary Glucose 77 101 Calculated Osmolality 297 H Calcium 8.9 Total Bilirubin 0.4 AST 13 L ALT 24 Alkaline Phosphatase 78 Total Protein 5.7 L Albumin 2.8 L
[2024-05-02] MEDS: [UNRECOGNIZED DRUG - OTHER] PO (09:45)
[2024-05-02] MEDS: POTASSIUM CHLORIDE 20 MEQ ER TABLET PO ×2 (09:45→17:22)
[2024-05-02] MEDS: glipiZIDE 5 MG TABLET 10 MG PO ×2 (09:45→17:22)
[2024-05-02] MEDS: PROPRANOLOL 80 MG PO (09:45)
[2024-05-02] MEDS: CYCLOBENZAPRINE HCL 5 MG TABLET PO ×2 (09:46→20:28)
[2024-05-02] MEDS: ZONISAMIDE 100 MG CAPSULE 400 MG PO (09:46)
[2024-05-02] MEDS: metFORMIN HCL 500 MG TABLET 1000 MG PO ×2 (09:46→17:22)
[2024-05-02] MEDS: DULoxetine HCL 30 MG CAPSULE.DR 120 MG PO (09:47)
[2024-05-02] MEDS: FUROSEMIDE 40 MG TABLET 80 MG PO (09:47)
[2024-05-02] MEDS: ATORVASTATIN 40 MG TABLET PO (09:47)
[2024-05-02] MEDS: PANTOPRAZOLE SOD SESQUIHYDRATE 20 MG TAB PO (09:48)
[2024-05-02] MEDS: EZETIMIBE 10 MG TABLET PO (09:48)
[2024-05-02] MEDS: allopurinoL 100 MG TABLET PO (09:48)
[2024-05-02] MEDS: buPROPion HCL XL (24 HR) 150 MG TABCR PO (09:48)
[2024-05-02] MEDS: ACIDOPHILUS/BULGARICUS CHEWABLE TABLET 1 TABLET PO ×4 (09:48→20:28)
[2024-05-02] MEDS: ASPIRIN 81 MG ENTERIC TABLET PO (09:48)
[2024-05-02 11:55] LABS: Folic Acid 8.3 ng/mL (8.6->20); Vitamin B12 369 pg/mL (193-986)
[2024-05-02 12:01] LABS: Glucose Point of Care 231 mg/dl (65-105)
[2024-05-02] MEDS: polyethylene glycoL 3350 17 GM POWD.PACK PO (12:05)
[2024-05-02] MEDS: INSULIN HUMAN LISPRO (*BKC) 1,000 UNITS/10 ML VIAL SUB-Q (12:06)
[2024-05-02 12:07] LABS: Glucose Point of Care 133 mg/dl (65-105)
[2024-05-02 15:53] VITALS: BP 144/74; PULSE 74; RESP 18; TEMP 36.1; O2SAT 97
[2024-05-02 17:22] LABS: Glucose Point of Care 100 mg/dl (65-105)
[2024-05-02 20:00] VITALS: PULSE 74; RESP 18; O2SAT 97
[2024-05-02 20:33] LABS: Glucose Point of Care 161 mg/dl (65-105)
[2024-05-03] VITALS: BP 143/68; PULSE 69; RESP 16; TEMP 36.3; O2SAT 98
[2024-05-03 08:00] VITALS: BP 126/58; PULSE 65; RESP 16; TEMP 36.6; O2SAT 97
[2024-05-03 08:00] LABS: Glucose Point of Care 75 mg/dl (65-105)
[2024-05-03 08:20] LABS: Glucose Point of Care 69 mg/dl (65-105)
[2024-05-03] MEDS: polyethylene glycoL 3350 17 GM POWD.PACK PO (09:22)
[2024-05-03] MEDS: glipiZIDE 5 MG TABLET 10 MG PO ×2 (09:23→17:15)
[2024-05-03] MEDS: ZONISAMIDE 100 MG CAPSULE 400 MG PO (09:24)
[2024-05-03] MEDS: DULoxetine HCL 30 MG CAPSULE.DR 120 MG PO (09:25)
[2024-05-03] MEDS: metFORMIN HCL 500 MG TABLET 1000 MG PO ×2 (09:25→17:15)
[2024-05-03] MEDS: PROPRANOLOL 80 MG PO (09:26)
[2024-05-03] MEDS: [UNRECOGNIZED DRUG - OTHER] PO (09:26)
[2024-05-03] MEDS: POTASSIUM CHLORIDE 20 MEQ ER TABLET PO ×2 (09:27→17:14)
[2024-05-03] MEDS: FUROSEMIDE 40 MG TABLET 80 MG PO (09:27)
[2024-05-03] MEDS: CYCLOBENZAPRINE HCL 5 MG TABLET PO ×2 (09:28→21:40)
[2024-05-03] MEDS: PANTOPRAZOLE SOD SESQUIHYDRATE 20 MG TAB PO (09:28)
[2024-05-03] MEDS: ACIDOPHILUS/BULGARICUS CHEWABLE TABLET 1 TABLET PO ×4 (09:28→21:40)
[2024-05-03] MEDS: allopurinoL 100 MG TABLET PO (09:28)
[2024-05-03] MEDS: buPROPion HCL XL (24 HR) 150 MG TABCR PO (09:29)
[2024-05-03] MEDS: EZETIMIBE 10 MG TABLET PO (09:29)
[2024-05-03] MEDS: FOLIC ACID 1 MG TABLET PO (09:30)
[2024-05-03] MEDS: ATORVASTATIN 40 MG TABLET PO (09:30)
[2024-05-03] MEDS: ASPIRIN 81 MG ENTERIC TABLET PO (09:30)
[2024-05-03 11:46] LABS: Glucose Point of Care 174 mg/dl (65-105)
[2024-05-03] MEDS: SUCRALFATE 1 GM TABLET PO ×3 (12:17→21:41)
[2024-05-03 16:00] VITALS: BP 132/64; PULSE 69; RESP 18; TEMP 36.2; O2SAT 98
[2024-05-03 16:33] LABS: Glucose Point of Care 110 mg/dl (65-105)
[2024-05-03] MEDS: traMADol HCL (*CRX) 25 MG TABLET PO (21:41)
[2024-05-03 22:00] LABS: Glucose Point of Care 89 mg/dl (65-105)
[2024-05-04] VITALS: BP 130/64; PULSE 66; RESP 18; TEMP 36.3; O2SAT 98
[2024-05-04 03:38] LABS: Vitamin D 25 Hydroxy 47 ng/mL (30-100)
[2024-05-04] MEDS: SUCRALFATE 1 GM TABLET PO ×4 (06:41→20:57)
[2024-05-04] MEDS: LEVOTHYROXINE SODIUM 100 MCG TABLET 300 MCG PO (06:44)
[2024-05-04 08:00] VITALS: BP 125/60; PULSE 70; RESP 14; TEMP 36.4; O2SAT 98
[2024-05-04 09:49] LABS: Glucose Point of Care 210 mg/dl (65-105)
--- NOTE | 2024-05-04 09:51 | PC.NURSE ---
Pt having occipital pain and wants to wait to take meds. VENTURA Holguin notified.
[2024-05-04 11:49] LABS: Glucose Point of Care 185 mg/dl (65-105)
[2024-05-04] MEDS: HYDROcodone/acetaminophen (*CRX) 7.5-325 MG TABLET 1 TAB PO ×3 (12:21→22:25)
[2024-05-04] MEDS: PANTOPRAZOLE SOD SESQUIHYDRATE 20 MG TAB PO (13:14)
[2024-05-04] MEDS: CYCLOBENZAPRINE HCL 5 MG TABLET PO ×2 (13:14→20:57)
[2024-05-04] MEDS: ZONISAMIDE 100 MG CAPSULE 400 MG PO (13:14)
[2024-05-04] MEDS: ACIDOPHILUS/BULGARICUS CHEWABLE TABLET 1 TABLET PO ×3 (13:15→20:57)
[2024-05-04] MEDS: glipiZIDE 5 MG TABLET 10 MG PO ×2 (13:15→18:13)
[2024-05-04] MEDS: FUROSEMIDE 40 MG TABLET 80 MG PO (13:15)
[2024-05-04] MEDS: EZETIMIBE 10 MG TABLET PO (13:15)
[2024-05-04] MEDS: metFORMIN HCL 500 MG TABLET 1000 MG PO ×2 (13:15→18:14)
[2024-05-04] MEDS: buPROPion HCL XL (24 HR) 150 MG TABCR PO (13:16)
[2024-05-04] MEDS: DULoxetine HCL 30 MG CAPSULE.DR 120 MG PO (13:16)
[2024-05-04] MEDS: FOLIC ACID 1 MG TABLET PO (13:17)
[2024-05-04] MEDS: ATORVASTATIN 40 MG TABLET PO (13:17)
[2024-05-04] MEDS: ASPIRIN 81 MG ENTERIC TABLET PO (13:17)
[2024-05-04] MEDS: POTASSIUM CHLORIDE 20 MEQ ER TABLET PO ×2 (13:18→18:13)
--- NOTE | 2024-05-04 13:45 | PC.NURSE ---
Pt took all am meds at 1330. Pt felt that she could take them and keep them down. lisandro
--- NOTE | 2024-05-04 13:47 | PC.NURSE ---
pt refused Miralax today.
[2024-05-04 16:35] VITALS: BP 121/59; PULSE 70; RESP 16; TEMP 35.8; O2SAT 99
[2024-05-04 17:04] LABS: Glucose Point of Care 122 mg/dl (65-105)
[2024-05-04 21:06] LABS: Glucose Point of Care 117 mg/dl (65-105)
[2024-05-05] VITALS: BP 110/84; PULSE 68; RESP 18; TEMP 36.6; O2SAT 97
--- NOTE | 2024-05-05 00:41 | PC.NURSE ---
Patient called nurse to room for assistance with BiPap mask. Patient couldn't get it on to seal correctly. Nurse tightened straps and seal was then good. Patient wore mask for 10-15 seconds and took it off saying she just can't wear it that tight. Patient refused to let nurse try to adjust it again.
[2024-05-05] MEDS: SUCRALFATE 1 GM TABLET PO ×4 (05:45→20:49)
[2024-05-05] MEDS: HYDROcodone/acetaminophen (*CRX) 7.5-325 MG TABLET 1 TAB PO ×4 (05:45→17:49)
[2024-05-05] MEDS: LEVOTHYROXINE SODIUM 100 MCG TABLET 300 MCG PO (05:45)
[2024-05-05 08:00] VITALS: BP 133/68; PULSE 58; RESP 14; TEMP 36.2; O2SAT 95
[2024-05-05 08:14] LABS: Glucose Point of Care 103 mg/dl (65-105)
[2024-05-05] MEDS: PROPRANOLOL 80 MG PO (09:10)
[2024-05-05] MEDS: [UNRECOGNIZED DRUG - OTHER] PO (09:10)
[2024-05-05] MEDS: polyethylene glycoL 3350 17 GM POWD.PACK PO (09:39)
[2024-05-05] MEDS: glipiZIDE 5 MG TABLET 10 MG PO ×2 (09:40→17:49)
[2024-05-05] MEDS: ZONISAMIDE 100 MG CAPSULE 400 MG PO (09:40)
[2024-05-05] MEDS: metFORMIN HCL 500 MG TABLET 1000 MG PO ×2 (09:40→17:49)
[2024-05-05] MEDS: DULoxetine HCL 30 MG CAPSULE.DR 120 MG PO (09:40)
[2024-05-05] MEDS: buPROPion HCL XL (24 HR) 150 MG TABCR PO (09:41)
[2024-05-05] MEDS: ASPIRIN 81 MG ENTERIC TABLET PO (09:41)
[2024-05-05] MEDS: ACIDOPHILUS/BULGARICUS CHEWABLE TABLET 1 TABLET PO ×4 (09:41→20:49)
[2024-05-05] MEDS: PANTOPRAZOLE SOD SESQUIHYDRATE 20 MG TAB PO (09:41)
[2024-05-05] MEDS: ATORVASTATIN 40 MG TABLET PO (09:41)
[2024-05-05] MEDS: FOLIC ACID 1 MG TABLET PO (09:41)
[2024-05-05] MEDS: POTASSIUM CHLORIDE 20 MEQ ER TABLET PO ×2 (09:42→17:49)
[2024-05-05] MEDS: EZETIMIBE 10 MG TABLET PO (09:43)
[2024-05-05] MEDS: allopurinoL 100 MG TABLET PO (09:43)
[2024-05-05] MEDS: CYCLOBENZAPRINE HCL 5 MG TABLET PO ×2 (09:47→20:49)
[2024-05-05 11:51] LABS: Glucose Point of Care 130 mg/dl (65-105)
[2024-05-05] MEDS: FUROSEMIDE 40 MG TABLET 80 MG PO (13:02)
[2024-05-05 16:30] VITALS: BP 134/72; PULSE 63; RESP 16; TEMP 35.8; O2SAT 97
[2024-05-05 16:39] LABS: Glucose Point of Care 67 mg/dl (65-105)
[2024-05-05 20:59] LABS: Glucose Point of Care 126 mg/dl (65-105)
[2024-05-05 23:59] VITALS: BP 140/61; PULSE 65; RESP 18; TEMP 36.7; O2SAT 98
[2024-05-06] MEDS: HYDROcodone/acetaminophen (*CRX) 7.5-325 MG TABLET 1 TAB PO ×5 (00:09→18:22)
[2024-05-06] MEDS: LEVOTHYROXINE SODIUM 100 MCG TABLET 300 MCG PO (06:08)
[2024-05-06] MEDS: SUCRALFATE 1 GM TABLET PO ×4 (06:09→20:38)
[2024-05-06 07:59] LABS: Glucose Point of Care 76 mg/dl (65-105)
[2024-05-06 08:00] VITALS: BP 148/64; PULSE 68; RESP 14; TEMP 36.8; O2SAT 98
[2024-05-06] MEDS: polyethylene glycoL 3350 17 GM POWD.PACK PO (09:33)
[2024-05-06] MEDS: FOLIC ACID 1 MG TABLET PO (09:34)
[2024-05-06] MEDS: metFORMIN HCL 500 MG TABLET 1000 MG PO ×2 (09:34→17:11)
[2024-05-06] MEDS: CYCLOBENZAPRINE HCL 5 MG TABLET PO ×2 (09:34→20:38)
[2024-05-06] MEDS: PROPRANOLOL 80 MG PO (09:34)
[2024-05-06] MEDS: glipiZIDE 5 MG TABLET 10 MG PO ×2 (09:34→17:10)
[2024-05-06] MEDS: EZETIMIBE 10 MG TABLET PO (09:34)
[2024-05-06] MEDS: [UNRECOGNIZED DRUG - OTHER] PO (09:34)
[2024-05-06] MEDS: ATORVASTATIN 40 MG TABLET PO (09:35)
[2024-05-06] MEDS: ACIDOPHILUS/BULGARICUS CHEWABLE TABLET 1 TABLET PO ×4 (09:35→20:39)
[2024-05-06] MEDS: ZONISAMIDE 100 MG CAPSULE 400 MG PO (09:35)
[2024-05-06] MEDS: DULoxetine HCL 30 MG CAPSULE.DR 120 MG PO (09:35)
[2024-05-06] MEDS: allopurinoL 100 MG TABLET PO (09:36)
[2024-05-06] MEDS: ASPIRIN 81 MG ENTERIC TABLET PO (09:36)
[2024-05-06] MEDS: buPROPion HCL XL (24 HR) 150 MG TABCR PO (09:36)
[2024-05-06] MEDS: PANTOPRAZOLE SOD SESQUIHYDRATE 20 MG TAB PO (09:36)
--- NOTE | 2024-05-06 11:24 | P.PNCROSS_ITS ---
Event Note Event Note Event Note: patient reporting occipital neuralgia flare up today. She states it started o chrissie the weekend and has continued to cause her discomfort. She also said that if it does not relieve on its own she normally has to get nerve blocks to calm it down. We will give her a one time dose of Dexamethasone along with [place] to see if she can gain some relief for this. She does have CKD so anti- inflammatories are very limited.
[2024-05-06 11:40] LABS: Glucose Point of Care 186 mg/dl (65-105)
[2024-05-06] MEDS: FUROSEMIDE 40 MG TABLET 80 MG PO (13:14)
[2024-05-06] MEDS: POTASSIUM CHLORIDE 20 MEQ ER TABLET PO ×2 (13:14→17:11)
[2024-05-06] MEDS: dexAMETHasone 2 MG TABLET 6 MG PO (13:15)
[2024-05-06 16:00] VITALS: BP 122/85; PULSE 85; RESP 16; TEMP 35.9; O2SAT 95
[2024-05-06 16:37] LABS: Glucose Point of Care 156 mg/dl (65-105)
[2024-05-06 20:49] LABS: Glucose Point of Care 270 mg/dl (65-105)
[2024-05-07] VITALS: BP 118/54; PULSE 80; RESP 16; TEMP 36.4; O2SAT 93
[2024-05-07] MEDS: HYDROcodone/acetaminophen (*CRX) 7.5-325 MG TABLET 1 TAB PO ×4 (02:54→21:05)
[2024-05-07] MEDS: LEVOTHYROXINE SODIUM 100 MCG TABLET 300 MCG PO (06:24)
[2024-05-07] MEDS: SUCRALFATE 1 GM TABLET PO ×4 (06:24→21:07)
[2024-05-07 08:00] VITALS: BP 109/85; PULSE 75; RESP 16; TEMP 36.3; O2SAT 97
--- NOTE | 2024-05-07 08:22 | P.PNIM_ITS ---
Progress Note: A&P Assessment and Plan (1) Weakness: Code(s): R53.1 - Weakness Status: Acute Assessment and Plan: 05/02 * continue PT and OT * care conference today at 11 a.m. * will check vitamin B12 and folic acid, vitamin-D, vitamin-E considering she is feeling very fatigued and has had noted vitamin E deficiency recently 05/07 * continue PT and OT * Care confrence again today at 11 a..m. * Folic acid was low on labs- giving supplement * Vitamin E still pending * Will get Lumbar spine x-rays today * Reporting severe fatigue-will recheck labs as well today (2) Unsteady gait: Code(s): R26.81 - Unsteadiness on feet Status: Acute Assessment and Plan: * continue PT and OT (3) Depression: Code(s): F32.9 - Major depressive disorder, single episode, unspecified Status: Acute Assessment and Plan: * continue Cymbalta and Wellbutrin (4) Left shoulder pain: Code(s): M25.512 - Pain in left shoulder Status: Acute Assessment and Plan: * left shoulder x-ray showed polyarticular osteoarthritis, no malalignment or fracture seen. * Continue pain control * On examination she had tenderness over the AC joint as well as rotator cuff pain anterior shoulder, she has decreased range of motion even with passive range of motion she can only get to about 35-45 degree angle before pain. She denied any numbness or tingling down the arm. * continue PT and OT * will require outpatient MRI due to body habitus * Can use ice or warm compresses for comfort (5) Diverticulitis: Code(s): K57.92 - Diverticulitis of intestine, part unspecified, without perforation or abscess without bleeding Status: Acute Assessment and Plan: * Continue miralax and probiotic (6) Occipital neuralgia: Code(s): M54.81 - Occipital neuralgia Status: Acute Assessment and Plan: * continue [place] Time Spent With Patient Time with patient: 25 - 35 minutes Subjective Date/time seen: 05/07/24 08:22 Interval history: Interval history: This is a 74-year-old female with a significant past medical history of anemia, anxiety, asthma, depression, diabetes, hypothyroidism, migraines, obesity, hyperlipidemia, former smoker who presented to the hospital with weakness status post fall and recently diagnosed urinary tract infection and diverticulitis. Patient states that her symptoms started 3 weeks ago with some nausea vomiting and dry heaves. Then about 1 week ago she started having diarrhea and decreased appetite. That is when she decided to come to the ED to 1st time. Patient was seen in the ED on 04/21/2024 and had a UA that showed cloudy appearance, 1.025 u rine specific gravity, 1+ urine protein, 2+ urine ketone, 2+ urine bilirubin, 10-15 urine wbc's, heavy amorphous sediment, 3+ urine bacteria, cellular, hyaline, granular casts present, heavy urine mucus. Urine culture was obtained and is still pending. Patient was discharged with a prescription of Cipro and Flagyl on 04/21/2024 from the ED. she also had an abdomen / pelvis CT which shown mild pericolonic inflammatory change surrounding the proximal sigmoid in the left lower quadrant representing colitis or early diverticulitis. When she was at home patient stated that she started feeling weak and could not hold herself up any longer with a walker causing her to fall on to her left shoulder. She reported shoulder pain and had a shoulder x-ray done this admission which shown polyarticular osteoarthritis, no malalignment or fracture seen. When examining her shoulder she was tender over the AC joint as well as the anterior shoulder. Her range of motion is definitely decreased and when doing passive range of motion she was only able to get to a 35-45 degree before pain started laterally. She rates her pain at least 8/10 in that left shoulder. Initial labs showed a normal white blood cell count of 8.9, potassium 3.2, creatinine 1.22, EGFR 43, blood sugars ranging 214-222, TSH 10.22. Patient was given 1 L of normal saline, 40 mEq of potassium, Levaquin while in the ED. she was then transitioned to cefepime and Flagyl. She was transferred into a rehab bed here at [facility] for continued rehab needs on 04/26/2024. She was unable to get an MRI of her left shoulder due to body habitus and will require that on outpatient basis. She finished antibiotics for her diverticulitis and UTI was ruled out with urine culture. Subjective: Patient reporting that she has numbness down her legs which she has had since she has been here. She is still saying she is extremely tired/ fatigued. She is requesting labs be drawn today. Review of Systems Review of Systems: All systems reviewed & are unremarkable except as noted in HPI and below Constitutional: Constitutional: Reports as per HPI and Reports no additional constitutional complaints Eyes: Eyes: Reports as per HPI and Reports no additional eye complaints ENT: Reports system reviewed and no additional complaints, except as documented and Reports as per HPI Cardiovascular: Cardiovascular: Reports as per HPI and Reports no additional cardiovascular complaints Respiratory: Respiratory: Reports as per HPI and Reports no additional respiratory complaints Gastrointestinal: Gastrointestinal: Reports as per HPI and Reports no additional gastrointestinal complaints Genitourinary: Genitourinary: Reports no additional female genitourinary complaints and Reports as per HPI Musculoskeletal: Musculoskeletal: Reports no additional musculoskeletal complaints and Reports as per HPI Integumentary/Breasts: Skin/Breast: Reports system reviewed and no additional complaints, except as docu and Reports as per HPI Neurologic: Reports system reviewed and no additional complaints, except as documented and Reports as per HPI Psychiatric: Psychiatric: Reports no additional psychiatric complaints and Reports as per HPI Exam Narrative: General: In no acute distress, well nourished Cardiac: Normal S1 and S2. mild murmur. No gallops or friction rubs, peripheral pulses intact. Respiratory: Lungs clear and diminished in the bases, no adventitious lung sounds, currently on room air Gastrointestinal: soft, non-distended, non-tender, hypoactive bowel sounds. : voiding without difficulty. Extremities: moves all extremities, no edema, reporting numbness down both legs Skin: clean, dry, intact. No wounds or lesions. Neuro: Alert and oriented x4 Psych: tearful today Objective Data Vital Signs Vital Signs: Vital Signs - 24 hr 05/06/24 16:00 05/07/24 00:00 Temperature 96.7 F L 97.5 F L Pulse Rate 85 80 Respiratory Rate 16 16 Blood Pressure 122/85 118/54 L Pulse Oximetry 95 93 Oxygen Delivery Room Air Room Air Intake/Output Intake/Output: Intake & Output 05/04/24 05/05/24 05/06/24 05/07/24 23:59 23:59 23:59 23:59 Intake Total 1540 1940 1695 700 Output Total 250 1200 Balance 1290 1940 1695 -500 Meds/Results Medications: Active Medications Generic Name Dose Route Start Last Admin Trade Name Freq PRN Reason Stop Dose Admin Acetaminophen 650 mg 04/25/24 15:55 04/30/24 00:58 Acetaminophen 325 Mg Tablet PO 650 mg Q4H PRN Administration Mild Pain (1-3) Or Fever Hydrocodone Bitart/Acetaminophen 1 tab 05/04/24 12:07 05/07/24 02:54 Hydrocodone/Acetaminophen (*Crx) 7.5-325 Mg Tablet PO 1 tab Q4H PRN Administration Pain Rated 7-10 Al Hydrox/Mg Hydrox/Simethicone 30 ml 04/26/24 09:48 04/29/24 04:57 Mag Hydrox/Al Hydrox/Simeth 30 Ml Udc PO 30 ml Q6H PRN Administration Indigestion Allopurinol 100 mg 04/26/24 09:00 05/06/24 09:36 Allopurinol 100 Mg Tablet PO 100 mg DAILY AMAURY Administration Aspirin 81 mg 04/26/24 09:00 05/06/24 09:36 Aspirin 81 Mg Enteric Tablet PO 81 mg DAILY AMAURY Administration Atorvastatin Calcium 40 mg 04/26/24 09:00 05/06/24 09:35 Atorvastatin 40 Mg Tablet PO 40 mg DAILY AMAURY Administration Bupropion HCl 150 mg 04/26/24 09:00 05/06/24 09:36 Bupropion Hcl Xl (24 Hr) 150 Mg Tabcr PO 150 mg QAM AMAURY Administration Cyclobenzaprine HCl 5 mg 04/29/24 09:00 05/06/24 20:38 Cyclobenzaprine Hcl 5 Mg Tablet PO 5 mg Q12HR AMAURY Administration Dextrose 12.5 gm 04/25/24 14:54 Dextrose 50% 25 Gm/50 Ml Syringe IV PUSH PRN PRN Hypoglycemia Protocol Duloxetine HCl 120 mg 04/26/24 09:00 05/06/24 09:35 Duloxetine Hcl 30 Mg Capsule.Dr PO 120 mg QAM AMAURY Administration Ezetimibe 10 mg 04/26/24 09:00 05/06/24 09:34 Ezetimibe 10 Mg Tablet PO 10 mg DAILY AMAURY Administration Folic Acid 1 mg 05/03/24 09:00 05/06/24 09:34 Folic Acid 1 Mg Tablet PO 1 mg DAILY AMAURY Administration Furosemide 80 mg 04/26/24 09:00 05/06/24 13:14 Furosemide 40 Mg Tablet PO 80 mg QAM AMAURY Administration Glipizide 10 mg 04/25/24 17:00 05/06/24 17:10 Glipizide 5 Mg Tablet PO 10 mg BID AMAURY Administration Glucagon 1 mg 04/25/24 14:54 Glucagon For Inj 1 Mg Vial IM PRN PRN Hypoglycemia Protocol Glucose 15 gm 04/25/24 14:54 Glucose Oral Gel 15 Gm Of Glucse In 37.5 Gm Tube PO PRN PRN Hypoglycemia Protocol Dextrose 1,000 mls @ 100 mls/hr 04/25/24 14:54 Dextrose 5% 1,000 Ml IVPB PRN PRN Hypoglycemia Protocol Insulin Human Lispro 2 - 5 units 04/25/24 17:00 05/06/24 17:12 Insulin Human Lispro (*Bkc) 1,000 Units/10 Ml Vial SUB-Q Not Given TIDWM AMAURY Protocol Lactobacillus Acidophilus 1 tablet 04/25/24 17:00 05/06/24 20:39 Acidophilus/Bulgaricus Chewable Tablet PO 1 tablet QID AMAURY Administration Levothyroxine Sodium 300 mcg 04/26/24 06:30 05/07/24 06:24 Levothyroxine Sodium 100 Mcg Tablet PO 300 mcg DAILY@0630 AMAURY Administration Loperamide HCl 2 mg 04/25/24 15:55 04/28/24 12:23 Loperamide Hcl 2 Mg Capsule PO 2 mg Q6H PRN Administration Diarrhea Metformin HCl 1,000 mg 04/25/24 17:00 05/06/24 17:11 Metformin Hcl 500 Mg Tablet PO 1,000 mg BID AMAURY Administration Nonformulary Drug ( 1 each 04/26/24 09:00 05/06/24 09:34 Propranolol 80mg Er PO 05/26/24 08:59 1 each Capsule) DAILY AMAURY Administration Ondansetron HCl 4 mg 04/25/24 14:54 Ondansetron Hcl Odt 4 Mg Tablet PO Q6H PRN Nausea And Vomiting Pantoprazole Sodium 20 mg 04/29/24 09:00 05/06/24 09:36 Pantoprazole Sod Sesquihydrate 20 Mg Tab PO 20 mg QAM AMAURY Administration Polyethylene Glycol 17 gm 05/02/24 11:15 05/06/24 09:33 Polyethylene Glycol 3350 17 Gm Powd.Pack PO 17 gm QAM AMAURY Administration Potassium Chloride 20 meq 04/25/24 17:00 05/06/24 17:11 Potassium Chloride 20 Meq Er Tablet PO 20 meq BID AMAURY Administration Sucralfate 1 gm 04/29/24 08:00 05/07/24 06:24 Sucralfate 1 Gm Tablet PO 1 gm ACHS AMAURY Administration Zonisamide 400 mg 04/26/24 09:00 05/06/24 09:35 Zonisamide 100 Mg Capsule PO 400 mg DAILY AMAURY Administration Labs Labs: Laboratory Results - last 24 hr 05/06/24 05/06/24 05/06/24 11:35 16:32 20:44 POC Capillary Glucose 186 H 156 H 270 H
[2024-05-07] MEDS: polyethylene glycoL 3350 17 GM POWD.PACK PO (08:25)
[2024-05-07] MEDS: CYCLOBENZAPRINE HCL 5 MG TABLET PO ×2 (08:27→21:04)
[2024-05-07] MEDS: PROPRANOLOL 80 MG PO (08:27)
[2024-05-07] MEDS: [UNRECOGNIZED DRUG - OTHER] PO (08:27)
[2024-05-07] MEDS: EZETIMIBE 10 MG TABLET PO (08:28)
[2024-05-07] MEDS: DULoxetine HCL 30 MG CAPSULE.DR 120 MG PO (08:28)
[2024-05-07] MEDS: ACIDOPHILUS/BULGARICUS CHEWABLE TABLET 1 TABLET PO ×4 (08:29→21:04)
[2024-05-07] MEDS: buPROPion HCL XL (24 HR) 150 MG TABCR PO (08:29)
[2024-05-07] MEDS: POTASSIUM CHLORIDE 20 MEQ ER TABLET PO ×2 (08:31→16:45)
[2024-05-07] MEDS: ASPIRIN 81 MG ENTERIC TABLET PO (08:31)
[2024-05-07] MEDS: metFORMIN HCL 500 MG TABLET 1000 MG PO ×2 (08:31→16:46)
[2024-05-07] MEDS: FOLIC ACID 1 MG TABLET PO (08:32)
[2024-05-07] MEDS: allopurinoL 100 MG TABLET PO (08:32)
[2024-05-07] MEDS: PANTOPRAZOLE SOD SESQUIHYDRATE 20 MG TAB PO (08:32)
[2024-05-07] MEDS: FUROSEMIDE 40 MG TABLET 80 MG PO (08:34)
[2024-05-07] MEDS: glipiZIDE 5 MG TABLET 10 MG PO ×2 (08:34→16:44)
[2024-05-07] MEDS: ATORVASTATIN 40 MG TABLET PO (08:35)
[2024-05-07] MEDS: ZONISAMIDE 100 MG CAPSULE 400 MG PO (08:41)
[2024-05-07 09:13] LABS: Hematocrit 36.7 % (35.0-42.0); Hemoglobin 12.7 g/dL (11.7-13.8); Mean Corpuscular HGB Conc 34.6 g/dL (32-36); Mean Corpuscular Hemoglobin 30.8 pg (27.0-31.0); Mean Corpuscular Volume 89.1 fL (78.0-102.0); Mean Platelet Volume 9.9 fl (9.2-11.8); Platelet Count Result 183 K/mm3 (150-420); Red Blood Count 4.12 M/mm3 (4.20-5.40); Red Cell Distribution Width 13.3 % (11.6-14.4)
[2024-05-07 09:35] LABS: Alanine Aminotransferase 29 U/L (14-59); Albumin Level 3.3 g/dL (3.4-5.0); Alkaline Phosphatase 87 U/L (46-116); Anion Gap 8 mmol/L (4-12); Aspartate Amino Transferase 18 U/L (15-37); Bilirubin,Total 0.6 mg/dL (0.00-1.00); Blood Urea Nitrogen 35 mg/dL (7-18); Calcium 9.2 mg/dL (8.5-10.1); Carbon Dioxide 30 mmol/L (21-32); Chloride 100 mmol/L (98-108); Estimated CRCL calculation 38 ml/min; Estimated Glomerular Filt Rate 34; Glucose 162 mg/dL (70-99); Magnesium 1.6 mg/dL (1.8-2.4); Osmolality Calculated 298 mOsm/kg (285-295); Potassium 3.9 mmol/L (3.5-5.1); Sodium 138 mmol/L (136-145); Total Protein 6.8 g/dL (6.4-8.2)
[2024-05-07 11:28] LABS: Glucose Point of Care 198 mg/dl (65-105)
[2024-05-07 16:00] VITALS: BP 115/56; PULSE 70; RESP 16; TEMP 36.8; O2SAT 95
[2024-05-07 16:21] LABS: Glucose Point of Care 113 mg/dl (65-105)
[2024-05-07 16:57] LABS: Glucose Point of Care 184 mg/dl (65-105)
[2024-05-07 17:13] LABS: Alpha-Tocopherol 8.2 mg/L (5.7-19.9); Beta-Gamma Tocopherol 1.5 mg/L (<4.4)
[2024-05-08] VITALS: BP 137/82; PULSE 70; RESP 16; TEMP 36.4; O2SAT 96
[2024-05-08 00:56] LABS: Glucose Point of Care 160 mg/dl (65-105)
[2024-05-08] MEDS: HYDROcodone/acetaminophen (*CRX) 7.5-325 MG TABLET 1 TAB PO ×4 (01:40→20:40)
[2024-05-08] MEDS: SUCRALFATE 1 GM TABLET PO ×4 (06:20→20:40)
[2024-05-08] MEDS: LEVOTHYROXINE SODIUM 100 MCG TABLET 300 MCG PO (06:20)
[2024-05-08 07:49] LABS: Glucose Point of Care 90 mg/dl (65-105)
[2024-05-08 08:00] VITALS: BP 133/63; PULSE 64; RESP 14; TEMP 36.2; O2SAT 99
[2024-05-08] MEDS: PROPRANOLOL 80 MG PO (08:58)
[2024-05-08] MEDS: [UNRECOGNIZED DRUG - OTHER] PO (08:58)
[2024-05-08] MEDS: ZONISAMIDE 100 MG CAPSULE 400 MG PO (08:59)
[2024-05-08] MEDS: DULoxetine HCL 30 MG CAPSULE.DR 120 MG PO (08:59)
[2024-05-08] MEDS: PANTOPRAZOLE SOD SESQUIHYDRATE 20 MG TAB PO (08:59)
[2024-05-08] MEDS: buPROPion HCL XL (24 HR) 150 MG TABCR PO (09:00)
[2024-05-08] MEDS: ATORVASTATIN 40 MG TABLET PO (09:00)
[2024-05-08] MEDS: metFORMIN HCL 500 MG TABLET 1000 MG PO ×2 (09:00→17:30)
[2024-05-08] MEDS: POTASSIUM CHLORIDE 20 MEQ ER TABLET PO ×2 (09:00→17:30)
[2024-05-08] MEDS: ASPIRIN 81 MG ENTERIC TABLET PO (09:01)
[2024-05-08] MEDS: FOLIC ACID 1 MG TABLET PO (09:01)
[2024-05-08] MEDS: FUROSEMIDE 40 MG TABLET 80 MG PO (09:01)
[2024-05-08] MEDS: allopurinoL 100 MG TABLET PO (09:01)
[2024-05-08] MEDS: glipiZIDE 5 MG TABLET 10 MG PO ×2 (09:01→17:30)
[2024-05-08] MEDS: ACIDOPHILUS/BULGARICUS CHEWABLE TABLET 1 TABLET PO ×4 (09:01→20:41)
[2024-05-08] MEDS: CYCLOBENZAPRINE HCL 5 MG TABLET PO ×2 (09:02→20:40)
[2024-05-08] MEDS: EZETIMIBE 10 MG TABLET PO (09:02)
[2024-05-08 11:51] LABS: Glucose Point of Care 127 mg/dl (65-105)
[2024-05-08 16:00] VITALS: BP 123/74; PULSE 78; RESP 18; TEMP 36.1; O2SAT 97
[2024-05-08 16:35] LABS: Glucose Point of Care 138 mg/dl (65-105)
[2024-05-08 22:01] LABS: Glucose Point of Care 151 mg/dl (65-105)
[2024-05-09] VITALS: BP 146/53; PULSE 63; RESP 16; TEMP 36.8; O2SAT 98
[2024-05-09] MEDS: SUCRALFATE 1 GM TABLET PO ×2 (06:08→11:30)
[2024-05-09] MEDS: LEVOTHYROXINE SODIUM 100 MCG TABLET 300 MCG PO (06:08)
[2024-05-09 08:00] VITALS: BP 152/55; PULSE 68; RESP 14; TEMP 36.6; O2SAT 98
[2024-05-09 08:10] LABS: Glucose Point of Care 96 mg/dl (65-105)
[2024-05-09] MEDS: HYDROcodone/acetaminophen (*CRX) 7.5-325 MG TABLET 1 TAB PO ×2 (08:54→13:21)
[2024-05-09] MEDS: buPROPion HCL XL (24 HR) 150 MG TABCR PO (08:56)
[2024-05-09] MEDS: ZONISAMIDE 100 MG CAPSULE 400 MG PO (08:56)
[2024-05-09] MEDS: EZETIMIBE 10 MG TABLET PO (08:56)
[2024-05-09] MEDS: FOLIC ACID 1 MG TABLET PO (08:56)
[2024-05-09] MEDS: glipiZIDE 5 MG TABLET 10 MG PO (08:56)
[2024-05-09] MEDS: metFORMIN HCL 500 MG TABLET 1000 MG PO (08:57)
[2024-05-09] MEDS: ACIDOPHILUS/BULGARICUS CHEWABLE TABLET 1 TABLET PO ×2 (08:57→13:21)
[2024-05-09] MEDS: DULoxetine HCL 30 MG CAPSULE.DR 120 MG PO (08:57)
[2024-05-09] MEDS: CYCLOBENZAPRINE HCL 5 MG TABLET PO (08:57)
[2024-05-09] MEDS: PANTOPRAZOLE SOD SESQUIHYDRATE 20 MG TAB PO (08:57)
[2024-05-09] MEDS: ASPIRIN 81 MG ENTERIC TABLET PO (08:58)
[2024-05-09] MEDS: [UNRECOGNIZED DRUG - OTHER] PO (08:58)
[2024-05-09] MEDS: allopurinoL 100 MG TABLET PO (08:58)
[2024-05-09] MEDS: ATORVASTATIN 40 MG TABLET PO (08:58)
[2024-05-09] MEDS: PROPRANOLOL 80 MG PO (08:58)
--- NOTE | 2024-05-09 09:49 | P.DS_ITS ---
DS: Admitting Diagnosis Discharge Date 05/09/2024 Admitting Diagnosis Generalized weakness/Rehab/Unsteady Gait DS: Discharge Diagnosis Discharge Diagnosis (1) Weakness: Code(s): R53.1 - Weakness Status: Acute Assessment and Plan: * continue PT and OT at home * use walker as instructed encourage continued strength training and activity at home * Care confrence again today at 11 a..m. (2) Unsteady gait: Code(s): R26.81 - Unsteadiness on feet Status: Acute Assessment and Plan: * continue PT and OT at home (3) Depression: Code(s): F32.9 - Major depressive disorder, single episode, unspecified Status: Acute Assessment and Plan: * Resume your home mediations as scheduled (4) Left shoulder pain: Code(s): M25.512 - Pain in left shoulder Status: Acute Assessment and Plan: * left shoulder x-ray showed polyarticular osteoarthritis, no malalignment or fracture seen. * Continue pain control * On examination she had tenderness over the AC joint as well as rotator cuff pain anterior shoulder, she has decreased range of motion even with passive range of motion she can only get to about 35-45 degree angle before pain. She denied any numbness or tingling down the arm. * continue PT and OT * will require outpatient MRI ordered was provided * Can use ice or warm compresses for comfort (5) Diverticulitis: Code(s): K57.92 - Diverticulitis of intestine, part unspecified, without perforation or abscess without bleeding Status: Acute Assessment and Plan: * Continue miralax and probiotic (6) Occipital neuralgia: Code(s): M54.81 - Occipital neuralgia Status: Acute Plan Disposition: Discharged to home with walker DS: Summary Hospital Course Reason for hospitalization: Generalized weakness/Rehab/Unsteady Gait Hospital Course: Patient is a 74-year-old female who admitted to [facility] bed for continued rehabilitation. Patient recently hospitalized due to acute diverticulitis and generalized weakness as well left shoulder pain. patient with a significant past medical history of anemia, anxiety, asthma, depression, diabetes, hypothyroidism, migraines, obesity, hyperlipidemia, and former smoker. patient was discharged and cleared from medical standpoint for her acute diverticulitis was tolerating oral intake in minimal abdominal pain continued on oral antibiotics. to did continue to have left shoulder pain and x-ray showed osteoarthritis initially a MRI was ordered however due to patient's habitus it was unable to be performed with the mobile MRI unit at [facility]. Patient continued to improve with her unsteady gait and strength training during her admission to [facility] swing bed. patient was provided with a walker for discharge to continue her physical therapy and strength training home. Patient still with intermittent constipation/ diarrhea secondary to IBS. She was encouraged on oral hydration, probiotic and she can use MiraLax for constipation and her Imodium for diarrhea. patient with overall improvement to her strength during her rehabilitation and was cleared by Physical therapy to return home. She was provided with a order for MRI shoulder for further evaluation she can then follow-up with her primary care physician if needed for referral to Orthopedics. patient acknowledged and agreed with discharge plan patient was discharged home. Status at Discharge Functional status at discharge: uses cane/walker Overall status at discharge: patient is back to baseline Time Spent with Patient Time attestation: Total time spent providing and/or coordinating discharge services: Time spent: Greater than 30 minutes Exam Narrative: General: In no acute distress, well nourished Cardiac: Normal S1 and S2. mild murmur. No gallops or friction rubs, peripheral pulses intact. Respiratory: Lungs clear and diminished in the bases, no adventitious lung sounds, currently on room air Gastrointestinal: soft, non-distended, non-tender, hypoactive bowel sounds. : voiding without difficulty. Extremities: moves all extremities, no edema, reporting numbness down both legs Skin: clean, dry, intact. No wounds or lesions. Neuro: Alert and oriented x4 Psych: tearful today DS: Data Data Completed and Pending Labs on day of discharge: Labs from last 24 hours 05/09/24 05/08/24 05/08/24 07:57 20:38 16:33 POC Capillary Glucose 96 151 H 138 H 05/08/24 11:46 POC Capillary Glucose 127 H Discharge Plan Discharge Attending physician on discharge: Jake Gonzalez Discharging Clinician: Alma Eaton Patient Disposition: Home, Self-Care Activity: as tolerated Diet: as tolerated and diabetic Discharge Instructions: * I included MRI requisites for your lower back and for your left shoulder. Get these done in the next week and follow up with your primary care doctor. Patient Instructions: Antibiotic Form, Irritable Bowel Syndrome (DC), Diverticulitis (DC), How to Choose and Use a Walker (GEN), Benefits of an Active Lifestyle (DC), Physical Activity for Older Adults (GEN) Patient Language: Lao Stand Alone Forms: General Discharge Information Follow-up/Referrals: Yoshi Bear MD [Primary Care Provider] - 1 week Discharge Medications: New hydrocodone-acetaminophen 7.5-325 mg Tablet 1 tablet PO Q4H PRN (Reason: Pain Rated 7-10) Qty: 20 0RF sucralfate 1 gram Tablet 1 g PO ACHS Qty: 120 0RF polyethylene glycol 3350 [Miralax] 17 gram Powder In Packet 17 g PO QAM Qty: 30 0RF folic acid 1 mg Tablet 1 mg PO DAILY Qty: 30 0RF Continued potassium chloride 20 mEq Tablet Extended Release 20 meq PO BID acetaminophen 325 mg Tablet 650 mg PO Q4H PRN (Reason: Mild Pain (1-3) Or Fever) Qty: 1 0RF loperamide 2 mg Capsule 2 mg PO Q6H PRN (Reason: Diarrhea) Qty: 1 0RF furosemide 40 mg tablet 80 mg PO QAM metformin 1,000 mg tablet 1,000 mg PO BID glipizide 10 mg tablet 10 mg PO BID zonisamide 100 mg capsule 400 mg PO DAILY duloxetine [Cymbalta] 60 mg capsule,delayed release(DR/EC) 120 mg PO DAILY bupropion HCl [Wellbutrin XL] 150 mg tablet extended release 24 hr 150 mg PO QAM propranolol 40 mg tablet 80 mg PO QAM atorvastatin 40 mg tablet 40 mg PO DAILY aspirin 81 mg tablet,delayed release (DR/EC) 81 mg PO DAILY (DME) blood-glucose meter Kit See Rx Instructions .ROUTE .MEDSUPPLY Qty: 1 0RF Rx Instructions: use to check BS BID (DME) lancets 33 gauge misc See Rx Instructions .ROUTE .MEDSUPPLY Qty: 100 2RF Rx Instructions: USE 1 LANCET EACH TIME TO CHECK BS BID (DME) pen needle, diabetic [BD Ultra-Fine Kayley Pen Needle] 32 gauge x 5/32 needle See Rx Instructions .ROUTE .MEDSUPPLY Qty: 100 2RF Rx Instructions: use one each time you inject insulin BID (DME) pen needle, diabetic [BD Ultra-Fine Kayley Pen Needle] 32 gauge x 5/32 needle See Rx Instructions .ROUTE .MEDSUPPLY Qty: 100 1RF Rx Instructions: use one daily allopurinol 100 mg tablet 100 mg PO DAILY ezetimibe 10 mg tablet 10 mg PO DAILY levothyroxine 150 mcg Tablet 300 mcg PO DAILY (DME) FreeStyle Lite Strips Strip See Rx Instructions .ROUTE .MEDSUPPLY Qty: 200 1RF Rx Instructions: use one strip to check BS BID Discontinued amoxicillin-pot clavulanate 875-125 mg tablet 1 tablet PO Q12H Qty: 11 0RF Other Ambulatory Orders: MR lumbar spine wo con (Routine) Timeframe: 1 Week Location: Determined by Patient Ordered By: Alma Eaton MR shoulder LT wo/w con (Routine) Timeframe: 1 Week Location: Determined by Patient Ordered By: Alma Eaton Date of admission: 04/25/24 14:39 Primary Care Provider: Yoshi Bear Admitting Provider: Jake Gonzalez Attending physician on admission: Elena Hillman Condition: Stable Quality -Patient's previous records reviewed on admission -ER notes reviewed in detail on admission -discussed all findings and current treatment plan with patient/Family/POA -Consultations reviewed for recommendations -Patient's disposition for safe discharge discussed with case fitter Dictation performed by [employer] direct speech recognition software, therefore coil winder strap variants and typographical errors may occur. Hospitalist MIPS Heart Failure (Exclusion) Patient has history of Heart Transplant or Left Ventricular Assistive Device?: No IF YES, STOP HERE Heart Failure (Qualifier) Patient has current or prior documentation of LVEF less than or equal to 40%, or mod/servere depressed LVSF?: No IF NO, STOP HERE
[2024-05-09 11:43] LABS: Glucose Point of Care 170 mg/dl (65-105)
[2024-05-09] MEDS: LOPERAMIDE HCL 2 MG CAPSULE PO (13:21)
[2024-05-09 16:00] VITALS: BP 134/64; PULSE 65; RESP 16; TEMP 36.1; O2SAT 96
[2024-05-09 16:59] LABS: Glucose Point of Care 141 mg/dl (65-105)
--- NOTE | 2024-05-09 17:15 | PC.NURSE ---
Patient discharging home. All discharge instructions and education reviewed with patient. All questions answered. All belongings gathered together and sent home with patient. This nurse accompanied to front door via wheelchair, left via private vehicle with nephew. Denies any needs or concerns at discharge. Old walker and new walker sent home with patient.
--- NOTE | 2024-05-10 09:08 | PC.NURSE ---
Discharge call back attempted, no answer
--- NOTE | 2024-05-13 09:28 | PC.NURSE ---
Discharge call back attempted unable to reach
== END 2024-05-09 17:15 | disposition home or self-care (01) | DRG 948 ==
PROVIDERS: Nurse Practitioner Acute Care; Admitting Provider Internal Medicine; PCP Internal Medicine; Visit Provider Nurse Practitioner Family
DX: R53.1 Weakness (principal); K57.32 Diverticulitis of large intestine without perforation or abscess without bleeding; N18.9 Chronic kidney disease, unspecified; E11.22 Type 2 diabetes mellitus with diabetic chronic kidney disease; E03.9 Hypothyroidism, unspecified; E78.5 Hyperlipidemia, unspecified; J45.909 Unspecified asthma, uncomplicated; M19.012 Primary osteoarthritis, left shoulder; M54.81 Occipital neuralgia; R26.81 Unsteadiness on feet; F32.A Depression, unspecified; F41.9 Anxiety disorder, unspecified; Z87.891 Personal history of nicotine dependence; Z87.442 Personal history of urinary calculi; Z79.82 Long term (current) use of aspirin
CPT/HCPCS: 36415; 72100; 80053; 82306; 82607; 82746; 82948; 83735; 84446; 85027; 97110; 97161; 97165; 97530; 97535; A9270; J1815; J8540

== ENCOUNTER 2024-05-12 09:19 | Emergency (ER) | payer MEDICARE, SELFPAY ==
--- NOTE | ~2024-05-12 | CT_ITS ---
EXAMINATION: CT abdomen pelvis w con DATE: 05/12/2024 10:29 INDICATION: Generalized abdominal pain. TECHNIQUE: Computed tomography (CT) of the abdomen and pelvis was performed with 100 mL Omnipaque 350 intravenous contrast. Automated exposure control and iterative reconstruction technique were employe d. The dose-length product was 1637.04 mGy-cm. COMPARISON: CT abdomen and pelvis 04/21/2024 FINDINGS: The visualized portions of lung bases demonstrate mild atelectasis. No pleural effusion. Th e heart size is normal. There are coronary artery calcifications. No pericardial effusion. The gallbl adder is distended and contains sludge versus stones. The liver, spleen, pancreas, and adrenal glands are normal. There are cysts in the kidneys measuring up to 8 mm on the right. There is a 12 mm mass of fat in left kidney, consistent with an angiomyolipoma. There is a 2 mm stone in right kidney. Ther e are 3 mm stones in left kidney measuring up to 4 mm. There is an umbilical hernia containing fat. T here is diverticulosis of the colon without evidence of diverticulitis. There are no dilated loops of bowel. The appendix is not visualized. There are no pathologically enlarged lymph nodes. There is no free intraperitoneal fluid. There is skin thickening and subcutaneous fat stranding in the low anter ior abdominal wall, consistent with inflammation. There is severe lumbar spondylosis. IMPRESSION: 1. Gallbladder sludge versus stones. Gallbladder distention may be secondary to fasting or acute chol ecystitis. Correlate with physical exam. 2. Umbilical hernia containing fat. 3. Skin thickening and fat stranding involving the low anterior abdominal wall (pannus), consistent w ith inflammation. Reviewed, dictated and finalized at location [facility] IMPRESSION: 1. Gallbladder sludge versus stones. Gallbladder distention may be secondary to fasting or acute cholecystitis. Correlate with physical exam. 2. Umbilical hernia containing fat. 3. Skin thickening and fat stranding involving the low anterior abdominal wall (pannus), consistent with inflammation.
[2024-05-12 09:39] VITALS: BP 191/100; PULSE 81; RESP 20; TEMP 36.4; O2SAT 99
[2024-05-12 09:51] LABS: Basophils Percent Auto 0.3 % (0.2-1.2); Eosinophils Absolute Auto 0.1 K/mm3 (0-0.3); Eosinophils Percent Auto 1.5 % (0-4.4); Hematocrit 40.2 % (37.0-47.0); Hemoglobin 13.6 g/dL (12.0-15.0); Immature Granulocyte Absolute 0.04 K/mm3 (0.00-0.031); Immature Granulocyte Percent A 0.4 % (0-0.5); Lymphocytes Absolute Auto 0.78 K/mm3 (0.9-3.2); Lymphocytes Percent Auto 8.2 % (18.3-44.2); Mean Corpuscular HGB Conc 33.8 g/dl (32-36); Mean Corpuscular Hemoglobin 30.6 pg (26-34); Mean Corpuscular Volume 90.3 fl (80-100); Mean Platelet Volume 10.2 fl (7.4-10.4); Monocytes Absolute Auto 0.5 K/mm3 (0.1-0.6); Monocytes Percent Auto 5.2 % (2.6-8.5); Neutrophils Absolute Auto 8.1 K/mm3 (1.3-6.7); Neutrophils Percent Auto 84.4 % (45.5-73.1); Platelet Count Result 178 k/mm3 (150-375); Red Blood Count 4.45 M/mm3 (4.2-5.4); Red Cell Distribution Width 13.8 % (11.5-14.5); White Blood Count 9.6 K/mm3 (4.5-10.0)
[2024-05-12 09:59] LABS: Alanine Aminotransferase 24 U/L (6-35); Alkaline Phosphatase 84 U/L (38-126); Anion Gap 3 mmol/L (4-12); Aspartate Amino Transferase 26 U/L (14-36); Bilirubin,Total 0.8 mg/dL (0.2-1.3); Blood Urea Nitrogen 23 mg/dL (7-17); Calcium 9.3 mg/dL (8.4-10.2); Carbon Dioxide 28 mmol/L (22-30); Chloride 103 mmol/L (98-107); Estimated CRCL calculation 51 ml/min; Estimated Glomerular Filt Rate 49; Glucose 175 mg/dL (65-110); Lipase 20 U/L (23-300); Potassium 3.2 mmol/L (3.4-5.0); Sodium 134 mmol/L (137-145)
--- NOTE | 2024-05-12 10:08 | ED_ITS ---
HPI - General Adult General Chief complaint: Abdominal Pain Stated complaint: n/v/d Time Seen by Provider: 05/12/24 09:25 History of Present Illness HPI narrative: Patient is a 74-year-old female who presents ER with diarrhea. Reports has been ongoing for several weeks. Had been hospitalized at [facility] for diarrhea and to rehab. No fevers or chills or sweats. No blood in stool. Reports she feels full and has not been eating. Her stools water like. She reports she was tested for C diff and was negative. She was treated briefly for diverticulitis. Related Data Home Medications ?Medication ?Instructions ?Recorded ?Confirmed ?Last Taken ?Type aspirin 81 mg tablet,delayed 81 mg PO DAILY 04/22/19 04/25/24 02/08/21 History release atorvastatin 40 mg tablet 40 mg PO DAILY 04/22/19 04/25/24 Unknown History bupropion HCl 150 mg 24 hr tablet, 150 mg PO QAM 04/22/19 04/25/24 Unknown History extended release (Wellbutrin XL) duloxetine 60 mg capsule,delayed 120 mg PO DAILY 04/22/19 04/25/24 Unknown History release (Cymbalta) furosemide 40 mg tablet 80 mg PO QAM 04/22/19 04/25/24 Unknown History glipizide 10 mg tablet 10 mg PO BID 04/22/19 04/25/24 Unknown History metformin 1,000 mg tablet 1,000 mg PO BID 04/22/19 04/25/24 Unknown History propranolol 40 mg tablet 80 mg PO QAM 04/22/19 04/25/24 02/15/21 18:00 History zonisamide 100 mg capsule 400 mg PO DAILY 04/22/19 04/25/24 Unknown History allopurinol 100 mg tablet 100 mg PO DAILY 10/28/20 04/25/24 Unknown History ezetimibe 10 mg tablet 10 mg PO DAILY 10/28/20 04/25/24 Unknown History levothyroxine 150 mcg tablet 300 mcg PO DAILY 12/16/20 04/25/24 Unknown History potassium chloride 20 mEq 20 meq PO BID 04/22/24 04/25/24 Unknown History tablet,extended release Allergies Allergy/AdvReac Type Severity Reaction Status Date / Time cephalexin (From Keflex) Allergy Unknown Rash Verified 05/12/24 09:29 Review of Systems 2 Review of Systems: All systems reviewed & are unremarkable except as noted in HPI and below Constitutional: Constitutional: Reports fatigue, Denies fever(s) and Reports weakness ENT: Reports system reviewed and no additional complaints, except as documented Cardiovascular: Cardiovascular: Reports no additional cardiovascular complaints Respiratory: Respiratory: Reports no additional respiratory complaints Gastrointestinal: Gastrointestinal: Reports abdominal pain, Reports diarrhea, Denies nausea and Denies vomiting [facility] Past Medical History Medical History (Updated 05/12/24 @ 14:46 by Sridhar Joshi MD) Occipital neuralgia Renal calculus, bilateral Constipation Abdominal pain Hypothyroidism Tear, knee, medial meniscus H/O thyroid disease Shortness of breath Obesity Migraines Diabetes Depression Chest pain Blood disorder Back pain Asthma Arthritis Anemia Anxiety Surgical History Surgical History Hx of cystoscopy History of esophagogastroduodenoscopy (EGD) Hx of tonsillectomy Hx of dilation and curettage Family History Family History (Updated 04/25/24 @ 19:01 by Dejah Gunter RN) Sibling Obesity Other ADD (attention deficit disorder) Alzheimer's dementia Anemia Anxiety Arthritis Asthma Atrial fibrillation Back pain CAD (coronary artery disease) Cataracts, bilateral Chest pain Depression Diabetes mellitus Glaucoma H/O thyroid disease Hearing loss Heart disease Hypertension Migraines Osteoporosis Ovarian cancer Renal disease Shortness of breath Visual loss Social History Social History Smoking packs per day: 1 Smoking cigarettes per day: 20.0 Years smoked: 35 Smoking pack-years: 35.00 Smoking status: Former smoker Tobacco type: cigarettes and e-cigarettes/vaping Second hand tobacco smoke exposure: No Smoking end date: 05/22/02 Additional smoking assessment comments: QUIT 2002 Alcohol intake: never Substance use: current Substance use type: marijuana Other substance usage details: EVERYDAY - EVERY OTHER DAY Last use: 02/11/21 Do You Feel Safe in your Home?: Yes Lack of Transportation: No Lack of Food: Never True Current Housing: I Have Housing Concerned About Future Housing: No Difficulty Paying Gas/Electric Bills: No Difficulty Paying for Meds: No Currently Unemployed: No Education: High School Diploma/GED Difficulty w/ Childcare or Family Care: No Living arrangements: alone Occupation/Education: retired Spiritual care concerns: No Exam 2 Narrative: GENERAL: Well-appearing, Morbidly obese, and in no acute distress. HEAD: Normocephalic, atraumatic. ENT: Mucous membranes moist. CHEST: Clear to auscultation. No respiratory distress. HEART: Regular rate and rhythm. Normal peripheral pulses. ABDOMEN: Soft, diffusely tender abdomen, nondistended. EXTREMITIES: Normal range of motion. No edema. SKIN: Warm, dry, no rash. NEURO: Alert and oriented x3. PSYCH: Normal mood and affect. Course Course Emergency Course: patient reports voluminous constant diarrhea at home but unable to provide any samples while in the ER. Appropriate for discharge home. labs unremarkable. CT scan distended gallbladder as felt to be related to fasting. Patient hydrated with fluids. Vital Signs Vital signs: Vital Signs Temperature 97.6 F 05/12/24 09:39 Pulse Rate 81 05/12/24 09:39 Respiratory Rate 20 05/12/24 09:39 Blood Pressure 191/100 H 05/12/24 09:39 Pulse Oximetry 99 05/12/24 09:39 Temperature 97.6 F 05/12/24 09:39 Pulse Rate 77 05/12/24 13:03 Respiratory Rate 20 05/12/24 13:03 Blood Pressure 172/98 H 05/12/24 13:03 Pulse Oximetry 97 05/12/24 13:03 Medical Decision Making Vital Signs Vital Signs: Vital Signs Temperature 97.6 F 05/12/24 09:39 Pulse Rate 81 05/12/24 09:39 Respiratory Rate 20 05/12/24 09:39 Blood Pressure 191/100 H 05/12/24 09:39 Pulse Oximetry 99 05/12/24 09:39 Temperature 97.6 F 05/12/24 09:39 Pulse Rate 77 05/12/24 13:03 Respiratory Rate 20 05/12/24 13:03 Blood Pressure 172/98 H 05/12/24 13:03 Pulse Oximetry 97 05/12/24 13:03 Lab Data 05/12/24 09:42 05/12/24 09:42 Labs: Lab Results 05/12/24 05/12/24 Range/Units 09:42 11:31 WBC 9.6 (4.5-10.0) K/mm3 RBC 4.45 (4.2-5.4) M/mm3 Hgb 13.6 (12.0-15.0) g/dL Hct 40.2 (37.0-47.0) % MCV 90.3 (80-100) fl MCH 30.6 (26-34) pg MCHC 33.8 (32-36) g/dl RDW 13.8 (11.5-14.5) % Plt Count 178 (150-375) k/mm3 MPV 10.2 (7.4-10.4) fl Immature Gran % (Auto) 0.4 (0-0.5) % Neut % (Auto) 84.4 H (45.5-73.1) % Lymph % (Auto) 8.2 L (18.3-44.2) % [place] % (Auto) 5.2 (2.6-8.5) % Eos % (Auto) 1.5 (0-4.4) % Baso % (Auto) 0.3 (0.2-1.2) % Lymph # (Auto) 0.78 L (0.9-3.2) K/mm3 [place] # (Auto) 0.5 (0.1-0.6) K/mm3 Eos # (Auto) 0.1 (0-0.3) K/mm3 Baso # (Auto) 0.0 (0.0-0.1) K/mm3 Abs Immat Gran (auto) 0.04 H (0.00-0.031) K/mm3 Absolute Neuts (auto) 8.1 H (1.3-6.7) K/mm3 Absolute Nucleated RBC 0.000 (0.0-0.012) K/mm3 Nucleated RBC % 0.0 (0.0-0.2) % Sodium 134 L (137-145) mmol/L Potassium 3.2 L (3.4-5.0) mmol/L [facility] 103 (98-107) mmol/L Carbon Dioxide 28 (22-30) mmol/L Anion Gap 3 L (4-12) mmol/L BUN 23 H D (7-17) mg/dL Creatinine 1.10 H (0.7-1.0) mg/dL Estim Creat Clear Calc 51 ml/min Estimated GFR 49 L (59 - ) Glucose 175 H (65-110) mg/dL Calcium 9.3 (8.4-10.2) mg/dL Total Bilirubin 0.8 (0.2-1.3) mg/dL AST 26 (14-36) U/L ALT 24 (6-35) U/L Alkaline Phosphatase 84 (38-126) U/L Total Protein 7.0 (6.3-8.2) g/dL Albumin 4.0 (3.5-5.1) g/dL Lipase 20 L (23-300) U/L Urine Color Yellow (Yellow) Urine Appearance Clear (Clear) Urine pH 5.5 (5.0-9.0) Ur Specific [place] 1.039 H (1.001-1.035) Urine Protein 1+ H (Negative) mg/dL Urine Glucose (UA) Negative (Negative) mg/dL Urine Ketones 1+ H (Negative) mg/dL Ur Blood (Man) Negative (Negative) Urine Nitrate Negative (Negative) Urine Bilirubin Negative (Negative) Urine Urobilinogen 1.0 (<2.0) mg/dL Add Ur Microanalysis Reviewed Leukocyte Esterase Rfl Negative (Negative) RAMSES/UL Urine RBC 0-2 (0-2) /hpf Urine WBC 0-5 (0-3) /hpf Ur Squamous Epith Cells None seen (Few) /hpf Urine Bacteria None seen /hpf Urine Casts 0-2 Discharge Plan Discharge Clinical Impression: Gastroenteritis Patient Disposition: Home, Self-Care Condition: Stable Instructions: Gastroenteritis (ED) Additional Instructions: Please drink plenty of fluids at home. Return to the emergency department if you develop high fevers, have persistent severe abdominal pain, or have bloody stools or vomit, as these could be signs of a more serious medical emergency. Return to the emergency department if you are unable to keep down liquids because of severe nausea/vomiting. Patient Language: Maori Prescriptions: No Action potassium chloride 20 mEq Tablet Extended Release 20 meq PO BID acetaminophen 325 mg Tablet 650 mg PO Q4H PRN (Reason: Mild Pain (1-3) Or Fever) Qty: 1 0RF loperamide 2 mg Capsule 2 mg PO Q6H PRN (Reason: Diarrhea) Qty: 1 0RF polyethylene glycol 3350 [Miralax] 17 gram Powder In Packet 17 g PO QAM Qty: 30 0RF hydrocodone-acetaminophen 7.5-325 mg Tablet 1 tablet PO Q4H PRN (Reason: Pain Rated 7-10) Qty: 20 0RF folic acid 1 mg Tablet 1 mg PO DAILY Qty: 30 0RF sucralfate 1 gram Tablet 1 g PO ACHS Qty: 120 0RF furosemide 40 mg tablet 80 mg PO QAM metformin 1,000 mg tablet 1,000 mg PO BID glipizide 10 mg tablet 10 mg PO BID zonisamide 100 mg capsule 400 mg PO DAILY duloxetine [Cymbalta] 60 mg capsule,delayed release(DR/EC) 120 mg PO DAILY bupropion HCl [Wellbutrin XL] 150 mg tablet extended release 24 hr 150 mg PO QAM propranolol 40 mg tablet 80 mg PO QAM atorvastatin 40 mg tablet 40 mg PO DAILY aspirin 81 mg tablet,delayed release (DR/EC) 81 mg PO DAILY (DME) blood-glucose meter Kit See Rx Instructions .ROUTE .MEDSUPPLY Qty: 1 0RF Rx Instructions: use to check BS BID (DME) lancets 33 gauge misc See Rx Instructions .ROUTE .MEDSUPPLY Qty: 100 2RF Rx Instructions: USE 1 LANCET EACH TIME TO CHECK BS BID (DME) pen needle, diabetic [BD Ultra-Fine Kayley Pen Needle] 32 gauge x 5/32 needle See Rx Instructions .ROUTE .MEDSUPPLY Qty: 100 2RF Rx Instructions: use one each time you inject insulin BID (DME) pen needle, diabetic [BD Ultra-Fine Kayley Pen Needle] 32 gauge x 5/32 needle See Rx Instructions .ROUTE .MEDSUPPLY Qty: 100 1RF Rx Instructions: use one daily allopurinol 100 mg tablet 100 mg PO DAILY ezetimibe 10 mg tablet 10 mg PO DAILY levothyroxine 150 mcg Tablet 300 mcg PO DAILY (DME) FreeStyle Lite Strips Strip See Rx Instructions .ROUTE .MEDSUPPLY Qty: 200 1RF Rx Instructions: use one strip to check BS BID Follow-up/Referrals: Yoshi Bear MD [Primary Care Provider] - 1 Week
[2024-05-12] MEDS: SODIUM CHLORIDE 0.9% IV 1,000 ML 999 ML IV CONT (10:40)
[2024-05-12 11:52] LABS: Add Urine Microscopic? YES; Appearance Urine Clear (Clear); Bacteria Urine None Seen /hpf; Bilirubin Urine Negative (Negative); Blood Urine Negative (Negative); Color Urine Yellow (Yellow); Glucose Urine UA Negative (Negative); Ketones Urine 1+ mg/dL (Negative); Leukocyte Esterase Ur Negative LEU/UL (Negative); Need Manual Microscopic Reviewed; Nitrate Urine Negative (Negative); Non Pathogenic Casts 0-2; Protein Urine 1+ mg/dL (Negative); RBC Urine 0-2 /hpf (0-2); Specific Grav Ur 1.039 (1.001-1.035); Squamous Epithelial Cell Urine None Seen /hpf (Few); WBC Urine 0-5 /hpf (0-3); pH Urine 5.5 (5.0-9.0)
[2024-05-12 13:03] VITALS: BP 172/98; PULSE 77; RESP 20; O2SAT 97
[2024-05-12 15:49] VITALS: BP 156/93; PULSE 71; RESP 19; TEMP 36.4; O2SAT 97
--- OUTSIDE RECORDS SUMMARY | 2024-05-19 08:36 | XMS_ITS | Encounter Summary ---
Author Organization [facility] Address [address] [place] [address]. [place] [address] [place] [address] Care Team Providers Care Piano Mechanic Name Role Phone Yoshi Bear MD Primary Care Provider [phone] Jorge Machado MD Unavailable Unavailabl e Jak Shannon MD Unavailable [phone] Encounter Details Date Type Department Care Team (Late st Contact Info) Description 12/15/2020 Orders Only [facility] [address] [place] [address] None, Provider, Social History Tobacco Use Types Packs/Day Years Used Date Smoking Tobacco: Former Cigarettes Q uit: 2002 Smokeless Tobacco: Never Alcohol Use Standard Drinks/Week Comments No 0 (1 standard drink = 0.6 oz pur e alcohol) Comments Unknown Sex and Gender Information Value Date Recorded Sex Assigned at Not on file 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 Gender Identity Not on file Sexual Orientation Not on file Occupation Industry Job Start Date Job End Date disabled Not on file Not on file Not on file documented as of this encounter Plan of Treatment Not on file documented as of this encounter Procedures Procedure Name Priority Date/Time Associated Diagnosis Comments USE ECHOCARDIOGRAM Routine 12/10/2020 H/O cardiomyopathy Essential hypertension documented in this encounter Results * USE ECHOCARDIOGRAM (12/10/2020) Anatomical Region Laterality Modality Cardiac Echocardiogram us Provider None ECHO Final Result documented in this encounter Visit Diagnoses Diagnosis H/O cardiomyopathy Personal history of other diseases of circulatory system Essential hypertension Unspecified essential hypertension documented in this encounter Care Teams Piano Mechanic Relationship Specialty Start Date End Date Yoshi Bear MD [address] [place] [id number] PCP - General INTERNAL MEDICINE 07/12/17 Jorge Machado MD [address] [place] [address] [place] [employer] CARDIOVASCULAR DISEASE 07/12/17 Jak Shannon MD [address] [place] [phone] [place] [employer] INTERVENTIONAL CARDIOLOGY 10/05/20 03/17/21 documented as of this encounter
--- OUTSIDE RECORDS SUMMARY | 2024-05-19 08:36 | XMS_ITS | Encounter Summary ---
Author Organization [facility] [place] [facility] Address [address] [place] [address]. [place] [address] [place] [address] Care Team Providers Care Jewel Supervisor Name Role Phone Yoshi Bear MD Primary Care Provider [phone] Jorge Machado MD Unavailable Unavailabl e Reason for Visit * Reason Onset Date Comments Reschedule 09/11/2019 Encounter Details Date Type Department Care Team ([facility] st Contact Info) Description 09/11/2019 Telephone [employer] [facility] [employer] AT [facility] [address] [place] [address], HOSPICE ENTRANCE ATTENDANT, DEPUTY ASSESSOR-C [address] [facility] [address] [place] [address] Reschedule Social History Tobacco Use Types Packs/Day Years Used Date Smoking Tobacco: Former Cigarettes Q uit: 2002 Smokeless Tobacco: Never Alcohol Use Standard Drinks/Week Comments No 0 (1 standard drink = 0.6 oz pur e alcohol) Comments Unknown Sex and Gender Information Value Date Recorded Sex Assigned at Not on file 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 Unable to assess 09/09/2019 2:56 PM CDT documented as of this encounter Progress Notes * Rae Reilly - 09/11/2019 8:47 AM CDT Pt called to reschedule her virtual visit appt. appt rescheduled, new zoom request sent. documented in this encounter Plan of Treatment Not on file documented as of this encounter Visit Diagnoses Not on filedocumented in this encounter Care Teams Jewel Supervisor Relationship Specialty Start Date End Date Yoshi Bear MD [address] [place] [address] PCP - General INTERNAL MEDICINE 07/12/17 Jorge Machado MD [address] [place] [address] [place] Insert Operator CARDIOVASCULAR DISEASE 07/12/17 documented as of this encounter
--- OUTSIDE RECORDS SUMMARY | 2024-05-19 08:36 | XMS_ITS | Encounter Summary ---
Author Organization [facility] Address [address] [place] [address]. [place] [address] [place] [address] Care Team Providers Care Rewinder Operator Name Role Phone Yoshi Bear MD Primary Care Provider [phone] Jorge Machado MD Unavailable Unavailabl e Jak Shannon MD Unavailable [phone] Reason for Visit * Reason Onset Date Comments Orders 11/18/2020 Encounter Details Date Type Department Care Team (Late st Contact Info) Description 11/18/2020 Telephone [facility] [address] [place] [address] Jak Shannon MD [address] [place] [address] Orders Social History Tobacco Use Types Packs/Day Years Used Date Smoking Tobacco: Former Cigarettes Q uit: 2002 Smokeless Tobacco: Never Alcohol Use Standard Drinks/Week Comments No 0 (1 standard drink = 0.6 oz pur e alcohol) Comments Unknown Sex and Gender Information Value Date Recorded Sex Assigned at Not on file 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 * Alaina Moses RN - 11/19/2020 2:21 PM CDT Faxed * Rae Reilly - 11/18/2020 2:53 PM CDT [employer] VM DATE/TIME: 11/17/20 @ 2:46 CALLER: Shauna, Radiology Dept at [facility] PT NAME/: Patience Doll; 52 PH #: [phone] PROVIDER/NEW PT: Leslie Way/Dr. Morrow REASON FOR CALL: needs a new order faxed with a providers signature on it. Pt has rescheduled to 11/26/20 @ 11:30. ENCOUNTER NOTE SENT TO: Dr. Morrow's nurse Fax number for Shauna is [phone]. New staff message sent to Leslie and Dr. Morrow's nurse. documented in this encounter Plan of Treatment Not on file documented as of this encounter Visit Diagnoses Not on filedocumented in this encounter Care Teams Rewinder Operator Relationship Specialty Start Date End Date Yoshi Bear MD [address] [place] [address] PCP - General INTERNAL MEDICINE 07/12/17 Jorge Machado MD [address] [place] [phone] [place] Production Artist CARDIOVASCULAR DISEASE 07/12/17 Jak Shannon MD [address] [place] [address] [place] Production Artist INTERVENTIONAL CARDIOLOGY 10/05/20 03/17/21 documented as of this encounter
--- OUTSIDE RECORDS SUMMARY | 2024-05-19 08:36 | XMS_ITS | Encounter Summary ---
Author Organization [facility] Address [address] [place] [address]. [place] [address] [place] [address] Care Team Providers Care Hardware Designer Name Role Phone Yoshi Bear MD Primary Care Provider [phone] Jorge Machado MD Unavailable Unavailabl e Reason for Visit * Reason Onset Date Comments Appointment Request 11/01/2021 Encounter Details Date Type Department Care Team (Late st Contact Info) Description 11/01/2021 Telephone [facility] [address] [place] [address] Jorge Machado MD Appointment Request Social History Tobacco Use Types Packs/Day Years Used Date Smoking Tobacco: Former Cigarettes Q uit: 2002 Smokeless Tobacco: Never Alcohol Use Standard Drinks/Week Comments No 0 (1 standard drink = 0.6 oz pur e alcohol) Comments Unknown Sex and Gender Information Value Date Recorded Sex Assigned at Not on file 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 Machado or Leslie [address] EMBROIDERY WORKER Requested that she call back if wanting to schedule * Maritza Yang RN - 11/01/2021 8:22 AM CDT Patient phoned, received a letter for follow up Most recently saw Dr. Morrow in [place] on 02/03/22 Patient prefers to see a provider in [place] due to having difficulty with walking. documented in this encounter Plan of Treatment Not on file documented as of this encounter Visit Diagnoses Not on filedocumented in this encounter Care Teams Hardware Designer Relationship Specialty Start Date End Date Yoshi Bear MD [address] [place] [address] PCP - General INTERNAL MEDICINE 07/12/17 Jorge Machado MD [address] [place] [address] [place] Meat [employer] Seafood Clerk CARDIOVASCULAR DISEASE 07/12/17 documented as of this encounter
--- OUTSIDE RECORDS SUMMARY | 2024-05-19 08:36 | XMS_ITS | Encounter Summary ---
Author Organization [facility] Address [address] [place] [address]. [place] [address] [place] [address] Care Team Providers Care Engraving Plate Maker Name Role Phone Yoshi Bear MD Primary Care Provider [phone] Jorge Machado MD Unavailable Unavailabl e Encounter Details Date Type Department Care Team (Late st Contact Info) Description 06/19/2023 Orders Only [place] [address] Gilberto Gibson MD [address] [place] [address] Social History Tobacco Use Types Packs/Day Years Used Date Smoking Tobacco: Former Cigarettes Q uit: 2002 Smokeless Tobacco: Never Alcohol Use Standard Drinks/Week Comments No 0 (1 standard drink = 0.6 oz pur e alcohol) Comments Unknown Sex and Gender Information Value Date Recorded Sex Assigned at Not on file 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 Gender Identity Not on file Sexual Orientation Not on file Occupation Industry Job Start Date Job End Date disabled Not on file Not on file Not on file documented as of this encounter Plan of Treatment Scheduled Orders Name Type Priority Associated Diagnoses Orde r Schedule XR KNEE STAND AP MCKAYLA ONLY Imaging Routine Left knee pain, unspecified chronicity Expected: 06/27/2023, Expires: 06/19/2024 XR KNEE LT 2V Imaging Routine Left knee pain, unspecified chronicity Expected: 06/27/2023, Expires: 06/19/2024 documented as of this encounter Visit Diagnoses Diagnosis Left knee pain, unspecified chronicity- Primary documented in this encounter Care Teams Engraving Plate Maker Relationship Specialty Start Date End Date Yoshi Bear MD [address] [place] [address] PCP - General INTERNAL MEDICINE 07/12/17 Jorge Machado MD [address] [place] [address] [place] [employer] Signal Electrician CARDIOVASCULAR DISEASE 07/12/17 documented as of this encounter
--- OUTSIDE RECORDS SUMMARY | 2024-05-19 08:36 | XMS_ITS | Encounter Summary ---
Author Organization [facility] Address [address] [place] [address]. [place] [address] [place] [address] Care Team Providers Care Plastic Installer Name Role Phone Yoshi Bear MD Primary Care Provider [phone] Jorge Machado MD Unavailable Unavailabl e Encounter Details Date Type Department Care Team (Latest Contact Info) Description 09/18/2019 Travel Social History Tobacco Use Types Packs/Day Years Used Date Smoking Tobacco: Former Cigarettes Q uit: 2002 Smokeless Tobacco: Never Alcohol Use Standard Drinks/Week Comments No 0 (1 standard drink = 0.6 oz pur e alcohol) Comments Unknown Sex and Gender Information Value Date Recorded Sex Assigned at Not on file Legal Sex Female 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 Unable to assess 09/18/2019 3:24 PM CDT documented as of this encounter Plan of Treatment Not on file documented as of this encounter Visit Diagnoses Not on filedocumented in this encounter Care Teams Plastic Installer Relationship Specialty Start Date End Date Yoshi Bear MD [address] [place] [address] PCP - General INTERNAL MEDICINE 07/12/17 Jorge Machado MD [address] [place] [address] [place] [facility] Sales Agent CARDIOVASCULAR DISEASE 07/12/17 documented as of this encounter
--- OUTSIDE RECORDS SUMMARY | 2024-05-19 08:36 | XMS_ITS | Encounter Summary ---
Author Organization [facility] Address [address] [place] [address]. [place] [address] [place] [address] Care Team Providers Care Fire Technician Name Role Phone Yoshi Bear MD Primary Care Provider [phone] Jorge Machado MD Unavailable Unavailabl e Jak Shannon MD Unavailable [phone] Reason for Referral * Imaging (Routine) - Closed Specialty Diagnoses / Procedures Referred By Contac t Referred To Contact RADIOLOGY Diagnoses H/O cardiomyopathy Essential hypertension Procedures USE ECHOCARDIOGRAM Trey Guzman MD Referral ID Status Reason Start Date Expiration Date Visits Re quested Visits Authorized [id number] Closed 11/12/2020 12/13/2021 1 1 Reason for Visit * Reason Onset Date Comments Appointment Request 10/01/2020 Encounter Details Date Type Department Care Team (Late st Contact Info) Description 10/01/2020 Telephone [facility] [address] [place] [address] Trey Guzman MD Appointment Request Social History Tobacco Use Types Packs/Day Years Used Date Smoking Tobacco: Former Cigarettes Q uit: 2002 Smokeless Tobacco: Never Alcohol Use Standard Drinks/Week Comments No 0 (1 standard drink = 0.6 oz pur e alcohol) Comments Unknown Sex and Gender Information Value Date Recorded Sex Assigned at Not on file Legal Sex Female 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 Letter mailed with date, time and location. Asked she call [phone] or option #2 to reschedule if needed. Staff message sent to Dr. Morrow's nurse's board. * Gonzalez Rivera RN - 11/12/2020 2:00 PM CDTAddended by: GONZALEZ RIVERA on: 11/12/2020 02:00 PM Modules accepted: Orders * Gonzalez Rivera RN - 11/12/2020 1:48 PM CDT Pt returned call, want to do echo in [place] instead of [facility]-need to avoid 12/03. I advised we wouldcall back with new appt. Appt cancelled with Sara at [facility], New order entered * Gonzalez Rivera RN - 11/11/2020 9:15 AM CDT LM for pt to call back to confirm appts. Echo 11/20/20 1230 AT [facility], check in Main entrance. F/u appt 12/16/20 10:00 [facility] * Gonzalez Rivera RN - 10/21/2020 3:08 PM CDTAddended by: GONZALEZ RIVERA on: 10/21/2020 03:08 PM Modules accepted: Orders * Gonzalez Rivera RN - 10/21/2020 3:07 PM CDT [facility] 12/16, will request echo prior to that date at [facility]. * Jak Shannon MD - 10/20/2020 6:28 AM CDT Repeat echo is reasonable. She was last seen by Leslie with Dr. Machado. I would defer to him. * Gonzalez Rivera RN - 10/05/2020 1:39 PM CDT Echo needed? * Odalys Newton RN - 10/05/2020 9:25 AM CDT Contacted pt regarding her call to make apt. No recall in EMR, pt last seen 09/19/[address] LACQUER MAKER REFERRAL/PCP: Current Kirk Beatty Pt. Needs apt in [place] to her home. Dr Bear is PCP INS: medicare and bankers APPT PROV/DATE/TIME: 12/16/[address] Morrow [facility] TESTING NEEDED/SCHEDULED: ?? echo STAFF MSG SENT: COVID+TEST/EXPOSURE IN LAST 14 DAYS: no Fully vaccinated RECORDS NEEDED: no MYCHART OFFERED: yes, emailed invite LETTER SENT: yes CARE TEAM: updated * Conrad Todd RN - 10/02/2020 5:40 PM CDT Pt called back to speak to Ko Lamar. Please call her [phone] * Odalys Newton RN - 10/02/2020 11:13 AM CDT Called pt to discuss appt options. No answer. Left VM for pt to call back to [phone] * Odalys Newton RN - 10/01/2020 4:46 PM CDT Called pt . No answer, left VM for her to call back to telenurse * Akiko Willard - 10/01/2020 4:41 PM CDT Pt called to schedule with dr machado in [facility]. She is needing a new provider that is close to her area in [place] Please give her a call at [phone] documented in this encounter Plan of Treatment Not on file documented as of this encounter Results * USE ECHOCARDIOGRAM (12/10/2020) Anatomical Region Laterality Modality Cardiac Echocardiogram us Provider None MD ECHO Final Result documented in this encounter Visit Diagnoses Diagnosis H/O cardiomyopathy- Primary Personal history of other diseases of circulatory system Essential hypertension Unspecified essential hypertension documented in this encounter Care Teams Fire Technician Relationship Specialty Start Date End Date Yoshi Bear MD [address] [place] [address] PCP - General INTERNAL MEDICINE 07/12/17 Jorge Machado MD [address] [place] [address] [place] Machine Operator CARDIOVASCULAR DISEASE 07/12/17 Jak Shannon MD [address] [place] [address] [employer] [place] Machine Operator INTERVENTIONAL CARDIOLOGY 10/05/20 03/17/21 documented as of this encounter
--- OUTSIDE RECORDS SUMMARY | 2024-05-19 08:36 | XMS_ITS | Encounter Summary ---
Author Organization [facility] Address [address] [place] [address]. [place] [address] [place] [address] Care Team Providers Care Silo Operator Name Role Phone Yoshi Bear MD Primary Care Provider [phone] Jorge Machado MD Unavailable Unavailabl e Encounter Details Date Type Department Care Team (Late st Contact Info) Description 05/26/2023 Orders Only [facility] [address], [facility] [address] [place] [address] Gilberto Gibson MD [address] [place] [address] Social History Tobacco Use Types Packs/Day Years Used Date Smoking Tobacco: Former Cigarettes Q uit: 2002 Smokeless Tobacco: Never Alcohol Use Standard Drinks/Week Comments No 0 (1 standard drink = 0.6 oz pur e alcohol) Comments Unknown Sex and Gender Information Value Date Recorded Sex Assigned at Not on file Legal Sex Female 9:13 AM [employer] PILOT/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/DDS OPERATOR Gender Identity Not on file Sexual Orientation Not on file Occupation Industry Job Start Date Job End Date disabled Not on file Not on file Not on file documented as of this encounter Plan of Treatment Not on file documented as of this encounter Visit Diagnoses Diagnosis Acute pain of left knee- Primary documented in this encounter Care Teams Silo Operator Relationship Specialty Start Date End Date Yoshi Bear MD [address] [place] [address] PCP - General INTERNAL MEDICINE 07/12/17 Jorge Machado MD [address] [place] [address] [place] Senior Software Quality Analyst CARDIOVASCULAR DISEASE 07/12/17 documented as of this encounter
--- OUTSIDE RECORDS SUMMARY | 2024-05-19 08:36 | XMS_ITS | Encounter Summary ---
Author Organization [facility] Address [address] [place] [address]. [place] [address] [place] [address] Care Team Providers Care Leasing Director Name Role Phone Yoshi Latif MD Primary Care Provider [phone] Jorge Machado MD Unavailable Unavailabl e Jak Shannon MD Unavailable [phone] Reason for Visit * Reason Comments Hyperlipidemia Encounter Details Date Type Department Care Team (Late st Contact Info) Description 02/03/2021 9:15 AM CDT Office Visit [facility] AT [address] [address] Jak Shannon MD [address] [place] [address] Hyperlipidemia Social History Tobacco Use Types Packs/Day Years Used Date Smoking Tobacco: Former Cigarettes Q uit: 2002 Smokeless Tobacco: Never Alcohol Use Standard Drinks/Week Comments No 0 (1 standard drink = 0.6 oz pur e alcohol) Comments Unknown Sex and Gender Information Value Date Recorded Sex Assigned at Not on file Legal Sex Female 9:13 AM ENGINE BUILDER Gender Identity Not on file Sexual Orientation Not on file Occupation Industry Job Start Date Job End Date disabled Not on file Not on file Not on file documented as of this encounter Last Filed Vital Signs Vital Sign Reading Time Taken Comments Blood Pressure 122/67 02/03/2021 10:37 AM CDT Pulse 70 02/03/2021 10:37 AM CDT Temperature - - Respiratory Rate 16 02/03/2021 10:37 AM CDT Oxygen Saturation - - Inhaled Oxygen Concentration - - Weight 138.3 kg (305 lb) 02/03/2021 10:37 AM CDT Height 156.2 cm (5' 1.5 ) 02/03/2021 10:37 AM CD T Body Mass Index 56.7 02/03/2021 10:37 AM CDT documented in this encounter Progress Notes * Jak Shannon MD - 02/03/2021 9:15 AM CDT Reason for Visit: Hyperlipidemia History of Present Illness: As you know she is a pleasant 70-year-old lady with history of cardiomyopathy, coronary artery disease diagnosed by calcifications noted on CT scan, hypertension, hyperlipidemia, type 2 diabetes mellitus and sleep apnea. Her most recent transthoracic echocardiogram from 12/15/2020 revealed an ejection fraction of 55 to 60% with mild LVH and grade 1 diastolic dysfunction. She was admitted with abdominal pain at [facility] and was found to have nephrolithiasis. She is following up with urology for this and she is status post ureteral stents. From a cardiovascular standpoint she has been feeling well overall. She continues to have dyspnea on exertion which is unchanged from previous. Her exercise tolerance is limited to just walking a few yards with a walker and this is limited by low back and right lower extremity pain which again is a chronic issue for her. She denied any lower extremity edema, PND orthopnea. She has not had any symptoms suggestive of angina or arrhythmias. She has been compliant with her medications. She has had recent blood work butdid not recall if a fasting lipid panel had been completed. She has lost 50 pounds in the recent past. Recommendations and Plan: 1. CAD: She is asymptomatic with limited physical activity. We recommended that she continue therapy with aspirin, beta-jose a and statin. We reviewed the signs and symptoms that should prompt further evaluation. 2. Recovered cardiomyopathy: She has diastolic dysfunction but a normal ejection fraction. She doesnot appear to be volume overloaded. We will attempt to get a copy of her most recent blood work andcontinue her current diuretic regimen. We reviewed the importance of daily weights and sodium restriction. If she would develop symptoms of heart failure we would recommend checking a B MP and BNP to guide adjustments in her diuretic regimen. 3. Chronic diastolic heart failure: As above. 4. Hypertension: Her blood pressures well controlled. We will continue her current therapy. 5. Hyperlipidemia: We discussed the importance of diet and physical activity. We will continue her current lipid-lowering therapy. We would recommend a goal LDL of less than 70 mg/dL and a yearly fasting lipid panel. We have asked her to return to our office in 12 months for follow up but will be glad to see her sooner if any issues arise before that time. Thank you for allowing us to participate in her care and if you have any questions or concerns, please do not hesitate to contact us. Medications: Current Outpatient Medications: ??? allopurinol 100 MG tablet, Take 100 mg by mouth daily., Disp: , Rfl: ??? aspirin EC (ASPIRIN) 81 MG EC tablet, Take 81 mg by mouth daily., Disp: , Rfl: ??? atorvastatin 40 MG tablet, Take 40 mg by mouth daily., Disp: , Rfl: ??? buPROPion XL 150 MG 24 hr tablet, Take 150 mg by mouth daily., Disp: , Rfl: ??? duloxetine 60 MG capsule, Take 60 mg by mouth 2 (two) times daily. , Disp: , Rfl: 0 ??? ezetimibe 10 MG tablet, , Disp: , Rfl: ??? FREESTYLE LITE test strip, USE ONE STRIP TO CHECK BLOOD SUGAR TWICE DAILY DIRECTED, Disp: , Rfl: ??? furosemide 80 MG tablet, Take 80 mg by mouth every morning., Disp: , Rfl: ??? glipiZIDE 10 MG tablet, Take 10 mg by mouth 2 (two) times daily before meals. , Disp: , Rfl: 1 ??? levothyroxine 150 MCG tablet, Take 300 mcg by mouth daily., Disp: , Rfl: ??? metFORMIN 1000 MG tablet, Take 1,000 mg by mouth 2 (two) times daily with meals. , Disp: , Rfl:1 ??? potassium chloride CR 20 MEQ Tab CR tablet, TK 1 T PO BID, Disp: , Rfl: ??? propranolol 40 MG tablet, Take 40 mg by mouth daily., Disp: , Rfl: ??? zonisamide 100 MG capsule, Take 400 mg by mouth daily. , Disp: , Rfl: Allergies Allergen Reactions ??? Keflex [Cephalexin] Hives Past Medical History: Diagnosis Date ??? Adrenal nodule (CMS/HCC) LEFT ??? Anxiety and depression ??? Atypical chest pain ??? Colon polyps ??? Coronary artery calcification ??? Hyperlipidemia ??? Hypertension ??? Hypothyroidism ??? Menopause age 53 ??? Occipital neuralgia saw neurologist in [place] ??? Primary generalized (osteo)arthritis low back and knees ??? Pulmonary nodules/lesions, multiple SUSPICIOUS SPICULATED 1.1 CM RUL NODULE ??? Sleep apnea ??? Spinal stenosis ??? Type 2 diabetes mellitus (CMS/HCC) Past Surgical History: Procedure Laterality Date ??? ARTHROSCOPY KNEE L knee ??? CARPAL TUNNEL RELEASE bilateral with the left done twice ??? LITHOTRIPSY x2 ??? OUS LUCHO DUPLEX LOW EXT MCKAYLA Bilateral 05/05/2017 negative for DVT ??? X-RAY EXAM CHEST 2 VIEWS 05/05/2017 no acute cardiopulmonary disease Social History Tobacco Use ??? Smoking status: Former Smoker Types: Cigarettes Quit date: 2003 Years since quittin.7 ??? Smokeless tobacco: Never Used Substance Use Topics ??? Alcohol use: No ??? Drug use: Yes Types: Marijuana Comment: Hx Marijuana No family history on file. Family Status Relation Name Status ??? MGM ??? MGF ??? PGM ??? PGF ??? Mother ??? Father ??? Sister Alive ??? Brother Alive ??? Sister Review of Systems Constitutional: Positive for fatigue and weakness. Negative for recent unintentional weight gain and recent unintentional weight loss. HENT: Negative for new or significant hearing loss. Eyes: Negative for blurred vision and double vision. Respiratory: Positive for shortness of breath. Negative for cough and snoring. Cardiovascular: See HPI. Gastrointestinal: Negative for blood in stool and melena. Genitourinary: Negative for dysuria. Musculoskeletal: Positive for joint stiffness/pain. Negative for myalgias. Skin: Negative for rash. Neurological: Negative for tingling/numbness and focal weakness. Endo/Heme/Allergies: Negative for new or significant bruising/bleeding and polydipsia. Psychiatric/Behavioral: Positive for nervous/anxious. Negative for depression and new or significant memory loss. Vitals: 02/03/21 1037 BP Location: Right arm Cuff size: Thigh BP: 122/67 Pulse: 70 Body mass index is 56.7 kg/m??. Physical Exam Constitutional: No distress. HENT: Eyes: Conjunctivae normal. Neck: No JVD. Pulmonary: Effort normal. Breath sounds normal. Abdomen: Abdomen soft. Bowel sounds normal. No distension. No tenderness. Neurological: Alert. Oriented x 3. Appropriate mood and affect. Skin: Dry. Warm. Musculoskeletal: No deformity. Cardiovascular: Rate: Regular rhythm. PMI: Pulses: Right Radial pulses 2+, Left Radial pulses 2+, Edema left: 0. , Edema Right: 0. , Heart Sounds: Normal S1 and Normal S2 No murmur. Cardiovascular Comments: Diagnoses/Impression: 1. Coronary artery calcification 2. H/O cardiomyopathy 3. Mixed hyperlipidemia 4. Primary hypertension 5. Obstructive sleep apnea syndrome Referring Provider: Yoshi Latif MD PCP: YOSHI LATIF MD documented in this encounter Plan of Treatment Not on file documented as of this encounter Visit Diagnoses Diagnosis Coronary artery calcification- Primary H/O cardiomyopathy Personal history of other diseases of circulatory system Mixed hyperlipidemia Primary hypertension Unspecified essential hypertension Obstructive sleep apnea syndrome Obstructive sleep apnea (adult) (pediatric) documented in this encounter Care Teams Leasing Director Relationship Specialty Start Date End Date Yoshi Latif MD [address] [place] [address] PCP - General INTERNAL MEDICINE 07/12/17 Jorge Machado MD [address] [place] [address] [place] [employer] Sme CARDIOVASCULAR DISEASE 07/12/17 Jak Shannon MD [address] [place] [address] [employer] INTERVENTIONAL CARDIOLOGY 10/05/20 03/17/21 documented as of this encounter
--- OUTSIDE RECORDS SUMMARY | 2024-05-19 08:36 | XMS_ITS | Clinical Summary ---
Author Organization [facility] Address [address] [place] [address]. [place] [address] [place] [address] Care Team Providers Care Landscape Photographer Name Role Phone Yoshi Bear MD Primary Care Provider [phone] Jorge Machado MD Unavailable Unavailabl e Allergies Active Allergy Reactions Criticality Noted Date Comments Cephalexin Hives 09/19/2019 Medications glipiZIDE 10 MG tablet Take 10 mg by mouth 2 (two) times daily before meals. 1 05/12/2017 Active duloxetine 60 MG capsule Take 60 mg by mouth 2 (two) times daily. 0 06/14/2017 Active metFORMIN 1000 MG tablet Take 1,000 mg by mouth 2 (two) times daily with meals. 1 06/18/2017 Active allopurinol 100 MG tablet Take 100 mg by mouth daily. Active zonisamide 100 MG capsule Take 400 mg by mouth daily. Active aspirin EC (ASPIRIN) 81 MG EC tablet Take 81 mg by mouth daily. Active atorvastatin 40 MG tablet Take 40 mg by mouth daily. 05/24/2019 Active buPROPion XL 150 MG 24 hr tablet Take 150 mg by mouth daily. 08/06/2019 Active potassium chloride CR 20 MEQ Tab CR tablet TK 1 T PO BID 04/06/2020 Activ e FREESTYLE LITE test strip USE ONE STRIP TO CHECK BLOOD SUGAR TWICE DAILY DIRECTED 11/18/2020 Active ezetimibe 10 MG tablet 11/18/2020 Active propranolol 40 MG tablet Take 40 mg by mouth daily. 07/28/2020 Active furosemide 80 MG tablet Take 80 mg by mouth every morning. 11/18/2020 Active levothyroxine 150 MCG tablet Take 300 mcg by mouth daily. 11/18/2020 Active Active Problems Problem Noted Date Diagnosed Date H/O cardiomyopathy 09/20/2019 Hypertension 09/20/2019 Class 3 obesity due to exces s calories with serious comorbidity in adult 07/26/2017 Hypothyroidism 07/14/2017 Occipital neuralgia 07/14/2017 Overview (07/14/2017): saw neurologist in [place] Sleep apnea 07/14/2017 Coronary artery calcification 07/14/2017 Hyperlipidemia Immunizations Name Administration Dates Next Due Pneumococcal (Prevnar 13) 02/19/2019 Family History Relation Status Comments Brother Alive Father Maternal Grandfather Maternal Grandmother Mother Paternal Grandfather Paternal Grandmother Sister 1 Alive Sister 2 Social History Tobacco Use Types Packs/Day Years Used Date Smoking Tobacco: Former Cigarettes Q uit: 2002 Smokeless Tobacco: Never Alcohol Use Standard Drinks/Week Comments No 0 (1 standard drink = 0.6 oz pur e alcohol) Comments Unknown Sex and Gender Information Value Date Recorded Sex Assigned at Not on file Legal Sex Female 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 Gender Identity Not on file Sexual Orientation Not on file Occupation Industry Job Start Date Job End Date disabled Not on file Not on file Not on file Last Filed Vital Signs Vital Sign Reading Time Taken Comments Blood Pressure 122/67 02/03/2021 10:37 AM CDT Pulse 70 02/03/2021 10:37 AM CDT Temperature - - Respiratory Rate 16 02/03/2021 10:37 AM CDT Oxygen Saturation 91% 07/14/2017 2:16 PM POURER BULL LADLE Inhaled Oxygen Concentration - - Weight 138.3 kg (305 lb) 02/03/2021 10:37 AM CDT Height 156.2 cm (5' 1.5 ) 02/03/2021 10:37 AM CD T Body Mass Index 56.7 02/03/2021 10:37 AM CDT Plan of Treatment Health Maintenance Due Date Last Done Comments Colorectal Cancer Screening Colonoscopy (10 Years) 1951 Hepatitis C 1969 DTaP, Tdap and Td Vaccines ( 1 - Tdap) 1970 Mammogram Screening 1991 Zoster Vaccines (1 of 2) 2001 AAA SCREENING 02/17/2016 Annual Medicare Wellness Visit 02/17/2016 Dexa Scan (General) 02/17/2016 Pneumococcal Vaccine: 65+ Ye ars (2 of 2 - PPSV23 or PCV20) 02/20/2020 02/19/2019 COVID-19 Vaccine (1 - 2023-2 5 season) 2024 Influenza Adult (#1) 2024 RSV Immunization or 60+ Years (1 - 1-dose 75+ series) 2026 Meningococcal Vaccine Aged Out No kimberly carter eligible based on patient's age to complete this topic RSV Immunizations Under 20 Months Aged Out No longer eligible based on patient's age to complete this topic Insurance MEDICARE [facility] LIFE AND CASUALTY MEDICARE [facility] LIFE AND CASUALTY Care Teams Landscape Photographer Relationship Specialty Start Date End Date Yoshi Bear MD [address] [place] [address] PCP - General INTERNAL MEDICINE 07/12/17 Jorge Machado MD [address] [place] [address] [place] Event [employer] Manager CARDIOVASCULAR DISEASE 07/12/17
--- OUTSIDE RECORDS SUMMARY | 2024-05-19 08:36 | XMS_ITS | Encounter Summary ---
Author Organization [facility] Address [address] [place] [address]. [place] [address] [place] [address] Care Team Providers Care Staff Toxicologist Name Role Phone Yoshi Bear MD Primary Care Provider [phone] Jorge Machado MD Unavailable Unavailabl e Jak Shannon MD Unavailable [phone] Reason for Visit * Reason Onset Date Comments Reschedule 12/16/2020 Encounter Details Date Type Department Care Team (Late st Contact Info) Description 12/16/2020 Telephone [facility] [address] [place] [address] Jak Shannon MD [address] [address] Reschedule Social History Tobacco Use Types Packs/Day Years Used Date Smoking Tobacco: Former Cigarettes Q uit: 2002 Smokeless Tobacco: Never Alcohol Use Standard Drinks/Week Comments No 0 (1 standard drink = 0.6 oz pur e alcohol) Comments Unknown Sex and Gender Information Value Date Recorded Sex Assigned at Not on file Legal Sex Female 9:13 AM ELECTRICIAN SUBSTATION Gender Identity Not on file Sexual Orientation Not on file Occupation Industry Job Start Date Job End Date disabled Not on file Not on file Not on file documented as of this encounter Progress Notes * Veronica Downing - 12/16/2020 8:09 AM CDT PT called and stated she is ill and needs to reschedule this appt. Rescheduled to next available in02/03/21 @9:15am. PT was unsure if she needed to be in sooner so I stated I would let the office know and they'll call her back if that's the case. PT thanked me and had no further questions. documented in this encounter Plan of Treatment Not on file documented as of this encounter Visit Diagnoses Not on filedocumented in this encounter Care Teams Staff Toxicologist Relationship Specialty Start Date End Date Yoshi Bear MD [address] [place] [address] PCP - General INTERNAL MEDICINE 07/12/17 Jorge Machado MD [address] [place] [address] [place] Super[employer] Winding Department CARDIOVASCULAR DISEASE 07/12/17 Jak Shannon MD [address] [place] [address] [place] Super[employer] Winding Department INTERVENTIONAL CARDIOLOGY 10/05/20 03/17/21 documented as of this encounter
--- OUTSIDE RECORDS SUMMARY | 2024-05-19 08:36 | XMS_ITS | Encounter Summary ---
Author Organization [facility] Address [address] [place] [address]. [place] [address] [place] [address] Care Team Providers Care Eyelet Riveter Name Role Phone Yoshi Bear MD Primary Care Provider [phone] Jorge Machado MD Unavailable Unavailabl e Reason for Visit * Reason Onset Date Comments Chart Prep 06/19/2023 Encounter Details Date Type Department Care Team (Late st Contact Info) Description 06/19/2023 Telephone [facility] [place] [address] Gilberto Gibson MD [address] [place] [address] Chart Prep Social History Tobacco Use Types Packs/Day Years Used Date Smoking Tobacco: Former Cigarettes Q uit: 2002 Smokeless Tobacco: Never Alcohol Use Standard Drinks/Week Comments No 0 (1 standard drink = 0.6 oz pur e alcohol) Comments Unknown Sex and Gender Information Value Date Recorded Sex Assigned at Not on file Legal Sex Female 9:13 AM CLOCK SMITH Gender Identity Not on file Sexual Orientation Not on file Occupation Industry Job Start Date Job End Date disabled Not on file Not on file Not on file documented as of this encounter Progress Notes * Christin Ibanez RN - 06/19/2023 3:09 PM CST RN contacted [facility] and spoke with Ro and requested for images to be pushed to [facility]. K SMITH * Christin Ibanez RN - 06/19/2023 2:49 PM CST RN contacted [facility] in regards to images that were done. Request for authorization be faxed to [phone] and they will push to [facility]. Also left message with medical records to have reports faxed to clinic. K SMITH K SMITH documented in this encounter Plan of Treatment Not on file documented as of this encounter Visit Diagnoses Not on filedocumented in this encounter Care Teams Eyelet Riveter Relationship Specialty Start Date End Date Yoshi Bear MD [address] [place] [address] PCP - General INTERNAL MEDICINE 07/12/17 Jorge Machado MD [address] [place] [address] [place] Waiter CARDIOVASCULAR DISEASE 07/12/17 documented as of this encounter
--- OUTSIDE RECORDS SUMMARY | 2024-05-19 08:36 | XMS_ITS | Encounter Summary ---
Author Organization [facility] Address [address] [place] [address]. [place] [address] [place] [address] Care Team Providers Care Soap Chipper Name Role Phone Yoshi Bear MD Primary Care Provider [phone] Jorge Machado MD Unavailable Unavailabl e Reason for Visit * Reason Onset Date Comments Appointment Request 09/04/2020 Encounter Details Date Type Department Care Team (Late st Contact Info) Description 09/04/2020 Telephone [facility] [address] [place] [address] Jorge Machado MD Appointment Request Social History Tobacco Use Types Packs/Day Years Used Date Smoking Tobacco: Former Cigarettes Q uit: 2002 Smokeless Tobacco: Never Alcohol Use Standard Drinks/Week Comments No 0 (1 standard drink = 0.6 oz pur e alcohol) Comments Unknown Sex and Gender Information Value Date Recorded Sex Assigned at Not on file Legal Sex Female 9:13 AM SUPERVISOR BAKING Gender Identity Not on file Sexual Orientation Not on file Occupation Industry Job Start Date Job End Date disabled Not on file Not on file Not on file documented as of this encounter Progress Notes * Bridgett Dalton - 09/11/2020 5:57 PM CDT Third call to schedule follow up appt. Left message for call back. Letter sent. * Veronica Downing - 09/07/2020 2:04 PM CDT Called to schedule f/u appt. VM box full. * Veronica Downing - 09/04/2020 8:32 AM CDT Called to schedule f/u appt. LVM requesting a call back. documented in this encounter Plan of Treatment Not on file documented as of this encounter Visit Diagnoses Not on filedocumented in this encounter Care Teams Soap Chipper Relationship Specialty Start Date End Date Yoshi Bear MD [address] [place] [address] PCP - General INTERNAL MEDICINE 07/12/17 Jorge Machado MD [address] [place] [address] [employer] Cloth Winder Machine Operator CARDIOVASCULAR DISEASE 07/12/17 documented as of this encounter
--- OUTSIDE RECORDS SUMMARY | 2024-05-19 08:36 | XMS_ITS | Encounter Summary ---
Author Organization [facility] Address [address] [place] [address]. [place] [address] [place] [address] Care Team Providers Care Shop Estimator Name Role Phone Yoshi Latif MD Primary Care Provider [phone] Jorge Machado MD Unavailable Unavailabl e Reason for Visit * Reason Comments Follow Up coronary artery calc ification Encounter Details Date Type Department Care Team (Latest Contact Info) Description 09/19/2019 3:00 PM CDT Telemedicine [facility] AT [facility] [address] [place] [id number], REFINERY OPERATOR COKING, UNDER GROUND MINER-C [address] [facility] [address] [place] [address] Follow Up (coronary artery calcification) Social History Tobacco Use Types Packs/Day Years Used Date Smoking Tobacco: Former Cigarettes Q uit: 2002 Smokeless Tobacco: Never Alcohol Use Standard Drinks/Week Comments No 0 (1 standard drink = 0.6 oz pur e alcohol) Comments Unknown Sex and Gender Information Value Date Recorded Sex Assigned at Not on file Legal Sex Female 9:13 AM CALL CIRCUIT WORKER Gender Identity Not on file Sexual Orientation [...] PM CDT documented as of this encounter Last Filed Vital Signs Vital Sign Reading Time Taken Comments Blood Pressure 136/72 09/19/2019 2:46 PM CDT Pulse 87 09/19/2019 2:46 PM CDT Temperature - - Respiratory Rate - - Oxygen Saturation - - Inhaled Oxygen Concentration - - Weight 146.7 kg (323 lb 6.4 oz) 09/19/2019 2:46 PM CDT Height 156.2 cm (5' 1.5 ) 09/19/2019 2:46 PM CDT Body Mass Index 60.12 09/19/2019 2:46 PM CDT documented in this encounter Progress Notes * Leslie Way APRN, NP-C - 09/19/2019 3:00 PM CDT FROM: Leslie Way APRN, NP-C, collaborating physician Jorge Machado III, M.D. RE: Patience Doll : 1950 Reason for Visit: Follow Up (coronary artery calcification) History of Present Illness: Ms. Doll is a pleasant 69-year-old female scheduled to be seen virtually today due to the coronavirus concerns for an annual scheduled followup visit. We were unable to connect with [facility] due to IT issues. Therefore, we switched her visit to a telephone call. She has a history of dilated cardiomyopathy, coronary artery calcification on a CT, hypertension, hyperlipidemia, diabetes, and sleepapnea. She reports that she is doing reasonably well from a cardiac standpoint. ?? She denies any anginal chest pain. She is short of breath at times, which she attributes to her weight. She has been dieting, and lost some weight. She tells me that she suffers from anxiety and has a fear of leaving her house. She previously had success with [facility] in [place], but has been unable to find a comparable program where she currently lives. She would like to explore her issues with a therapist, but has limited offices nearby her home. She denies any claudication. She denies any overt symptoms of congestive heart failure such as paroxysmal nocturnal dyspnea or orthopnea. She reports good CPAP compliance. Her lower extremity edema is controlled with compression stockings. She has no palpitations, significant lightheadedness, or syncope. She denies signs and symptoms of CVA or TIA. She seems to be tolerating her present medications well without reported side effects. Recommendations/Plan: Ms. Doll's cardiac status appears clinically stable without ongoing anginal chest pain, symptomsof congestive heart failure, or signs of an underlying arrhythmia. She is most limited by her psychological issues, and would like to find treatment. Continued medical therapy and aggressive cardiac risk factor modification seem most appropriate at the present time from a cardiology standpoint. Shecan follow up with Dr. Latif or try to find a therapist that she can meet with virtually to discuss her anxiety and eating disorders. I have recommended the following to Ms. Doll: 1. Coronary Artery Calcification. She denies symptoms consistent with myocardial ischemia. We will continue current medical therapy. 2. History of Cardiomyopathy. Her last echocardiogram in 2014 revealed an LVEF of 59% without evidence of dilated cardiomyopathy. There was question of the accuracy of her diagnosing study. She denies any CHF symptoms. We will plan for an echocardiogram prior to her next visit. 3. Hypertension. Her blood pressure is reasonably controlled. 4. Hyperlipidemia. She is currently treated with atorvastatin and reports no apparent side effects.We will continue to defer lipid management to Dr. Latif. An LDL cholesterol of less than 70 is recommended. We will plan to see Ms. Doll in one year with an echocardiogram prior to her visit. I have encouraged her to contact me in the meantime should she have any questions or problems. Virtual Visit: I introduced and identified myself, received verbal consent from the patient to proceed with this phone visit and made the patient aware that the same confidentiality and information technology officer practices apply. The patient joined the phone visit from Home. I completed the virtual visit from Office. The following clinical staff helped with this visit Nurse: Flori. Total Time Spent in Minutes: 25 minutes (3:20pm-3:45pm) Medications: Current Outpatient Medications: ??? allopurinol 100 [...] daily. , Disp: , Rfl: 0 ??? furosemide 40 MG tablet, Take 40 mg by mouth daily. , Disp: , Rfl: 1 ??? glipiZIDE 10 MG tablet, Take 10 mg by mouth 2 (two) times daily before meals. , Disp: , Rfl: 1 ??? levothyroxine 125 MCG tablet, Take 250 mcg by mouth every morning. , Disp: , Rfl: 1 ??? metFORMIN 1000 MG tablet, Take 1,000 mg by mouth 2 (two) times daily with meals. , Disp: , Rfl:1 ??? potassium chloride CR 20 MEQ tablet, Take 20 mEq by mouth daily. , Disp: , Rfl: 3 ??? propranolol 20 MG tablet, Take 40 mg by mouth daily. , Disp: , Rfl: ??? TRULICITY 0.75 MG/0.5ML injection, Inject 0.75 mg into the skin once a week. , Disp: , Rfl: ??? zonisamide 100 MG [...] 53 ??? Occipital neuralgia saw neurologist in [place] ??? Primary generalized (osteo)arthritis low back and knees ??? Pulmonary nodules/lesions, multiple SUSPICIOUS SPICULATED 1.1 CM RUL NODULE ??? Sleep apnea ??? Spinal stenosis ??? Type 2 diabetes mellitus (CMS/HCC) Past Surgical History: Procedure Laterality Date ??? ARTHROSCOPY KNEE L knee ??? CARPAL TUNNEL RELEASE bilateral with the left done twice ??? OUS LUCHO DUPLEX LOW EXT MCKAYLA Bilateral 05/05/2017 negative for DVT ??? X-RAY EXAM CHEST 2 VIEWS 05/05/2017 no acute cardiopulmonary disease Social History Tobacco Use ??? Smoking status: Former Smoker Types: Cigarettes Last attempt to quit: 2003 Years since quittin.3 ??? Smokeless tobacco: Never Used Substance Use Topics ??? Alcohol use: No ??? Drug use: No Comment: Hx Marijuana No family history on file. Family Status Relation Name Status ??? MGM ??? MGF ??? PGM ??? PGF Review of Systems Constitutional: Negative for recent unintentional weight gain, recent unintentional weight loss andnew or significant fatigue. HENT: Negative for new or significant hearing loss. Eyes: Negative for blurred vision and double vision. Respiratory: Positive for shortness of breath. Negative for cough and snoring. Cardiovascular: See HPI Gastrointestinal: Negative for blood in stool and melena. Genitourinary: Negative for dysuria. Musculoskeletal: Negative for myalgias and new or worsening joint stiffness/pain. Skin: Negative for rash. Neurological: Negative for tingling/numbness and focal weakness. Endo/Heme/Allergies: Negative for new or significant bruising/bleeding and polydipsia. Psychiatric/Behavioral: Negative for depression and new or significant memory loss. Filed Vitals: 09/19/19 1446 BP: 136/72 Pulse: 87 Weight: (!) 146.7 kg (323 lb 6.4 oz) Height: 5' 1.5 (1.562 m) Body mass index is 60.12 kg/m??. Physical Exam Rate/Rhythm: . Heart Sounds: . PMI: . Pulses: Constitutional: . Neck: . Pulmonary/Chest Wall: Breathing effort appears normal with talking.. HEENT: . Abdomen: . Eyes: . Neurological: alert, oriented x 3 and appropriate for situation, . Skin: . Musculoskeletal: Cardiovascular Comments: Limited exam due to virtual visit. Diagnoses/Impression: 1. Coronary artery calcification 2. H/O cardiomyopathy 3. Essential hypertension 4. Mixed hyperlipidemia Referring Provider: No ref. provider found PCP: YOSHI LATIF MD documented in this encounter Plan of Treatment Not on file documented as of this encounter Visit Diagnoses Diagnosis Coronary artery calcification- Primary H/O cardiomyopathy Personal history of other diseases of circulatory system Essential hypertension Unspecified essential hypertension Mixed hyperlipidemia documented in this encounter Care Teams Shop Estimator Relationship Specialty Start Date End Date Yoshi Latif MD [address] [place] [address] PCP - General INTERNAL MEDICINE 07/12/17 Jorge Machado MD [address] [place] [address] Palm Media Marketing Director CARDIOVASCULAR DISEASE 07/12/17 documented as of this encounter
--- OUTSIDE RECORDS SUMMARY | 2024-05-19 08:37 | XMS_ITS | Encounter Summary ---
Author Organization [facility] Address [address] [place] [address]. [place] [address] [place] [address] Care Team Providers Care Painter Airbrush Name Role Phone Yosih Bear MD Primary Care Provider [phone] Jorge Machado MD Unavailable Unavailabl e Reason for Visit * Reason Onset Date Comments Appointment Request 08/27/2019 Encounter Details Date Type Department Care Team ([facility] st Contact Info) Description 08/27/2019 Telephone [facility] AT [facility] [address] [place] [address], FINANCIAL SERVICES AGENT, SUPERVISOR PARKING LOT-C [address] [facility] [address] [place] [address] Appointment Request Social History Tobacco Use Types Packs/Day Years Used Date Smoking Tobacco: Former Cigarettes Q uit: 2002 Smokeless Tobacco: Never Alcohol Use Standard Drinks/Week Comments No 0 (1 standard drink = 0.6 oz pur e alcohol) Comments Unknown Sex and Gender Information Value Date Recorded Sex Assigned at Not on file Legal Sex Female 9:13 AM HEAVY EQUIPMENT PLUMBING SUPERVISOR Gender Identity Not on file Sexual Orientation Not on file Occupation Industry Job Start Date Job End Date disabled Not on file Not on file Not on file documented as of this encounter Progress Notes * Rae Reilly - 08/27/2019 1:34 PM CDT Virtual Appt scheduled. * Leslie Way APRN, SUPERVISOR PARKING LOT-C - 08/27/2019 12:32 PM CDT Spoke with Patience. She is due for her annual appointment, and due to the kunz virus concerns, we are setting up virtual visits. She gives her consent to proceed. Her email is [email or web address] Inna set up her appointment for 08/30/19 at 3:00pm She v/u. documented in this encounter Plan of Treatment Not on file documented as of this encounter Visit Diagnoses Not on filedocumented in this encounter Care Teams Painter Airbrush Relationship Specialty Start Date End Date Yoshi Bear MD [address] [place] [address] PCP - General INTERNAL MEDICINE 07/12/17 Jorge Machado MD [address] [place] [address] [place] Bus Attendant CARDIOVASCULAR DISEASE 07/12/17 documented as of this encounter
--- OUTSIDE RECORDS SUMMARY | 2024-05-19 08:37 | XMS_ITS | Encounter Summary ---
Author Organization [facility] Address [address] [place] [address]. [place] [address] [place] [address] Care Team Providers Care Scientific Advisor Name Role Phone Yoshi Bear MD Primary Care Provider [phone] Jorge Machado MD Unavailable Unavailabl e Reason for Visit * Reason Onset Date Comments Reschedule 08/30/2019 Encounter Details Date Type Department Care Team ([facility] st Contact Info) Description 08/30/2019 Telephone [employer] [facility] AT [facility] [address] [place] [address], BULLET LUBRICATING MACHINE OPERATOR, FINISHING MANAGER-C [address] [facility] [address] [place] [address] Reschedule Social History Tobacco Use Types Packs/Day Years Used Date Smoking Tobacco: Former Cigarettes Q uit: 2002 Smokeless Tobacco: Never Alcohol Use Standard Drinks/Week Comments No 0 (1 standard drink = 0.6 oz pur e alcohol) Comments Unknown Sex and Gender Information Value Date Recorded Sex Assigned at Not on file Legal Sex Female 9:13 AM COMMUNITY ARTS WORKER Gender Identity Not on file Sexual Orientation Not on file Occupation Industry Job Start Date Job End Date disabled Not on file Not on file Not on file documented as of this encounter Progress Notes * Rae Reilly - 08/30/2019 9:55 AM CDT Pt called to reschedule her appt for today due to a bad headache. appt rescheduled. Will send new request through Zoom. documented in this encounter Plan of Treatment Not on file documented as of this encounter Visit Diagnoses Not on filedocumented in this encounter Care Teams Scientific Advisor Relationship Specialty Start Date End Date Yoshi Bear MD [address] [place] [address] PCP - General INTERNAL MEDICINE 07/12/17 Jorge Machado MD [address] [place] [address] [place] Flooring Helper CARDIOVASCULAR DISEASE 07/12/17 documented as of this encounter
--- OUTSIDE RECORDS SUMMARY | 2024-05-19 08:37 | XMS_ITS | Encounter Summary ---
Author Organization [facility] Address [address] [place] [address]. [place] [address] [place] [address] Care Team Providers Care Stage Electrician Name Role Phone Yoshi Bear MD Primary Care Provider [phone] Jorge Machado MD Unavailable Unavailabl e Encounter Details Date Type Department Care Team (Latest Contact Info) Description 09/09/2019 Travel Social History Tobacco Use Types Packs/Day Years Used Date Smoking Tobacco: Former Cigarettes Q uit: 2002 Smokeless Tobacco: Never Alcohol Use Standard Drinks/Week Comments No 0 (1 standard drink = 0.6 oz pur e alcohol) Comments Unknown Sex and Gender Information Value Date Recorded Sex Assigned at Not on file Legal Sex Female 9:13 AM WINDOW CLEANER Gender Identity Not on file Sexual Orientation [...] on filedocumented in this encounter Care Teams Stage Electrician Relationship Specialty Start Date End Date Yoshi Bear MD [address] [place] [address] PCP - General INTERNAL MEDICINE 07/12/17 Jorge Machado MD [address] [place] [address] [place] Quality Checker CARDIOVASCULAR DISEASE 07/12/17 documented as of this encounter
--- OUTSIDE RECORDS SUMMARY | 2024-05-19 08:37 | XMS_ITS | Encounter Summary ---
Author Organization [facility] Address [address] [place] [address]. [place] [address] [place] [address] Care Team Providers Care Credit Risk Modeler Name Role Phone Yoshi Bear MD Primary Care Provider [phone] Jorge Machado MD Unavailable Unavailabl e Reason for Visit * Reason Onset Date Comments Reschedule 09/04/2019 Encounter Details Date Type Department Care Team ([facility] st Contact Info) Description 09/04/2019 Telephone [facility] AT [facility] [address] [place] [address], AUTOMATED TELLER MANAGER, RADIOCOMMUNICATIONS TECHNICIAN-C [address] [facility] [address] [place] [address] Reschedule Social History Tobacco Use Types Packs/Day Years Used Date Smoking Tobacco: Former Cigarettes Q uit: 2002 Smokeless Tobacco: Never Alcohol Use Standard Drinks/Week Comments No 0 (1 standard drink = 0.6 oz pur e alcohol) Comments Unknown Sex and Gender Information Value Date Recorded Sex Assigned at Not on file Legal Sex Female 9:13 AM DIMPLING MACHINE OPERATOR Gender Identity Not on file Sexual Orientation Not on file Occupation Industry Job Start Date Job End Date disabled Not on file Not on file Not on file documented as of this encounter Progress Notes * Alicia Dalton RN - 09/04/2019 9:47 AM CDT Received call from pt stating she thought her appt was Monday - not today. She needs to reschedule.Appt rescheduled for 09/08 at 3:00pm. documented in this encounter Plan of Treatment Not on file documented as of this encounter Visit Diagnoses Not on filedocumented in this encounter Care Teams Credit Risk Modeler Relationship Specialty Start Date End Date Yoshi Bear MD [address] [place] [address] PCP - General INTERNAL MEDICINE 07/12/17 Jorge Machado MD [address] [place] [address] [place] Ham Clerk CARDIOVASCULAR DISEASE 07/12/17 documented as of this encounter
--- OUTSIDE RECORDS SUMMARY | 2024-05-19 08:37 | XMS_ITS | Encounter Summary ---
Author Organization [facility] Address [address] [place] [address]. [place] [address] [place] [address] Care Team Providers Care Mandolin Repair Person Name Role Phone Unavailable Primary Care Provider Unavailabl e Reason for Visit * Reason Onset Date Comments Forms 06/30/2017 Encounter Details Date Type Department Care Team ([facility] st Contact Info) Description 06/30/2017 Telephone [facility] [address] [place] [address] APRN ELEMENTARY VOCAL MUSIC TEACHERHenriettaC [address] [facility] [address] [place] [address] Forms Social History Tobacco Use Types Packs/Day Years Used Date Smoking Tobacco: Never Assessed Comments Unknown Sex and Gender Information Value Date Recorded Sex Assigned at Not on file Legal Sex Female 9:13 AM ELECTRONIC SERVICE TECHNICIAN Gender Identity Not on file Sexual Orientation Not on file documented as of this encounter Progress Notes * MORENO Castaneda - 06/30/2017 3:58 PM CST Patience called requesting any paperwork that she has to fill out the day of her appointment be mailed to her in advance since she has difficulty writing. Intake form mailed. TRONIC SERVICE TECHNICIAN documented in this encounter Plan of Treatment Not on file documented as of this encounter Visit Diagnoses Not on filedocumented in this encounter
--- OUTSIDE RECORDS SUMMARY | 2024-05-19 08:37 | XMS_ITS | Encounter Summary ---
Author Organization [facility] Address [address] [place] [address]. [place] [address] [place] [address] Care Team Providers Care Mechanical Tech Name Role Phone Yoshi Bear MD Primary Care Provider [phone] Jorge Machado MD Unavailable Unavailabl e Jak Shannon MD Unavailable [phone] Encounter Details Date Type Department Care Team (Late st Contact Info) Description 07/10/2017 [facility] [address] [place] [address] Jorge Machado MD Social History Tobacco Use Types Packs/Day Years Used Date Smoking Tobacco: Former Cigarettes Q uit: 2002 Alcohol Use Standard Drinks/Week Comments No 0 (1 standard drink = 0.6 oz pur e alcohol) Comments Unknown Sex and Gender Information Value Date Recorded Sex Assigned at Not on file Legal Sex Female 9:13 AM ATHLETIC SHOE DESIGNER Gender Identity Not on file Sexual Orientation Not on file Occupation Industry Job Start Date Job End Date disabled Not on file Not on file Not on file documented as of this encounter Plan of Treatment Not on file documented as of this encounter Visit Diagnoses Not on filedocumented in this encounter Care Teams Mechanical Tech Relationship Specialty Start Date End Date Yoshi Bear MD [address] [place] [address] PCP - General INTERNAL MEDICINE 07/12/17 Jorge Machado MD [address] [place] [address] [place] Catheter Finisher And Inspector CARDIOVASCULAR DISEASE 07/12/17 Jak Shannon MD [address] [place] [address] [place] Catheter Finisher And Inspector INTERVENTIONAL CARDIOLOGY 10/05/20 03/17/21 documented as of this encounter
--- OUTSIDE RECORDS SUMMARY | 2024-05-19 08:37 | XMS_ITS | Encounter Summary ---
Author Organization [facility] Address [address] [place] [address]. [place] [address] [place] [address] Care Team Providers Care Volunteer Fire Fighter Name Role Phone Yoshi Bear MD Primary Care Provider [phone] Jorge Machado MD Unavailable Unavailabl e Reason for Visit * Reason Comments Ultrasound (SCAN) Encounter Details Date Type Department Care Team ([facility] Contact Info) Description 01/27/[address] [facility] [address] [place] [address] Scanned, Documents Ultrasound (SCAN) Social History Tobacco Use Types Packs/Day Years Used Date Smoking Tobacco: Never Assessed Comments Unknown Sex and Gender Information Value Date Recorded Sex Assigned at Not on file Legal Sex Female 9:13 AM WELLNESS GUIDE Gender Identity Not on file Sexual Orientation Not on file documented as of this encounter Plan of Treatment Not on file documented as of this encounter Procedures Procedure Name Priority Date/Time Associated Diagnosis Comments ECHO GENERIC (SCAN ORDER) Routine 01/27/2015 ULTRASOUND GENERIC (SCAN ORDER) Routine 01/27/2015 documented in this encounter Results * ECHO (01/27/2015) Anatomical Region Laterality Modality Other us Documents Scanned SCANNING Final Result * ULTRASOUND (01/27/2015) Anatomical Region Laterality Modality Other us Documents Scanned SCANNING Final Result documented in this encounter Visit Diagnoses Not on filedocumented in this encounter Care Teams Volunteer Fire Fighter Relationship Specialty Start Date End Date Yoshi Bear MD [address] [place] [address] PCP - General INTERNAL MEDICINE 07/12/17 Jorge Machado MD [address] [place] [address] [place] Expeller Operator CARDIOVASCULAR DISEASE 07/12/17 documented as of this encounter
--- OUTSIDE RECORDS SUMMARY | 2024-05-19 08:37 | XMS_ITS | Encounter Summary ---
Author Organization [facility] Address [address] [place] [address]. [place], [place] [address] [place] [address] Care Team Providers Care It Project Coordinator Name Role Phone Yoshi Bear MD Primary Care Provider [phone] Jroge Machado MD Unavailable Unavailabl e Reason for Visit * Reason Onset Date Comments Advice 08/10/2017 Encounter Details Date Type Department Care Team (Late st Contact Info) Description 08/10/2017 Telephone [facility] 1ST FLOOR [address] [place] [address] Jorge Machado MD Advice Social History Tobacco Use Types Packs/Day Years Used Date Smoking Tobacco: Former Cigarettes Q uit: 2002 Smokeless Tobacco: Never Alcohol Use Standard Drinks/Week Comments No 0 (1 standard drink = 0.6 oz pur e alcohol) Comments Unknown Sex and Gender Information Value Date Recorded Sex Assigned at Not on file Legal Sex Female 9:13 AM GLOVE BOARDER Gender Identity Not on file Sexual Orientation Not on file Occupation Industry Job Start Date Job End Date disabled Not on file Not on file Not on file documented as of this encounter Progress Notes * Lizbeth Weir RN - 08/11/2017 1:29 PM CDT Spoke with Annalisa, no change in muscle cramps off Atorvastatin, will restart and add Co enzyme Q10. She has remained on Propranolol for tremors so will not start Metoprolol documented in this encounter Plan of Treatment Not on file documented as of this encounter Visit Diagnoses Not on filedocumented in this encounter Care Teams It Project Coordinator Relationship Specialty Start Date End Date Yoshi Bear MD [address] [place] [address] PCP - General INTERNAL MEDICINE 07/12/17 Jorge Machado MD [address] [place] [address] [place] Air Box Tester CARDIOVASCULAR DISEASE 07/12/17 documented as of this encounter
--- OUTSIDE RECORDS SUMMARY | 2024-05-19 08:37 | XMS_ITS | Encounter Summary ---
Author Organization [facility] Address [address] [place] [address]. [place], [place] [id number] [place] [address] Care Team Providers Care Payroll Examiner Name Role Phone Yoshi Bear MD Primary Care Provider [phone] Jorge Machado MD Unavailable Unavailabl e Encounter Details Date Type Department Care Team (Late st Contact Info) Description 08/11/2017 Orders Only [facility] [address] [phone] Lizbeth Weir RN Social History Tobacco Use Types Packs/Day Years Used Date Smoking Tobacco: Former Cigarettes Q uit: 2002 Smokeless Tobacco: Never Alcohol Use Standard Drinks/Week Comments No 0 (1 standard drink = 0.6 oz pur e alcohol) Comments Unknown Sex and Gender Information Value Date Recorded Sex Assigned at Not on file Legal Sex Female 9:13 AM SALES ARCHITECT Gender Identity Not on file Sexual Orientation Not on file Occupation Industry Job Start Date Job End Date disabled Not on file Not on file Not on file documented as of this encounter Plan of Treatment Not on file documented as of this encounter Visit Diagnoses Not on filedocumented in this encounter Care Teams Payroll Examiner Relationship Specialty Start Date End Date Yoshi Bear MD [address] [place] [address] PCP - General INTERNAL MEDICINE 07/12/17 Jorge Machado MD [address] [place] [address] [place] Crust Sorter CARDIOVASCULAR DISEASE 07/12/17 documented as of this encounter
--- OUTSIDE RECORDS SUMMARY | 2024-05-19 08:37 | XMS_ITS | Encounter Summary ---
Author Organization [facility] Address [address] [place] [address]. [place] [address] [place] [address] Care Team Providers Care Addiction Social Worker Name Role Phone Yoshi Latif MD Primary Care Provider [phone] Jorge Machado MD Unavailable Unavailabl e Reason for Visit * Reason Comments Consult Coronary Artery Disease Encounter Details Date Type Department Care Team (Latest Contact Info) Description 07/13/2017 2:00 PM CLINICAL ASSISTANT PROFESSOR Office Visit [facility] AT [address] [address] Jorge Machado MD Consult; Coronary Artery Disease Social History Tobacco Use Types Packs/Day Years Used Date Smoking Tobacco: Former Cigarettes Q uit: 2002 Smokeless Tobacco: Never Alcohol Use Standard Drinks/Week Comments No 0 (1 standard drink = 0.6 oz pur e alcohol) Comments Unknown Sex and Gender Information Value Date Recorded Sex Assigned at Not on file Legal Sex Female 9:13 AM CLINICAL ASSISTANT PROFESSOR Gender Identity Not on file Sexual Orientation Not on file Occupation Industry Job Start Date Job End Date disabled Not on file Not on file Not on file documented as of this encounter Last Filed Vital Signs Vital Sign Reading Time Taken Comments Blood Pressure 120/60 07/14/2017 2:16 PM CLINICAL ASSISTANT PROFESSOR Pulse 80 07/14/2017 2:16 PM CLINICAL ASSISTANT PROFESSOR Temperature - - Respiratory Rate 16 07/14/2017 2:16 PM CLINICAL ASSISTANT PROFESSOR Oxygen Saturation 91% 07/14/2017 2:16 PM CLINICAL ASSISTANT PROFESSOR Inhaled Oxygen Concentration - - Weight 151 kg (333 lb) 07/14/2017 2:16 PM CLINICAL ASSISTANT PROFESSOR Height 154.9 cm (5' 1 ) 07/14/2017 2:16 PM CLINICAL ASSISTANT PROFESSOR Body Mass Index 62.92 07/14/2017 2:16 PM CLINICAL ASSISTANT PROFESSOR documented in this encounter Patient Instructions * Patient Instructions* Lizbeth Weir, MOISE - 07/14/2017 2:38 PM CLINICAL ASSISTANT PROFESSOR Images from the original note were not included. 1. Wean off propranolol 2. Stop Atorvastatin 3. Call in 1 week 4. RTC in 6 months 5. Exercise & weight loss Coronary Heart Disease The Basics Written by the doctors and editors at [facility] What is coronary heart disease???--??Coronary heart disease is a condition that puts you at risk for heart attack and other forms of heart disease. In people who have coronary heart disease, the arteries that supply blood to the heart get clogged with fatty deposits (figure 1). Other names for thisdisease are coronary artery disease or just heart disease. What are the symptoms of coronary heart disease???--??Many people with coronary heart disease have no symptoms. In fact, the first symptom of the disease can be a heart attack (figure 2). That's why it is so important to know how to spot a heart attack. The symptoms of a heart attack can include: ?Pain, pressure, or discomfort in the center of the chest ?Pain, tingling, or discomfort in other parts of the upper body, including the arms, back, neck, jaw, or stomach ?Shortness of breath ?Nausea, vomiting, burping, or heartburn ?Sweating or having cold, clammy skin ?A racing or uneven heartbeat ?Feeling dizzy or lightheaded If these symptoms last more than 10 minutes or they keep coming and going, call for an ambulance (in the [place] and [place], dial 9-1-1) right away. Do not try to get to the hospital on your own. Some people with coronary heart disease have chest pain even when they are not having a heart attack. This is most likely to happen when they are walking, going up stairs, or moving around. But if you have chest pain that is new or different than pain you have had before, you should see a doctor right away. Is there a test for coronary heart disease???--??Yes. If your doctor or nurse thinks you might havecoronary heart disease, he or she might order blood tests and one or more of these tests: ?An electrocardiogram ( ECG or EKG ) - This test measures the electrical activity in your heart. ?A stress test - During a stress test, you might be asked to run or walk on a treadmill while you also have an ECG. Physical activity increases the heart's need for blood. This test helps doctors seeif the heart is getting enough blood. If you cannot walk or run, your doctor might do this test by giving you a medicine to make your heart pump faster. ?An echocardiogram - This test uses sound waves to create an image of your heart as it beats. ?Cardiac catheterization (also called cardiac cath ) - During this test, the doctor puts a thin tube into a blood vessel in your leg or arm. Then he or she moves the tube up to your heart. Next, thedoctor puts a dye that shows up on X- ray into the tube. This part of the test is called coronary angiography. It can show whether any of the arteries in your heart are clogged. How is coronary heart disease treated???--??The main treatments for coronary heart disease are: ?Lifestyle changes - Here are some things you can do to reduce your risk of heart attack and : Quit smoking, if you smoke. Eat lots of fruits and vegetables and low-fat dairy products, but not a lot of meat or fatty foods. Walk or do some form of physically activity on most days of the week. Lose weight, if you are overweight. ?Medicines - The medicines to treat heart disease are very important. Some medicines lower your risk of heart attacks and can help you live longer. But you must take them every day, as directed. Medicines your doctor might prescribe include: Medicines called statins, which lower cholesterol Medicines to lower blood pressure Aspirin or other medicines that help prevent blood clots Medicines to treat diabetes People who have chest pain caused by coronary heart disease (called angina ) can also get medicines to relive their pain. These medicines might include nitrates, beta blockers, and others. Some people with coronary heart disease can also have: ?A stent procedure - During this procedure, the doctor puts a thin plastic tube with a balloon at the end of it into the blocked artery, and uses a tiny balloon to open the blockage. Then the doctor leaves a tiny mesh tube called a stent inside the artery to hold it open. ?Bypass surgery (also known as coronary artery bypass grafting or CABG) - During bypass surgery, the doctor removes a piece of blood vessel from another part of the body. Then he or she reattaches the blood vessel above and below the area that is clogged. This re-routes blood around the clog, andallows it to get to the part of the heart that was not getting blood (figure 3). If your doctor recommends stenting or bypass surgery, ask these questions: ?What are the benefits of this procedure for me? Will the procedure help me live longer? Will it reduce my chance of having a heart attack? Will I feel better if I have this procedure? ?What are the risks of the procedure? ?What happens if I don't have this procedure? All topics are updated as new evidence becomes available and our peer review process is complete. This topic retrieved from [employer] on: Dec 06, 2016. Topic 01124 Version 17.0 Release: 25.3 - C25.159 ?2017??[employer]??All rights reserved. figure 1: Coronary heart disease In people with coronary heart disease, the coronary arteries get clogged with fatty deposits calledplaques. Graphic 68180 Version 5.0 figure 2: Heart attack symptoms This picture shows the main symptoms of a heart attack. People who are having a heart attack often have only some of these symptoms. The pain, pressure, and discomfort caused by a heart attack mostlyaffect the left side of the body (shown in darker red) but can also affect the right. If you think you are having a heart attack, call 9-1-1 for an ambulance. Do not try to get yourself to the hospital. Graphic 44238 Version 1.0 figure 3: Coronary artery bypass graft surgery During coronary artery bypass surgery, the surgeon removes a piece of blood vessel from the leg, chest, arm, or belly. Then the surgeon uses that piece of blood vessel (called a graft ) to reroute blood around the blocked artery. The surgery is called bypass surgery because it bypasses the blockage. Some people have more than 1 blocked artery bypassed. In this picture, the graft came from a vein in the leg called the saphenous vein. But grafts can come from other places, too. Graphic 86373 Version 5.0 Consumer Information Use and Disclaimer This information is not specific medical advice and does not replace information you receive from your health care provider. This is only a brief summary of general information. It does NOT include all information about conditions, illnesses, injuries, tests, procedures, treatments, therapies, discharge instructions or life-style choices that may apply to you. You must talk with your health care provider for complete information about your health and treatment options. This information should not be used to decide whether or not to accept your health care provider's advice, instructions or recommendations. Only your health care provider has the knowledge and training to provide advice that is right for you.The use of [employer] content is governed by the [employer] Terms of Use. ??2017 [employer]. All rights reserved. Copyright ?2017??[employer].??All rights reserved. ICAL ASSISTANT PROFESSOR ICAL ASSISTANT PROFESSOR ICAL ASSISTANT PROFESSOR documented in this encounter Progress Notes * Jorge Machado MD - 07/13/2017 2:00 PM CST Reason for Visit: Consult and Coronary Artery Disease Medications: Current Outpatient Prescriptions: ??? allopurinol 100 MG tablet, Take 100 mg by mouth daily., Disp: , Rfl: ??? aspirin EC (ASPIRIN) 81 MG EC tablet, Take 81 mg by mouth daily., Disp: , Rfl: ??? zonisamide 100 MG capsule, Take 100 mg by mouth daily., Disp: , Rfl: ??? duloxetine 60 MG capsule, takes 1 tablet daily, Disp: , Rfl: 0 ??? furosemide 80 MG tablet, TK 1 T PO D, Disp: , Rfl: 1 ??? glipiZIDE 10 MG tablet, TK 1 T PO BID, Disp: , Rfl: 1 ??? levothyroxine 125 MCG tablet, TK 2 TS PO D, Disp: , Rfl: 1 ??? metFORMIN 1000 MG tablet, TK 1 T PO BID, Disp: , Rfl: 1 ??? potassium chloride CR 20 MEQ tablet, TK 1 T PO BID, Disp: , Rfl: 3 Allergies not on file Past Medical History: Diagnosis Date ??? Adrenal nodule LEFT ??? Anxiety and depression ??? Atypical chest pain ??? Colon polyps ??? Coronary artery calcification ??? Hyperlipidemia ??? Hypertension ??? Hypothyroidism ??? Menopause age 53 ??? Occipital neuralgia saw neurologist in [place] ??? Primary generalized (osteo)arthritis low back and knees ??? Pulmonary nodules/lesions, multiple SUSPICIOUS SPICULATED 1.1 CM RUL NODULE ??? Sleep apnea ??? Type 2 diabetes mellitus Past Surgical History: Procedure Laterality Date ??? ARTHROSCOPY KNEE L knee ??? CARPAL TUNNEL RELEASE bilateral with the left done twice ??? OUS LUCHO DUPLEX LOW EXT MCKAYLA Bilateral 05/05/2017 negative for DVT ??? X-RAY EXAM CHEST 2 VIEWS 05/05/2017 no acute cardiopulmonary disease Social History Social History ??? Marital status: N/A Spouse name: N/A ??? Number of children: 0 ??? Years of education: N/A Occupational History ??? disabled 200 due to Occipital neuralgia Social History Main Topics ??? Smoking status: Former Smoker Types: Cigarettes Quit date: 2002 ??? Smokeless tobacco: Never Used ??? Alcohol use No ??? Drug use: No Comment: Hx Marijuana ??? Sexual activity: Not Asked Other Topics Concern ??? None Social History Narrative No family history on file. No family status information on file. Review of Systems Constitutional: Positive for weight gain, fatigue and diaphoresis. Negative for recent unintentional weight loss. HENT: Negative for new or significant hearing loss. Eyes: Negative for blurred vision and double vision. Respiratory: Positive for shortness of breath. Negative for cough and snoring. Cardiovascular: See HPI Gastrointestinal: Negative for blood in stool and melena. Genitourinary: Negative for dysuria. Musculoskeletal: Positive for joint stiffness/pain. Negative for myalgias. Skin: Negative for rash. Neurological: Positive for tingling/numbness. Negative for focal weakness. Endo/Heme/Allergies: Positive for easy bruising/bleeding. Negative for polydipsia. Psychiatric/Behavioral: Negative for depression and new or significant memory loss. Filed Vitals: 07/14/17 1416 BP: 120/60 Pulse: 80 Resp: 16 SpO2: 91% Weight: (!) 151 kg (333 lb) Height: 5' 1 (1.549 m) Physical Exam Constitutional: She is oriented to person, place, and time. She appears well- developed and well-nourished. No distress. Morbidly obese HENT: Mouth/Throat: Mucous membranes are not pale and not cyanotic. Eyes: There is no xanthelasma. Neck: Neck supple. Normal carotid pulses and no JVD present. Carotid bruit is not present. Cardiovascular: Normal rate, regular rhythm, S1 normal and S2 normal. Exam reveals no S3 and no S4. No murmur heard. Pulses: Dorsalis pedis pulses are 2+ on the right side, and 2+ on the left side. Posterior tibial pulses are 2+ on the right side, and 2+ on the left side. Pulmonary/Chest: Effort normal and breath sounds normal. Abdominal: Soft. Normal appearance. She exhibits no abdominal bruit and no mass. There is no hepatosplenomegaly. There is no tenderness. Musculoskeletal: She exhibits no edema. No severe kyphoscoliosis. Neurological: She is oriented to person, place, and time. Neuro exam grossly normal. Skin: Skin is warm, dry and intact. No cyanosis. Nails show no clubbing. Without evidence of xanthoma. Psychiatric: She has a normal mood and affect. Diagnoses/Impression: 1. Mixed hyperlipidemia 2. Obstructive sleep apnea syndrome 3. Occipital neuralgia 4. Hypothyroidism 5. Coronary artery calcification Referring Provider: No ref. provider found PCP: YOSHI LATIF ICAL ASSISTANT PROFESSOR * Jorge Machado MD - 07/13/2017 2:00 PM CST HISTORY OF PRESENT ILLNESS: Mrs. Doll is seen in the [facility] today in consultation. She is a 67-year-old woman with an apparent history of dilated cardiomyopathy who was sent [facility] by Dr. Latif for reevaluation of her cardiac status. Mrs. Doll relates that she has been followed in the past in [place], [place] under the direction of Dr. Beltran. Mrs. Doll relates that she was given a diagnosis of a dilated cardiomyopathy following an echocardiogram. An apparent followup VANESSA revealed the left ventricular ejection fraction to be well preserved. She was originally treated with the initiation of Carvedilol, but this was discontinued after the followup echocardiographic evaluation. Mrs. Doll presently denies any anginal chest pain. She does have some shortness of breath with exertion. She denies any overt symptoms of congestive heart failure such as paroxysmal nocturnal dyspnea or orthopnea, but has had some mild pedal edema. She denies any palpitations, but did have an episode of syncope which was attributed to epilepsy. She denies any claudication and seems to be tolerating her present medications well. She does describe some ongoing muscle aches in her lower extremities. Mrs. Clarks cardiac risk factors for coronary artery disease include a strong family history in 2 brothers and 1 sister who all had coronary artery disease. Two of the siblings underwent coronary artery bypass grafting and other brother of a myocardial infarction at age 56. Mrs. Doll hasa history of tobacco abuse, but quit in 2001. She also has a history of a hyperlipidemia as well as diabetes mellitus. She denies any history of hypertension. She does carry a diagnosis of sleep apnea and is treated with a CPAP. Mrs. Doll relates that she once weighed as much as 404 pounds, but has lost a considerable amount of weight since then. She has ongoing difficulties with anxiety/depression and has been given a diagnosis of posttraumatic stress syndrome in the past. She has undergone 2 stress tests in the past. The first was unremarkable and the second was at least 10 years ago and was also felt to be unremarkable. She has been shown to have coronary calcifications on other testing. Available data includes an EKG from April of last year, which confirmed the presence of normal sinus rhythm with a nonspecific ST segment abnormality. Laboratory included a lipid panel which showed a total serum cholesterol of 187 with an LDL cholesterol fraction of 104 and a total cholesterol to HDL cholesterol ratio of 3.9. Serum triglycerides were mildly elevated at 174 and associated with a serum ALT which was within normal limits at 24. A glycosylated hemoglobin was somewhat elevated at7.3%. Venous Doppler studies showed no evidence of deep venous thrombosis of the lower extremities.A chest x-ray showed no acute cardiopulmonary disease and cardiac enzymes were negative for myocardi al infarction. RECOMMENDATIONS AND PLAN: Mrs. Mclaughlin cardiac status appears clinically stable at the present time without ongoing anginal chest pain, overt symptoms of congestive heart failure, or clinical evidence of hemodynamically significant arrhythmias. She has been found to have coronary calcifications in the setting of numerous cardiac risk factors for coronary artery disease and aggressive cardiac risk factor modification will be important in her long-term care. It is unclear at this time whether or not her dilated cardiomyopathy was real as it may have simply been related to poor imaging due to her significant obesity in the past. After a long discussion in the clinic, I have recommended the following to Mrs. Doll: 1. Wean off Propranolol as it has caused tremors . Mrs. Doll would benefit from low-dose Metoprolol beta blockade given her apparent coronary artery disease. 2. Trial of discontinuing Atorvastatin due to Mrs. Doll's lower extremity muscle aches which could be possibly secondary to the statin therapy. We will reinstitute the statin therapy if her muscleaching in the lower extremities does not improve with discontinuation of Atorvastatin. 3. Aggressive attempts at weight loss and participation in a regular exercise program. 4. Return to the cardiology clinic for routine followup in 6 months. I have encouraged Mrs. Mercado contact me in the meantime should she have any questions or problems. documented in this encounter Plan of Treatment Not on file documented as of this encounter Visit Diagnoses Diagnosis Mixed hyperlipidemia- Primary Coronary artery calcification Class 3 obesity due to excess calories with serious comorbidity and body mass index (BMI) of 60.0 to 69.9 in adult Obstructive sleep apnea syndrome Obstructive sleep apnea (adult) (pediatric) documented in this encounter Care Teams Addiction Social Worker Relationship Specialty Start Date End Date Yoshi Latif MD [address] [place] [address] PCP - General INTERNAL MEDICINE 07/12/17 Jorge Machado MD [address] [place] [address] [place] Statement Request Clerk CARDIOVASCULAR DISEASE 07/12/17 documented as of this encounter
--- OUTSIDE RECORDS SUMMARY | 2024-05-19 08:37 | XMS_ITS | Encounter Summary ---
Author Organization [facility] Address [address] [place] [address]. [place], [place] [id number] [place] [address] Care Team Providers Care Clin Nurse Name Role Phone Yoshi Bear MD Primary Care Provider [phone] Jorge Machado MD Unavailable Unavailabl e Encounter Details Date Type Department Care Team (Late st Contact Info) Description 12/24/2014 Scan [facility] [address] [id number] Scanned, Documents Social History Tobacco Use Types Packs/Day Years Used Date Smoking Tobacco: Never Assessed Comments Unknown Sex and Gender Information Value Date Recorded Sex Assigned at Not on file 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
--- OUTSIDE RECORDS SUMMARY | 2024-05-19 08:37 | XMS_ITS | Encounter Summary ---
Author Organization [facility] Address [address] [place] [address]. [place] [address] [place] [address] Care Team Providers Care Shearing Machine Tender Name Role Phone Yoshi Bear MD Primary Care Provider [phone] Jorge Machado MD Unavailable Unavailabl e Reason for Visit * Reason Comments Lab (SCAN) Encounter Details Date Type Department Care Team (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 Gender Identity Not on file Sexual Orientation Not on file documented as of this encounter Plan of Treatment Not on file documented as of this encounter Procedures Procedure Name Priority Date/Time Associated Diagnosis Comments OUTSIDE LAB (SCAN ORDER) Routine 03/31/2014 documented in this encounter Results * OUTSIDE LAB (03/31/2014) 03/31/2014 us Documents Scanned SCANNING Final Result documented in this encounter Visit Diagnoses Not on filedocumented in this encounter Care Teams Shearing Machine Tender Relationship Specialty Start Date End Date Yoshi Bear MD [address] [place] [address] PCP - General INTERNAL MEDICINE 07/12/17 Jorge Machado MD [address] [place] [address] [place] Candy Starch Mold Printer CARDIOVASCULAR DISEASE 07/12/17 documented as of this encounter
--- OUTSIDE RECORDS SUMMARY | 2024-05-19 08:43 | XMS_ITS | Encounter Summary ---
Author Organization [facility] Address [address] [place] [address] Phone Care Team Providers Care Cyber Software Engineer Name Role Phone Unavailable Primary Care Provider Unavailabl e Encounter Details Date Type Department Care Team (Late st Contact Info) Description 09/30/2020 Telephone [facility] - Gastroenterology - [place] [address] [place] [address] Cm Newsome, DO [address] [address] Social History Tobacco Use Types Packs/Day Years Used Date Smoking Tobacco: Never Assessed Comments Unknown Sex and Gender Information Value Date Recorded Sex Assigned at Not on file Legal Sex Female 11:17 AM CDT Gender Identity Not on file Sexual Orientation Not on file documented as of this encounter Miscellaneous Notes * Telephone Encounter - Nevin Harrison - 09/30/2020 3:36 PM CDT Medical record request mailed to Pt. documented in this encounter Plan of Treatment Not on file documented as of this encounter Visit Diagnoses Not on filedocumented in this encounter
--- OUTSIDE RECORDS SUMMARY | 2024-05-19 08:43 | XMS_ITS | Clinical Summary ---
Author Organization [facility] Address [address] [address] Phone Care Team Providers Care Supervisor Lead Burning Name Role Phone Ysabel Butler APRN Primary Care Provider Allergies Active Allergy Reactions Criticality Noted Date Comments Cephalexin Unknown 11/15/2022 Medications HYDROcodone-rat taminophen (NORCO) 7.5-325 MG Tablet 0 Active Omeprazole Magnesium (PriLOSEC OTC) 20 MG Tablet Delayed Response Take 20 mg by mouth daily. Active Semaglutide,0.2 5 or 0.5MG/DOS, 2 MG/1.5ML Solution Pen-injector by Subcutaneous route. Active Dapagliflozin Propanediol 5 MG Tablet Take by mouth. Activ e potassium chloride (KLOR-CON) 20 MEQ Pack Take 20 mEq by mouth 2 times daily. Active metFORMIN (GLUCOPHAGE) 1000 MG Tablet Take 1,000 mg by mouth 2 times daily (with meals). Active atorvastatin (LIPITOR) 40 MG Tablet Take 40 mg by mouth daily. Active allopurinol (ZYLOPRIM) 100 MG Tablet Take 100 mg by mouth daily. Active DULoxetine (CYMBALTA) [address] Particles Take 60 mg by mouth daily. Active furosemide (LASIX) 80 MG Tablet Take 80 mg by mouth daily. Active glipiZIDE (GLUCOTROL) 10 MG Tablet Take 10 mg by mouth daily. Active aspirin EC 81 MG Tablet Delayed Response Take 81 mg by mouth daily. Active buPROPion SR (WELLBUTRIN SR) 150 MG TABLET SR 12 HR Take 150 mg by mouth 2 times daily. Active propranolol (INDERAL) 40 MG Tablet Take 40 mg by mouth 3 times daily. Active ezetimibe (ZETIA) 10 MG Tablet Take 10 mg by mouth daily. Active levothyroxine (SYNTHROID) 100 MCG Tablet Take 100 mcg by mouth daily. Active polycarbophil calcium (FiberCon) 625 MG Tablet Take 625 mg by mouth daily. Active Social History Tobacco Use Types Packs/Day Years Used Date Smoking Tobacco: Never Smokeless Tobacco: Never Alcohol Use Standard Drinks/Week Comments Never 0 (1 standard drink = 0.6 oz pur e alcohol) Sexually Active Control Partners Comments Not Currently Comments Unknown Sex and Gender Information Value Date Recorded Sex Assigned at Not on file Legal Sex Female 11:17 AM CDT Gender Identity Not on file Sexual Orientation Not on file Plan of Treatment Health Maintenance Due Date Last Done Comments DEXA Bone Density 1950 Hepatitis C Virus (HCV) Screening 1950 TdaP Immunization 1950 Cologuard 2001 Immunochemical Fecal Occult Blood 2001 Mammogram 2001 Zoster Immunization (1 of 2) 2001 Respiratory Syncytial Virus (RSV) Immunization (Adult) (1 - Risk 60-74 years 1-dose series) 2011 Influenza Immunization (#1) 01/21/202402/19, 02/25/2022, 03/30/2021, Additional history exists SARS-COV-2 Immunization ( season) 2024 09/29/2020, 09/01/2020 Colonoscopy 06/27/2024 06/27/2014 Colorectal Cancer Screening 06/27/2024 06/27/2014 Pneumococcal Immunization (50+ years) Completed 03/02/2023, 02/19/2019 Hepatitis B Immunization Aged Out No longer eligible based on patient's age to complete this topic Meningococcal Immunization (ACWY) Aged Out No longer eligible based on patient's age to complete this topic Rotavirus Immunization Aged Out No lo nger eligible based on patient's age to complete this topic Procedures Procedure Name Priority Date/Time Associated Diagnosis Comments COLONOSCOPY Routine 06/27/2014 from Last 3 Months or Most Recently Relevant to Health Maintenance Results * COLONOSCOPY (06/27/2014) Jorge Huang MD PROCEDURE/MINOR SURGICAL ROBERT LANGFORD Final Result from Last 3 Months or Most Recently Relevant to Health Maintenance [facility] [employer] on file Care Teams Supervisor Lead Burning Relationship Specialty Start Date End Date Ysabel Butler APRN [id number] [address] PCP - General Advanced Practice Nurse 06/09/21
--- OUTSIDE RECORDS SUMMARY | 2024-05-19 08:44 | XMS_ITS | Data Portability ---
Author Organization [facility], Main Office Address [address] [place] [address] Assessment No assessment recorded. Plan of Treatment Reminders Order Date Submit Date Provider Last Modified By Organization Details Last Modified Time Details Appointments None recorded. Lab cortisol, am, serum [address]), [address] [place] [address], [address], 3 10:42:38 dexamethaso ne, serum [address]), [address] [place] [address], [address], 3 10:42:38 lipid panel, serum [address]), [address] [place] [address], [address], 3 10:42:20 TSH + free T4, serum [address]), [address] [place] [address], [address], 3 10:42:20 CMP, serum or plasma 2022 023 [facility]), [address] [place] [address], [address], 3 13:01:08 HbA1c (hemoglobin A1c), blood 2022 023 [facility]), [address] [place], [address], 3 13:01:11 microalbumi n/creatinin e, mass ratio, urine 2022 023 [facility]), [address] [place], [address], 3 11:29:42 Referral None recorded. Procedures None recorded. Surgeries None recorded. Imaging None recorded. Medication Orders dexamethaso ne 1 mg tablet 2022 023 [facility], [address], [place], [place], [id number], 3 10:39:10 Ozempic 0.25 mg or 0.5 mg (2 mg/1.5 mL) subcutaneou s pen injector 2022 023 [facility]6988, [address], [place], [place], [id number], 3 10:36:51 Farxiga 5 mg tablet 2022 023 [facility]76538, [address], [place], [place], [id number], 3 10:42:04 Patient TargetsNo targets recorded. Patient InstructionsNo instructions recorded. Reason for Referral None Reported. Results Created Date Observation Date Name Description Value Unit Range Abnormal Flag Note LastModifiedBy Organization Detail LastModifiedTime 08/13/19 23 08/13/2022 COMPR EHENS DELILAH METAB OLIC PANEL glucose 292 mg/dL 65-99 high Fasti ng refer ence inter nicko For someo ne witho ut known diabe massiel, a gluco se value >125 mg/dL indic ates that they may have diabe massiel and this shoul d be confi rmed with a follo w-up test. Not Available [facility] [address] [place], [address], 08/13/2022 13:01:08 08/13/19 23 08/13/2022 COMPR EHENS DELILAH METAB OLIC PANEL urea nitrogen (BUN) 27 mg/dL 7-25 high Not Available [facility] [address] [address] [place], [address], 08/13/2022 13:01:08 08/13/19 23 08/13/2022 COMPR EHENS DELILAH METAB OLIC PANEL creatinine 0.88 mg/dL 0.60-1 .00 normal Not Available [facility] [address] [address] [place], [address], 08/13/2022 13:01:08 08/13/19 23 08/13/2022 COMPR EHENS DELILAH METAB OLIC PANEL eGFR 70 mL/mi n/1.7 3m2 > or = 60 normal The eGFR is based on the CKD-E PI 2020 equat ion. To calcu late the new eGFR from a previ ous Creat inine or Cysta tin C resul t, go to https ://beto [email or web address] [email or web address]/ kdoqi /gfr% 5Fcal culat or Not Available [address] [address] [place], [address], 08/13/2022 13:01:08 08/13/19 23 08/13/2022 COMPR EHENS DELILAH METAB OLIC PANEL BUN/creatini ne ratio 31 (calc ) 6-22 high Not Available [facility] [address] [address] [place], [address], 08/13/2022 13:01:08 08/13/19 23 08/13/2022 COMPR EHENS DELILAH METAB OLIC PANEL sodium 138 mmol/ L 135-14 6 normal Not Available [facility] [address] [address] [place], [address], 08/13/2022 13:01:08 08/13/19 23 08/13/2022 COMPR EHENS DELILAH METAB OLIC PANEL potassium 3.8 mmol/ L 3.5-5. 3 normal Not Available [address], [address], 08/13/2022 13:01:08 08/13/19 23 08/13/2022 COMPR EHENS DELILAH METAB OLIC PANEL chloride 100 mmol/ L 98-110 normal Not Available [address], [address], 08/13/2022 13:01:08 08/13/19 23 08/13/2022 COMPR EHENS DELILAH METAB OLIC PANEL carbon dioxide 29 mmol/ L 20-32 normal Not Available [address], [address], 08/13/2022 13:01:08 08/13/19 23 08/13/2022 COMPR EHENS DELILAH METAB OLIC PANEL calcium 8.6 mg/dL 8.6-10 .4 normal Not Available [address], [address], 08/13/2022 13:01:08 08/13/19 23 08/13/2022 COMPR EHENS DELILAH METAB OLIC PANEL protein, total 6.2 g/dL 6.1-8. 1 normal Not Available [address], [address], 08/13/2022 13:01:08 08/13/19 23 08/13/2022 COMPR EHENS DELILAH METAB OLIC PANEL albumin 4.0 g/dL 3.6-5. 1 normal Not Available [address], [address], 08/13/2022 13:01:08 08/13/19 23 08/13/2022 COMPR EHENS DELILAH METAB OLIC PANEL globulin 2.2 g/dL_ (calc ) 1.9-3. 7 normal Not Available [address], [address], 08/13/2022 13:01:08 08/13/19 23 08/13/2022 COMPR EHENS DELILAH METAB OLIC PANEL albumin/glob ulin ratio 1.8 (calc ) 1.0-2. 5 normal Not Available [address], [address], 08/13/2022 13:01:08 08/13/19 23 08/13/2022 COMPR EHENS DELILAH METAB OLIC PANEL bilirubin, total 0.5 mg/dL 0.2-1. 2 normal Not Available [address], [address], 08/13/2022 13:01:08 08/13/19 23 08/13/2022 COMPR EHENS DELILAH METAB OLIC PANEL alkaline phosphatase 106 U/L 37-153 normal Not Available [address], [address], 08/13/2022 13:01:08 08/13/19 23 08/13/2022 COMPR EHENS DELILAH METAB OLIC PANEL AST 15 U/L 10-35 normal Not Available [address], [address], 08/13/2022 13:01:08 08/13/19 23 08/13/2022 COMPR EHENS DELILAH METAB OLIC PANEL ALT 16 U/L 6-29 normal Not Available [address], [address], 08/13/2022 13:01:08 08/13/19 23 08/13/2022 ALBUM IN, RANDO M URINE W/CRE ATINI NE creatinine, random urine 150 mg/dL 20-275 normal Not Available [address], [address], 08/13/2022 13:01:09 08/13/19 23 08/13/2022 ALBUM IN, RANDO M URINE W/CRE ATINI NE albumin, urine 1.5 mg/dL see note: normal Refer ence Range : Refer ence Range Not estab lishe d Not Available [address], [address], 08/13/2022 13:01:09 08/13/19 23 08/13/2022 ALBUM IN, RANDO M URINE W/CRE ATINI NE albumin/crea tinine ratio, random urine 10 mcg/m g_cre at <30 normal The ADA defin es abnor malit ies in album in excre tion as follo ws: Album inuri a Categ ory Resul t (mcg/ mg creat inine ) Tonia l to Mildl y incre ased <30 Moder ately incre ased 30-29 9 Sever kalani incre ased > OR = 300 The ADA recom mends that at least two of three speci mens colle cted withi n a 3-6 month perio d be abnor mal befor e consi tomas g a patie nt to be withi n a diagn ostic categ ory. Not Available [address], [address], 08/13/2022 13:01:09 08/13/19 23 08/13/2022 T4, FREE T4, free 1.1 NG/dL 0.8-1. 8 normal Not Available [address], [address], 08/13/2022 13:01:10 08/13/19 23 08/13/2022 TSH TSH 18.80 mIU/L 0.40-4 .50 high Not Available [address], [address], 08/13/2022 13:01:11 08/13/19 23 08/13/2022 HEMOG LOBIN A1C hemoglobin A1C 10.5 %_of_ total _HGB <5.7 high For someo ne witho ut known diabe massiel, a hemog lobin A1c value of 6.5% or great er indic ates that they may have diabe massiel and this shoul d be confi rmed with a follo w-up test. For someo ne with known diabe massiel, a value <7% indic ates that their diabe massiel is well contr olled and a value great er than or equal to 7% indic ates subop timal contr ol. A1c targe ts shoul d be indiv idual ized based on durat ion of diabe massiel, age, comor bid condi tions , and other consi derat ions. Curre ntly, no conse nsus exist s regar ding use of hemog lobin A1c for diagn osis of diabe massiel for child lance. Not Available [employer] [facility] [address] [place], [address], 08/13/2022 13:01:11 Result Notes None recorded. Problems Name Problem SNOMED Code Status Onset Date Resolution Date Notes Provider Name and Address Organization Details Recorded Time Uncontrolled type 2 diabetes mellitus 803357097 Active 2022 Dayana Michaud MD [address], [place], [address], [facility] [employer] 3 10:34:33 Dyslipidemia 944677135 Active 2022 Dayana Michaud MD [address], [place], [address], [address] [employer] 3 10:37:05 Weight gain 2894349 Active 2022 Dayana Michaud MD [address], [place], [address], [facility] [employer] 3 10:37:11 Hypothyroidism 72720652 Active 2022 Dayana Michaud MD [address], [place], [address], [address] [employer] 3 15:10:54 Problem Notes None recorded. Procedures Surgical History Date Name Laterality Status Provider Name and Address Organization Details Recorded Time Arthroscopy completed Not Available [facility] 07/21/2022 01:25:31 Carpal tunnel surgery completed Not Available [facility] 07/21/2022 01:25:31 ureterorenoscopy with fragmentation and removal of calculus of kidney completed SOHAM John [facility] 08/04/2022 10:19:00 Imaging Results None recorded. Procedure Notes None recorded. Medical Equipment None Reported. Allergies Allergen ID Allergen Name Allergen Category Reaction Reaction Severity Criticality Documentation Date Start Date Code Code System Note Provider Name and Address Organization Details Recorded Time 20580 Keflex medicatio n hives moderate Not available 08/04/2022 7 RxNorm SOHAM John [facility] [employer] [facility] 10:09:54 Medications Name Sig Start Date Stop Date Status Note LastModified by Organization Details LastModified Time atorvastati n 40 mg tablet Take 1 tablet every day by oral route. 2022 active Not Available Not Available Not Avai lable hydrocodone 5 mg-acetamin ophen 325 mg tablet active Not Available Not Available No t Available glipizide 10 mg tablet TAKE 1 TABLET BY MOUTH TWICE DAILY DIRECTED active Not Available Not Available No t Available allopurinol 100 mg tablet TAKE 1 TABLET BY MOUTH DAILY active Not Available Not Available No t Available zonisamide 100 mg capsule active Not Available Not Available Not Available FiberCon 625 mg tablet TWO TABS BID 2022 active Not Available Not Available Not Avai lable propranolol 40 mg tablet Take 1 tablet every day by oral route. 2022 active Not Available Not Available Not Avai lable potassium chloride ER 20 mEq tablet,exte nded release(par t/cryst) TAKE 1 TABLET BY MOUTH TWICE DAILY active Not Available Not Available No t Available furosemide 80 mg tablet TAKE 1 TABLET BY MOUTH IN THE MORNING active Not Available Not Available No t Available dexamethaso ne 1 mg tablet TAKE 1 TABLET BY MOUTH AT 10 PM NIGHT BEFORE 8 AM CORTISOL active Not Available Not Available No t Available metformin 1,000 mg tablet TAKE 1 TABLET BY MOUTH TWICE DAILY active Not Available Not Available No t Available propranolol ER 80 mg capsule,24 hr,extended release active Not Available Not Available Not Available levothyroxi ne 150 mcg tablet TAKE 2 TABLETS BY MOUTH DAILY active Not Available Not Available No t Available Unithroid 25 mcg tablet Take 1 tablet every day by oral route in the morning for 90 days. 08/18 completed Not Available Not Available Not Available ergocalcife rol (vitamin D2) 1,250 mcg (50,000 unit) capsule TAKE 1 CAPSULE BY MOUTH 1 TIME WEEKLY FOR 12 WEEKS active Not Available Not Available No t Available Adult Low Dose Aspirin 81 mg tablet,opal yed release Take 1 tablet every day by oral route. 2022 active Not Available Not Available Not Avai lable ezetimibe 10 mg tablet Take 1 tablet every day by oral route. active Not Available Not Available No t Available Prilosec OTC 20 mg tablet,opal yed release Take 1 tablet every day by oral route. 2022 active Not Available Not Available Not Avai lable bupropion HCl XL 150 mg 24 hr tablet, extended release TAKE 1 TABLET BY MOUTH DAILY active Not Available Not Available No t Available duloxetine 60 mg capsule,del ayed release TAKE 2 CAPSULES BY MOUTH DAILY active Not Available Not Available No t Available FreeStyle Lite Strips USE 1 STRIP TO CHECK BLOOD SUGAR TWICE DAILY DIRECTED active Not Available Not Available No t Available FreeStyle Lite Strips USE ONE STRIP TO CHECK BLOOD SUGAR TWICE DAILY 2022 active Not Available Not Available Not Avai lable Linzess 145 mcg capsule SPRINKLE ENTIRE CONTENTS ON SMALL AMOUNT OF APPLESAUC E; TAKE IMMEDIATE LY BY ORAL ROUTE ONCE DAILY ON AN EMPTY STOMACH AT LEAST 30 MINS BEFORE 1ST MEAL OF THE DAY 08/04 completed Not Available Not Available Not Available Farxiga 5 mg tablet TAKE 1 TABLET BY MOUTH EVERY DAY IN THE MORNING active Not Available Not Available No t Available potassium chloride ER 20 mEq tablet,exte nded release Take 1 tablet twice a day by oral route. 2022 active Not Available Not Available Not Avai lable Ozempic 0.25 mg or 0.5 mg (2 mg/1.5 mL) subcutaneou s pen injector Inject 0.5 mg every week by subcutane ous route at dinner for 90 days. 2022 active Not Available Not Available Not Avai lable Rybelsus 3 mg tablet Take 1 tablet every day by oral route. 08/04 completed Not Available Not Available Not Available Ozempic 0.25 mg or 0.5 mg (2 mg/3 mL) subcutaneou s pen injector INJECT 0.5 MG UNDER THE SKIN EVERY WEEK AT DINNER active Not Available Not Available No t Available Vitals Date Recorded Body weight Body temperature Heart rate Systolic blood pressure Diastolic blood pressure Provider Name and Address Organization Details Last Updated DateTime 08/04/2022 643550. 78 g 97.7 [degF] 72 /min 140 mm[Hg] 94 mm[Hg] SOHAM John [place] [facility] 10:21:30 Social History Question Answer Notes LastModified by Organizat ion Details LastModified Time Tobacco Smoking Status Former Smoker Not Available [employer] 07/21/2022 01:24:59 What Is Your Level Of Alcohol Consumption? None [id number] Information not available 07/21/2022 Are You Blind Or Do You Have Difficulty Seeing? No Information not available 08/04/2022 In The 14 Days Before Symptom Onset, Have You Had Close Contact With A Laboratory-confir med COVID-19 While That Case Was Ill? No Information not available 08/04/2022 In The 14 Days Before Symptom Onset, Have You Had Close Contact With A Person Who Is Under Investigation For COVID-19 While That Person Was Ill? No Information not available 08/04/2022 Are You Deaf Or Do You Have Serious Difficulty Hearing? No Information not available 08/04/2022 What Type Of Diet Are You Following? REGULAR Trys To Do Low Carb Information not available 08/04/2022 When Did You Quit Smoking? 17+yearssin celastcigar ette [id number] Information not available 07/21/2022 Do You Use Your Seat Belt Or Car Seat Routinely? Yes Information not available 08/04/2022 Do You Feel Stressed (tense, Restless, Nervous, Or Anxious, Or Unable To Sleep At Night)? [id number] Information not available 08/04/2022 Do You Use Any Illicit Or Recreational Drugs? No [id number] Information not available 07/21/2022 Have You Recently Traveled Abroad? No Information not available 08/04/2022 Do You Have Any Dietary Restrictions? No Information not available 08/04/2022 Sex: Female Functional Status Question Answer Note LastModified by Organizat ion Details LastModified Time Do you have difficulty walking or climbing stairs? Yes Information not available 08/04/2022 Do you have transportation difficulties? No Information not available 08/04/2022 Are you able to walk? YESASSIST Information not available 08/04/2022 Do you have difficulty doing errands alone? Yes Information not available 08/04/2022 Are you able to care for yourself? Yes Information not available 08/04/2022 Do you have difficulty dressing or bathing? No Information not available 08/04/2022 What is your exercise level? None Information not available 08/04/2022 Mental Status Question Answer Note LastModified by Organization D etails LastModified Time Do you have difficulty concentrating, remembering or making decisions? Yes Information no t available 08/04/2022 Family History Relationship Description Onset Age of this Age Resolved Age Notes LastModified by Organization Details LastModified Time Father Heart disease 81 [id number] Not available 07/21/2022 01:25:33 Brother Myocardial infarction 56 Thyroi d issues Not available 08/04/2022 10:13:23 Mother Alzheimer's disease Not available 2022 10:14:01 Mother Heart disease Not available 2022 10:14:19 Sister Heart disease Not available 2022 10:14:23 Sister Diabetes mellitus Not available 2022 10:14:37 Medical History Condition Response ARTHRITIS Y OBESITY Y EDEMA Y HYPOTHYROIDISM Y DIABETES, TYPE Y HEART DISEASE/HEART PROBLEMS Y LUNG DISEASE/DISORDER DEPRESSION (INCLUDING POST ) Y HIGH CHOLESTEROL / HYPERLIPIDEMIA Y Gynecological HistoryNo gynecological history recorded. Obstetrics History GPAL:G 0 P 0 0 0 0 Past Encounters Encounter ID Performer Location Encounter Start Date Encounter Closed Date Diagnosis/Indication Diagnosis SNOMED-CT Code Diagnosis ICD10 Code [id number] Dayana Michaud MD [facility] [address] [place] [address] 08/04/2022 09:50:18 08/04/2022 10:56:06 Uncontrolled type 2 diabetes mellitus 970074792 E11.65 Dyslipidemia 079418137 E 78.5 Weight gain 4279608 R63. 5 Health Concerns Section Related Observation LastModified by Organization Detai ls LastModified Time None Recorded Concern Status LastModified by Organization Details LastModified Time None Recorded Advance Directives Directive None Recorded Payers Encounter Date Sequence Insurance Name Policy Number Policy Galo Covered Member ID Galo Member ID Guarantor Name 08/04/2022 1 [place] Patience Doll [id number] Patience Doll 08/04/2022 1 [facility] (MEDICARE REPLACEMENT/A DVANTAGE - PPO) [id number] Patience Doll [id number] Patience Doll Notes Date Note Type Note Provider Name and Address Organization Details Recorded Time 08/04/2022 text/html 72 yo female com es in as referral by courtesy of Dr. Bear for management of poorly controlled type 2 DM (9% or higher per patient over 3 months) She was diagnosed over 20 years now. She is currently taking glipizide and metformin. When she saw her PCP last year he wanted patient to go on trulicity- she could not afford the costs. At her last visit she was encouraged to try rybelsus but she is worried and did not try this as of yet. Sugars are running over 200 mg/dL fastingpremeals over 200 mg/dL Denies hypoglycemia She is not on insulin at this time. no records or labs to review Complications:No CAD or strokelast eye exam:last foot exam: Dayana Michaud MD [address] [facility], [place], [address], [place] [facility] [employer] 08/04/2022 11:56:04 OBGyn Episode No OBEpisode recorded.
--- OUTSIDE RECORDS SUMMARY | 2024-05-19 08:44 | XMS_ITS | Data Portability ---
Author Organization [facility] Address [address] [facility] [place] [address] Care Team Providers Care Building Construction Engineer Name Role Phone KELLY RICHARD Primary Care Provider [phone] Assessment Encounter Date Assessment Date Assessment LastModified by Organization Details LastModified Time 01/18/2017 01/18/2017 1. Pap done and sent to lab 2. Mammogram order given to patient 3. Pelvic ultrasound order given to patient 4. Will follow up 2 weeks following u/s [email or web address] Not available 01/18/2017 10:30:46 05/17/2017 05/17/2017 1. Will follow up if another episode of post-menopaus al bleeding occurs 2. May refer to Dr. Rueda if needed. 3. Pt verbalized understanding . [email or web address] Not available 05/31/2017 16:54:29 Plan of Treatment Reminders Order Date Submit Date Provider Last Modified By Organization Details Last Modified Time Details Appointments None recorded. Lab pap, IG 2016 017 [facility], [address], [place], [address], 7 13:11:01 Referral None recorded. Procedures None recorded. Surgeries None recorded. Imaging US, pelvis, transabdom inal + transvagin al 2016 017 [facility] (Imaging), [address] [place], [address], 7 10:15:31 MAMMO, screening, bilateral 2016 017 [facility] (Imaging), [address] [place], [address], 7 15:20:01 Medication Orders furosemide 80 mg tablet 2015 016 [id number], [address], [place], [place], [id number], 6 14:39:42 Patient TargetsNo targets recorded. Patient Instructions Encounter Date Encounter Id Patient Instructions Last Modified By Organization Details Last Modified Time 08/14/2015 [id number] osteoarthritis: care instructions Not available 08/14/2015 14:47:23 hypothyroidism: care instructions Not available 08/14/2015 14:47:23 05/17/2017 [id number] vaginal bleeding after menopause: care instructions [email or web address] Not available 05/31/2017 16:54:30 Reason for Referral None Reported. Results Created Date Observation Date Name Description Value Unit Range Abnormal Flag Note LastModifiedBy Organization Detail LastModifiedTime 01/19/20 17 01/20/2017 pap, IG diagnosis: CHIARA Kline NEGAT DELILAH FOR INTRA EPITH ELIAL LESIO N AND MALLEXIE MORENO . CELLU LAR WAGGONER ES ASSOC IATED WITH ATROP HY ARE PRESE NT. Not Available [facility] ([facility]) [address] [place], [address], 01/20/2017 13:11:01 01/19/20 17 01/20/2017 pap, IG specimen adequacy: CHIARA Kline SATIS FACTO RY FOR EVALU ATION . ENDOC ERVIC AL COMPO NENT MAY NOT BE DISTI NGUIS HED IN CASES OF ATROP HY. Not Available [facility] ([facility]) [address] [place], [address], 01/20/2017 13:11:01 01/19/20 17 01/20/2017 pap, IG clinician provided ICD10: CHIARA Kline Z01.4 19 Not Available [facility] ([facility]) [address] [place], [address], 01/20/2017 13:11:01 01/19/20 17 01/20/2017 pap, IG performed by: CHIARA MAN N, CYTOT BECKY VELÁZQUEZ T (ASCP ) Not Available [facility] ([facility]) [address] [facility], [place], [address], 01/20/2017 13:11:01 01/19/20 17 01/20/2017 pap, IG . . Not Available [facility] ([facility]) [address] [facility], [place], [address], 01/20/2017 13:11:01 01/19/20 17 01/20/2017 pap, IG note: CHIARA Kline THE PAP SMEAR IS A SCREE MINDY TEST DESIG ROSANNE TO AID IN THE DETEC TION OF MARILIA LIGNA NT AND MALIG NANT CONDI TIONS OF THE UTERI NE CERVI X. IT IS NOT A DIAGN OSTIC PROCE DURE AND SHOUL D NOT BE USED THE SOLE MEANS OF DETEC TING CERVI LARISSA CANCE R. BOTH FALSE -POSI TIVE AND FALSE -NEGA TIVE REPOR TS DO OCCUR . Not Available [facility] ([facility]) [address] [facility], [place], [address], 01/20/2017 13:11:01 01/19/20 17 01/20/2017 pap, IG test methodology: CHIARA Kline THIS LIQUI D BASED THINP REP(R ) PAP TEST WAS SCREE ROSANNE WITH THE USE OF AN IMAGE GUIDE Jabari Castillo. Not Available [facility] ([facility]) [address] [facility], [place], [address], 01/20/2017 13:11:01 02/10/20 17 02/07/2017 MAMMO , scree mindy, bilat eral No observ ation record ed. [facility]) [address] [facility], [place], [address], 02/09/2017 15:52:30 05/05/20 17 05/05/2017 US, pelvi s, trans abdom inal + trans vagin al No observ ation record ed. [facility]) [address] [place] [address], [place], [address], 05/17/2017 13:54:29 Result Notes None recorded. Problems Name Problem SNOMED Code Status Onset Date Resolution Date Notes Provider Name and Address Organization Details Recorded Time Diabetes mellitus 73328800 Active Kelly Richard PA-C Attn: Accountin g,[address], [place], [address], [place] [facility] 6 14:39:34 Occipital headache 194465 Active Kelly Richard PA-C Attn: Accountin g,[address], [place], [address], [place] [facility] 6 14:39:34 Hypothyroidism 91764744 Active Kelly Richard PA-C Attn: Accountin g,[address] [facility], [place], [address], [place] [facility] 6 14:39:34 Hyperlipidemia 10516206 Active Kelly Richard PA-C Attn: Accountin g,[address], [place], [address], [place] [facility] 6 14:39:34 Osteoarthritis 593001571 Active Kelly Richard PA-C Attn: Accountin g,[address] [facility], [place], [address], [place] [facility] 6 14:39:34 Problem Notes None recorded. Procedures Surgical History Date Name Laterality Status Provider Name and Address Organization Details Recorded Time 05/22/19 15 Colonoscopy & polypectomy completed Roberta Brian MA [facility] 01/18/2017 10:33:15 05/22/19 12 Date of Last Pap Smear completed MUNDO Smith [facility] 01/18/2017 10:02:38 Tonsillectomy completed MUNDO Bright [facility] 08/14/2015 14:28:37 Dilation and Curettage completed Shaina Rivera MA [facility] 08/14/2015 14:28:37 Arthroscopic Surgery completed MUNDO Bright - [facility] 08/14/2015 14:28:37 Imaging Results Imaging Date Name Status LastModified by Organization Details LastModified Time 02/07/2017 [facility], screening, [facility] [address] [place], [address], 02/09/2017 15:52:30 05/05/2017 US, pelvis, transabdominal + transvaginal completed [facility]) [address] [place], [address], 05/17/2017 13:54:29 Procedure Notes None recorded. Medical Equipment None Reported. Allergies Allergen ID Allergen Name Allergen Category Reaction Reaction Severity Criticality Documentation Date Start Date Code Code System Note Provider Name and Address Organization Details Recorded Time 29720 Keflex medicatio n rash Not available Not available 08/14/2015 55930 7 RxNorm MUNDO Bright, [facility] 6 14:28:37 56100 pramipexo le medicatio n other Not available Not available 01/18/2017 70743 1 RxNorm side effec t is Gambl MUNDO Rodriguez, [facility] 7 12:38:19 Medications Name Sig Start Date Stop Date Status Note LastModified by Organization Details LastModified Time Prescriptio n - Clarificati on active medication list Not Available Not Available Not Available atorvastati n 40 mg tablet active Not Available Not Available Not Available levothyroxi ne 175 mcg tablet active Not Available Not Available Not Available erythromyci n 500 mg tablet active Not Available Not Available Not Available tizanidine 2 mg tablet active Not Available Not Available Not Available glipizide 10 mg tablet active Not Available Not Available Not Available sertraline 100 mg tablet active Not Available Not Available Not Available acetaminoph en 300 mg-codeine 30 mg tablet active Not Available Not Available Not Available allopurinol 100 mg tablet active Not Available Not Available Not Available simvastatin 40 mg tablet active Not Available Not Available Not Available zonisamide 100 mg capsule active Not Available Not Available Not Available propranolol 40 mg tablet active Not Available Not Available Not Available potassium chloride ER 20 mEq tablet,exte nded release(par t/cryst) active Not Available Not Available Not Available furosemide 80 mg tablet Take 1 tablet every day by oral route for 90 days. active Not Available Not Available No t Available baclofen 10 mg tablet active Not Available Not Available No t Available hydrocodone 7.5 mg-acetamin ophen 325 mg tablet active Not Available Not Available No t Available metformin 1,000 mg tablet active Not Available Not Available Not Available levothyroxi ne 125 mcg tablet active Not Available Not Available Not Available clotrimazol e-betametha sone 1 %-0.05 % topical cream active Not Available Not Available Not Available levothyroxi ne 150 mcg tablet active Not Available Not Available Not Available morphine ER 15 mg tablet,exte nded release active Not Available Not Available Not Available levothyroxi ne 200 mcg tablet active Not Available Not Available Not Available amoxicillin 875 mg-potassiu m clavulanate 125 mg tablet active Not Available Not Available Not Available duloxetine 30 mg capsule,del ayed release active Not Available Not Available Not Available duloxetine 60 mg capsule,del ayed release active Not Available Not Available Not Available Victoza 3-Joe 0.6 mg/0.1 mL (18 mg/3 mL) subcutaneou s pen injector active Not Available Not Available Not Available Vitals Date Recorded Body height Body mass index (BMI) Body weight Systolic blood pressure Diastolic blood pressure Provider Name and Address Organization Details Last Updated DateTime 05/17/2017 156.21 cm 61.3 kg/m2 787197.4 8 g 142 mm[Hg] 82 mm[Hg] Shaina Rivera [place] [facility] 7 16:15:03 Date Recorded Body mass index (BMI) Body weight Body height Systolic blood pressure Diastolic blood pressure Provider Name and Address Organization Details Last Updated DateTime 08/14/2015 62.3 kg/m2 811187.4 88275 g 156.21 cm 120 mm[Hg] 72 mm[Hg] Shaina Rivera [place] [facility] 6 14:28:37 Date Recorded Body height Body mass index (BMI) Body weight Body temperature Respiratory rate Heart rate Systolic blood pressure Diastolic blood pressure Provider Name and Address Organization Details Last Updated DateTime 7 156.21 cm 61.4 kg/m2 392041. 93 g 98.5 [degF] 22 /min 88 /min 130 mm[Hg] 82 mm[Hg] Roberta Brian MA [place] - [facility] 7 09:58:20 Social History Question Answer Notes LastModified by Organizat ion Details LastModified Time Tobacco Smoking Status Former Smoker Shaina Rivera MA null, [place] - [place] 08/14/2015 14:28:37 Do You Have An Advance Directive? No Information not available 01/18/2017 What Is Your Level Of Alcohol Consumption? Occasional Information not available 01/18/2017 Are You Blind Or Do You Have Difficulty Seeing? No Information not available 01/18/2017 What Is Your Level Of Caffeine Consumption? Moderate Information not available 01/18/2017 How Much Tobacco Do You Chew? None Information not available 01/18/2017 Are You Currently Employed? No Information not available 01/18/2017 Are You Deaf Or Do You Have Serious Difficulty Hearing? No Information not available 01/18/2017 What Type Of Diet Are You Following? REGULAR Information not available 01/18/2017 Which Illicit Or Recreational Drugs Have You Used? Cannibus 3x A Week Information not available 01/18/2017 Education 2 Year College Informatio n not available 01/18/2017 Hard Of Hearing Or Deaf In One Or Both Ears? No Information not available 01/18/2017 Legally Blind In One Or Both Eyes? No Information not available 01/18/2017 Live Alone Or With Others? With Others Information not available 01/18/2017 What Was The Date Of Your Most Recent Tobacco Screening? 05/26/2017 Information not available 12/13/2018 How Many Children Do You Have? 0 Information not available 01/18/2017 Do You Use Protection During Sex? No Information not available 01/18/2017 Seat Belts Used Routinely Yes Information not available 01/18/2017 Are You Sexually Active? No Information not available 01/18/2017 Smoke Alarm In Home Yes Information not available 01/18/2017 Are You Passively Exposed To Smoke? No Information not available 01/18/2017 How Much Tobacco Do You Smoke? No Information not available 01/18/2017 General Stress Level High Information not available 01/18/2017 Do You Use Sunscreen Routinely? Yes Information not available 01/18/2017 Sex: Unknown Functional Status Question Answer Note LastModified by Organizat ion Details LastModified Time Do you have difficulty walking or climbing stairs? Yes Information not available 01/18/2017 Do you have difficulty doing errands alone? Yes Information not available 01/18/2017 Are you able to care for yourself? No Information not available 01/18/2017 Do you have difficulty dressing or bathing? Yes Information not available 01/18/2017 What is your exercise level? Occasional Information not available 01/18/2017 Mental Status Question Answer Note LastModified by Organization D etails LastModified Time Do you have difficulty concentrating, remembering or making decisions? Yes Information no t available 01/18/2017 Family History Relationship Description Onset Age of this Age Resolved Age Notes LastModified by Organization Details LastModified Time Mother Dementia Not availa ble 08/14/2015 14:42:03 Mother Depressive disorder Not available 07/21 14:42:03 Mother Hypertensive disorder Not available 07/21 14:42:03 Mother Hypercholest erolemia Not available 07/21 14:42:03 Mother Kidney disease Not available 07/21 14:42:03 Mother Osteoporosis Not av ailable 08/14/2015 14:42:03 Father Coronary arterioscler osis Not available 07/21 14:42:03 Father Heart disease Not available 07/21 14:42:03 Brother Coronary arterioscler osis Not available 07/21 14:42:03 Brother Heart disease Not available 07/21 14:42:03 Brother Hypertensive disorder Not available 07/21 14:42:03 Brother Hypercholest erolemia Not available 07/21 14:42:03 Sister Malignant tumor of ovary Not available 07/21 14:42:03 Sister Hypercholest erolemia Not available 07/21 14:42:03 Sister Hypertensive disorder Not available 07/21 14:42:03 Sister Heart disease Not available 07/21 14:42:03 Sister Diabetes mellitus Not available 07/21 14:42:03 Sister Coronary arterioscler osis Not available 07/21 14:42:03 Medical History Condition Response Anxiety Disorder Y Diabetes Y Muscle, Joint, or Bone Problems Y Seizures/Epilepsy Y Kidney or Bladder Problems Y Thyroid Problems Y Allergies Y Asthma Y Depression Y High Cholesterol Y Headaches Y Gynecological History Statement/Question Response Date of Last Mammogram Flow Moderate Date of LMP Menses Monthly N Date of Last Pap Smear 05/22/2011 Age at Menarche 14 Current Control Method None LMP Definite Obstetrics History GPAL:G 0 P 0 0 0 0 Type Value Living 0 Total 0 Immunizations Vaccine Type Date Status Note Provider Nam e and Address Organization Details Recorded Time COVID-19, mRNA, LNP-S, PF, 100 mcg/0.5mL dose or 50 mcg/0.25mL dose 09/01/2020 completed Kenan oquendo [place] - [facility] 10/15/2020 11:48:30 COVID-19, mRNA, LNP-S, PF, 100 mcg/0.5mL dose or 50 mcg/0.25mL dose 09/29/2020 elaine oquendo [place] - [facility] 10/15/2020 11:49:11 influenza, unspecified formulation 05/22/2014 completed MUNDO Smith, [place] - [facility] 01/18/2017 10:32:34 Past Encounters Encounter ID Performer Location Encounter Start Date Encounter Closed Date Diagnosis/Indication Diagnosis SNOMED-CT Code Diagnosis ICD10 Code [id number] Kelly Richard PA-C [facility] [address] [place] [address] 08/14/2015 13:43:15 08/14/2015 14:46:35 Diabetes mellitus 95366268 E13.21 Occipital headache 44439 7 R51 Hypothyroidism 09157571 E03.9 Hyperlipidemia 27877536 E78.5 Osteoarthritis 060911779 M19.90 [id number] Roberta Brian MA [facility] [address] [place] [address] 01/18/2017 09:20:41 01/18/2017 10:59:17 Gynecologic examination 12758963 Z01.419 Abnormal v aginal bleeding 001575673 N93.9 [id number] [facility] [address] [place] [address] 05/17/2017 16:04:58 05/31/2017 16:47:02 Postmenopausal bleeding 44792157 N95.0 Health Concerns Section Related Observation LastModified by Organization Detai ls LastModified Time None Recorded Concern Status LastModified by Organization Details LastModified Time None Recorded Advance Directives Directive N: Payers Encounter Date Sequence Insurance Name Policy Number Policy Galo Covered Member ID Galo Member ID Guarantor Name 08/14/2015 1 [place] Patience Mcclurelke [id number] Patiencemaynor Mcclurelke 01/18/2017 1 [place] Patience Alfonsouhlke [id number] Patience Kadenuhlke 01/18/2017 2 [employer] (MEDICARE SUPPLEMENT) Patience Gruhlke [id number] Patience Gruhlke 05/17/2017 1 [facility] (MEDICARE) Patience Alfonsouhlke [id number] Patience Gruhlke 05/17/2017 2 [employer] (MEDICARE SUPPLEMENT) Patience Gruhlke [id number] Patience Gruhlke Notes Date Note Type Note Provider Name and Address Organization Details Recorded Time 08/14/2015 text/html new patient. nee ds refills of meds. occipital neuralgia. diabetes. neuropathy. depression. anxiety. osteoarthritis. hypothyroid Kelly Richard PA-C Attn: Accounting,[address] , [place], [address], [place] - [facility] 08/14/2015 14:40:35 01/18/2017 text/html Annual GYNReport ed bypatient.Menstrua l cycle:Unexplained vaginal bleeding Urinary symptoms:No hematuria;Stress incontinence Vulva:No genital lesion Vagina:Normal vaginal discharge Breast:No breast pain; No breast lump; No nipple discharge Sexual complaints:No sexual complaints; No pain during intercourse; Normal libido Menopausal Symptoms:Normal vaginal lubrication;Hot flashes Psychological symptoms:No anxiety; No PMDD;Depression Preventive measures:Encourage self breast examination; Encourage regular exercise; Encourage no tobacco use; Encourage regular mammograms starting age 40; Followed with Q3 year pap smear and high risk HPV typing; Needs to schedule mammogram; Needs to schedule colonoscopy Patient here for annual exam. Also states no cycle since 2011 and last month had period that lasted 5 days. MUNDO Smith [facility] 02/06/2017 09:12:44 05/17/2017 text/html Patient here to review test results from ultrasound. Ultrasound was normal. According to Dr. Rueda, nothing to do unless bleeding continues. MUNDO Toro [facility] 06/16/2017 09:39:07 OBGyn Episode No OBEpisode recorded.
== END 2024-05-12 15:53 | disposition home or self-care (01) ==
PROVIDERS: Emergency Provider Emergency Medicine; PCP Internal Medicine
DX: K52.9 Noninfective gastroenteritis and colitis, unspecified (principal); Z87.891 Personal history of nicotine dependence; Z87.442 Personal history of urinary calculi; E03.9 Hypothyroidism, unspecified; E11.9 Type 2 diabetes mellitus without complications; F32.A Depression, unspecified; J45.909 Unspecified asthma, uncomplicated; M19.90 Unspecified osteoarthritis, unspecified site; D64.9 Anemia, unspecified; F41.9 Anxiety disorder, unspecified; Z79.84 Long term (current) use of oral hypoglycemic drugs
CPT/HCPCS: 36415; 74177; 80053; 81001; 83690; 85025; 96360; 96361; 99283; J7030; Q9967